=== PATIENT | male | born 1960 | race Caucasian/White ===

== ENCOUNTER 2022-02-25 01:38 | Observation (INO) | payer MEDICARE, OTHER, SELFPAY ==
[2022-02-25] VITALS (21 sets, daily range): BP systolic 96–124; BP diastolic 56–79; PULSE 72–101; RESP 16–24; TEMP 36.3–36.7; O2SAT 95–100; BMI 20.8
[2022-02-25 02:03] LABS: Basophils Absolute Auto 0.1 K/mm3 (0.0-0.1); Basophils Percent Auto 0.8 % (0.2-1.2); Eosinophils Absolute Auto 0.7 K/mm3 (0-0.3); Eosinophils Percent Auto 7.4 % (0-4.4); Hematocrit 35.4 % (42.0-52.0); Hemoglobin 11.4 g/dL (14.0-18.0); Immature Granulocyte Absolute 0.04 K/mm3 (0.00-0.031); Immature Granulocyte Percent A 0.4 % (0-0.5); Lymphocytes Absolute Auto 0.88 K/mm3 (0.9-3.2); Lymphocytes Percent Auto 9.5 % (18.3-44.2); Mean Corpuscular HGB Conc 32.2 g/dl (32-36); Mean Corpuscular Hemoglobin 30.2 pg (26-34); Mean Corpuscular Volume 93.7 fl (80-100); Mean Platelet Volume 9.6 fl (7.4-10.4); Monocytes Absolute Auto 0.9 K/mm3 (0.1-0.6); Monocytes Percent Auto 9.6 % (2.6-8.5); Neutrophils Absolute Auto 6.7 K/mm3 (1.3-6.7); Neutrophils Percent Auto 72.3 % (45.5-73.1); Platelet Count Result 180 k/mm3 (150-375); Red Blood Count 3.78 M/mm3 (4.6-6.20); Red Cell Distribution Width 13.4 % (11.5-14.5); White Blood Count 9.3 K/mm3 (4.5-10.0)
[2022-02-25 02:13] LABS: Alanine Aminotransferase 16 U/L (6-50); Albumin Level 3.1 g/dL (3.5-5.1); Alkaline Phosphatase 111 U/L (38-126); Anion Gap 7 mmol/L (8-16); Aspartate Amino Transferase 17 U/L (17-59); Bilirubin,Total 0.3 mg/dL (0.2-1.3); Blood Urea Nitrogen 49 mg/dL (9-20); Calcium 7.9 mg/dL (8.4-10.2); Carbon Dioxide 27 mmol/L (22-30); Chloride 104 mmol/L (98-107); Estimated CRCL calculation 7 ml/min; Estimated Glomerular Filt Rate 6; Glucose 123 mg/dL (65-110); Potassium 3.9 mmol/L (3.4-5.0); Sodium 138 mmol/L (137-145)
[2022-02-25] MEDS: SODIUM CHLORIDE 0.9% IV 1,000 ML 999 ML IV CONT (02:15)
[2022-02-25] MEDS: PANTOPRAZOLE SODIUM IV 40 MG VIAL 80 MG IV PUSH (02:16)
[2022-02-25 02:47] LABS: INR 1.1
[2022-02-25 02:48] LABS: Partial Thromboplastin Time 30.5 SECONDS (22.3-36.8)
--- NOTE | 2022-02-25 02:50 | ED.GIBLEED ---
HPI - GI Bleed General Chief complaint: GI Bleed Stated complaint: blood in stool History of Present Illness HPI Narrative: Patient is a 61-year-old male who presents ER with a GI bleed. She woke up at 1145 and was having abdominal cramping. He passed liquid stool that was burn and also bright red. This occurred 3 times and then he felt improved. No dizziness or lightheaded or syncope. Patient takes Plavix. He underwent coronary stenting 3 weeks ago at [facility]. Patient also has history of end-stage renal disease and is on peritoneal dialysis. He got his full dialysis then tonight. There is no pain at this time. No nausea or vomiting. Denies recent epigastric discomfort or reflux. Related Data Home Medications Medication Instructions Recorded Confirmed ondansetron HCl 4 mg tablet 4 mg PO PRN PRN Nausea 01/12/19 04/17/19 (Zofran) betamethasone dipropionate 0.05 % 1 applic topical PRN PRN Rash 01/17/19 04/17/19 topical cream bisacodyl 5 mg tablet,delayed 5 mg PO PRN PRN Constipation 01/17/19 04/17/19 release (Dulcolax (bisacodyl)) cholecalciferol (vitamin D3) 50 2,000 unit PO DAILY 01/25/19 04/17/19 mcg (2,000 unit) tablet (Vitamin D3) polyethylene glycol 3350 17 gram 17 g PO DAILY PRN Constipation 01/25/19 04/17/19 oral powder packet (Miralax) amlodipine 5 mg tablet 5 mg PO DAILY 04/17/19 04/17/19 Allergies Allergy/AdvReac Type Severity Reaction Status Date / Time erythromycin base Allergy Mild Rash Verified 04/17/19 13:04 Review of Systems Review of Systems: All systems reviewed & are unremarkable except as noted in HPI and below Constitutional: Constitutional: Denies chills, Denies fatigue and Denies fever(s) ENT: Denies nasal congestion and Denies sore throat Cardiovascular: Cardiovascular: Denies chest pain, Denies rapid heart rate and Denies radiating jaw, neck or arm pain Respiratory: Respiratory: Denies cough and Denies dyspnea Gastrointestinal: Gastrointestinal: Denies abdominal pain, Reports diarrhea, Denies nausea and Denies vomiting Comments: Rectal bleeding Neurologic: Denies syncope and Denies headache(s) COUNT INCLUDES THE [facility] Past Medical History Medical History (Updated 02/25/22 @ 04:53 by Lenin Kirby MD) Coronary artery disease ESRD on peritoneal dialysis Kidney disease Surgical History Surgical History (Updated 02/25/22 @ 02:52 by Lenin Kirby MD) History of bowel resection partial bowel resection. History of inguinal hernia repair History of percutaneous coronary intervention Status post creation of arteriovenous fistula Status post insertion of dialysis catheter Family History Family History Father Hypertension Mother Hypertension Family history of malignant neoplasm Social History Social History Smoking status: Light tobacco smoker Alcohol intake: current Exam Narrative: GENERAL: Chronically ill-appearing and frail, no acute distress. HEAD: Normocephalic, atraumatic. EYES: PERRL and EOMI. ENT: Dry mucous membranes. CHEST: Clear to auscultation. No respiratory distress. HEART: Regular rate and rhythm. Normal peripheral pulses. ABDOMEN: Soft, nontender, nondistended. Gross blood noted on rectal exam. No external hemorrhoid. Peritoneal dialysis catheter in place without tenderness at the insertion site. EXTREMITIES: Normal range of motion. No edema. SKIN: Warm, dry, no rash. NEURO: Alert and oriented x3. PSYCH: Normal mood and affect. Course Course Emergency Course: Patient resting comfortably in the room. He has had no additional bloody bowel movements during his time in the ER which is currently 3 hours. He has received a liter of IV fluid his blood pressure has significantly improved. He has been started on Protonix drip. Patient considered stable. Discussed with Dr. Madsen with the hospitalist service. Alexandra
--- NOTE | 2022-02-25 03:09 | PC.NURSE ---
Pt states he woke up around 2345 and had approx 6 tarry stools mixed with bright red blood. He recently had a cardiac stent placed and was started on plavix. He also takes a baby aspirin daily. He c/o chronic nausea r/t end stage kidney disease but thinks it's been slightly worse the past few days. He c/o decreased appetite. Denies abdominal pain, chest pain, SOB, vomiting, or diarrhea. He does peritoneal dialysis every day and has not missed any treatments.
[2022-02-25] MEDS: SODIUM CHLORIDE 0.9% IV 1,000 ML 125 ML IV CONT (05:03)
[2022-02-25 05:21] LABS: Hematocrit 28.6 % (42.0-52.0); Hemoglobin 9.2 g/dL (14.0-18.0)
[2022-02-25 05:45] LABS: Influenza A QL RT-PCR Negative (Negative); Influenza B QL RT-PCR Negative (Negative); SARS-CoV-2 RNA PCR Negative
--- NOTE | 2022-02-25 05:48 | ADMGEN ---
This patient, Maximo Doty, was admitted to 3 [facility] Surg Room 303-01. Patient/family oriented to hospital policies and general routines including ID bracelet, bed and alarms, visiting hours, pain management, procedures, bathroom and other care routines, personal items, smoking policy, room service/diet, and visiting hours. Information on how to activate the Rapid Response Team has been discussed. Patient/Family are encouraged to report perceived risks to care and to ask questions if they do not understand what they are told or what they should do.
--- NOTE | 2022-02-25 10:24 | PM.CNCAR ---
Assessment and Plan Assessment and plan (1) GI bleed: Code(s): K92.2 - Gastrointestinal hemorrhage, unspecified Status: Acute (2) Acute on chronic anemia: Code(s): D64.9 - Anemia, unspecified Status: Acute (3) Coronary artery disease: Code(s): I25.10 - Atherosclerotic heart disease of [place] coronary artery without angina pectoris Status: Acute (4) ESRD on peritoneal dialysis: Code(s): N18.6 - End stage renal disease; Z99.2 - Dependence on renal dialysis Status: Acute Plan Patient recently had one drug-eluting stent placed in his proximal-mid LCX less than 1 month ago (done on 01/27). Given this, would NOT stop his ASA and Plavix. Recommend to continue DAPT to avoid stent thrombosis. GI has been consulted for his GI bleed. Recommend to continue statin. Patient is scheduled to follow-up with his religious healer Dr. Cheng next week. History of Present Illness History of Present Illness Consult date/time: 02/25/22 10:24 Requesting physician: Lenin Kirby MD Consult reason: Other (Medication management in setting of GI bleed.) Reason For Visit: Rectal Bleeding Narrative: We are being consulted for antiplatelet management in setting of GI bleed and recent coronary stent. This is a 61-year-old male with a history of coronary artery disease. He recently underwent PCI by Dr. Garvey on 01/27 with a 4.0mm x 15mm Orsiro drug-eluting stent to his proximal-mid LCX. He also had moderate LAD disease that was negative for ischemia by IFR evaluation. Also had moderate RCA disease. Patient has been on ASA and Plavix since then. Last night, he woke up with abdominal cramping and had multiple stools with bright red blood along with maroon colored blood. Had multiple bowel movements. Warren lightheaded at that time. His Hgb on admission is 9.2 Patient also has a history of ESRD on peritoneal dialysis. He is currently hemodynamically stable. No cardiac complaints. Has followup with his religious healer Dr. Cheng next week. Review of Systems Review of Systems: 12-point ROS obtained. Negative, unless stated in HPI. [facility] Past Medical History Medical History Coronary artery disease ESRD on peritoneal dialysis Kidney disease Surgical History Surgical History History of bowel resection partial bowel resection. History of inguinal hernia repair History of percutaneous coronary intervention Status post creation of arteriovenous fistula Status post insertion of dialysis catheter Family History Family History Father Hypertension Mother Hypertension Family history of malignant neoplasm Social History Social History Smoking packs per day: 0.25 Smoking cigarettes per day: 5.0 Smoking status: Current every day smoker Tobacco type: cigarettes Alcohol intake: current Drinks per week: 1 Substance use: current Substance use type: marijuana Lack of Transportation: No Lack of Food: Never True Current Housing: I Have Housing Concerned About Future Housing: No Difficulty Paying Gas/Electric Bills: No Difficulty Paying for Meds: No Currently Unemployed: No Education: High School Diploma/GED Difficulty w/ Childcare or Family Care: No Spiritual care concerns: No Meds Home Medications and Allergies Home Medications Medication Instructions Recorded Confirmed Type ondansetron HCl 4 mg tablet 4 mg PO PRN PRN Nausea 01/12/19 02/25/22 History (Zofran) betamethasone dipropionate 0.05 % 1 applic topical PRN PRN Rash 01/17/19 02/25/22 History topical cream cholecalciferol (vitamin D3) 50 2,000 unit PO DAILY 01/25/19 02/25/22 History mcg (2,000 unit) tablet (Vitamin D3) polyethylene glycol 3350 17 gram 17 g PO DAILY PRN Constipation 12
[2022-02-25 11:08] LABS: Hematocrit 28.5 % (42.0-52.0); Hemoglobin 9.1 g/dL (14.0-18.0)
--- NOTE | 2022-02-25 12:31 | WPDGICN ---
Assessment and Plan Assessment and plan (1) GI bleed: Code(s): K92.2 - Gastrointestinal hemorrhage, unspecified Status: Acute Assessment and Plan: Patient with rather significant GI bleeding. Both fresh and old blood were passed starting 11:00 a.m. last evening lasted for several hours. No additional bleeding since that time. This is most consistent with diverticular bleeding. Probably aggravated by requirement of being on Plavix. Patient reports colonoscopy within the last several years that revealed no polyps. Only diverticular disease identified. Anticipate this would stop on its own. Plan to monitor patient until hemoglobin is stabilized. Advance to a high-fiber diet. Outpatient follow-up encouraged. (2) ESRD on peritoneal dialysis: Code(s): N18.6 - End stage renal disease; Z99.2 - Dependence on renal dialysis Status: Acute (3) Coronary artery disease: Code(s): I25.10 - Atherosclerotic heart disease of [place] coronary artery without angina pectoris Status: Acute Assessment and Plan: Patient with a recent coronary stent placement. Continuing Plavix will be required daily. This could place him at risk for additional bleeding. Continue monitor for signs of additional bleeding. (4) Diverticular disease of colon: Code(s): K57.30 - Diverticulosis of large intestine without perforation or abscess without bleeding Status: Acute Assessment and Plan: Patient known to have diverticular disease of the colon. He has previously had diverticulitis required resection of pericolonic abscess and partial colon resection at that time. I suspect bleeding at this time is related to diverticular disease of the colon. GI Consult Note Consult date/time: 02/25/22 12:31 Reason for consult: Lower GI bleeding HPI: Maximo Doty is a 61 year old male I am asked to see at the request of the hospitalist because of lower GI bleeding. Patient reports he was in his usual state of health till last evening when he began to pass a large amount of blood some clots some fresh admixed with dark blood. Patient noticed this that persisted with several bowel movements that lasted for several hours. He presented to the emergency room and was admitted. He states bleeding stopped after 1:00 a.m. in the morning. He has had no blood or bowel movements since that time. Patient denies abdominal pain. Patient's past medical history is significant for diverticulitis. Several years ago underwent sigmoid resection because of diverticulitis and pericolonic abscess. Earlier this year patient had repair of an incisional hernia. One month ago shortly before [place] he had a coronary artery stent placement at [facility]. It was a drug alluding stent, and since that time patient has been maintained on Plavix. He will be required to continue this medication for at least 6 months. Patient has end-stage renal disease. He is currently on peritoneal dialysis. Previously had an AV shunt in the left arm that is not being utilized. Review of Systems Review of Systems: Review of systems non contributory per [facility] Past Medical History Medical History Coronary artery disease ESRD on peritoneal dialysis Kidney disease Surgical History Surgical History History of bowel resection partial bowel resection. History of inguinal hernia repair History of percutaneous coronary intervention Status post creation of arteriovenous fistula Status post insertion of dialysis catheter Family History Family History Father Hypertension Mother Hypertension Family history of malignant neoplasm Social History Social History Smoking packs per day: 0.25 Smoking cigarettes per da
--- NOTE | 2022-02-25 13:17 | PM.IMHP ---
H&P: HPI History of Present Illness Date/Time: 02/25/22 13:17 Chief Complaint: rectal bleeding Narrative: ED-HPI Narrative: Patient is a 61-year-old male who presents ER with a GI bleed.? She woke up at 1145 and was having abdominal cramping.? He passed liquid stool that was burn and also bright red.? This occurred 3 times and then he felt improved.? No dizziness or lightheaded or syncope.? Patient takes Plavix.? He underwent coronary stenting 3 weeks ago at [facility].? Patient also has history of end-stage renal disease and is on peritoneal dialysis.? He got his full dialysis then tonight.? There is no pain at this time.? No nausea or vomiting.? Denies recent epigastric discomfort or reflux. currently patient any abdominal pain nausea or vomiting or rectal bleeding, upon arrival patient hemoglobin was 11.4 this morning is 9.2 will continue to monitor, 3 weeks ago patient had a cardiac stent placed and was started on Plavix and aspirin, since patient's stents so fresh, and high risk of clogged, will continue will continue aspirin and Plavix, will monitor patient hemoglobin q.6, will be seen by Cardiology and GI further recommendation to follow. patient with history of end-stage renal disease on peritoneal dialysis, patient is not requesting dietary aide. patient is admitted as observation status Review of Systems Review of Systems: Review of systems non contributory per [facility] Past Medical History Medical History Coronary artery disease ESRD on peritoneal dialysis Kidney disease Surgical History Surgical History History of bowel resection partial bowel resection. History of inguinal hernia repair History of percutaneous coronary intervention Status post creation of arteriovenous fistula Status post insertion of dialysis catheter Family History Family History Father Hypertension Mother Hypertension Family history of malignant neoplasm Social History Social History Smoking packs per day: 0.25 Smoking cigarettes per day: 5.0 Smoking status: Current every day smoker Tobacco type: cigarettes Alcohol intake: current Drinks per week: 1 Substance use: current Substance use type: marijuana Lack of Transportation: No Lack of Food: Never True Current Housing: I Have Housing Concerned About Future Housing: No Difficulty Paying Gas/Electric Bills: No Difficulty Paying for Meds: No Currently Unemployed: No Education: High School Diploma/GED Difficulty w/ Childcare or Family Care: No Spiritual care concerns: No Meds Home Medications and Allergies Home Medications Medication Instructions Recorded Confirmed Type ondansetron HCl 4 mg tablet 4 mg PO PRN PRN Nausea 01/12/19 02/25/22 History (Zofran) betamethasone dipropionate 0.05 % 1 applic topical PRN PRN Rash 01/17/19 02/25/22 History topical cream cholecalciferol (vitamin D3) 50 2,000 unit PO DAILY 01/25/19 02/25/22 History mcg (2,000 unit) tablet (Vitamin D3) polyethylene glycol 3350 17 gram 17 g PO DAILY PRN Constipation 01/25/19 02/25/22 History oral powder packet (Miralax) amlodipine 5 mg tablet 10 mg PO DAILY 04/17/19 02/25/22 History aspirin 81 mg tablet,delayed 81 mg PO DAILY 02/25/22 02/25/22 History release atorvastatin 20 mg tablet (Lipitor) 20 mg PO DAILY 02/25/22 02/25/22 History clopidogrel 75 mg tablet (Plavix) 75 mg PO DAILY 02/25/22 02/25/22 History vit A 7,160 unit-C 113 mg-E 100 1 tablet PO DAILY 02/25/22 02/25/22 History [id number] tablet,delayed rel. Allergies Allergy/AdvReac Type Severity Reaction Status Date / Time lorazepam [From Ativan] Allergy Severe Confusion Verified 02/25/22 05:57 erythromycin base Allergy Mild Rash Verified 04/17/19 13:04
[2022-02-25 18:04] LABS: Hematocrit 28.7 % (42.0-52.0); Hemoglobin 9.2 g/dL (14.0-18.0)
[2022-02-25] MEDS: ATORVASTATIN 20 MG TABLET PO (20:58)
[2022-02-25] MEDS: ASPIRIN 81 MG ENTERIC TABLET PO (20:58)
[2022-02-25] MEDS: CHOLECALCIFEROL 1,000 UNITS TABLET 2000 UNITS PO (20:58)
[2022-02-25] MEDS: OPTI-GEN TAB 1 TABLET PO (20:58)
[2022-02-25] MEDS: CLOPIDOGREL BISULFATE 75 MG TABLET PO (20:59)
[2022-02-25] MEDS: amLODIPine BESYLATE 5 MG TABLET 10 MG PO (20:59)
[2022-02-25 23:48] LABS: Hematocrit 30.1 % (42.0-52.0); Hemoglobin 9.8 g/dL (14.0-18.0)
--- NOTE | 2022-02-26 | PC.NURSE ---
Notified Dr. Madsen at this time r/t patient elevated HR and rhythm change on telemetry. New orders received for EKG. 00:13 EKG done showing A-Fib RVR. Notified Dr. Madsen of results. New orders received for Metoprolol 5mg IV push once.
--- NOTE | 2022-02-26 00:13 | ECG_ITS ---
Measurements Intervals [place] Rate: 132 P: [place]: 0 QRS: 44 QRSD: 90 T: 64 QT: 306 QTc: 454 Interpretive Statements ATRIAL FIBRILLATION WITH RAPID VENTRICULAR RESPONSE BORDERLINE ST ABNORMALITY- LATERAL LEADS ABNORMAL ECG COMPARED TO ECG 07/21/2018 12:41:38 ATRIAL FIBRILLATION NOW PRESENT ST (T WAVE) DEVIATION NOW PRESENT Electronically Signed On 02-26-2022 7:49:41 ACCOUNTS PAYABLE COORDINATOR by Edmond Patino D.O.
[2022-02-26] MEDS: METOPROLOL TARTRATE INJ 5 MG/5 ML VIAL IV PUSH (01:13)
[2022-02-26 04:00] VITALS: PULSE 122
[2022-02-26 06:00] VITALS: BP 122/72; PULSE 111; RESP 14; TEMP 36.4; O2SAT 99
[2022-02-26 06:10] LABS: Hematocrit 31.4 % (42.0-52.0); Hemoglobin 10.1 g/dL (14.0-18.0); Mean Corpuscular HGB Conc 32.2 g/dl (32-36); Mean Corpuscular Hemoglobin 30.5 pg (26-34); Mean Corpuscular Volume 94.9 fl (80-100); Mean Platelet Volume 9.5 fl (7.4-10.4); Platelet Count Result 162 k/mm3 (150-375); Red Blood Count 3.31 M/mm3 (4.6-6.20); Red Cell Distribution Width 13.2 % (11.5-14.5); White Blood Count 6.7 K/mm3 (4.5-10.0)
[2022-02-26 06:16] LABS: Albumin Level 2.9 g/dL (3.5-5.1); Anion Gap 7 mmol/L (8-16); Blood Urea Nitrogen 54 mg/dL (9-20); Carbon Dioxide 22 mmol/L (22-30); Chloride 109 mmol/L (98-107); Estimated CRCL calculation 6 ml/min; Estimated Glomerular Filt Rate 6; Glucose 85 mg/dL (65-110); Magnesium 2.1 mg/dL (1.6-2.3); Phosphorus 5.8 mg/dL (2.5-4.5); Potassium 4.2 mmol/L (3.4-5.0); Sodium 138 mmol/L (137-145)
[2022-02-26 08:00] VITALS: PULSE 123
[2022-02-26] MEDS: PANTOPRAZOLE 40 MG TABLET PO (08:13)
[2022-02-26] MEDS: ONDANSETRON HCL ODT 4 MG TABLET PO (08:14)
--- NOTE | 2022-02-26 08:26 | WPDGIPROGNO ---
Progress Note: A&P Assessment and Plan (1) GI bleed: Code(s): K92.2 - Gastrointestinal hemorrhage, unspecified Status: Acute Assessment and Plan: Patient admitted with apparent lower GI bleeding. History is very suspicious for diverticular disease. Patient recently started on Plavix because of heart stent. At present Plavix cannot be discontinue. Bleeding has abated. Would recommend a colonoscopy be performed to further be certain about the etiology of the bleeding. At this point however patient has stopped bleeding he refuses to remain in the hospital for colonoscopy. He does have an established sleeve bottom feller. Plan is for him to follow-up with Dr. Leighton Melton for colonoscopy and possible EGD, if necessary. patient will remain on Plavix. If additional bleeding noted he is instructed to return to the emergency room. (2) Diverticular disease of colon: Code(s): K57.30 - Diverticulosis of large intestine without perforation or abscess without bleeding Status: Acute Assessment and Plan: Patient has history of diverticulitis and partial colon resection on this basis. Apparently had pericolonic abscess at that time. Known diverticular disease is suspected be etiology of recent blood loss. (3) Acute on chronic anemia: Code(s): D64.9 - Anemia, unspecified Status: Acute Assessment and Plan: Patient with anemia. Hemoglobin currently stable since admission. Slight decline noted on presentation. Currently stable hemoglobin. Okay with me for discharge at this point. (4) Coronary artery disease: Code(s): I25.10 - Atherosclerotic heart disease of [place] coronary artery without angina pectoris Status: Acute Assessment and Plan: Patient had a heart stent placed currently on Plavix he should continue to follow-up with cardiology as scheduled. (5) ESRD on peritoneal dialysis: Code(s): N18.6 - End stage renal disease; Z99.2 - Dependence on renal dialysis Status: Acute Subjective Date/time seen: 02/26/22 08:26 Interval history: No additional bleeding noted. Patient reports bowel movement with no blood in it. He denies abdominal pain. Tolerating diet without difficulty. Anxious to go home. Refuses additional in patient testing. Desires to have outpatient testing. Review of Systems Review of Systems: review of systems noncontributory. Exam Narrative: Physical exam reveals patient to be alert. Vital signs stable. HEENT exam is unremarkable. Patient is anicteric. Lungs are clear to auscultation and percussion. Heart without murmur. Abdomen bowel sounds present soft nontender with no hepatosplenomegaly. Objective Data Vital Signs Vital Signs: Vital Signs - 24 hr 02/25/22 08:36 02/25/22 08:45 02/25/22 08:49 Temperature 98.0 F Pulse Rate 79 87 Respiratory Rate 16 Blood Pressure 112/71 115/68 Pulse Oximetry 95 97 Oxygen Delivery Room Air 02/25/22 08:53 02/25/22 08:30 02/25/22 14:30 Temperature 98.0 F Pulse Rate 90 76 Respiratory Rate 16 Blood Pressure 113/79 110/70 Pulse Oximetry 97 Oxygen Delivery Room Air 02/25/22 10:21 02/25/22 12:00 02/25/22 16:00 Temperature Pulse Rate 100 82 77 Respiratory Rate Blood Pressure Pulse Oximetry Oxygen Delivery 02/25/22 20:54 02/25/22 20:00 02/26/22 06:00 Temperature 97.4 F L 97.5 F L Pulse Rate 88 111 H Respiratory Rate 18 14 Blood Pressure 124/66 122/72 Pulse Oximetry 98 98 99 Oxygen Delivery Room Air 02/25/22 20:00 02/26/22 04:00 Temperature Pulse Rate 77 122 H Respiratory Rate Blood Pressure Pulse Oximetry Oxygen Delivery Intake/Output Intake/Output: Intake & Output 02/23/22 02/24/22 02/25/22 02/26/22 23:59 23:59 23:59 23:59 Intake Total 2580 330 Output Total 800 Balance 2580 -470 Meds/Results Medications: Active Medications Generic Name Dose Route Start Last Admin
--- NOTE | 2022-02-26 10:07 | PM.IMPN ---
Subjective Date/time seen: 02/26/22 10:07 Objective Data Vital Signs Vital Signs: Vital Signs - 24 hr 02/25/22 14:30 02/25/22 10:21 02/25/22 12:00 Temperature 98.0 F Pulse Rate 76 100 82 Respiratory Rate 16 Blood Pressure 110/70 Pulse Oximetry 97 Oxygen Delivery 02/25/22 16:00 02/25/22 20:54 02/25/22 20:00 Temperature 97.4 F L Pulse Rate 77 88 Respiratory Rate 18 Blood Pressure 124/66 Pulse Oximetry 98 98 Oxygen Delivery Room Air 02/26/22 06:00 02/25/22 20:00 02/26/22 04:00 Temperature 97.5 F L Pulse Rate 111 H 77 122 H Respiratory Rate 14 Blood Pressure 122/72 Pulse Oximetry 99 Oxygen Delivery Intake/Output Intake/Output: Intake & Output 02/23/22 02/24/22 02/25/22 02/26/22 23:59 23:59 23:59 23:59 Intake Total 2580 570 Output Total 800 Balance 2580 -230 Meds/Results Medications: Active Medications Generic Name Dose Route Start Last Admin Trade Name Freq PRN Reason Stop Dose Admin Amlodipine Besylate 10 mg 02/25/22 21:00 02/25/22 20:59 Amlodipine Besylate 5 Mg Tablet PO 10 mg HS ALEXANDRE Administration Aspirin 81 mg 02/25/22 21:00 02/25/22 20:58 Aspirin 81 Mg Enteric Tablet PO 81 mg HS ALEXANDRE Administration Atorvastatin Calcium 20 mg 02/25/22 21:00 02/25/22 20:58 Atorvastatin 20 Mg Tablet PO 20 mg HS ALEXANDRE Administration Clopidogrel Bisulfate 75 mg 02/25/22 21:00 02/25/22 20:59 Clopidogrel Bisulfate 75 Mg Tablet PO 75 mg HS ALEXANDRE Administration Fentanyl Citrate 50 mcg 02/25/22 04:49 Fentanyl Citrate Inj (*Crx) 100 Mcg/2 Ml Vial IV PUSH Q2H PRN Pain Rated 7-10 Multivitamins/Minerals 1 tablet 02/25/22 21:00 02/25/22 20:58 Opti-Gen Tab PO 03/27/22 08:59 1 tablet HS ALEXANDRE Administration Ondansetron HCl 4 mg 02/25/22 08:32 02/26/22 08:14 Ondansetron Hcl Odt 4 Mg Tablet PO 4 mg PRN PRN Administration Nausea Pantoprazole Sodium 40 mg 02/26/22 09:00 02/26/22 08:13 Pantoprazole 40 Mg Tablet PO 40 mg QAM ALEXANDRE Administration Polyethylene Glycol 17 gm 02/25/22 08:32 Polyethylene Glycol 3350 17 Gm Powd.Pack PO DAILY PRN Constipation Triamcinolone Acetonide 1 applic 02/25/22 08:32 Triamcinolone Acet 0.1% Cream 15 Gm Tube TOPICAL PRN PRN Rash Vitamin D 2,000 units 02/25/22 21:00 02/25/22 20:58 Cholecalciferol 1,000 Units Tablet PO 2,000 units HS ALEXANDRE Administration Labs Labs: Laboratory Results - last 24 hr 02/25/22 02/25/22 02/25/22 10:53 17:38 23:35 WBC RBC Hgb 9.1 L 9.2 L 9.8 L Hct 28.5 L 28.7 L 30.1 L MCV MCH MCHC RDW Plt Count MPV Sodium Potassium Chloride Carbon Dioxide Anion Gap BUN Creatinine Estim Creat Clear Calc Estimated GFR Glucose Calcium Phosphorus Magnesium Albumin 02/26/22 02/26/22 05:59 05:59 WBC 6.7 RBC 3.31 L Hgb 10.1 L Hct 31.4 L MCV 94.9 MCH 30.5 MCHC 32.2 RDW 13.2 Plt Count 162 MPV 9.5 Sodium 138 Potassium 4.2 Chloride 109 H Carbon Dioxide 22 Anion Gap 7 L BUN 54 H Creatinine 9.30 H Estim Creat Clear Calc 6 Estimated GFR 6 L Glucose 85 Calcium 8.0 L Phosphorus 5.8 H Magnesium 2.1 Albumin 2.9 L
--- NOTE | 2022-03-06 13:51 | PM.DS ---
DS: Admitting Diagnosis Discharge Date 02/26/22 Admitting Diagnosis rectal bleeding DS: Summary Hospital Course Reason for hospitalization: ED-HPI Narrative: Patient is a 61-year-old male who presents ER with a GI bleed.? She woke up at 1145 and was having abdominal cramping.? He passed liquid stool that was burn and also bright red.? This occurred 3 times and then he felt improved.? No dizziness or lightheaded or syncope.? Patient takes Plavix.? He underwent coronary stenting 3 weeks ago at [facility].? Patient also has history of end-stage renal disease and is on peritoneal dialysis.? He got his full dialysis then tonight.? There is no pain at this time.? No nausea or vomiting.? Denies recent epigastric discomfort or reflux. ?currently patient any abdominal pain nausea or vomiting or rectal bleeding, upon arrival patient hemoglobin was 11.4? this morning is 9.2? will continue to monitor, 3 weeks ago patient had a cardiac stent placed and was started on Plavix and aspirin, since patient's stents? so fresh, and high risk of clogged,? will continue will continue aspirin and Plavix, will monitor patient hemoglobin q.6, will be seen by Cardiology and GI further recommendation to follow.? patient with history of end-stage renal disease on peritoneal dialysis, patient is not requesting pulp grinder. Hospital Course: Patient is a 61 y/o s/p cardiac cath and had cardiac stents placed 3 weeks ago and has been taking plavix and aspirin for his CAD, patient present to the hospital with rectal blenteding, becuse recently had stents placed unable to discontinue because of clogging the recent stents place and risk of [place], patient is seen by GI, patient bleeding has stopped and patient is clinically stable, he does not wish to remain in the hospital, GI is agreeable to discharge patient to follow up with his GI and apple solutions consultant, with instruction if any symptoms redevelop to go to nearest ER Time Spent with Patient Time attestation: Total time spent providing and/or coordinating discharge services: Exam Narrative: Patient is comfortable, NAD HEENT: eyes are clear and none icteric LUNGS: normal respiratory effort ABD:? not distended Lower extremities: no edema SKIN: nonjaundiced Neuro: grossly intact. Discharge Plan Discharge Attending physician on discharge: Jonathan Aguilar Consulting providers: Yoel Ann ; Manda Hassan ; Edmond Patino Discharging Clinician: Jonathan Aguilar Patient Disposition: Home, Self-Care Activity: as tolerated Diet: heart healthy Discharge Instructions: Patient to follow-up with his bilingual inside sales representative, primary care provider and [employer] consultant as soon as possible, patient instructed if any symptoms redeveloped such as bleeding to go to nearest emergency department. Patient Instructions: Antibiotic Form, How to Stop Smoking (DC) Stand Alone Forms: General Discharge Information Follow-up/Referrals: Vargas,Traci Rai DO [Primary Care Provider] - Discharge Medications: New pantoprazole 40 mg Tablet,Delayed Release (Dr/Ec) 40 mg PO QAM Qty: 30 0RF Continued ondansetron HCl [Zofran] 4 mg tablet 4 mg PO PRN PRN (Reason: Nausea) amlodipine 5 mg tablet 10 mg PO DAILY polyethylene glycol 3350 [Miralax] 17 gram Powder In Packet 17 g PO DAILY PRN (Reason: Constipation) cholecalciferol (vitamin D3) [Vitamin D3] 2,000 unit Tablet 2,000 unit PO DAILY atorvastatin [Lipitor] 20 mg Tablet 20 mg PO DAILY clopidogrel [Plavix] 75 mg tablet 75 mg PO DAILY aspirin 81 mg tablet,delayed release (DR/EC) 81 mg PO DAILY vitamins A,C,U-ewap-dujtol [id number] Tablet,Delayed Release (Dr/Ec) 1 tablet PO DAILY betamethasone dipropionate 0.05 % Cream 1 applic TOPICAL PRN PRN (Reason: Rash) No Action isosorbide mononitrate 30 mg tablet extended release 24 hr 30 mg PO DAILY ferrous sulfate [Feosol] 325 mg (65 mg iron)
--- NOTE | 2022-03-15 14:34 | PM.DS ---
DS: Admitting Diagnosis Discharge Date 02/26/22 Admitting Diagnosis rectal bleeding DS: Summary Hospital Course Reason for hospitalization: ?rectal bleeding Narrative: ED-HPI Narrative: Patient is a 61-year-old male who presents ER with a GI bleed.? She woke up at 1145 and was having abdominal cramping.? He passed liquid stool that was burn and also bright red.? This occurred 3 times and then he felt improved.? No dizziness or lightheaded or syncope.? Patient takes Plavix.? He underwent coronary stenting [address] [facility].? Patient also has history of end-stage renal disease and is on peritoneal dialysis.? He got his full dialysis then tonight.? There is no pain at this time.? No nausea or vomiting.? Denies recent epigastric discomfort or reflux. ?currently patient denies any abdominal pain nausea or vomiting or rectal bleeding, upon arrival patient hemoglobin was 11.4? this morning is 9.2? will continue to monitor, 3 weeks ago patient had a cardiac stent placed and was started on Plavix and aspirin, since patient's stents? so fresh, and high risk of clogged,? will continue will continue aspirin and Plavix, will monitor patient hemoglobin q.6, will be seen by Cardiology and GI further recommendation to follow.? patient with history of end-stage renal disease on peritoneal dialysis, patient is not requesting financial foundations representative. Hospital Course: patient 61 years old recently had a cardiac stents being treated with dual anti-platelet therapy, and presented emergency depart to complain of rectal bleeding, patient was seen by GI recommended EGD and colonoscopy however patient is on dual anti-platelet therapy unable to hold the medication because of recent stent and risk for clogging, this morning patient denies any abdominal pain or rectal bleeding is clinically stable will discharge the patient today and will follow up with his GI as soon as possible. Time Spent with Patient Time attestation: Total time spent providing and/or coordinating discharge services: Exam Narrative: Patient is comfortable, NAD HEENT: eyes are clear and none icteric LUNGS:CTA HEART: RR S1S2 ABD: BS+, Soft and nontender Lower extremities: no edema SKIN: nonjaundiced Neuro: grossly intact. Discharge Plan Discharge Attending physician on discharge: Jonathan Aguilar Consulting providers: Yoel Ann ; Manda Hassan ; Edmond Patino Discharging Clinician: Jonathan Aguilar Patient Disposition: Home, Self-Care Activity: as tolerated Diet: heart healthy Discharge Instructions: Patient to follow-up with his employee service officer, primary care provider and medical concierge as soon as possible, patient instructed if any symptoms redeveloped such as bleeding to go to nearest emergency department. Patient Instructions: Antibiotic Form, How to Stop Smoking (DC) Stand Alone Forms: General Discharge Information Follow-up/Referrals: Vargas,Traci Rai DO [Primary Care Provider] - Discharge Medications: New pantoprazole 40 mg Tablet,Delayed Release (Dr/Ec) 40 mg PO QAM Qty: 30 0RF Continued ondansetron HCl [Zofran] 4 mg tablet 4 mg PO PRN PRN (Reason: Nausea) amlodipine 5 mg tablet 10 mg PO DAILY polyethylene glycol 3350 [Miralax] 17 gram Powder In Packet 17 g PO DAILY PRN (Reason: Constipation) cholecalciferol (vitamin D3) [Vitamin D3] 2,000 unit Tablet 2,000 unit PO DAILY atorvastatin [Lipitor] 20 mg Tablet 20 mg PO DAILY clopidogrel [Plavix] 75 mg tablet 75 mg PO DAILY aspirin 81 mg tablet,delayed release (DR/EC) 81 mg PO DAILY vitamins A,C,D-nhpo-pzdgmr [id number] Tablet,Delayed Release (Dr/Ec) 1 tablet PO DAILY betamethasone dipropionate 0.05 % Cream 1 applic TOPICAL PRN PRN (Reason: Rash) No Action isosorbide mononitrate 30 mg tablet extended release 24 hr 30 mg PO DAILY ferrous sulfate [Feosol] 325 mg (65 mg iron) tablet 325
== END 2022-02-26 10:45 | disposition home or self-care (01) ==
LOC: ANHED 04:53 → ANH3MEDSUR 05:36
PROVIDERS: Admitting Provider Family Medicine; Emergency Provider Emergency Medicine; PCP Internal Medicine; Visit Provider Family Medicine
DX: K92.2 Gastrointestinal hemorrhage, unspecified (principal); I48.91 Unspecified atrial fibrillation; D64.9 Anemia, unspecified; I25.10 Atherosclerotic heart disease of native coronary artery without angina pectoris; Z95.5 Presence of coronary angioplasty implant and graft; N18.6 End stage renal disease; Z99.2 Dependence on renal dialysis; R94.31 Abnormal electrocardiogram [ECG] [EKG]; Z90.49 Acquired absence of other specified parts of digestive tract; F17.210 Nicotine dependence, cigarettes, uncomplicated; F12.90 Cannabis use, unspecified, uncomplicated; F10.90 Alcohol use, unspecified, uncomplicated; Z20.822 Contact with and (suspected) exposure to COVID-19; Z79.02 Long term (current) use of antithrombotics/antiplatelets; Z79.82 Long term (current) use of aspirin; Z79.52 Long term (current) use of systemic steroids; Z79.899 Other long term (current) drug therapy
CPT/HCPCS: 36415; 80053; 80069; 83735; 85014; 85018; 85025; 85027; 85610; 85730; 86850; 86900; 86901; 87636; 93005; 96361; 96374; 96375; 99285; A9270; C9113; G0378; J7030; J7060

== ENCOUNTER 2022-03-02 22:42 | Observation (INO) | payer MEDICARE, OTHER, SELFPAY ==
--- NOTE | ~2022-03-02 | CT_ITS ---
CT Angiogram Abdomen and Pelvis with contrast. History: GI bleed. Spiral CT of the abdomen and pelvis was performed after the administration of intravenous contrast. 1 00 cc of Omnipaque 350 was administered intravenously without complication. Dose reduction technique was used on this scan by utilizing automated exposure control and iterative reconstruction technique. The dose-length product (DLP) was 376.67 mGy-cm. COMPARISON: 07/21/2018 Findings: Scans through the lung bases demonstrate mild atelectatic change. The liver, spleen, pancreas, gallbladder, adrenals and kidneys are within normal limits. There is inf rarenal abdominal aortic aneurysm measuring up to 3.4 cm in maximum diameter.. No lymphadenopathy is seen. There is no evidence of bowel obstruction. There is probable oral contrast within several loops of sm all bowel in the midabdomen. No other abnormal hyperdense intraluminal material identified.. Images through the pelvis were performed. Urinary bladder unremarkable. Prostate gland mildly enlarge d. Peritoneal dialysis catheter is present, with small amount of abdominopelvic ascites. Impression: Probable oral contrast within several loops of small bowel. No definite evidence for active GI bleedi ng. Peritoneal dialysis catheter with small amount of ascites. 3.4 cm infrarenal abdominal aortic aneurysm. Reviewed, dictated and finalized at location [facility] Impression: Probable oral contrast within several loops of small bowel. No definite evidenc e for active GI bleeding. Peritoneal dialysis catheter with small amount of ascites. 3.4 cm infrarenal abdominal aortic aneurysm.
[2022-03-02 22:46] VITALS: BP 99/48; PULSE 88; RESP 18; TEMP 36.6; O2SAT 94
--- NOTE | 2022-03-02 23:17 | ED.GENADULT ---
HPI - General Adult General Chief complaint: GI Bleed Stated complaint: Gi bleed Time Seen by Provider: 03/02/22 22:57 History of Present Illness HPI narrative: Patient 61-year-old gentleman who presents the emergency department with chief complaint of rectal bleeding. The patient reports that he recently had a GI bleed was admitted to the hospital here and reports that he is on Plavix and aspirin after recent cardiac stent. Patient also reports he has history of renal disease and is on peritoneal dialysis the patient reports that he was in the hospital recently bleeding it stopped did not require blood transfusion during the previous admission and has had 2 to 3 days of no bleeding. The patient states that today he started having bloody diarrhea reports no abdominal pain reports no cloudy peritoneal dialysis fluid Related Data Home Medications Medication Instructions Recorded Confirmed ondansetron HCl 4 mg tablet 4 mg PO PRN PRN Nausea 01/12/19 02/25/22 (Zofran) betamethasone dipropionate 0.05 % 1 applic topical PRN PRN Rash 01/17/19 02/25/22 topical cream cholecalciferol (vitamin D3) 50 2,000 unit PO DAILY 01/25/19 02/25/22 mcg (2,000 unit) tablet (Vitamin D3) polyethylene glycol 3350 17 gram 17 g PO DAILY PRN Constipation 01/25/19 02/25/22 oral powder packet (Miralax) amlodipine 5 mg tablet 10 mg PO DAILY 04/17/19 02/25/22 aspirin 81 mg tablet,delayed 81 mg PO DAILY 02/25/22 02/25/22 release atorvastatin 20 mg tablet (Lipitor) 20 mg PO DAILY 02/25/22 02/25/22 clopidogrel 75 mg tablet (Plavix) 75 mg PO DAILY 02/25/22 02/25/22 vit A 7,160 unit-C 113 mg-E 100 1 tablet PO DAILY 02/25/22 02/25/22 [id number] tablet,delayed rel. Allergies Allergy/AdvReac Type Severity Reaction Status Date / Time lorazepam [From Ativan] Allergy Severe Confusion Verified 03/02/22 22:43 erythromycin base Allergy Mild Rash Verified 03/02/22 22:43 Review of Systems Review of Systems: A 10 system review of systems was completed on the patient and is negative except for what is stated in the HPI. Nursing and ancillary documentation was reviewed. PMFSH Past Medical History Medical History Coronary artery disease ESRD on peritoneal dialysis Kidney disease Surgical History Surgical History History of bowel resection partial bowel resection. History of inguinal hernia repair History of percutaneous coronary intervention Status post creation of arteriovenous fistula Status post insertion of dialysis catheter Family History Family History Father Hypertension Mother Hypertension Family history of malignant neoplasm Social History Social History Smoking packs per day: 0.25 Smoking cigarettes per day: 5.0 Smoking status: Current every day smoker Tobacco type: cigarettes Alcohol intake: current Drinks per week: 1 Substance use: current Substance use type: marijuana Lack of Transportation: No Lack of Food: Never True Current Housing: I Have Housing Concerned About Future Housing: No Difficulty Paying Gas/Electric Bills: No Difficulty Paying for Meds: No Currently Unemployed: No Education: High School Diploma/GED Difficulty w/ Childcare or Family Care: No Living arrangements: with family Occupation/Education: unemployed Spiritual care concerns: No Exam Narrative: GENERAL: Well-appearing, well-nourished, and in no acute distress. HEAD: Normocephalic, atraumatic. EYES: PERRLA and EOMI. ENT: Nares clear, no rhinorrhea or epistaxis. Mucous membranes moist. NECK: Supple. CHEST: Clear to auscultation. No respiratory distress. HEART: Regular rate and rhythm. No murmur heard. Normal peripheral pulses. ABDOMEN: Soft, nonte
[2022-03-02 23:47] LABS: Basophils Percent Auto 0.3 % (0.2-1.2); Eosinophils Absolute Auto 0.7 K/mm3 (0-0.3); Eosinophils Percent Auto 5.9 % (0-4.4); Hematocrit 26.5 % (42.0-52.0); Hemoglobin 8.8 g/dL (14.0-18.0); Immature Granulocyte Absolute 0.06 K/mm3 (0.00-0.031); Immature Granulocyte Percent A 0.5 % (0-0.5); Lymphocytes Absolute Auto 0.46 K/mm3 (0.9-3.2); Lymphocytes Percent Auto 3.9 % (18.3-44.2); Mean Corpuscular HGB Conc 33.2 g/dl (32-36); Mean Corpuscular Hemoglobin 30.8 pg (26-34); Mean Corpuscular Volume 92.7 fl (80-100); Mean Platelet Volume 9.4 fl (7.4-10.4); Monocytes Absolute Auto 0.9 K/mm3 (0.1-0.6); Monocytes Percent Auto 7.7 % (2.6-8.5); Neutrophils Absolute Auto 9.7 K/mm3 (1.3-6.7); Neutrophils Percent Auto 81.7 % (45.5-73.1); Platelet Count Result 210 k/mm3 (150-375); Red Blood Count 2.86 M/mm3 (4.6-6.20); Red Cell Distribution Width 13.5 % (11.5-14.5); White Blood Count 11.9 K/mm3 (4.5-10.0)
[2022-03-03] VITALS (30 sets, daily range): BP systolic 94–119; BP diastolic 60–79; PULSE 76–92; RESP 15–23; TEMP 36.4–37.3; O2SAT 96–100; BMI 19.2
[2022-03-03 00:04] LABS: INR 1.1; Prothrombin Time 14.2 Seconds (11.1-14.7)
[2022-03-03 00:05] LABS: Partial Thromboplastin Time 31.5 SECONDS (22.3-36.8)
[2022-03-03 00:07] LABS: Alanine Aminotransferase 12 U/L (6-50); Alkaline Phosphatase 103 U/L (38-126); Anion Gap 5 mmol/L (8-16); Aspartate Amino Transferase 15 U/L (17-59); Bilirubin,Total 0.3 mg/dL (0.2-1.3); Blood Urea Nitrogen 58 mg/dL (9-20); Calcium 7.8 mg/dL (8.4-10.2); Carbon Dioxide 24 mmol/L (22-30); Chloride 103 mmol/L (98-107); Estimated CRCL calculation 6 ml/min; Estimated Glomerular Filt Rate 6; Glucose 102 mg/dL (65-110); Potassium 3.7 mmol/L (3.4-5.0); Sodium 132 mmol/L (137-145)
[2022-03-03 02:16] LABS: Influenza A QL RT-PCR Negative (Negative); Influenza B QL RT-PCR Negative (Negative); SARS-CoV-2 RNA PCR Negative
[2022-03-03] MEDS: SODIUM CHLORIDE 0.9% IV 1,000 ML 999 ML IV CONT (04:20)
--- NOTE | 2022-03-03 06:20 | ADMGEN ---
This patient, Maximo Doty, was admitted to Medical Room 243-. Patient/family oriented to hospital policies and general routines including ID bracelet, bed and alarms, visiting hours, pain management, procedures, bathroom and other care routines, personal items, smoking policy, room service/diet, and visiting hours. Information on how to activate the Rapid Response Team has been discussed. Patient/Family are encouraged to report perceived risks to care and to ask questions if they do not understand what they are told or what they should do.
[2022-03-03 08:27] LABS: Iron 20 ug/dL (49-181)
[2022-03-03 08:31] LABS: Alanine Aminotransferase 12 U/L (6-50); Albumin Level 2.4 g/dL (3.5-5.1); Alkaline Phosphatase 91 U/L (38-126); Anion Gap 6 mmol/L (8-16); Aspartate Amino Transferase 15 U/L (17-59); Bilirubin,Total 0.3 mg/dL (0.2-1.3); Blood Urea Nitrogen 57 mg/dL (9-20); Calcium 7.5 mg/dL (8.4-10.2); Carbon Dioxide 22 mmol/L (22-30); Chloride 109 mmol/L (98-107); Estimated CRCL calculation 6 ml/min; Estimated Glomerular Filt Rate 6; Glucose 84 mg/dL (65-110); Potassium 4.3 mmol/L (3.4-5.0); Sodium 137 mmol/L (137-145)
[2022-03-03 08:37] LABS: Transferrin 94 mg/dL (206-381)
[2022-03-03 08:38] LABS: Percent Iron Saturation 11 % (20-50)
[2022-03-03 08:58] LABS: Hematocrit 25.7 % (42.0-52.0); Hemoglobin 8.3 g/dL (14.0-18.0); Mean Corpuscular HGB Conc 32.3 g/dl (32-36); Mean Corpuscular Hemoglobin 30.3 pg (26-34); Mean Corpuscular Volume 93.8 fl (80-100); Mean Platelet Volume 9.1 fl (7.4-10.4); Platelet Count Result 209 k/mm3 (150-375); Red Blood Count 2.74 M/mm3 (4.6-6.20); Red Cell Distribution Width 13.7 % (11.5-14.5); White Blood Count 8.4 K/mm3 (4.5-10.0)
[2022-03-03] MEDS: PANTOPRAZOLE SODIUM IV 40 MG VIAL IV PUSH ×2 (09:15→20:54)
[2022-03-03] MEDS: ONDANSETRON INJ 4 MG/2 ML VIAL IV PUSH (09:20)
[2022-03-03 09:29] LABS: Folic Acid 5.8 ng/mL (2.76->20)
--- NOTE | 2022-03-03 11:19 | PM.CNNEP ---
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 Tim mancilla does CAPD plan transition to CCPD while hospitalized follow electroltyes, volume status, and clearance (2) GI bleed: Code(s): K92.2 - Gastrointestinal hemorrhage, unspecified Status: Acute Assessment and Plan: recurrent issue per history Gastroenterology consulted suspect EGD + colonoscopy needed follow H/H (3) Hypertension: Code(s): I10 - Essential (primary) hypertension Status: Chronic Assessment and Plan: reasonable control at this time follow trend of hemodynamics (4) Anemia: Code(s): D64.9 - Anemia, unspecified Status: Acute Assessment and Plan: likely some baseline anemia due to ESRD acutely worsened by suspected GI loss start Epogen while hospitalized follow H/H Will continue to follow. History of Present Illness Reason for Consult Consult date: 03/03/22 Reason for consult: end stage renal disease Chief Complaint Chief complaint: gi bleed, anemia, ESRD on PD History of Present Illness Narrative: The patient is a very pleasant 61-year-old male with a past medical history as outlined below who presented to [facility] Emergency room for further evaluation of GI bleeding. The patient was just recently hospitalized here about a week ago with the same issue/problem. He was noted to be anemic but did not require a packed red blood cell transfusion and he was seen in consultation by Gastroenterology and recommended further intervention in the form of a colonoscopy. However, the patient did not want to have this procedure done and he was subsequently discharged with presumably outpatient follow-up. Unfortunately, after his discharge, he he noted recurrence of the bleeding after about 3 or 4 days being home. Yesterday, he developed abdominal cramping in association with diarrhea and bright red blood per rectum and he noted the stool in the toilet was markedly maroon. He also had associated lightheadedness as well and he called EMS which subsequently transported him to the emergency room for further assessment. Workup and evaluation emergency room demonstrated the patient to be hemodynamically stable and routine blood test demonstrated labs consistent with his known history of end-stage renal disease as well as a hemoglobin of 8.8. Given the recurrence of the symptoms as noted on his previous hospitalization, gastroenterology has been consulted for further assessment of this issue. From my discussion with his outpatient peritoneal dialysis nurse, his hemoglobin usually runs somewhat on the higher side of normal even for patient on end-stage renal disease. he was subsequently admitted to the hospital for further evaluation and therapy. Renal consultation was requested due to his end-stage renal disease. The patient normally does peritoneal dialysis every day, specifically CAPD. He apparently has significant residual kidney function and only requires 2 exchanges during the day to maintain stability in his volume status and electrolytes. He normally follows with Dr. Kieran jovel for management of his end-stage renal disease. I did discussed the case with his outpatient peritoneal dialysis nurse, Tim Melendez related me his history with regard to his previous labs, previous hemoglobin, and his dialysis prescription. Currently, at the time my evaluation, he appears to be in no acute distress. Review of Systems Review of Systems: As per HPI. [facility] Past Medical History Medical History Coronary artery disease ESRD on peritoneal dialysis Kidney disease Surgical History Surgical History History of bowel
--- NOTE | 2022-03-03 11:32 | WPDGICN ---
Assessment and Plan Assessment and plan (1) GI bleed: Code(s): K92.2 - Gastrointestinal hemorrhage, unspecified Status: Acute Assessment and Plan: Patient with recurrent GI bleeding. Suspect this could be diverticular. Plan for colonoscopy an EGD to assess more thoroughly. We will monitor hemoglobin closely and transfuse if needed in the interim. (2) End-stage renal disease on peritoneal dialysis: Code(s): N18.6 - End stage renal disease; Z99.2 - Dependence on renal dialysis Status: Acute (3) Anemia: Code(s): D64.9 - Anemia, unspecified Status: Acute Assessment and Plan: Patient with anemia appears to be chronic probably secondary kidney disease now with acute decline likely secondary to GI bleeding. (4) Diverticular disease of colon: Code(s): K57.30 - Diverticulosis of large intestine without perforation or abscess without bleeding Status: Acute Assessment and Plan: Patient has known diverticular disease has a history of partial colon resection for diverticulitis in the past. Potentially this the cause of current GI blood loss. (5) Coronary artery disease: Code(s): I25.10 - Atherosclerotic heart disease of [place] coronary artery without angina pectoris Status: Acute Assessment and Plan: patient had recent heart stent for which she is on Plavix. This likely contributes to GI blood loss. He will need to stay on Plavix as stenting is rather recent. GI Consult Note Consult date/time: 03/03/22 11:32 Reason for consult: GI bleeding HPI: Maximo Doty is a 61 year old male a readmitted to the hospital with recurrent blood in his stools. Patient has a history of diverticulitis and underwent sigmoid colon resection several years ago. Patient also has additional medical problems that include end-stage renal disease for which she is on peritoneal dialysis. He has atherosclerotic heart disease and had heart stents placed recently. He is maintained on Plavix. Last week he experienced GI bleeding described bright red blood per rectum. Occurred rather significantly he was admitted the hospital for observation and bleeding promptly abated. Colonoscopy was anticipated but patient preferred to have this done elsewhere. It was presumed this was from diverticular bleeding and patient was allowed to be discharged. He did well for 2-3 days. Yesterday noticed a significant amount of additional bleeding and presented back to the hospital for evaluation further admission. Patient states since admission the hospital he has had no additional bleeding. Patient denies abdominal pain. He has had no weight loss. Family history is noncontributory. Review of Systems Review of Systems: Review of systems noncontributory. [facility] Past Medical History Medical History Coronary artery disease ESRD on peritoneal dialysis Kidney disease Surgical History Surgical History History of bowel resection partial bowel resection. History of inguinal hernia repair History of percutaneous coronary intervention Status post creation of arteriovenous fistula Status post insertion of dialysis catheter Family History Family History Father Hypertension Mother Hypertension Family history of malignant neoplasm Social History Social History Smoking packs per day: 0.25 Smoking cigarettes per day: 5.0 Smoking status: Current every day smoker Tobacco type: cigarettes Alcohol intake: never Drinks per week: 1 Substance use: current Substance use type: marijuana Other substance usage details: HAS MEDICAL MARIJUANA FOR SLEEP, APPETITE, MOOD Lack of Transportation: No Lack of Food: Never True Current Hous
--- NOTE | 2022-03-03 13:06 | PM.IMHP ---
H&P: HPI History of Present Illness Date/Time: 03/03/22 13:06 Chief Complaint: Bright red blood per rectum Narrative: This is a 61-year-old male with a history of CAD, end-stage renal disease getting peritoneal dialysis. Patient is postop coronary stenting approximately 4 weeks ago. PCI conducted on January 27, 2022. Patient is on Plavix and aspirin. Patient we recently admitted to the facility on 02/25/2022 due to the same complaint, GI bleeding. Patient was anemic during this time although not requiring infusion. Patient was seen by GI and they recommended colonoscopy. Patient refused procedure and requested to be discharged. Patient's GI bleeding did stop while he was in the hospital. Once patient was home the diarrhea and rectal bleeding had stopped for approximately 3 days. The evening of 03/02/2022, patient developed abdominal cramping accompanied by diarrhea and bright red blood per rectum. Patient had diarrhea and the blood covered the inside of the toilet and was not mixed in with the stool. At this time patient did feel lightheaded and called EMS to bring him to the hospital. Patient's hemoglobin at the time of admission was 8.8. Plan to trend H&H q.6 hours. Plan to transfuse patient if hemoglobin drops to 7 or below or if patient becomes symptomatic. GI consulted. GI conducting a colonoscopy and EGD on 03/04/2022. GI suspects possibly diverticular etiology. During the time of interview patient stated that his symptoms have resolved. He has not had any more diarrhea and has had very little blood that he has noticed on the toilet paper when he uses the bathroom. He denies chest pain, shortness a breath, dizziness, headache, nausea, vomiting and fever. Review of Systems Review of Systems: All systems reviewed & are unremarkable except as noted in HPI and below PMFSH Past Medical History Medical History Coronary artery disease ESRD on peritoneal dialysis Kidney disease Surgical History Surgical History History of bowel resection partial bowel resection. History of inguinal hernia repair History of percutaneous coronary intervention Status post creation of arteriovenous fistula Status post insertion of dialysis catheter Family History Family History Father Hypertension Mother Hypertension Family history of malignant neoplasm Social History Social History Smoking packs per day: 0.25 Smoking cigarettes per day: 5.0 Smoking status: Current every day smoker Tobacco type: cigarettes Alcohol intake: never Drinks per week: 1 Substance use: current Substance use type: marijuana Other substance usage details: HAS MEDICAL MARIJUANA FOR SLEEP, APPETITE, MOOD Lack of Transportation: No Lack of Food: Never True Current Housing: I Have Housing Concerned About Future Housing: No Difficulty Paying Gas/Electric Bills: No Difficulty Paying for Meds: No Currently Unemployed: No Education: Associate Degree Difficulty w/ Childcare or Family Care: No Living arrangements: with family Occupation/Education: unemployed Spiritual care concerns: No Meds Home Medications and Allergies Home Medications Medication Instructions Recorded Confirmed Type ondansetron HCl 4 mg tablet 4 mg PO PRN PRN Nausea 01/12/19 03/03/22 History (Zofran) betamethasone dipropionate 0.05 % 1 applic topical PRN PRN Rash 01/17/19 03/03/22 History topical cream cholecalciferol (vitamin D3) 50 2,000 unit PO DAILY 01/25/19 03/03/22 History mcg (2,000 unit) tablet (Vitamin D3) polyethylene glycol 3350 17 gram 17 g PO DAILY PRN Constipation 01/25/19 03/03/22 History oral powder packet (Miralax) amlodipine 5 mg tablet 10 mg PO DAILY 04/17/19 03/03/22
[2022-03-03] MEDS: PEG (High)/E-LYTE SOLN 4,000 ML BTL 3000 ML PO (13:08)
[2022-03-03 13:49] LABS: Hepatitis B Surface Antigen Negative (Negative)
[2022-03-03 15:02] LABS: Hematocrit 26.2 % (42.0-52.0); Hemoglobin 8.5 g/dL (14.0-18.0)
[2022-03-03 15:26] LABS: Hepatitis B Surface Anti Res Indeterminate
[2022-03-03] MEDS: ISOSORBIDE MONONITRATE 30 MG TAB.ER.24H PO (20:53)
[2022-03-03] MEDS: CHOLECALCIFEROL 1,000 UNITS TABLET 2000 UNITS PO (20:53)
[2022-03-03] MEDS: amLODIPine BESYLATE 5 MG TABLET 10 MG PO (20:53)
[2022-03-03 21:14] LABS: Hematocrit 24.2 % (42.0-52.0); Hemoglobin 7.8 g/dL (14.0-18.0)
--- NOTE | 2022-03-03 22:42 | PC.NURSE ---
Pt refusing to drink any more bowel prep at this time, pt states bowel movements are coming out almost clear and he cannot tolerate any additional prep.
[2022-03-04 03:59] VITALS: BP 109/62; PULSE 93; RESP 18; TEMP 36.7; O2SAT 98
[2022-03-04 05:40] LABS: Basophils Absolute Auto 0.1 K/mm3 (0.0-0.1); Basophils Percent Auto 0.7 % (0.2-1.2); Eosinophils Absolute Auto 0.6 K/mm3 (0-0.3); Eosinophils Percent Auto 8.5 % (0-4.4); Hematocrit 22.8 % (42.0-52.0); Hemoglobin 7.3 g/dL (14.0-18.0); Immature Granulocyte Absolute 0.03 K/mm3 (0.00-0.031); Immature Granulocyte Percent A 0.4 % (0-0.5); Lymphocytes Absolute Auto 0.53 K/mm3 (0.9-3.2); Lymphocytes Percent Auto 7.1 % (18.3-44.2); Mean Corpuscular Hemoglobin 29.7 pg (26-34); Mean Corpuscular Volume 92.7 fl (80-100); Mean Platelet Volume 9.2 fl (7.4-10.4); Monocytes Absolute Auto 0.8 K/mm3 (0.1-0.6); Monocytes Percent Auto 11.1 % (2.6-8.5); Neutrophils Absolute Auto 5.4 K/mm3 (1.3-6.7); Neutrophils Percent Auto 72.2 % (45.5-73.1); Platelet Count Result 198 k/mm3 (150-375); Red Blood Count 2.46 M/mm3 (4.6-6.20); Red Cell Distribution Width 13.4 % (11.5-14.5); White Blood Count 7.4 K/mm3 (4.5-10.0)
[2022-03-04 05:50] LABS: Alanine Aminotransferase 10 U/L (6-50); Albumin Level 2.5 g/dL (3.5-5.1); Alkaline Phosphatase 88 U/L (38-126); Anion Gap 6 mmol/L (8-16); Aspartate Amino Transferase 16 U/L (17-59); Bilirubin,Total 0.4 mg/dL (0.2-1.3); Blood Urea Nitrogen 48 mg/dL (9-20); Calcium 7.8 mg/dL (8.4-10.2); Carbon Dioxide 24 mmol/L (22-30); Chloride 108 mmol/L (98-107); Estimated CRCL calculation 6 ml/min; Estimated Glomerular Filt Rate 6; Glucose 82 mg/dL (65-110); Potassium 3.7 mmol/L (3.4-5.0); Sodium 138 mmol/L (137-145)
--- NOTE | 2022-03-04 06:42 | PC.NURSE ---
Peritoneal dialysis completed around midnight and patient disconnected himself with no difficulties per patient.
[2022-03-04] MEDS: ONDANSETRON INJ 4 MG/2 ML VIAL IV PUSH (07:32)
[2022-03-04] MEDS: PANTOPRAZOLE SODIUM IV 40 MG VIAL IV PUSH (07:33)
[2022-03-04] MEDS: SODIUM CHLORIDE 0.9% IV 500 ML 100 ML IV CONT (08:21)
[2022-03-04 10:22] VITALS: BP 117/67; PULSE 82; RESP 19; TEMP 36.9; O2SAT 97
[2022-03-04] MEDS: LACTATED RINGERS 1,000 ML 150 ML IV CONT (10:25)
[2022-03-04] MEDS: SODIUM CHLORIDE 0.9% IV 500 ML 10 ML IV CONT (10:33)
--- NOTE | 2022-03-04 10:34 | WPDANESEPPF ---
Anes - Initial Pre Proc Eval Procedure: Operation Date: 03/04/22 12:00 Proposed Procedures p Esophagogastroduodenoscopy & Colonoscopy - Yoel Ann MD Date/Time: 03/04/22 10:34 Surgeon: Georgia Madsen DO Pre Op Diagnosis: gi bleed, anemia, ESRD on PD Patient Data Age: 61 Gender: M Height: 1.7 m Weight: 54.1 kg Last Vital Signs Temp 98.5 F 03/04/22 10:22 Pulse 82 03/04/22 10:22 Resp 19 03/04/22 10:22 BP 117/67 03/04/22 10:22 Pulse Ox 97 03/04/22 10:22 O2 Del Method Room Air 03/04/22 10:22 Allergies Allergy/AdvReac Type Severity Reaction Status Date / Time lorazepam [From Ativan] Allergy Severe Confusion Verified 03/04/22 10:21 erythromycin base Allergy Mild Rash Verified 03/04/22 10:21 Home Medications Medication Instructions Recorded Confirmed Type ondansetron HCl 4 mg tablet 4 mg PO PRN PRN Nausea 01/12/19 03/03/22 History (Zofran) betamethasone dipropionate 0.05 % 1 applic topical PRN PRN Rash 01/17/19 03/03/22 History topical cream cholecalciferol (vitamin D3) 50 2,000 unit PO DAILY 01/25/19 03/03/22 History mcg (2,000 unit) tablet (Vitamin D3) polyethylene glycol 3350 17 gram 17 g PO DAILY PRN Constipation 01/25/19 03/03/22 History oral powder packet (Miralax) amlodipine 5 mg tablet 10 mg PO DAILY 04/17/19 03/03/22 History aspirin 81 mg tablet,delayed 81 mg PO DAILY 02/25/22 03/03/22 History release atorvastatin 20 mg tablet (Lipitor) 20 mg PO DAILY 02/25/22 03/03/22 History clopidogrel 75 mg tablet (Plavix) 75 mg PO DAILY 02/25/22 03/03/22 History vit A 7,160 unit-C 113 mg-E 100 1 tablet PO DAILY 02/25/22 03/03/22 History [id number]-oega-rxhyur tablet,delayed rel. pantoprazole 40 mg tablet,delayed 40 mg PO QAM #30 tabs 02/26/22 03/03/22 Rx release isosorbide mononitrate 30 mg 30 mg PO DAILY 03/03/22 03/03/22 History tablet,extended release 24 hr Laboratory Tests 03/03/22 03/03/22 03/03/22 08:42 08:42 14:54 WBC RBC Hgb 8.5 g/dL L g/dL (14.0-18.0) Hct 26.2 % L % (42.0-52.0) MCV MCH MCHC RDW Plt Count MPV Immature Gran % (Auto) Neut % (Auto) Lymph % (Auto) [place] % (Auto) Eos % (Auto) Baso % (Auto) Lymph # (Auto) [place] # (Auto) Eos # (Auto) Baso # (Auto) Abs Immat Gran (auto) Absolute Neuts (auto) Absolute Nucleated RBC Nucleated RBC % Sodium Potassium Chloride Carbon Dioxide Anion Gap BUN Creatinine Estim Creat Clear Calc Estimated GFR Glucose Calcium Total Bilirubin AST ALT Alkaline Phosphatase Total Protein Albumin Hep Bs Antigen Negative (Negative) Hep Bs Antibody Indeterminate HepB DNA PCR UltraQnt Units/mL Pending Hep B DNA Qnt log IU/mL Pending 03/03/22 03/04/22 03/04/22 20:44 05:11 05:11 WBC 7.4 K/mm3 K/mm3 (4.5-10.0) RBC 2.46 M/mm3 L M/mm3 (4.6-6.20) Hgb 7.8 g/dL L g/dL 7.3 g/dL L g/dL (14.0-18.0) (14.0-18.0) Hct 24.2 % L % 22.8 % L % (42.0-52.0) (42.0-52.0) MCV 92.7 fl fl (80-100) MCH 29.7 pg pg (26-34) MCHC 32.0 g/dl g/dl (32-36) RDW 13.4 % % (11.5-14.5) Plt Count 198 k/mm3 k/mm3 (150-375) MPV 9.2 fl fl (7.4-10.4) Immature Gran % (Auto) 0.4 % % (0-0.5) Neut % (Auto) 72.2 % % (45.5-73.1) Lymph % (Auto) 7.1 % L % (18.3-44.2) [place] % (Auto) 11.1 % H % (2.6-8.5) Eos % (Auto) 8.5 % H % (0-4.4)
--- NOTE | 2022-03-04 10:52 | WPDHPUPDATE1 ---
History and Physical Update Update Date/Time: 03/04/22 10:52 History and Physical has been reviewed, including an updated exam of the patient. There are NO changes in the patient's condition. Risks, benefits, and alternatives have been discussed and questions answered. Patient agrees to proceed with procedure.
--- NOTE | 2022-03-04 10:53 | SUR.OPER ---
EGD: start 10:49, end 10:51 Colon: start 10:56, end 11:06
--- NOTE | 2022-03-04 11:03 | PM.IMPN ---
Progress Note: A&P Assessment and Plan (1) GI bleed: Code(s): K92.2 - Gastrointestinal hemorrhage, unspecified Status: Acute Assessment and Plan: Admitted with repeat episode of GI bleeding. DAPT with recent coronary stent, . Hgb is decreased this am to 7.3 Prepped overnight for colonoscopy. EGD completed with no upper gi bleeding source noted. - Colonoscopy and EGD today. - Cont. IV protonix BID. - Cont. q6h h/h. - Await results to further assist planning. (2) Coronary artery disease: Code(s): I25.10 - Atherosclerotic heart disease of [place] coronary artery without angina pectoris Status: Acute Assessment and Plan: On DAPT d/t recent coronary stent. Imdur. - Cont. at this time. (3) Diverticular disease of colon: Code(s): K57.30 - Diverticulosis of large intestine without perforation or abscess without bleeding Status: Acute Assessment and Plan: History of such, known diverticular disease may be etiology of current GIB. (4) Acute on chronic anemia: Code(s): D64.9 - Anemia, unspecified Status: Acute Assessment and Plan: Mild drop hgb overnight w/ known GIB, ESRD. Currently on oral iron. Normocytic. - Transufse prbc for hgb<7. - Iron low - cont. oral iron - consider IV iron preparation if does not respond appropriately. (5) ESRD on peritoneal dialysis: Code(s): N18.6 - End stage renal disease; Z99.2 - Dependence on renal dialysis Status: Acute Assessment and Plan: States does not have volume issues - never has edema. Well controlled. Feels dry this am and requests a small amount of fluids which will be ordered. - Nephrology consulted. Plan Plan for scopes today, disposition planning to commence pending those results. Time Spent With Patient Time with patient: 15 - 25 minutes Subjective Date/time seen: 03/04/22 11:03 Interval history: Patient denies new complaints or concerns, no abdominal pain. Did note a little bleeding with stools overnight during prep. He does not feel short of breath. Review of Systems Review of Systems: All systems reviewed & are unremarkable except as noted in HPI and below Exam Narrative: GENERAL APPEARANCE: Appears to be in no acute distress. HEAD: normocephalic atraumatic NECK: Neck supple, trachea midline. CARDIAC: Normal S1/S2. Rhythm is regular. No murmurs, rubs, or gallops. No cyanosis or pallor. Extremities are warm and well perfused. LUNGS: Clear to auscultation without rales, rhonchi, wheezing or diminished breath sounds. Respirations even and unlabored. ABDOMEN: BS positive x 4 quadrants. Soft, nondistended, nontender. No guarding or rebound. MSK: No joint tenderness/swelling, fair strength in all extremities. PERIPHERAL VASCULAR: Peripheral pulses palpable. Normal perfusion, cap refill <2 seconds. No edema. NEURO: Follows commands. No focal deficits. SKIN: [place] without lesions or eruptions. PSYCH: Stable, no paranoia or delusional thinking. Objective Data Vital Signs Vital Signs: Vital Signs - 24 hr 03/03/22 14:05 03/03/22 17:10 03/03/22 20:30 Temperature 99.2 F 99.2 F 98.0 F Pulse Rate 89 89 92 Respiratory Rate 15 16 18 Blood Pressure 107/67 107/67 119/79 Pulse Oximetry 100 100 99 Oxygen Delivery Room Air 03/03/22 20:50 03/04/22 03:59 03/04/22 10:22 Temperature 98.1 F 98.5 F Pulse Rate 93 82 Respiratory Rate 18 19 Blood Pressure 109/62 117/67 Pulse Oximetry 98 97 Oxygen Delivery Room Air Room Air Intake/Output Intake/Output: Intake & Output 03/01/22 03/02/22 03/03/22 03/04/22 23:59 23:59 23:59 23:59 Intake Total 1598 0 Output Total 200 200 Balance 1398 -200 Meds/Results Medications: Active Medications Generic Name Dose Route Start Last Admin Trade Name Freq PRN Reason Stop Dose Admin Amlodipine Besylate 10 mg 03/03/22 20:00 03/03/22 20:53 Amlodipine Besylate 5 Mg Tablet PO 10 mg MICAH
[2022-03-04 11:12] VITALS: BP 83/47; PULSE 77; RESP 17; O2SAT 94
[2022-03-04 11:22] VITALS: BP 84/46; PULSE 77; RESP 17; O2SAT 93
[2022-03-04 11:32] VITALS: BP 94/52; PULSE 72; RESP 15; O2SAT 99
[2022-03-04 11:42] VITALS: BP 106/58; PULSE 72; RESP 15; O2SAT 95
--- NOTE | 2022-03-04 12:38 | P.PNNP_ITS ---
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 Dumont * normall does CAPD * CCPD while hospitalized * follow electroltyes, volume status, and clearance (2) GI bleed: Code(s): K92.2 - Gastrointestinal hemorrhage, unspecified Status: Acute Assessment and Plan: * recurrent issue per history * Gastroenterology cfolowing * EGD + colonoscopy results noted - no active bleeding but evidence of diverticulosis and internal hemorrhoids which may have been cause of GI blood loss. * follow H/H (3) Hypertension: Code(s): I10 - Essential (primary) hypertension Status: Chronic Assessment and Plan: * reasonable control at this time * follow trend of hemodynamics (4) Anemia: Code(s): D64.9 - Anemia, unspecified Status: Acute Assessment and Plan: * likely some baseline anemia due to ESRD * acutely worsened by suspected GI loss * Epogen while hospitalized * follow H/H Will continue to follow. Subjective Date/time seen: 03/04/22 12:38 S/P EGD and colonoscopy with no active bleeding found; tolerated peritoneal dialysis treatment overnight without any issue or problems; no apparent distress noted. Exam Narrative: General: WD/WN male in NAD Heart: normal S1 and S2; no rub Lungs: clear to auscultation Abdomen: soft, nontender, nondistended, positive bowel sounds Extremities: no cyanosis or clubbing; no edema Skin: warm and dry Objective Data Vital Signs Vital Signs: Vital Signs Temp Pulse Resp BP Pulse Ox O2 Del Method 03/04/22 11:42 72 15 106/58 L 95 Room Air 03/04/22 11:32 72 15 94/52 L 99 Room Air 03/04/22 11:22 77 17 84/46 L 93 Room Air 03/04/22 11:12 77 17 83/47 L 94 Room Air 03/04/22 10:22 98.5 F 82 19 117/67 97 Room Air 03/04/22 03:59 98.1 F 93 18 109/62 98 03/03/22 20:50 Room Air 03/03/22 20:30 98.0 F 92 18 119/79 99 03/03/22 17:10 99.2 F 89 16 107/67 100 Room Air 03/03/22 14:05 99.2 F 89 15 107/67 100 Intake/Output Intake/Output: Intake & Output 03/01/22 03/02/22 03/03/22 03/04/22 23:59 23:59 23:59 23:59 Intake Total 1598 240 Output Total 200 200 Balance 1398 40 Meds/Results Medications: Active Medications Generic Name Dose Route Start Last Admin Trade Name Delores PRN Reason Stop Dose Admin Amlodipine Besylate 10 mg 03/03/22 20:00 03/03/22 20:53 Amlodipine Besylate 5 Mg Tablet PO 10 mg DAILY@1999 [facility] Administration Aspirin 81 mg 03/04/22 09:00 Aspirin 81 Mg Enteric Tablet PO DAILY [facility] Atorvastatin Calcium 20 mg 03/04/22 09:00 Atorvastatin 20 Mg Tablet PO DAILY [facility] Clopidogrel Bisulfate 75 mg 03/04/22 09:00 Clopidogrel Bisulfate 75 Mg Tablet PO DAILY [facility] Ferrous Sulfate 324 mg 03/04/22 08:00 Ferrous Sulfate 324 Mg Tablet PO DAILY@0800 [facility] Sodium Chloride 500 mls @ 100 mls/hr 03/04/22 07:57
--- NOTE | 2022-03-04 12:38 | PM.PNNEP ---
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 follow H/H (3) Hypertension: Code(s): I10 - Essential (primary) hypertension Status: Chronic Assessment and Plan: reasonable control at this time follow trend of hemodynamics (4) Anemia: Code(s): D64.9 - Anemia, unspecified Status: Acute Assessment and Plan: likely some baseline anemia due to ESRD acutely worsened by suspected GI loss Epogen while hospitalized follow H/H Will continue to follow. Subjective Date/time seen: 03/04/22 12:38 S/P EGD and colonoscopy with no active bleeding found; tolerated peritoneal dialysis treatment overnight without any issue or problems; no apparent distress noted. Exam Narrative: General: WD/WN male in NAD Heart: normal S1 and S2; no rub Lungs: clear to auscultation Abdomen: soft, nontender, nondistended, positive bowel sounds Extremities: no cyanosis or clubbing; no edema Skin: warm and dry Objective Data Vital Signs Vital Signs: Vital Signs Temp Pulse Resp BP Pulse Ox O2 Del Method 03/04/22 11:42 72 15 106/58 L 95 Room Air 03/04/22 11:32 72 15 94/52 L 99 Room Air 03/04/22 11:22 77 17 84/46 L 93 Room Air 03/04/22 11:12 77 17 83/47 L 94 Room Air 03/04/22 10:22 98.5 F 82 19 117/67 97 Room Air 03/04/22 03:59 98.1 F 93 18 109/62 98 03/03/22 20:50 Room Air 03/03/22 20:30 98.0 F 92 18 119/79 99 03/03/22 17:10 99.2 F 89 16 107/67 100 Room Air 03/03/22 14:05 99.2 F 89 15 107/67 100 Intake/Output Intake/Output: Intake & Output 03/01/22 03/02/22 03/03/22 03/04/22 23:59 23:59 23:59 23:59 Intake Total 1598 240 Output Total 200 200 Balance 1398 40 Meds/Results Medications: Active Medications Generic Name Dose Route Start Last Admin Trade Name Freq PRN Reason Stop Dose Admin Amlodipine Besylate 10 mg 03/03/22 20:00 03/03/22 20:53 Amlodipine Besylate 5 Mg Tablet PO 10 mg DAILY@1999 [facility] Administration Aspirin 81 mg 03/04/22 09:00 Aspirin 81 Mg Enteric Tablet PO DAILY [facility] Atorvastatin Calcium 20 mg 03/04/22 09:00 Atorvastatin 20 Mg Tablet PO DAILY [facility] Clopidogrel Bisulfate 75 mg 03/04/22 09:00 Clopidogrel Bisulfate 75 Mg Tablet PO DAILY [facility] Ferrous Sulfate 324 mg 03/04/22 08:00 Ferrous Sulfate 324 Mg Tablet PO DAILY@0800 [facility] Sodium Chloride 500 mls @ 100 mls/hr 03/04/22 07:57 03/04/22 08:21 Normal Saline Iv IV CONT 03/04/22 12:56 100 mls/hr .Q5H ONE Administration Isosorbide Mononitrate 30 mg 03/03/22 20:00 03/03/22 20:53 Isosorbide Mononitrate 30 Mg Tab.Er.24h PO 30 mg DAILY@1999 [facility] Administration Ondansetron HCl 4 mg 03/03/22 07:11 03/04/22 07:32 Ondansetron Inj 4 Mg/2 Ml Vial IV PUSH 4 mg Q4H PRN Administration Nausea And Vomiting Pantoprazole Sodium 40 mg 03/03/22 09:00 03/04/22 07:33 Pantoprazole Sodium Iv 40 Mg Vial IV PUSH 40 mg Q12HR [facility] Administration Polyethylene Glycol 17 gm 03/03/22 07:09 Polyethylene Glycol 3350 17 Gm Powd.Pack PO DAILY PRN Constipation Triamcinolone Acetonide 1 applic 03/03/22 07:25 Triamcinolone Acet 0.1% Cream 15 Gm Tube TOPICAL PRN PRN Rash Vitamin D 2,000 units 03/03/22 20:00 03/03/22 20:53 Cholecalciferol 1,000
[2022-03-04 13:10] LABS: Hematocrit 24.8 % (42.0-52.0); Mean Corpuscular HGB Conc 32.3 g/dl (32-36); Mean Corpuscular Hemoglobin 30.5 pg (26-34); Mean Corpuscular Volume 94.7 fl (80-100); Mean Platelet Volume 9.2 fl (7.4-10.4); Platelet Count Result 205 k/mm3 (150-375); Red Blood Count 2.62 M/mm3 (4.6-6.20); Red Cell Distribution Width 13.6 % (11.5-14.5); White Blood Count 6.4 K/mm3 (4.5-10.0)
--- NOTE | 2022-03-04 14:00 | PM.DS ---
DS: Admitting Diagnosis Discharge Date 03/04/22. Admitting Diagnosis GI bleeding, anemia, ESRD, CAD s/p coronary stent on DAPT DS: Discharge Diagnosis Discharge Diagnosis Plan GI bleeding, iron def. anemia, ESRD, CAD s/p coronary stent on DAPT, internal hemmorhoids, diverticulosis DS: Summary Hospital Course Reason for hospitalization: Anemia, GI bleeding Hospital Course: Maximo Doty is a 61 year old male presenting to the hospital for a recurrence of bright red bleeding per rectum with findings of anemia on labs. He fortunately did not require transfusion, his current hgb is 8, his lowest hgb was 7.3. Maximo is on DAPT 2/2 a recent coronary stent placement one month prior. This has been continued. GI has consulted on this patient and EGD/colonoscopy was performed. EGD was without acute findings. Colonoscopy identified internal hemmorrhoids and diverticulosis. There was no active bleeding at the time of colonoscopy. Maximo is being recommended to maintain close f/u with his PCP - he states this is scheduled in 2 days. I have advised and ordered repeat labs on that date. He has been instructed to follow a high fiber diet and to contact general surgeon/colorectal if symptoms return - for consideration of hemmorrhoidectomy. Maximo expresses understanding of these instructions. On day of discharge he is tolerating diet and hgb is uptrending. He states he will attend f/u. He states he would prefer to discharge to home and will have family available, his , to assist if he is having difficulties. Status at Discharge Cognitive/behavioral status at discharge: Normal cognition, normal function. Time Spent with Patient Time attestation: Total time spent providing and/or coordinating discharge services: Greater than or equal to 35 minutes spent in discharge planning and educating the patient. Exam Narrative: GENERAL APPEARANCE: Appears to be in no acute distress. HEAD: normocephalic atraumatic NECK: Neck supple, trachea midline. CARDIAC: Normal S1/S2. Rhythm is regular. No murmurs, rubs, or gallops. No cyanosis or pallor. Extremities are warm and well perfused. LUNGS: Clear to auscultation without rales, rhonchi, wheezing or diminished breath sounds. Respirations even and unlabored. ABDOMEN: BS positive x 4 quadrants. Soft, nondistended, nontender. No guarding or rebound. MSK: No joint tenderness/swelling, fair strength in all extremities. PERIPHERAL VASCULAR: Peripheral pulses palpable. Normal perfusion, cap refill <2 seconds. No edema. NEURO: Follows commands. No focal deficits. SKIN: [place] without lesions or eruptions. PSYCH: Stable, no paranoia or delusional thinking. DS: Data Data Completed and Pending Labs on day of discharge: Labs from last 24 hours 03/04/22 03/04/22 03/04/22 13:04 05:11 05:11 WBC 6.4 7.4 RBC 2.62 L 2.46 L Hgb 8.0 L 7.3 L Hct 24.8 L 22.8 L MCV 94.7 92.7 MCH 30.5 29.7 MCHC 32.3 32.0 RDW 13.6 13.4 Plt Count 205 198 MPV 9.2 9.2 Immature Gran % (Auto) 0.4 Neut % (Auto) 72.2 Lymph % (Auto) 7.1 L Garza % (Auto) 11.1 H Eos % (Auto) 8.5 H Baso % (Auto) 0.7 Lymph # (Auto) 0.53 L Garza # (Auto) 0.8 H Eos # (Auto) 0.6 H Baso # (Auto) 0.1 Abs Immat Gran (auto) 0.03 Absolute Neuts (auto) 5.4 Absolute Nucleated RBC 0.0 Nucleated RBC % 0.0 Sodium 138 Potassium 3.7 Chloride 108 H Carbon Dioxide 24 Anion Gap 6 L BUN 48 H Creatinine 8.70 H Estim Creat Clear Calc 6 Estimated GFR 6 L Glucose 82 Calcium 7.8 L Total Bilirubin 0.4 AST 16 L ALT 10 Alkaline Phosphatase 88 Total Protein 5.0 L Albumin 2.5 L Hep Bs Antibody 03/03/22 03/03/22 03/03/22 20:44 14:54 08:42 WBC RBC Hgb 7.8 L 8.5 L Hct 24.2 L 26.2 L MCV MCH MCHC RDW Plt Count MPV Immature Gran % (Auto) Neut % (Auto) Lymph % (Auto) Garza % (Auto) Eos % (Auto)
[2022-03-05 20:40] LABS: Hepatitis B DNA PCR <1.00 Log IU/mL; Hepatitis B DNA PCR <10 IU/mL
== END 2022-03-04 14:32 | disposition home or self-care (01) ==
LOC: ANHED 03-03 04:58 → ANH2MED 03-03 06:03
PROVIDERS: Internal Medicine Critical Care Medicine; Internal Medicine Gastroenterology; Internal Medicine Nephrology; Nurse Practitioner Family; Admitting Provider Internal Medicine; Emergency Provider Emergency Medicine; PCP Internal Medicine; Visit Provider Family Medicine
PROC: 0DJ08ZZ Inspection of Upper Intestinal Tract, Via Natural or Artificial Opening Endoscopic (ICD-10-PCS; CPT 43235; principal; 2022-03-04 12:00)
DX: K92.2 Gastrointestinal hemorrhage, unspecified (principal); D64.9 Anemia, unspecified; I71.43 Infrarenal abdominal aortic aneurysm, without rupture; N18.6 End stage renal disease; Z99.2 Dependence on renal dialysis; Z90.49 Acquired absence of other specified parts of digestive tract; I25.10 Atherosclerotic heart disease of native coronary artery without angina pectoris; Z95.5 Presence of coronary angioplasty implant and graft; K64.8 Other hemorrhoids; D50.0 Iron deficiency anemia secondary to blood loss (chronic); Z20.822 Contact with and (suspected) exposure to COVID-19; F17.210 Nicotine dependence, cigarettes, uncomplicated; F10.90 Alcohol use, unspecified, uncomplicated; F12.90 Cannabis use, unspecified, uncomplicated; Z79.02 Long term (current) use of antithrombotics/antiplatelets; Z79.82 Long term (current) use of aspirin; Z79.52 Long term (current) use of systemic steroids; Z79.899 Other long term (current) drug therapy
CPT/HCPCS: 45378; 43235; 36415; 74174; 80053; 82607; 82728; 82746; 83540; 83550; 84466; 85014; 85018; 85025; 85027; 85610; 85730; 86706; 86850; 86900; 86901; 87040; 87340; 87517; 87636; 90945; 96361; 96374; 96375; 96376; 99285; A9270; C9113; G0378; J2405; J2704; J7030; J7040; J7120; Q9967

== ENCOUNTER 2022-03-31 07:58 | Outpatient (RCR) | payer MEDICARE, OTHER, SELFPAY | END 2022-04-01 10:13 | disposition home or self-care (01) | LOC: ANHCPREHAB 07:58 | PROVIDERS: PCP Internal Medicine | DX: Z95.5 Presence of coronary angioplasty implant and graft (principal) | CPT/HCPCS: 93798 ==

== ENCOUNTER → 2022-12-28 12:55 | Outpatient (CLI) | payer MEDICARE, OTHER, SELFPAY ==
--- NOTE | ~2022-12-28 | CT_ITS ---
EXAMINATION: CT diagnostic chest wo con DATE: 12/28/2022 13:09 INDICATION: Lung nodule TECHNIQUE: Computed tomography (CT) of the chest was performed without intravenous contrast. The dose -length product (DLP) was 44.46 mGy-cm. Automated exposure control and iterative reconstruction techn ique were employed. COMPARISON: None FINDINGS: There is moderate emphysema. The lungs are free of acute opacities. No pleural effusion or pneumothorax. No pathologically enlarged thoracic lymph nodes are identified. The heart size is angelia l. Calcified coronary artery atherosclerosis is noted. There is mild bilateral gynecomastia. There is moderate atrophy of the partially visualized kidneys. There is mild thoracic spondylosis. There is m ild superior endplate compression deformity at T4 with a chronic appearance. IMPRESSION: 1. Mild emphysema without acute cardiopulmonary abnormality or suspicious pulmonary nodule identified . Reviewed, dictated and finalized at location F. ENT CARE SECRETARY IMPRESSION: 1. Mild emphysema without acute cardiopulmonary abnormality or suspicious pulmo nary nodule identified.
== END ==
PROVIDERS: PCP Internal Medicine; Visit Provider Internal Medicine
DX: R91.8 Other nonspecific abnormal finding of lung field (principal); J43.9 Emphysema, unspecified
CPT/HCPCS: 71250

== ENCOUNTER 2023-03-09 11:52 | Inpatient (IN) | payer MEDICARE, OTHER, SELFPAY ==
[2023-03-09] VITALS (35 sets, daily range): BP systolic 129–151; BP diastolic 69–90; PULSE 77–91; RESP 16–35; TEMP 36.8–36.9; O2SAT 95–99; BMI 18.9
--- NOTE | ~2023-03-09 | MR_ITS ---
EXAMINATION: MR MRCP wo/w con/w 3D wo ind DATE: 03/10/2023 18:10 INDICATION: Pancreatitis TECHNIQUE: Magnetic resonance imaging (MRI) of the abdomen was performed without and with 12 mL Multi horacio intravenous contrast. Sequences included coronal T2-weighted SS-FSE, coronal T2-weighted FS SS- FSE, coronal T2-weighted FS FIESTA, axial T2-weighted FS FIESTA, axial T2-weighted FIESTA, sagittal T 2-weighted SS-FSE, axial T1-weighted dual-echo FSPGR, axial T2-weighted SS-FSE, axial T1-weighted LAV A, axial T2-weighted STIR FSE. Thick-slab T2-weighted FRFSE-XL images were obtained for magnetic reso nance cholangiopancreatography (MRCP). Rotating maximum intensity projection 3-D reconstructions of t he volumetric data were created by the technologist. Postcontrast sequences included a time course of axial T1-weighted LAVA. COMPARISON: CT dated 03/09/2023 and ultrasound dated 03/10/2023 FINDINGS: ABDOMEN MRI: Heart size is normal. There is no pericardial or pleural effusion. There are several small T2 hyperin tense cystic lesions with subtle peripheral rim enhancement scattered throughout the liver, the large st measuring 11 mm. There is periportal edema along with small amount of ascites scattered throughout the abdomen and pelvis. There is some sludge layering dependently in the gallbladder which is dilate d to 4.4 cm but without evident cholelithiasis or wall thickening to suggest acute cholecystitis. The re is interstitial pancreatic edema at the body and tail of the pancreas consistent with provided his tory of acute interstitial pancreatitis. There is prominent nonloculated peripancreatic/retroperitone al fluid in the upper abdomen which extends into the root of the mesentery. This appears to have incr eased in severity since the prior CT. No loculated fluid collections to suggest abscess. Spleen and b ilateral adrenal glands are normal. Moderate bilateral renal atrophy with bilateral subcentimeter T2 hyperintense nonenhancing renal cysts. Fusiform infrarenal abdominal aortic aneurysm measuring up to 3.6 similar in maximal diameter. There is a peritoneal dialysis catheter coiled in the right lower qu adrant. ABDOMEN MRCP: There is some sludge within the distal aspect of the common bile duct which is dilated to 12 mm. No a bsent signal choledocholithiasis. There is minimal central intrahepatic biliary ductal dilation. IMPRESSION: 1. No cholelithiasis/choledocholithiasis but with prominent sludge in the distal aspect of the common bile duct which is dilated to 12 mm. 2. Acute interstitial pancreatitis with significant progression of prominent nonloculated peripancrea tic/retroperitoneal fluid but no discrete abscess or loculated peripancreatic fluid collections. 3. Small amount of ascites in the abdomen and pelvis and mild periportal edema, both findings likely related to the acute pancreatitis. 4. 3.6 cm fusiform infrarenal abdominal aortic aneurysm. Reviewed, dictated and finalized at location A. NING TECHNICIAN IMPRESSION: 1. No cholelithiasis/choledocholithiasis but with prominent sludge in the dista l aspect of the common bile duct which is dilated to 12 mm. 2. Acute interstitial pancreatitis with significant progression of prominent no nloculated peripancreatic/retroperitoneal fluid but no discrete abscess or locu lated peripancreatic fluid collections. 3. Small amount of ascites in the abdomen and pelvis and mild periportal edema, both findings likely related to the acute pancreatitis. 4. 3.6 cm fusiform infrarenal abdominal aortic aneurysm.
--- NOTE | ~2023-03-09 | CT_ITS ---
EXAMINATION: CT abdomen pelvis w con DATE: 03/09/2023 13:52 INDICATION: Abdominal pain. Vomiting. TECHNIQUE: Computed tomography (CT) of the abdomen and pelvis was performed with 100 mL Omnipaque 350 intravenous contrast. Automated exposure control and iterative reconstruction technique were employe d. The dose-length product was 200.32 mGy-cm. COMPARISON: CT abdomen and pelvis 03/03/2022 FINDINGS: The visualized portions of the lung bases demonstrate mild atelectasis. Emphysema is noted. No pleural effusion. The heart size is normal. No pericardial effusion. There are cysts in the liver measuring up to 10 mm. The spleen is normal. The gallbladder is distended. Gallbladder wall thickeni ng is noted. The common duct is dilated to 10 mm. There is fat stranding around the pancreas. The adr enal glands are normal. There is moderate atrophy of the kidneys. There are cysts in the kidneys nicko uring up to 8 mm on the left. There is calcified atherosclerosis of the aorta and many of the other a rteries. There is a 3.7 cm fusiform aneurysm of infrarenal aorta. There is diverticulosis of the colo n without evidence of diverticulitis. The appendix is normal. There are no dilated loops of bowel. Th ere is a small volume of ascites. A peritoneal dialysis catheter is noted. There are no pathologicall y enlarged lymph nodes. There are changes of ventral hernia repair. There is severe lumbar spondylosi s. IMPRESSION: 1. Acute interstitial pancreatitis. 2. New common duct dilatation and gallbladder distention. No obstructing mass or stone identified. 3. 3.7 cm fusiform aneurysm of infrarenal aorta. Reviewed, dictated and finalized at location A. EF MAN IMPRESSION: 1. Acute interstitial pancreatitis. 2. New common duct dilatation and gallbladder distention. No obstructing mass o r stone identified. 3. 3.7 cm fusiform aneurysm of infrarenal aorta.
--- NOTE | ~2023-03-09 | US_ITS ---
EXAMINATION: US abdomen limited DATE: 03/10/2023 09:23 INDICATION: Abnormal liver function tests. Acute pancreatitis. TECHNIQUE: Multiple grayscale and Doppler ultrasound images of the abdomen were obtained. COMPARISON: CT abdomen and pelvis 03/09/23 FINDINGS: The pancreas is obscured by bowel gas. There is a 5 mm cyst in the liver. The gallbladder i s distended and contains sludge. No visible gallstones. The gallbladder wall thickening is noted. The re is a positive sonographic Katz sign. There is trace pericholecystic fluid. The common duct is mi ldly dilated to 8 mm. IMPRESSION: 1. Pancreas obscured by bowel gas. 2. Acute cholecystitis. 3. Mildly dilated common duct. Reviewed, dictated and finalized at location A. RVISOR VARNISH
--- NOTE | 2023-03-09 12:13 | ED.ABDPAIN ---
HPI - Abdominal Pain General Chief Complaint: Abdominal Pain Stated Complaint: Abdominal pain Time Seen by Provider: 03/09/23 12:10 Source: patient and family Mode of arrival: ambulatory Limitations: no limitations History of Present Illness HPI narrative: 62 years old white male came to the emergency room by private car because of abdominal pain. Patient had endoscopy at [facility] yesterday and was told everything looks okay. Patient been having abdominal pain for weeks, patient on peritoneal dialysis, his doctor is Kieran Gaffney works at [facility]. The dialysis nurse recently told him that the Livier L fluid is cloudy and high likely he have peritonitis and was receive some antibiotic. . Related Data Home Medications Medication Instructions Recorded Confirmed ondansetron HCl 4 mg tablet 4 mg PO PRN PRN Nausea 01/12/19 03/09/23 (Zofran) cholecalciferol (vitamin D3) 50 2,000 unit PO DAILY 01/25/19 03/09/23 mcg (2,000 unit) tablet (Vitamin D3) polyethylene glycol 3350 17 gram 17 g PO DAILY PRN Constipation 01/25/19 03/09/23 oral powder packet (Miralax) amlodipine 5 mg tablet 10 mg PO DAILY 04/17/19 03/09/23 aspirin 81 mg tablet,delayed 81 mg PO DAILY 02/25/22 03/09/23 release atorvastatin 20 mg tablet (Lipitor) 20 mg PO DAILY 02/25/22 03/09/23 clopidogrel 75 mg tablet (Plavix) 75 mg PO DAILY 02/25/22 03/09/23 isosorbide mononitrate 30 mg 30 mg PO DAILY 03/03/22 03/09/23 tablet,extended release 24 hr Allergies Allergy/AdvReac Type Severity Reaction Status Date / Time lorazepam [From Ativan] Allergy Severe Confusion Verified 03/09/23 12:41 erythromycin base Allergy Mild Rash Verified 03/09/23 12:41 Review of Systems Review of Systems: All systems reviewed & are unremarkable except as noted in HPI and below PMFSH Past Medical History Medical History (Updated 03/09/23 @ 22:59 by Tamir Teixeira MD) Anemia in chronic kidney disease Aneurysm of infrarenal abdominal aorta 3.7 cm fusiform aneurysm on CT in 02/2023. COPD with emphysema Coronary artery disease Diverticulitis End-stage renal disease on peritoneal dialysis Surgical History Surgical History (Updated 03/09/23 @ 17:31 by Jodee Cuello PA-C) History of bowel resection partial bowel resection. History of inguinal hernia repair History of percutaneous coronary intervention (01/2022) Status post creation of arteriovenous fistula Status post insertion of dialysis catheter Family History Family History Father Hypertension Congestive cardiac failure Chronic obstructive pulmonary disease HLD (hyperlipidemia) Mother Family history of malignant neoplasm Hypertension Cerebrovascular accident HLD (hyperlipidemia) Social History Social History (Updated 03/09/23 @ 17:32 by Jodee Cuello PA-C) Social History: Surrogate medical decision maker: Abbie Doty, spouse. Code status: Full code. Smoking packs per day: 0.25 Smoking cigarettes per day: 5.0 Smoking status: Current every day smoker Tobacco type: cigarettes Alcohol intake: current Drinks per week: 1 Substance use: current Substance use type: marijuana Other substance usage details: Medical marijuana Do You Feel Safe in your Home?: Yes Lack of Transportation: No Lack of Food: Never True Current Housing: I Have Housing Concerned About Future Housing: No Difficulty Paying Gas/Electric Bills: No Difficulty Paying for Meds: No Currently Unemployed: No Education: High School Diploma/GED Difficulty w/ Childcare or Family Care: No Living arrangements: with family Occupation/Education: unemployed Spiritual care concerns: No Exam Narrative: General appearance: Well-developed, well-nourished Skin: Normal color Head: Normocephalic, nontraumatic Eyes: Clear conjunctiva ENT: Oropharynx normal, ears normal, nose normal Neck:
[2023-03-09] MEDS: ONDANSETRON INJ 4 MG/2 ML VIAL IV PUSH ×4 (12:47→22:01)
[2023-03-09] MEDS: HYDROmorphone HCL INJ (*CRX) 1 MG/ML SYR 0.5 MG IV PUSH ×5 (12:47→22:55)
[2023-03-09] MEDS: SODIUM CHLORIDE 0.9% IV 1,000 ML 999 ML IV CONT (12:48)
[2023-03-09 12:56] LABS: Basophils Percent Auto 0.2 % (0.2-1.2); Hematocrit 40.9 % (42.0-52.0); Immature Granulocyte Absolute 0.08 K/mm3 (0.00-0.031); Immature Granulocyte Percent A 0.6 % (0-0.5); Lymphocytes Percent Auto 2.3 % (18.3-44.2); Mean Corpuscular HGB Conc 34.2 g/dl (32-36); Mean Corpuscular Volume 90.5 fl (80-100); Monocytes Absolute Auto 0.8 K/mm3 (0.1-0.6); Monocytes Percent Auto 6.3 % (2.6-8.5); Neutrophils Absolute Auto 11.7 K/mm3 (1.3-6.7); Neutrophils Percent Auto 90.6 % (45.5-73.1); Platelet Count Result 224 k/mm3 (150-375); Red Blood Count 4.52 M/mm3 (4.6-6.20); Red Cell Distribution Width 13.9 % (11.5-14.5); White Blood Count 12.9 K/mm3 (4.5-10.0)
[2023-03-09 13:06] LABS: Alanine Aminotransferase 439 U/L (6-50); Albumin Level 3.5 g/dL (3.5-5.1); Alkaline Phosphatase 346 U/L (38-126); Anion Gap 13 mmol/L (8-16); Aspartate Amino Transferase 393 U/L (17-59); Bilirubin,Total 2.1 mg/dL (0.2-1.3); Blood Urea Nitrogen 72 mg/dL (9-20); Calcium 9.7 mg/dL (8.4-10.2); Carbon Dioxide 28 mmol/L (22-30); Chloride 88 mmol/L (98-107); Estimated CRCL calculation 4 ml/min; Estimated Glomerular Filt Rate 4; Glucose 136 mg/dL (65-110); Potassium 3.5 mmol/L (3.4-5.0); Sodium 129 mmol/L (137-145)
[2023-03-09 13:08] LABS: Prothrombin Time 13.5 Seconds (11.1-14.7)
[2023-03-09 13:09] LABS: Partial Thromboplastin Time 32.3 SECONDS (22.3-36.8)
--- NOTE | 2023-03-09 14:05 | PC.NURSE ---
This RN educated pt on importance and need of urine sample and explained to patient the straight catheter process. Pt denied wanting a catheter and asked if he could have a little while longer.
[2023-03-09 14:30] LABS: Appearance Urine Clear (Clear); Bacteria Urine None Seen /hpf; Bilirubin Urine Negative (Negative); Blood Urine 1+ (Negative); Color Urine Yellow (Yellow); Glucose Urine UA Trace mg/dL (Negative); Ketones Urine Negative (Negative); Leukocyte Esterase Ur Negative LEU/UL (Negative); Nitrate Urine Negative (Negative); Non Pathogenic Casts 0-2; Protein Urine 2+ mg/dL (Negative); Specific Grav Ur 1.028 (1.001-1.035); Squamous Epithelial Cell Urine None seen /hpf (Few); WBC Urine 0-5 /hpf
[2023-03-09 14:34] LABS: Add Urine Microscopic? YES
[2023-03-09 15:37] LABS: Lipase 2963 U/L (23-300)
--- NOTE | 2023-03-09 17:10 | PM.CNGS ---
Assessment and Plan Assessment and plan (1) Acute pancreatitis: Qualifiers: Pancreatitis type: unspecified pancreatitis type Acute pancreatitis complication: no infection or necrosis Qualified Code(s): K85.90 - Acute pancreatitis without necrosis or infection, unspecified Code(s): K85.90 - Acute pancreatitis without necrosis or infection, unspecified Status: Acute Assessment and Plan: I have reviewed the CT and discussed the findings with the patient. He does have evidence of acute pancreatitis and there is some suggestion that this could be biliary in origin. Other potential causes are postprocedural after EGD yesterday, peritonitis related secondary to the indwelling peritoneal dialysis catheter, or other idiopathic causes. Will plan to get a gallbladder ultrasound tomorrow to further assess for cholelithiasis. Will await further evaluation by Gastroenterology. Patient might benefit from a ventral cholecystectomy if this is thought to be biliary in origin. Will have further discussions with patient about medical optimization for surgery after further testing. (2) Hypertension: Qualifiers: Hypertension type: primary hypertension Qualified Code(s): I10 - Essential (primary) hypertension Code(s): I10 - Essential (primary) hypertension Status: Chronic (3) Coronary artery disease: Qualifiers: Coronary Disease-Associated Artery/Lesion type: [place] artery [place] vs. transplanted heart: [place] heart Associated angina: without angina Qualified Code(s): I25.10 - Atherosclerotic heart disease of [place] coronary artery without angina pectoris Code(s): I25.10 - Atherosclerotic heart disease of [place] coronary artery without angina pectoris Status: Acute (4) ESRD on peritoneal dialysis: Code(s): N18.6 - End stage renal disease; Z99.2 - Dependence on renal dialysis Status: Acute History of Present Illness Consult details Consult date: 03/09/23 Reason for consult: other (Pancreatitis) Requesting physician: Tamir Teixeira MD Narrative: This is a 62-year-old man who I am asked to see for acute pancreatitis. He has been experiencing symptoms for about a week. He saw his primary care physician, but does not recall any particular workup that was done initially. His PCP is not affiliated with this hospital. He was referred to Dr. Miller for EGD which was done yesterday. This was performed at an outside facility and records are not available. Patient states that he does have epigastric pain and at times it is radiating through to his back. He does recall eating some chocolate ice cream before the pain started. He has never had any symptoms like this in the past. He was noted to have an elevated white blood count, elevated liver enzymes, and elevated lipase on his workup in the emergency department. CT showed evidence of acute pancreatitis and dilated common bile duct and gallbladder. The patient has history of end-stage renal disease and is on peritoneal dialysis. He denies any current fevers. He also has a history of coronary artery disease and underwent stent placement a little over a year ago. He was on aspirin and Plavix, but these have been held for 5 days so that he could undergo EGD yesterday. Review of Systems Review of Systems: All systems reviewed & are unremarkable except as noted in HPI and below Constitutional: Constitutional: Denies chills and Denies fever(s) Eyes: Eyes: Denies change in vision ENT: Denies hearing loss, Denies neck pain and Denies sore throat Cardiovascular: Cardiovascular: Denies chest pain and Denies dyspnea Respiratory: Respiratory: Denies cough, Denies dyspnea and Denies wheezing Gastrointestinal: Gastrointestinal: Reports as per HPI Genitourinary: Genitourinary: Denies hematuria and Denies dysuria Musculoskeletal: Musculoskeletal: Denies arthralgias, Denies joint swelling and Denies neck pain Allergic/Im
--- NOTE | 2023-03-09 17:22 | PM.IMHP ---
H&P: HPI History of Present Illness Date/Time: 03/09/23 18:00 Chief Complaint: Abdominal pain. Narrative: This is a very pleasant 62-year-old male with end-stage renal disease on peritoneal dialysis, coronary artery disease, hypertension, hyperlipidemia, chronic anemia, and gastroesophageal reflux disease who presented to the emergency department via private vehicle from home for evaluation of abdominal pain. The patient provides the following history. He reports ongoing abdominal pain for weeks and he was recently started on antibiotics for possible peritonitis by his drum stenciler, Dr. Kieran Dumont in [place]. His appetite and oral intake have been poor. He had an upper endoscopy done as an outpatient yesterday at [facility] per Dr. Jerson Miller for evaluation of the same. He was told that there were not any significant findings on the endoscopy. He felt okay when he got home but sometime after having chocolate ice cream last evening he developed worsening pain throughout the upper abdomen, occasionally radiating through to the back. He has nausea and vomiting as well due to the pain. He reports a temperature up to 100.9? F. He denies cold and flu symptoms. No chest pain or shortness of breath. He denies hematemesis, melena, and hematochezia. He has never had similar symptoms before. He was afebrile on arrival to the ED with stable vitals. Labs were significant for a WBC count of 12.9, hemoglobin 14.0, lipase 2963, and elevated LFTs. Abdomen and pelvis CT showed acute interstitial pancreatitis and new common bile duct dilatation and gallbladder distension. He is being admitted in this setting for further treatment, workup, and GI and surgery consultations. Review of Systems Review of Systems: Twelve systems were reviewed and are negative except for as per HPI. [facility] Past Medical History Medical History Anemia in chronic kidney disease Aneurysm of infrarenal abdominal aorta 3.7 cm fusiform aneurysm on CT in 02/2023. COPD with emphysema Coronary artery disease Diverticulitis End-stage renal disease on peritoneal dialysis Surgical History Surgical History History of bowel resection partial bowel resection. History of inguinal hernia repair History of percutaneous coronary intervention (01/2022) Status post creation of arteriovenous fistula Status post insertion of dialysis catheter Family History Family History Father Hypertension Congestive cardiac failure Chronic obstructive pulmonary disease HLD (hyperlipidemia) Mother Family history of malignant neoplasm Hypertension Cerebrovascular accident HLD (hyperlipidemia) Social History Social History (Updated 03/10/23 @ 00:23 by Jodee Cuello PA-C) Social History: Surrogate medical decision maker: Abbie Soren, spouse. Code status: Full code. Smoking packs per day: 0.25 Smoking cigarettes per day: 5.0 Smoking status: Current every day smoker Tobacco type: cigarettes Alcohol intake: current Drinks per week: 1 Substance use: current Substance use type: marijuana Other substance usage details: Medical marijuana Do You Feel Safe in your Home?: Yes Lack of Transportation: No Lack of Food: Never True Current Housing: I Have Housing Concerned About Future Housing: No Difficulty Paying Gas/Electric Bills: No Difficulty Paying for Meds: No Currently Unemployed: No Education: High School Diploma/GED Difficulty w/ Childcare or Family Care: No Living arrangements: with family Occupation/Education: retired 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 Spiritual care concerns: No Meds Home Medications and Allergies Home Medications Medication Instructions Recorded Confirmed Type ondansetron HCl 4 m
--- NOTE | 2023-03-09 17:49 | ADMGEN ---
This patient, Maximo Doty, was admitted to Medical Room 247-. Patient/family oriented to hospital policies and general routines including ID bracelet, bed and alarms, visiting hours, pain management, procedures, bathroom and other care routines, personal items, smoking policy, room service/diet, and visiting hours. Information on how to activate the Rapid Response Team has been discussed. Patient/Family are encouraged to report perceived risks to care and to ask questions if they do not understand what they are told or what they should do.
[2023-03-09] MEDS: SODIUM CHLORIDE 0.9% IV 1,000 ML 150 ML IV CONT (17:57)
[2023-03-09] MEDS: PIPERACILLIN/TAZ 2.25G/NS 50ML 2.25 GM/50 ML BAG IVPB (17:58)
--- NOTE | 2023-03-09 18:02 | P.CONNP_ITS ---
Assessment and Plan Assessment and plan (1) End stage renal disease: Code(s): N18.6 - End stage renal disease Status: Chronic Assessment and Plan: * primary contract programmer = Dr. Dumont * normall does CAPD * plan transition to CCPD while hospitalized * follow electroltyes, volume status, and clearance (2) Abdominal pain: Code(s): R10.9 - Unspecified abdominal pain Status: Acute Assessment and Plan: * present for the last several weeks * s/p EGD yesterday with new/acute findings (records requested) * CT imaging here with evidence of pancreatitis and new common bile duct dilatation with gallbladder distention * Surgery recommendations noted * possible peritonitis reported and dosed with antibiotics * check PD fluid (although results may be skewed since antibiotics already given) * will attempt to contact outpatient PD nurse regarding previous PD fluid culture results * GI consulted (3) Acute pancreatitis: Qualifiers: Acute pancreatitis complication: no infection or necrosis Pancreatitis type: unspecified pancreatitis type Qualified Code(s): K85.90 - Acute pancreatitis without necrosis or infection, unspecified Code(s): K85.90 - Acute pancreatitis without necrosis or infection, unspecified Status: Acute Assessment and Plan: * etiology? * did he have EGD versus ERCP yesterday? * bowel rest * gentle IVF hydration * analgesics and antiemetics PRN * Surgery recommendations noted * GI consulted * supportive therapy (4) Anemia: Code(s): D64.9 - Anemia, unspecified Status: Acute Assessment and Plan: * not an issue at this time * H/H supratherapeutic for ESRD * suspect component of hemoconcentration * follow trend of H/H with IVFs (5) Hypertension: Qualifiers: Hypertension type: primary hypertension Qualified Code(s): I10 - Essential (primary) hypertension Code(s): I10 - Essential (primary) hypertension Status: Chronic Assessment and Plan: * reasonable control at this time * follow trend of hemodynamics I will continue follow the patient with you while remains hospitalized and make further recommendations as needed. Thank you for allowing me to participate in the care of this patient. History of Present Illness Reason for Consult Consult date: 03/09/23 Reason for consult: end stage renal disease Chief Complaint Chief complaint: acute pancreatitis,cholecystitis,peritoneal dialys History of Present Illness Narrative: The patient is a 62-year-old male with a past medical history as outlined below who presented to [facility] Emergency Room for further evaluation of abdominal pain. The patient reports that he has been having issues and problems with abdominal pain for last week if not longer. There was a concern for possible peritonitis based on his symptoms so a PD fluid sample was collected and he was empirically dosed with intraperitoneal vancomycin. He also reports poor oral intake and associated appetite. He apparently had an outpatient EGD yesterday at [facility] for further evaluation of the symptoms. He was informed that there were no significant findings/abnormalities on this EGD. He felt okay until he got home and started to eat something, had worsening abdominal pain with radiation to his back. Other associated symptoms included nausea and vomiting secondary to the pain. He also reports a low-grade fever but no symptoms of chest pain, shortness of breath, hematemesis, melena, or hemat
--- NOTE | 2023-03-09 18:02 | PM.CNNEP ---
Assessment and Plan Assessment and plan (1) End stage renal disease: Code(s): N18.6 - End stage renal disease Status: Chronic Assessment and Plan: primary ammunition and explosives handler = Dr. Tim mancilla does CAPD plan transition to CCPD while hospitalized follow electroltyes, volume status, and clearance (2) Abdominal pain: Code(s): R10.9 - Unspecified abdominal pain Status: Acute Assessment and Plan: present for the last several weeks s/p EGD yesterday with new/acute findings (records requested) CT imaging here with evidence of pancreatitis and new common bile duct dilatation with gallbladder distention Surgery recommendations noted possible peritonitis reported and dosed with antibiotics check PD fluid (although results may be skewed since antibiotics already given) will attempt to contact outpatient PD nurse regarding previous PD fluid culture results GI consulted (3) Acute pancreatitis: Qualifiers: Acute pancreatitis complication: no infection or necrosis Pancreatitis type: unspecified pancreatitis type Qualified Code(s): K85.90 - Acute pancreatitis without necrosis or infection, unspecified Code(s): K85.90 - Acute pancreatitis without necrosis or infection, unspecified Status: Acute Assessment and Plan: etiology? did he have EGD versus ERCP yesterday? bowel rest gentle IVF hydration analgesics and antiemetics PRN Surgery recommendations noted GI consulted supportive therapy (4) Anemia: Code(s): D64.9 - Anemia, unspecified Status: Acute Assessment and Plan: not an issue at this time H/H supratherapeutic for ESRD suspect component of hemoconcentration follow trend of H/H with IVFs (5) Hypertension: Qualifiers: Hypertension type: primary hypertension Qualified Code(s): I10 - Essential (primary) hypertension Code(s): I10 - Essential (primary) hypertension Status: Chronic Assessment and Plan: reasonable control at this time follow trend of hemodynamics I will continue follow the patient with you while remains hospitalized and make further recommendations as needed. Thank you for allowing me to participate in the care of this patient. History of Present Illness Reason for Consult Consult date: 03/09/23 Reason for consult: end stage renal disease Chief Complaint Chief complaint: acute pancreatitis,cholecystitis,peritoneal dialys History of Present Illness Narrative: The patient is a 62-year-old male with a past medical history as outlined below who presented to [facility] Emergency Room for further evaluation of abdominal pain. The patient reports that he has been having issues and problems with abdominal pain for last week if not longer. There was a concern for possible peritonitis based on his symptoms so a PD fluid sample was collected and he was empirically dosed with intraperitoneal vancomycin. He also reports poor oral intake and associated appetite. He apparently had an outpatient EGD yesterday at [facility] for further evaluation of the symptoms. He was informed that there were no significant findings/abnormalities on this EGD. He felt okay until he got home and started to eat something, had worsening abdominal pain with radiation to his back. Other associated symptoms included nausea and vomiting secondary to the pain. He also reports a low-grade fever but no symptoms of chest pain, shortness of breath, hematemesis, melena, or hematochezia. He subsequently came to the emergency room for further assessment. Workup and evaluation emergency room demonstrated the patient to be hemodynamically stable but in mild distress secondary to abdominal pain. Routine blood work demonstrated mildly elevated white blood cell count of 12.9, elevated LFTs, and elevated lipase of almost 3000. CT scan of the abdomen pelvis demonstrated acute interstitial pa
[2023-03-09 20:32] LABS: Triglycerides 203 mg/dL (<150)
[2023-03-09 23:11] LABS: MRSA (PCR) NOT DETECTED (NOT DETECTE)
[2023-03-10] VITALS (7 sets, daily range): BP systolic 139–150; BP diastolic 60–74; PULSE 85–91; RESP 18; TEMP 36.4–37; O2SAT 91–98; BMI 21.5
[2023-03-10] MEDS: SODIUM CHLORIDE 0.9% IV 1,000 ML 150 ML IV CONT (01:01)
[2023-03-10] MEDS: HYDROmorphone HCL INJ (*CRX) 1 MG/ML SYR IV PUSH ×5 (04:00→19:57)
[2023-03-10] MEDS: ONDANSETRON INJ 4 MG/2 ML VIAL IV PUSH ×5 (04:00→19:58)
[2023-03-10] MEDS: PIPERACILLIN/TAZ 2.25G/NS 50ML 2.25 GM/50 ML BAG IVPB ×3 (05:09→21:33)
[2023-03-10 06:11] LABS: Basophils Percent Auto 0.2 % (0.2-1.2); Eosinophils Absolute Auto 0.1 K/mm3 (0-0.3); Eosinophils Percent Auto 0.8 % (0-4.4); Hematocrit 35.7 % (42.0-52.0); Hemoglobin 11.9 g/dL (14.0-18.0); Immature Granulocyte Absolute 0.17 K/mm3 (0.00-0.031); Immature Granulocyte Percent A 1.3 % (0-0.5); Lymphocytes Absolute Auto 0.35 K/mm3 (0.9-3.2); Lymphocytes Percent Auto 2.6 % (18.3-44.2); Mean Corpuscular HGB Conc 33.3 g/dl (32-36); Mean Corpuscular Hemoglobin 30.7 pg (26-34); Mean Corpuscular Volume 92.2 fl (80-100); Mean Platelet Volume 9.7 fl (7.4-10.4); Monocytes Absolute Auto 1.1 K/mm3 (0.1-0.6); Neutrophils Absolute Auto 11.6 K/mm3 (1.3-6.7); Neutrophils Percent Auto 87.1 % (45.5-73.1); Platelet Count Result 215 k/mm3 (150-375); Red Blood Count 3.87 M/mm3 (4.6-6.20); Red Cell Distribution Width 14.1 % (11.5-14.5); White Blood Count 13.3 K/mm3 (4.5-10.0)
[2023-03-10 06:45] LABS: Alanine Aminotransferase 247 U/L (6-50); Alkaline Phosphatase 300 U/L (38-126); Anion Gap 13 mmol/L (8-16); Aspartate Amino Transferase 150 U/L (17-59); Bilirubin,Total 1.4 mg/dL (0.2-1.3); Blood Urea Nitrogen 63 mg/dL (9-20); Calcium 9.4 mg/dL (8.4-10.2); Carbon Dioxide 22 mmol/L (22-30); Chloride 96 mmol/L (98-107); Estimated CRCL calculation 6 ml/min; Estimated Glomerular Filt Rate 5; Glucose 114 mg/dL (65-110); Magnesium 2.3 mg/dL (1.6-2.3); Sodium 131 mmol/L (137-145)
[2023-03-10 07:49] LABS: Hepatitis B Surface Antigen Negative (Negative)
[2023-03-10 08:07] LABS: Hepatitis B Surface Anti Res Negative
[2023-03-10] MEDS: ATORVASTATIN 20 MG TABLET PO (08:29)
[2023-03-10] MEDS: CHOLECALCIFEROL 1,000 UNITS TABLET 2000 UNITS PO (08:29)
[2023-03-10] MEDS: POTASSIUM CHLORIDE 20 MEQ ER TABLET 40 MEQ PO (08:30)
[2023-03-10] MEDS: amLODIPine BESYLATE 5 MG TABLET 10 MG PO (08:30)
[2023-03-10] MEDS: ISOSORBIDE MONONITRATE 30 MG TAB.ER.24H PO (08:30)
[2023-03-10] MEDS: PANTOPRAZOLE 40 MG TABLET PO (08:30)
[2023-03-10] MEDS: FERROUS SULFATE 325 MG TABLET DR PO (08:30)
[2023-03-10] MEDS: ASPIRIN 81 MG ENTERIC TABLET PO (08:30)
[2023-03-10 08:40] LABS: Lipase 12786 U/L (23-300)
--- NOTE | 2023-03-10 10:05 | PM.IMPN ---
Progress Note: A&P Assessment and Plan (1) Abdominal pain: Code(s): R10.9 - Unspecified abdominal pain Status: Acute Assessment and Plan: Patient reports ongoing abdominal pain for several weeks. Upper endoscopy per Dr. Miller was reportedly unremarkable. Evidence of pancreatitis and new common bile duct dilatation with gallbladder distention on CT Also was reportedly started on antibiotics recently for possible peritonitis. Continue empiric antibiotic and analgesics as needed. GI and surgery consulted appreciate recommendation and plan (2) Acute pancreatitis: Qualifiers: Pancreatitis type: unspecified pancreatitis type Acute pancreatitis complication: no infection or necrosis Qualified Code(s): K85.90 - Acute pancreatitis without necrosis or infection, unspecified Code(s): K85.90 - Acute pancreatitis without necrosis or infection, unspecified Status: Acute Assessment and Plan: -continue NPO -MRCP pending Etiology is not entirely clear but patient reports having endoscopy yesterday, possible ERCP? Records requested. Supportive care including bowel rest, cautious IV fluid rehydration, and analgesics and antiemetics as needed. May take medications with sips of water. Dr. Morrow (GI) Dr. Giron (surgery) have been consulted and input is appreciated. (3) End-stage renal disease on peritoneal dialysis: Code(s): N18.6 - End stage renal disease; Z99.2 - Dependence on renal dialysis Status: Acute Assessment and Plan: Patient of Dr. Kieran Dumont in [place]. Recently started on antibiotics for possible peritonitis. Dr. Chavarria consulted for dialysis and recommendations. (4) Dehydration: Code(s): E86.0 - Dehydration Status: Acute Assessment and Plan: He looks very dry on exam which fits with poor oral intake the last 1.5 weeks. Continue cautious IV fluid rehydration with close monitoring of volume status. (5) Anemia in chronic kidney disease: Code(s): N18.9 - Chronic kidney disease, unspecified; D63.1 - Anemia in chronic kidney disease Status: Acute Assessment and Plan: He is hemoconcentrated with a hemoglobin of 14. Expect this to decrease with IV fluid rehydration. Continue to monitor hemoglobin and hematocrit closely. (6) Hypertension: Qualifiers: Hypertension type: primary hypertension Qualified Code(s): I10 - Essential (primary) hypertension Code(s): I10 - Essential (primary) hypertension Status: Chronic Assessment and Plan: -blood pressures were reviewed mildly elevated -continue home medication amlodipine and isosorbide mononitrate. (7) Coronary artery disease: Qualifiers: Coronary Disease-Associated Artery/Lesion type: [place] artery [place] vs. transplanted heart: [place] heart Associated angina: without angina Qualified Code(s): I25.10 - Atherosclerotic heart disease of [place] coronary artery without angina pectoris Code(s): I25.10 - Atherosclerotic heart disease of [place] coronary artery without angina pectoris Status: Acute Assessment and Plan: No acute issues; patient denies chest pain. Subjective Date/time seen: 03/10/23 10:05 Interval history: H&P: HPI History of Present Illness Date/Time: 03/09/23? 18:00 Chief Complaint: Abdominal pain. Narrative: This is a very pleasant 62-year-old male with end-stage renal disease on peritoneal dialysis, coronary artery disease, hypertension, hyperlipidemia, chronic anemia, and gastroesophageal reflux disease who presented to the emergency department via private vehicle from home for evaluation of abdominal pain. The patient provides the following history. 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 Kieran Dumont in [place]. His appetite and oral intake have been poor.
[2023-03-10 10:18] LABS: Appearance Peritoneal Fluid Hazy (Clear); Color Peritoneal Fluid Yellow (Colorless); Source Peritoneal Fluid Peritoneal Fluid
[2023-03-10 10:21] LABS: Lymphocytes Peritoneal Fluid 5 %; Macrophages Peritoneal Fluid 2 %; Mesothelial Cells Peritoneal Fluid 9 %; Monocytes Peritoneal Fluid 35 %; Neutrophils Peritoneal Fluid 49 % (0-25)
--- NOTE | 2023-03-10 13:32 | PM.PNNEP ---
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 does CAPD transitioned to CCPD while hospitalized follow electrolytes, volume status, and clearance (2) Abdominal pain: Code(s): R10.9 - Unspecified abdominal pain Status: Acute Assessment and Plan: present for the last several weeks s/p EGD on 03/08/23 with new/acute findings (records requested) CT imaging here with evidence of pancreatitis and new common bile duct dilatation with gallbladder distention Surgery recommendations noted peritonitis noted as well (see #3) GI consulted (3) Peritonitis: Code(s): K65.9 - Peritonitis, unspecified Status: Acute Assessment and Plan: documented peritonitis noted (discussed case with patient's outpatient PD nurse) PD fluid cell count with 600 wbcs preliminary PD fluid cultures with gram negative bacilli should be covered by IV Zosyn repeat PD fluid cell count noted here continue current therapy (4) Acute pancreatitis: Qualifiers: Acute pancreatitis complication: no infection or necrosis Pancreatitis type: unspecified pancreatitis type Qualified Code(s): K85.90 - Acute pancreatitis without necrosis or infection, unspecified Code(s): K85.90 - Acute pancreatitis without necrosis or infection, unspecified Status: Acute Assessment and Plan: etiology? bowel rest s/p gentle IVF hydration analgesics and antiemetics PRN Surgery recommendations noted GI consulted supportive therapy (5) Anemia: Code(s): D64.9 - Anemia, unspecified Status: Acute Assessment and Plan: not an issue at this time H/H supratherapeutic for ESRD suspect component of hemoconcentration on admission follow trend of H/H (6) Hypertension: Qualifiers: Hypertension type: primary hypertension Qualified Code(s): I10 - Essential (primary) hypertension Code(s): I10 - Essential (primary) hypertension Status: Chronic Assessment and Plan: reasonable control at this time follow trend of hemodynamics Will continue to follow. Subjective Date/time seen: 03/10/23 13:32 Interval history: Follow-up for end stage renal disease on peritoneal dialysis. CCPD treatment overnight was uneventful; abdominal pain still present per patient; tolerated IVFs overnight as well; no apparent distress noted at the the time of my visit. Exam Narrative: General: WD/WN male in NAD Heart: normal S1 and S2; no rub Lungs: clear to auscultation Abdomen: soft, nontender, nondistended, positive bowel sounds Extremities: no cyanosis or clubbing; no edema Skin: warm and dry Objective Data Vital Signs Vital Signs: Vital Signs Temp Pulse Resp BP Pulse Ox O2 Del Method 03/10/23 08:00 Room Air 03/10/23 07:46 98.0 F 87 18 139/60 03/10/23 08:31 85 150/67 H 94 03/10/23 08:26 86 91 Room Air 03/10/23 04:02 98.0 F 87 18 139/60 95 03/09/23 22:45 Room Air 03/09/23 21:30 96 Room Air 03/09/23 19:40 98.3 F 82 18 139/74 96 03/09/23 18:29 Room Air 03/09/23 17:29 98.4 F 84 16 131/69 99 03/09/23 17:01 84 18 151/79 H 96 03/09/23 17:00 79 20 97 03/09/23 16:46 78 20 142/78 H 96 03/09/23 16:45 81 19 95 03/09/23 16:31 77 16 139/81 97 03/09/23 16:30 80 20 98 03/09/23 16:16 82 20 140/81 99 03/09/23 16:15 85 26 H 96 03/09/23 16:01 84 26 H 139/83 97 03/09/23 16:00 86 22 H 96 03/09/23 15:46 84 19 142/85 H 95 03/09/23 15:45 86 19 95 03/09/23 15:31 80 20 141/81 H 96 03/09/23 15:30 82 23 H 97 03/09/23 15:16 89 35 H 146/83 H 96 03/09/23 15:15 83 25 H 96 03/09/23 15:01 83 19 140/76 96
--- NOTE | 2023-03-10 13:32 | P.PNNP_ITS ---
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 * [place] does CAPD * transitioned to CCPD while hospitalized * follow electrolytes, volume status, and clearance (2) Abdominal pain: Code(s): R10.9 - Unspecified abdominal pain Status: Acute Assessment and Plan: * present for the last several weeks * s/p EGD on 03/08/23 with new/acute findings (records requested) * CT imaging here with evidence of pancreatitis and new common bile duct dilatation with gallbladder distention * Surgery recommendations noted * peritonitis noted as well (see #3) * GI consulted (3) Peritonitis: Code(s): K65.9 - Peritonitis, unspecified Status: Acute Assessment and Plan: * documented peritonitis noted (discussed case with patient's outpatient PD nurse) * PD fluid cell count with 600 wbcs * preliminary PD fluid cultures with gram negative bacilli * should be covered by IV Zosyn * repeat PD fluid cell count noted here * continue current therapy (4) Acute pancreatitis: Qualifiers: Acute pancreatitis complication: no infection or necrosis Pancreatitis type: unspecified pancreatitis type Qualified Code(s): K85.90 - Acute pancreatitis without necrosis or infection, unspecified Code(s): K85.90 - Acute pancreatitis without necrosis or infection, unspecified Status: Acute Assessment and Plan: * etiology? * bowel rest * s/p gentle IVF hydration * analgesics and antiemetics PRN * Surgery recommendations noted * GI consulted * supportive therapy (5) Anemia: Code(s): D64.9 - Anemia, unspecified Status: Acute Assessment and Plan: * not an issue at this time * H/H supratherapeutic for ESRD * suspect component of hemoconcentration on admission * follow trend of H/H (6) Hypertension: Qualifiers: Hypertension type: primary hypertension Qualified Code(s): I10 - Essential (primary) hypertension Code(s): I10 - Essential (primary) hypertension Status: Chronic Assessment and Plan: * reasonable control at this time * follow trend of hemodynamics Will continue to follow. Subjective Date/time seen: 03/10/23 13:32 Interval history: Follow-up for end stage renal disease on peritoneal dialysis. CCPD treatment overnight was uneventful; abdominal pain still present per patie nt; tolerated IVFs overnight as well; no apparent distress noted at the the time of my visit. Exam Narrative: General: WD/WN male in NAD Heart: normal S1 and S2; no rub Lungs: clear to auscultation Abdomen: soft, nontender, nondistended, positive bowel sounds Extremities: no cyanosis or clubbing; no edema Skin: warm and dry Objective Data Vital Signs Vital Signs: Vital Signs Temp Pulse Resp BP Pulse Ox O2 Del Method 03/10/23 08:00 Room Air 03/10/23 07:46 98.0 F 87 18 139/60 03/10/23 08:31 85 150/67 H 94 03/10/23 08:26 86 91 Room Air 03/10/23 04:02 98.0 F 87 18 139/60 95 03/09/23 22:45 Room Air 03/09/23 21:30 96 Room Air 03/09/23 19:40 98.3 F 82 18 139/74 96 03/09/23 18:29 Room Air
--- NOTE | 2023-03-10 14:19 | WPDGICN ---
Assessment and Plan Assessment and plan (1) Acute pancreatitis: Code(s): K85.90 - Acute pancreatitis without necrosis or infection, unspecified Status: Acute Assessment and Plan: ? biliary related surgery on board, no stones in bile duct fluids and pain control, also abx npo for now ultrasound showed possible cholecystitis (2) End-stage renal disease on peritoneal dialysis: Code(s): N18.6 - End stage renal disease; Z99.2 - Dependence on renal dialysis Status: Acute Assessment and Plan: by help desk intern (3) Anemia in chronic kidney disease: Code(s): N18.9 - Chronic kidney disease, unspecified; D63.1 - Anemia in chronic kidney disease Status: Acute (4) Hypertension: Qualifiers: Hypertension type: primary hypertension Qualified Code(s): I10 - Essential (primary) hypertension Code(s): I10 - Essential (primary) hypertension Status: Chronic (5) Nausea and vomiting in adult: Code(s): R11.2 - Nausea with vomiting, unspecified Status: Acute Assessment and Plan: from pancreatitis GI Consult Note Consult date/time: 03/10/23 14:19 Reason for consult: pancreatitis HPI: Maximo Doty is a 62 year old male with h/o ESRD on PD, diverticulosis with previous bleeding in the past who has been feeling sick for 1 week with upper abdominal discomfort and nausea, some chills. Finally he had EGD at [facility] by Dr Miller day before admission, apparently no major findings. He came here with nausea and vomiting, blood work demonstrated mildly elevated white blood cell count of 12.9, elevated LFTs, and elevated lipase of almost 3000.? CT scan of the abdomen pelvis demonstrated acute interstitial pancreatitis with new common bile duct dilation and gallbladder distension. He is npo now, no previous pancreatitis, alcohol only social. Review of Systems Review of Systems: All systems reviewed & are unremarkable except as noted in HPI and below Constitutional: Constitutional: Denies chills and Denies fever(s) Eyes: Eyes: Denies change in vision ENT: Denies hearing loss, Denies neck pain and Denies sore throat Cardiovascular: Cardiovascular: Denies chest pain and Denies dyspnea Respiratory: Respiratory: Denies cough, Denies dyspnea and Denies wheezing Gastrointestinal: Gastrointestinal: Reports as per HPI Genitourinary: Comments: on dialysis Musculoskeletal: Musculoskeletal: Denies arthralgias, Denies joint swelling and Denies neck pain Allergic/Immunologic: Allergic/Immunologic: Denies wheezing [facility] Past Medical History Medical History (Updated 03/10/23 @ 14:22 by Sam Morrow MD) Anemia in chronic kidney disease Aneurysm of infrarenal abdominal aorta 3.7 cm fusiform aneurysm on CT in 02/2023. COPD with emphysema Coronary artery disease Diverticulitis End-stage renal disease on peritoneal dialysis Nausea and vomiting in adult Surgical History Surgical History History of bowel resection partial bowel resection. History of inguinal hernia repair History of percutaneous coronary intervention (01/2022) Status post creation of arteriovenous fistula Status post insertion of dialysis catheter Family History Family History Father Hypertension Congestive cardiac failure Chronic obstructive pulmonary disease HLD (hyperlipidemia) Mother Family history of malignant neoplasm Hypertension Cerebrovascular accident HLD (hyperlipidemia) Social History Social History (Updated 03/10/23 @ 00:23 by Jodee Cuello PA-C) Social History: Surrogate medical decision maker: Abbiemina Doty, spouse. Code status: Full code. Smoking packs per day: 0.25 Smoking cigarettes per day: 5.0 Smoking status: Current every day smoker Tobacco type: cigarettes Alcohol intake: current Drin
--- NOTE | 2023-03-10 14:50 | PM.PNGS ---
Progress Note: A&P Assessment and Plan (1) Acute pancreatitis: Code(s): K85.90 - Acute pancreatitis without necrosis or infection, unspecified Status: Acute Assessment and Plan: unsure origin. U/s shows signs of cholecystitis but no cause for obstruction seen yet. Will get MRCP. Continue bowel rest and pain control. (2) End-stage renal disease on peritoneal dialysis: Code(s): N18.6 - End stage renal disease; Z99.2 - Dependence on renal dialysis Status: Acute (3) Hypertension: Qualifiers: Hypertension type: primary hypertension Qualified Code(s): I10 - Essential (primary) hypertension Code(s): I10 - Essential (primary) hypertension Status: Chronic (4) Coronary artery disease: Qualifiers: Coronary Disease-Associated Artery/Lesion type: [place] artery [place] vs. transplanted heart: [place] heart Associated angina: without angina Qualified Code(s): I25.10 - Atherosclerotic heart disease of [place] coronary artery without angina pectoris Code(s): I25.10 - Atherosclerotic heart disease of [place] coronary artery without angina pectoris Status: Acute Subjective Subjective Date/Time Seen: 03/10/23 14:50 Interval history: Still getting epigastric pain. Exam GI: GI Palp: Yes Tenderness to palpation present (GI) (epigastric) Objective Data Vital Signs Vital Signs: Vital Signs - 24 hr 03/09/23 15:00 03/09/23 15:01 03/09/23 15:15 Temperature Pulse Rate 84 83 83 Respiratory Rate 23 H 19 25 H Blood Pressure 140/76 Pulse Oximetry 97 96 96 Oxygen Delivery 03/09/23 15:16 03/09/23 15:30 03/09/23 15:31 Temperature Pulse Rate 89 82 80 Respiratory Rate 35 H 23 H 20 Blood Pressure 146/83 H 141/81 H Pulse Oximetry 96 97 96 Oxygen Delivery 03/09/23 15:45 03/09/23 15:46 03/09/23 16:00 Temperature Pulse Rate 86 84 86 Respiratory Rate 19 19 22 H Blood Pressure 142/85 H Pulse Oximetry 95 95 96 Oxygen Delivery 03/09/23 16:01 03/09/23 16:15 03/09/23 16:16 Temperature Pulse Rate 84 85 82 Respiratory Rate 26 H 26 H 20 Blood Pressure 139/83 140/81 Pulse Oximetry 97 96 99 Oxygen Delivery 03/09/23 16:30 03/09/23 16:31 03/09/23 16:45 Temperature Pulse Rate 80 77 81 Respiratory Rate 20 16 19 Blood Pressure 139/81 Pulse Oximetry 98 97 95 Oxygen Delivery 03/09/23 16:46 03/09/23 17:00 03/09/23 17:01 Temperature Pulse Rate 78 79 84 Respiratory Rate 20 20 18 Blood Pressure 142/78 H 151/79 H Pulse Oximetry 96 97 96 Oxygen Delivery 03/09/23 17:29 03/09/23 18:29 03/09/23 19:40 Temperature 36.9 C 36.8 C Pulse Rate 84 82 Respiratory Rate 16 18 Blood Pressure 131/69 139/74 Pulse Oximetry 99 96 Oxygen Delivery Room Air 03/09/23 21:30 03/09/23 22:45 03/10/23 04:02 Temperature 36.7 C Pulse Rate 87 Respiratory Rate 18 Blood Pressure 139/60 Pulse Oximetry 96 95 Oxygen Delivery Room Air Room Air 03/10/23 08:26 03/10/23 08:31 03/10/23 07:46 Temperature 36.7 C Pulse Rate 86 85 87 Respiratory Rate 18 Blood Pressure 150/67 H 139/60 Pulse Oximetry 91 94 Oxygen Delivery Room Air 03/10/23 08:00 03/10/23 14:26 Temperature 36.4 C Pulse Rate 87 Respiratory Rate 18 Blood Pressure 141/72 H Pulse Oximetry 98 Oxygen Delivery Room Air Intake/Output Intake/Output: Intake & Output 03/07/23 03/08/23 03/09/23 03/10/23 23:59 23:59 23:59 23:59 Intake Total 1050 1050 Output Total 125 437 Balance 925 613 Meds/Results Medications: Active Medications Generic Name Dose Route Start Last Admin Trade Name Freq PRN Reason Stop Dose Admin Amlodipine Besylate 10 mg 03/10/23 09:00 03/10/23 08:30 Amlodipine Besylate 5 Mg Tablet PO 10 mg DAILY ALEXANDRE Administration Aspirin 81 mg 03/10/23 09:00 03/10/23 08:30 Aspirin 81 Mg Enteric Tablet PO 81 mg DAILY ALEXANDRE Administration Atorvastatin Calcium 20 mg 03/10/23 0
[2023-03-10] MEDS: LACTATED RINGERS 1,000 ML 75 ML IV CONT (20:06)
[2023-03-11] VITALS (9 sets, daily range): BP systolic 136–152; BP diastolic 68–89; PULSE 87–95; RESP 18; TEMP 36.6–37; O2SAT 97–100
[2023-03-11] MEDS: HYDROmorphone HCL INJ (*CRX) 1 MG/ML SYR IV PUSH ×5 (01:40→14:18)
[2023-03-11] MEDS: PIPERACILLIN/TAZ 2.25G/NS 50ML 2.25 GM/50 ML BAG IVPB ×3 (05:19→21:09)
[2023-03-11] MEDS: ONDANSETRON INJ 4 MG/2 ML VIAL IV PUSH ×3 (05:20→14:18)
[2023-03-11 06:23] LABS: Basophils Percent Auto 0.3 % (0.2-1.2); Eosinophils Absolute Auto 0.2 K/mm3 (0-0.3); Eosinophils Percent Auto 1.6 % (0-4.4); Hemoglobin 11.6 g/dL (14.0-18.0); Immature Granulocyte Absolute 0.17 K/mm3 (0.00-0.031); Immature Granulocyte Percent A 1.5 % (0-0.5); Lymphocytes Absolute Auto 0.42 K/mm3 (0.9-3.2); Lymphocytes Percent Auto 3.8 % (18.3-44.2); Mean Corpuscular HGB Conc 32.2 g/dl (32-36); Mean Corpuscular Hemoglobin 30.4 pg (26-34); Mean Corpuscular Volume 94.5 fl (80-100); Mean Platelet Volume 9.8 fl (7.4-10.4); Monocytes Absolute Auto 0.9 K/mm3 (0.1-0.6); Monocytes Percent Auto 7.7 % (2.6-8.5); Neutrophils Absolute Auto 9.4 K/mm3 (1.3-6.7); Neutrophils Percent Auto 85.1 % (45.5-73.1); Platelet Count Result 225 k/mm3 (150-375); Red Blood Count 3.81 M/mm3 (4.6-6.20); Red Cell Distribution Width 14.2 % (11.5-14.5); White Blood Count 11.1 K/mm3 (4.5-10.0)
[2023-03-11 06:31] LABS: Phosphorus 4.9 mg/dL (2.5-4.5)
[2023-03-11 07:10] LABS: Alanine Aminotransferase 295 U/L (6-50); Albumin Level 2.9 g/dL (3.5-5.1); Alkaline Phosphatase 475 U/L (38-126); Anion Gap 11 mmol/L (8-16); Aspartate Amino Transferase 297 U/L (17-59); Bilirubin,Total 3.3 mg/dL (0.2-1.3); Blood Urea Nitrogen 62 mg/dL (9-20); Calcium 9.9 mg/dL (8.4-10.2); Carbon Dioxide 22 mmol/L (22-30); Chloride 100 mmol/L (98-107); Estimated CRCL calculation 6 ml/min; Estimated Glomerular Filt Rate 5; Glucose 90 mg/dL (65-110); Potassium 3.5 mmol/L (3.4-5.0); Sodium 133 mmol/L (137-145)
[2023-03-11 08:17] LABS: Lipase 5631 U/L (23-300)
[2023-03-11] MEDS: PANTOPRAZOLE 40 MG TABLET PO (09:18)
[2023-03-11] MEDS: amLODIPine BESYLATE 5 MG TABLET 10 MG PO (09:18)
[2023-03-11] MEDS: ASPIRIN 81 MG ENTERIC TABLET PO (09:18)
[2023-03-11] MEDS: ursodioL 300 MG CAPSULE PO ×2 (09:35→20:13)
--- NOTE | 2023-03-11 10:42 | PM.IMPN ---
Progress Note: A&P Assessment and Plan (1) Abdominal pain: Code(s): R10.9 - Unspecified abdominal pain Status: Acute Assessment and Plan: Patient reports ongoing abdominal pain for several weeks. (2) Acute pancreatitis: Qualifiers: Pancreatitis type: unspecified pancreatitis type Acute pancreatitis complication: no infection or necrosis Qualified Code(s): K85.90 - Acute pancreatitis without necrosis or infection, unspecified Code(s): K85.90 - Acute pancreatitis without necrosis or infection, unspecified Status: Acute Assessment and Plan: -pt has requested clear liquid -MRCP reveals: Impression should include- 5. Multiple small cystic-appearing lesions scattered throughout the liver measuring up to 11 mm. Somewhat atypically views demonstrate subtle thin peripheral rim of enhancement which suggests possibility of either metastatic disease or multiple tiny septic hepatic abscesses. 1. No cholelithiasis/choledocholithiasis but with prominent sludge in the distal aspect of the common bile duct which is dilated to 12 mm. 2. Acute interstitial pancreatitis with significant progression of prominent nonloculated peripancreatic/retroperitoneal fluid but no discrete abscess or loculated peripancreatic fluid collections. 3. Small amount of ascites in the abdomen and pelvis and mild periportal edema, both findings likely related to the acute pancreatitis. 4. 3.6 cm fusiform infrarenal abdominal aortic aneurysm. -long discussion with Dr. Giron, plan is to have pt transferred to [facility], pt is aware of plan and has agreed. etiology unknown continue bowel rest s/p gentle IVF hydration as tolerated by pt analgesics and antiemetics PRN Surgery and GI following supportive therapy (3) End-stage renal disease on peritoneal dialysis: Code(s): N18.6 - End stage renal disease; Z99.2 - Dependence on renal dialysis Status: Acute Assessment and Plan: Patient of Dr. Kieran Dumont in [place]. Recently started on antibiotics for possible peritonitis. Dr. Chavarria consulted for dialysis and recommendations. -initial pd fluid, reveal cell count with 600wbs, gram neg bacilli (4) Dehydration: Code(s): E86.0 - Dehydration Status: Acute Assessment and Plan: He looks very dry on exam which fits with poor oral intake the last 1.5 weeks. Continue cautious IV fluid rehydration with close monitoring of volume status. (5) Anemia in chronic kidney disease: Code(s): N18.9 - Chronic kidney disease, unspecified; D63.1 - Anemia in chronic kidney disease Status: Acute Assessment and Plan: Continue to monitor hemoglobin and hematocrit closely. (6) Hypertension: Qualifiers: Hypertension type: primary hypertension Qualified Code(s): I10 - Essential (primary) hypertension Code(s): I10 - Essential (primary) hypertension Status: Chronic Assessment and Plan: -blood pressures were reviewed mildly elevated -continue home medication amlodipine and isosorbide mononitrate. (7) Coronary artery disease: Qualifiers: Coronary Disease-Associated Artery/Lesion type: [place] artery [place] vs. transplanted heart: [place] heart Associated angina: without angina Qualified Code(s): I25.10 - Atherosclerotic heart disease of [place] coronary artery without angina pectoris Code(s): I25.10 - Atherosclerotic heart disease of [place] coronary artery without angina pectoris Status: Acute Assessment and Plan: No acute issues; patient denies chest pain. Subjective Date/time seen: 03/11/23 10:42 Interval history: H&P: HPI History of Present Illness Date/Time: 03/09/23? 18:00 Chief Complaint: Abdominal pain. Narrative: This is a very pleasant 62-year-old male with end-stage renal disease on peritoneal dialysis, coronary artery disease, hypertension, hyperlipidemia, chronic anemia,
--- NOTE | 2023-03-11 12:46 | PM.PNNEP ---
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 CAPD transitioned to CCPD while hospitalized follow electrolytes, volume status, and clearance (2) Abdominal pain: Code(s): R10.9 - Unspecified abdominal pain Status: Acute Assessment and Plan: present for the last several weeks s/p EGD on 03/08/23 with new/acute findings CT imaging here with evidence of pancreatitis and new common bile duct dilatation with gallbladder distention abdominal U/S suggests acute cholecystitis Surgery recommendations noted peritonitis noted as well (see #3) GI recommendations noted (3) Peritonitis: Code(s): K65.9 - Peritonitis, unspecified Status: Acute Assessment and Plan: documented peritonitis noted (discussed case with patient's outpatient PD nurse) PD fluid cell count with 600 wbcs preliminary PD fluid cultures with E.coli repeat PD fluid cell count and cultures results noted here continue current therapy (4) Acute pancreatitis: Qualifiers: Pancreatitis type: unspecified pancreatitis type Acute pancreatitis complication: no infection or necrosis Qualified Code(s): K85.90 - Acute pancreatitis without necrosis or infection, unspecified Code(s): K85.90 - Acute pancreatitis without necrosis or infection, unspecified Status: Acute Assessment and Plan: etiology? bowel rest s/p gentle IVF hydration analgesics and antiemetics PRN Surgery and GI following supportive therapy (5) Anemia: Code(s): D64.9 - Anemia, unspecified Status: Acute Assessment and Plan: not an issue at this time H/H supratherapeutic for ESRD suspect component of hemoconcentration on admission follow trend of H/H (6) Hypertension: Qualifiers: Hypertension type: primary hypertension Qualified Code(s): I10 - Essential (primary) hypertension Code(s): I10 - Essential (primary) hypertension Status: Chronic Assessment and Plan: reasonable control at this time follow trend of hemodynamics Will continue to follow. Subjective Date/time seen: 03/11/23 12:46 Interval history: Follow-up for end stage renal disease on peritoneal dialysis. Still with intermittent abdominal pain at this time -- not really any significantly worse but not really any better either; peritoneal dialysis treatments appear to be going okay; no other acute issues/events overnight or earlier this morning; MCRP results noted. Exam Narrative: General: WD/WN male in NAD Heart: normal S1 and S2; no rub Lungs: clear to auscultation Abdomen: soft, nontender, nondistended, positive bowel sounds Extremities: no cyanosis or clubbing; no edema Skin: warm and intact Objective Data Vital Signs Vital Signs: Vital Signs Temp Pulse Resp BP Pulse Ox O2 Del Method 03/11/23 12:36 98.5 F 95 18 148/78 H 98 03/11/23 09:30 87 152/85 H 03/11/23 08:55 18 100 Room Air 03/11/23 06:32 98.6 F 91 18 140/74 03/11/23 06:00 97.8 F 88 18 136/68 100 03/10/23 20:30 Room Air 03/10/23 19:30 98.6 F 91 18 140/74 94 03/10/23 18:34 97.6 F 87 18 141/72 H Room Air Intake/Output Intake/Output: Intake & Output 03/08/23 03/09/23 03/10/23 03/11/23 23:59 23:59 23:59 23:59 Intake Total 1050 1150 460 Output Total 861 092 4839 Balance 929 577 -5931 Meds/Results Medications: Active Medications Generic Name Dose Route Start Last Admin Trade Name Freq PRN Reason Stop Dose Admin Amlodipine Besylate 10 mg 03/10/23 09:00 03/11/23 09:18 Amlodipine Besylate 5 Mg Tablet PO [address] [facility] Administration Aspirin 81 mg 03/10/23 09:00 03/11/23 09:18 Aspirin 81 Mg Enteric Tablet PO 81 mg DAILY ALEX[facility]RE Admin
--- NOTE | 2023-03-11 12:46 | P.PNNP_ITS ---
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 * normall does CAPD * transitioned to CCPD while hospitalized * follow electrolytes, volume status, and clearance (2) Abdominal pain: Code(s): R10.9 - Unspecified abdominal pain Status: Acute Assessment and Plan: * present for the last several weeks * s/p EGD on 03/08/23 with new/acute findings * CT imaging here with evidence of pancreatitis and new common bile duct dilatation with gallbladder distention * abdominal U/S suggests acute cholecystitis * Surgery recommendations noted * peritonitis noted as well (see #3) * GI recommendations noted (3) Peritonitis: Code(s): K65.9 - Peritonitis, unspecified Status: Acute Assessment and Plan: * documented peritonitis noted (discussed case with patient's outpatient PD nurse) * PD fluid cell count with 600 wbcs * preliminary PD fluid cultures with E.coli * repeat PD fluid cell count and cultures results noted here * continue current therapy (4) Acute pancreatitis: Qualifiers: Pancreatitis type: unspecified pancreatitis type Acute pancreatitis complication: no infection or necrosis Qualified Code(s): K85.90 - Acute pancreatitis without necrosis or infection, unspecified Code(s): K85.90 - Acute pancreatitis without necrosis or infection, unspecified Status: Acute Assessment and Plan: * etiology? * bowel rest * s/p gentle IVF hydration * analgesics and antiemetics PRN * Surgery and GI following * supportive therapy (5) Anemia: Code(s): D64.9 - Anemia, unspecified Status: Acute Assessment and Plan: * not an issue at this time * H/H supratherapeutic for ESRD * suspect component of hemoconcentration on admission * follow trend of H/H (6) Hypertension: Qualifiers: Hypertension type: primary hypertension Qualified Code(s): I10 - Essential (primary) hypertension Code(s): I10 - Essential (primary) hypertension Status: Chronic Assessment and Plan: * reasonable control at this time * follow trend of hemodynamics Will continue to follow. Subjective Date/time seen: 03/11/23 12:46 Interval history: Follow-up for end stage renal disease on peritoneal dialysis. Still with intermittent abdominal pain at this time -- not really any significantly worse but not really any better either; peritoneal dialysis treatments appear to be going okay; no other acute issues/events overnight or earlier this morning; MCRP results noted. Exam Narrative: General: WD/WN male in NAD Heart: normal S1 and S2; no rub Lungs: clear to auscultation Abdomen: soft, nontender, nondistended, positive bowel sounds Extremities: no cyanosis or clubbing; no edema Skin: warm and intact Objective Data Vital Signs Vital Signs: Vital Signs Temp Pulse Resp BP Pulse Ox O2 Del Method 03/11/23 12:36 98.5 F 95 18 148/78 H 98 03/11/23 09:30 87 152/85 H 03/11/23 08:55 18 100 Room Air 03/11/23 06:32 98.6 F 91 18 140/74 03/11/23 06:00 97.8 F 88 18 136/68 100 03/10/23 20:30 Room Air 03/10/23 19:30 98.6 F 91 18 140/74
--- NOTE | 2023-03-11 13:00 | PM.PNGS ---
Progress Note: A&P Assessment and Plan (1) Acute pancreatitis: Code(s): K85.90 - Acute pancreatitis without necrosis or infection, unspecified Status: Acute Assessment and Plan: MRCP shows sludge in distal CBD. Might be cause of pancreatitis and persistent symptoms. Would likely benefit from ERCP but this could also worsen pancreatitis as a result. Patient has seen GI at [facility] in past and would prefer to be transferred to see a specialist in ERCP's. I discussed with Hospitalist who will be reaching out for possible transfer. I don't see any need to proceed with cholecystectomy as there are no stones and could try to treat medically initially. If he keeps having recurrent episodes of pain or pancreatitis, then will have to consider surgery. He is higher risk for complications or prolonged recovery given his comorbities and prior surgical history. (2) End-stage renal disease on peritoneal dialysis: Code(s): N18.6 - End stage renal disease; Z99.2 - Dependence on renal dialysis Status: Acute (3) Hypertension: Qualifiers: Hypertension type: primary hypertension Qualified Code(s): I10 - Essential (primary) hypertension Code(s): I10 - Essential (primary) hypertension Status: Chronic (4) Coronary artery disease: Qualifiers: Coronary Disease-Associated Artery/Lesion type: [place] artery [place] vs. transplanted heart: [place] heart Associated angina: without angina Qualified Code(s): I25.10 - Atherosclerotic heart disease of [place] coronary artery without angina pectoris Code(s): I25.10 - Atherosclerotic heart disease of [place] coronary artery without angina pectoris Status: Acute Subjective Subjective Date/Time Seen: 03/11/23 13:00 Interval history: Patient still having epigastric pain. Not feeling a whole lot better. Exam GI: GI Palp: Yes Tenderness to palpation present (GI) (epigastric) Objective Data Vital Signs Vital Signs: Vital Signs - 24 hr 03/10/23 14:26 03/10/23 18:34 03/10/23 19:30 Temperature 36.4 C 36.4 C 37.0 C Pulse Rate 87 87 91 Respiratory Rate 18 18 18 Blood Pressure 141/72 H 141/72 H 140/74 Pulse Oximetry 98 94 Oxygen Delivery Room Air 03/10/23 20:30 03/11/23 06:00 03/11/23 06:32 Temperature 36.6 C 37.0 C Pulse Rate 88 91 Respiratory Rate 18 18 Blood Pressure 136/68 140/74 Pulse Oximetry 100 Oxygen Delivery Room Air 03/11/23 08:55 03/11/23 09:30 Temperature Pulse Rate 87 Respiratory Rate 18 Blood Pressure 152/85 H Pulse Oximetry 100 Oxygen Delivery Room Air Intake/Output Intake/Output: Intake & Output 03/08/23 03/09/23 03/10/23 03/11/23 23:59 23:59 23:59 23:59 Intake Total 1050 1150 120 Output Total 815 683 2886 Balance 927 701 -1002 Meds/Results Medications: Active Medications Generic Name Dose Route Start Last Admin Trade Name Freq PRN Reason Stop Dose Admin Amlodipine Besylate 10 mg 03/10/23 09:00 03/11/23 09:18 Amlodipine Besylate 5 Mg Tablet PO 10 mg DAILY [facility] Administration Aspirin 81 mg 03/10/23 09:00 03/11/23 09:18 Aspirin 81 Mg Enteric Tablet PO 81 mg DAILY [facility] Administration Atorvastatin Calcium 20 mg 03/10/23 09:00 03/11/23 09:26 Atorvastatin 20 Mg Tablet PO Not Given DAILY A[facility] Ferrous Sulfate 325 mg 03/10/23 09:00 03/11/23 09:26 Ferrous Sulfate [address] PO 04/09/23 08:59 Not Given DAILY [facility] Hydromorphone HCl 1 mg 03/10/23 14:54 03/11/23 11:21 Hydromorphone Hcl Inj (*Crx) 1 Mg/Ml Syr IV PUSH 1 mg Q2H PRN Administration Pain Rated 7-10 Hydromorphone HCl 0.5 mg 03/10/23 14:53 Hydromorphone Hcl Inj (*Crx) 1 Mg/Ml Syr IV PUSH Q2H PRN Pain Rated 4-6 Piperacillin Sod/Tazobactam Sod 2.25 gm in 50 mls @ 100 mls/hr 03/09/23 19:00 03/11/23 05:19 Zosyn 2.25 Gm/Ns 50 Ml IVPB 100 mls/hr Q8HR ALEX[facility]RE Administration Isosorbide Mononitrate 30 mg 03/10/23 09:00 0
--- NOTE | 2023-03-11 13:29 | WPDGIPROGNO ---
Progress Note: A&P Assessment and Plan (1) Biliary sludge: Code(s): K83.8 - Other specified diseases of biliary tract Status: Acute Assessment and Plan: MRCP reviewed and showed significant sludge in distal bile duct without stones but also dilated BD 12 mm also today increasing bilirubin probably cause of pancreatitis patient is established with GI for many years at [facility] and requested transfer, I think that will need ERCP then cholecystectomy. He prefers to have procedure done at [facility] (2) Acute pancreatitis: Code(s): K85.90 - Acute pancreatitis without necrosis or infection, unspecified Status: Acute Assessment and Plan: biliary source ercp +/- meri (3) Elevated liver enzymes: Code(s): R74.8 - Abnormal levels of other serum enzymes Status: Acute Assessment and Plan: probably biliary related and from pancreatitis (4) Nausea and vomiting in adult: Code(s): R11.2 - Nausea with vomiting, unspecified Status: Acute (5) End-stage renal disease on peritoneal dialysis: Code(s): N18.6 - End stage renal disease; Z99.2 - Dependence on renal dialysis Status: Acute Assessment and Plan: by nephrology Subjective Date/time seen: 03/11/23 13:29 Interval history: no major changes, still abdominal discomfort Review of Systems Review of Systems: All systems reviewed & are unremarkable except as noted in HPI and below Exam Const: General: no acute distress HENMT: Face/Nose/Sinus: Normal nares present Eyes: General: appearance normal, both eyes and all related structures Neck: Neck: supple Resp: Auscultation: clear to auscultation bilaterally Cardio: Rate: regular rate Rhythm: regular rhythm GI: Inspection: non-distended GI Palp: Yes Soft to palpation and Yes Tenderness to palpation present (GI) (epigastric, no rebound) Other: PD catheter in place Skin: General skin exam: normal color Neuro: Speech: normal speech Motor exam (neuro): 5/5 motor strength present throughout Extrem: General: normal to inspection Psych: Mental Status: mental status grossly normal Objective Data Vital Signs Vital Signs: Vital Signs - 24 hr 03/10/23 14:26 03/10/23 18:34 03/10/23 19:30 Temperature 97.6 F 97.6 F 98.6 F Pulse Rate 87 87 91 Respiratory Rate 18 18 18 Blood Pressure 141/72 H 141/72 H 140/74 Pulse Oximetry 98 94 Oxygen Delivery Room Air 03/10/23 20:30 03/11/23 06:00 03/11/23 06:32 Temperature 97.8 F 98.6 F Pulse Rate 88 91 Respiratory Rate 18 18 Blood Pressure 136/68 140/74 Pulse Oximetry 100 Oxygen Delivery Room Air 03/11/23 08:55 03/11/23 09:30 Temperature Pulse Rate 87 Respiratory Rate 18 Blood Pressure 152/85 H Pulse Oximetry 100 Oxygen Delivery Room Air Intake/Output Intake/Output: Intake & Output 03/08/23 03/09/23 03/10/23 03/11/23 23:59 23:59 23:59 23:59 Intake Total 1050 1150 120 Output Total 452 589 1703 Balance 850 596 -7303 Meds/Results Medications: Active Medications Generic Name Dose Route Start Last Admin Trade Name Freq PRN Reason Stop Dose Admin Amlodipine Besylate 10 mg 03/10/23 09:00 03/11/23 09:18 Amlodipine Besylate 5 Mg Tablet PO 10 mg DAILY [facility] Administration Aspirin 81 mg 03/10/23 09:00 03/11/23 09:18 Aspirin 81 Mg Enteric Tablet PO 81 mg DAILY [facility] Administration Atorvastatin Calcium 20 mg 03/10/23 09:00 03/11/23 09:26 Atorvastatin 20 Mg Tablet PO Not Given DAILY A[facility] Ferrous Sulfate 325 mg 03/10/23 09:00 03/11/23 09:26 Ferrous Sulfate [address] PO 04/09/23 08:59 Not Given DAILY [facility] Hydromorphone HCl 1 mg 03/10/23 14:54 03/11/23 11:21 Hydromorphone Hcl Inj (*Crx) 1 Mg/Ml Syr IV PUSH 1 mg Q2H PRN Administration Pain Rated 7-10 Hydromorphone HCl 0.5 mg 03/10/23 14:53 Hydromorphone Hcl Inj (*Crx) 1 Mg/Ml Syr IV PUSH Q2H PRN Pain Rated 4-6 Piperacill
--- NOTE | 2023-03-11 14:42 | PC.NURSE ---
On 03/11/23, the student, [Yonny Steve], provided care and completed [facility] documentation on this patient. I have reviewed the student's documentation and agree with the findings.
[2023-03-11] MEDS: ACETAMINOPHEN 325 MG TABLET 650 MG PO (21:09)
--- NOTE | 2023-03-11 21:40 | PM.TDS ---
Transfer Discharge Sum: Prov Provider Date of admission: 03/09/23 15:29 Primary care physician: Traci Kaye, DO Admitting clinician: Stan Sage MD Consults: 03/09/23 15:32 Consult to Physician Routine Comment: Consulting Provider: Sam Morrow Reason for consultation: pancreatitis, cholecystitis Has provider been notified: Yes Consult to Physician Routine Comment: Consulting Provider: Rj Giron Reason for consultation: cholecystitis Has provider been notified: Yes 03/09/23 15:33 Consult to Physician Routine Comment: Consulting Provider: Alvin Chavarria Reason for consultation: peritoneal dialysis Has provider been notified: Yes Transfer Discharge Sum: Med Medications Active and Home Medications: Home Medications ondansetron HCl 4 mg tablet (Zofran) 4 mg PO PRN PRN Nausea 01/12/19 [History Confirmed 03/09/23] cholecalciferol (vitamin D3) 50 mcg (2,000 unit) tablet (Vitamin D3) 2,000 unit PO DAILY 01/25/19 [History Confirmed 03/09/23] polyethylene glycol 3350 17 gram oral powder packet (Miralax) 17 g PO DAILY PRN Constipation 01/25/19 [History Confirmed 03/09/23] amlodipine 5 mg tablet 10 mg PO DAILY 04/17/19 [History Confirmed 03/09/23] aspirin 81 mg tablet,delayed release 81 mg PO DAILY 02/25/22 [History Confirmed 03/09/23] atorvastatin 20 mg tablet (Lipitor) 20 mg PO DAILY 02/25/22 [History Confirmed 03/09/23] clopidogrel 75 mg tablet (Plavix) 75 mg PO DAILY 02/25/22 [History Confirmed 03/09/23] pantoprazole 40 mg tablet,delayed release 40 mg PO QAM #30 tabs 02/26/22 [Rx Confirmed 03/09/23] isosorbide mononitrate 30 mg tablet,extended release 24 hr 30 mg PO DAILY 03/03/22 [History Confirmed 03/09/23] Feosol 325 mg (65 mg iron) tablet (ferrous sulfate) 325 mg PO DAILY Anemia #30 tabs 03/04/22 [Rx Confirmed 03/09/23] Active Medications Acetaminophen (Acetaminophen 325 Mg Tablet) 650 mg PO Q6H PRN PRN Reason: Mild Pain (1-3) or Fever Last Admin: 03/11/23 21:09 Dose: 650 mg Amlodipine Besylate (Amlodipine Besylate 5 Mg Tablet) 10 mg PO DAILY [facility] Last Admin: 03/11/23 09:18 Dose: 10 mg Aspirin (Aspirin 81 Mg Enteric Tablet) 81 mg PO DAILY [facility] Last Admin: 03/11/23 09:18 Dose: 81 mg Atorvastatin Calcium (Atorvastatin 20 Mg Tablet) 20 mg PO DAILY [facility] Last Admin: 03/11/23 09:26 Dose: Not Given Ferrous Sulfate (Ferrous Sulfate [address]) 325 mg PO DAILY [facility] Stop: 04/09/23 08:59 Last Admin: 03/11/23 09:26 Dose: Not Given Hydromorphone HCl (Hydromorphone Hcl Inj (*Crx) 1 Mg/Ml Syr) 1 mg IV PUSH Q2H PRN PRN Reason: Pain Rated 7-10 Last Admin: 03/11/23 14:18 Dose: 1 mg Hydromorphone HCl (Hydromorphone Hcl Inj (*Crx) 1 Mg/Ml Syr) 0.5 mg IV PUSH Q2H PRN PRN Reason: Pain Rated 4-6 Piperacillin Sod/Tazobactam Sod (Zosyn 2.25 Gm/Ns 50 Ml) 2.25 gm in 50 mls @ 100 mls/hr IVPB Q8HR [facility] Last Admin: 03/11/23 21:09 Dose: 100 mls/hr Isosorbide Mononitrate (Isosorbide Mononitrate 30 Mg Tab.Er.24h) 30 mg PO DAILY [facility] Last Admin: 03/11/23 09:26 Dose: Not Given Ondansetron HCl (Ondansetron Inj 4 Mg/2 Ml Vial) 4 mg IV PUSH Q4H PRN PRN Reason: Nausea Last Admin: 03/11/23 14:18 Dose: 4 mg Pantoprazole Sodium (Pantoprazole 40 Mg Tablet) 40 mg PO QAM [facility] Last Admin: 03/11/23 09:18 Dose: 40 mg Polyethylene Glycol (Polyethylene Glycol 3350 17 Gm Powd.Pack) 17 gm PO DAILY PRN PRN Reason: Constipation Ursodiol (Ursodiol 300 Mg Capsule) 300 mg PO Q12HR [facility] Last Admin: 03/11/23 20:13 Dose: 300 mg Vitamin D (Cholecalciferol 1,000 Units Tablet) 2,000 units PO DAILY [facility] Last Admin: 03/11/23 09:26 Dose: Not Given Transfer Discharge Sum: Hosp Hospital Course Hospital course: Maximo Doty is a 62 year old male Time Spent with Patient Time attestation: Total time spent providing and/or coordinating transfer services: DS: Data Data Completed and Pending Labs on day of discharge: Labs from last 24 hours
[2023-03-12] MEDS: PIPERACILLIN/TAZ 2.25G/NS 50ML 2.25 GM/50 ML BAG IVPB (05:07)
[2023-03-12 05:14] VITALS: BP 136/76; PULSE 81; RESP 17; TEMP 36.9; O2SAT 99
[2023-03-12 05:26] LABS: Basophils Percent Auto 0.2 % (0.2-1.2); Eosinophils Absolute Auto 0.2 K/mm3 (0-0.3); Eosinophils Percent Auto 2.6 % (0-4.4); Hematocrit 34.1 % (42.0-52.0); Hemoglobin 11.2 g/dL (14.0-18.0); Immature Granulocyte Absolute 0.16 K/mm3 (0.00-0.031); Immature Granulocyte Percent A 1.7 % (0-0.5); Lymphocytes Absolute Auto 0.39 K/mm3 (0.9-3.2); Lymphocytes Percent Auto 4.2 % (18.3-44.2); Mean Corpuscular HGB Conc 32.8 g/dl (32-36); Mean Corpuscular Hemoglobin 30.2 pg (26-34); Mean Corpuscular Volume 91.9 fl (80-100); Mean Platelet Volume 9.6 fl (7.4-10.4); Monocytes Absolute Auto 0.8 K/mm3 (0.1-0.6); Monocytes Percent Auto 9.1 % (2.6-8.5); Neutrophils Absolute Auto 7.6 K/mm3 (1.3-6.7); Neutrophils Percent Auto 82.2 % (45.5-73.1); Platelet Count Result 240 k/mm3 (150-375); Red Blood Count 3.71 M/mm3 (4.6-6.20); Red Cell Distribution Width 13.9 % (11.5-14.5); White Blood Count 9.2 K/mm3 (4.5-10.0)
[2023-03-12 05:40] LABS: Alanine Aminotransferase 311 U/L (6-50); Albumin Level 2.8 g/dL (3.5-5.1); Alkaline Phosphatase 482 U/L (38-126); Anion Gap 10 mmol/L (8-16); Aspartate Amino Transferase 243 U/L (17-59); Bilirubin,Total 2.1 mg/dL (0.2-1.3); Blood Urea Nitrogen 60 mg/dL (9-20); Calcium 9.6 mg/dL (8.4-10.2); Carbon Dioxide 26 mmol/L (22-30); Chloride 96 mmol/L (98-107); Estimated CRCL calculation 6 ml/min; Estimated Glomerular Filt Rate 5; Glucose 91 mg/dL (65-110); Potassium 3.2 mmol/L (3.4-5.0); Sodium 132 mmol/L (137-145)
[2023-03-12 08:00] VITALS: PULSE 81; RESP 17; O2SAT 99
--- NOTE | 2023-03-12 09:31 | PM.PNNEP ---
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9 - Peritonitis, unspecified Status: Acute Assessment and Plan: documented peritonitis noted (discussed case with patient's outpatient PD nurse) PD fluid cell count with 600 wbcs preliminary PD fluid cultures with E.coli repeat PD fluid cell count and cultures results noted here continue current therapy (4) Acute pancreatitis: Qualifiers: Acute pancreatitis complication: no infection or necrosis Pancreatitis type: unspecified pancreatitis type Qualified Code(s): K85.90 - Acute pancreatitis without necrosis or infection, unspecified Code(s): K85.90 - Acute pancreatitis without necrosis or infection, unspecified Status: Acute Assessment and Plan: etiology? bowel rest s/p gentle IVF hydration analgesics and antiemetics PRN Surgery and GI following supportive therapy (5) Anemia: Code(s): D64.9 - Anemia, unspecified Status: Acute Assessment and Plan: not an issue at this time H/H supratherapeutic for ESRD suspect component of hemoconcentration on admission follow trend of H/H (6) Hypertension: Qualifiers: Hypertension type: primary hypertension Qualified Code(s): I10 - Essential (primary) hypertension Code(s): I10 - Essential (primary) hypertension Status: Chronic Assessment and Plan: reasonable control at this time follow trend of hemodynamics Will continue to follow. Subjective Date/time seen: 03/12/23 09:31 Interval history: Follow-up for end stage renal disease on peritoneal dialysis. CCPD treatment overnight was uneventful and tolerated reasonably well (UF was 554); abdominal pain seems to be doing better; informs me that he does not think transfer to [facility] is needed at this time since he feels better. Exam Narrative: General: WD/WN male in NAD Heart: normal S1 and S2; no rub Lungs: clear to auscultation Abdomen: soft, nontender, nondistended, positive bowel sounds Extremities: no cyanosis or clubbing; no edema Skin: no rash or nodules Objective Data Vital Signs Vital Signs: Vital Signs Temp Pulse Resp BP Pulse Ox O2 Del Method 03/12/23 08:00 81 17 99 Room Air 03/12/23 05:14 98.4 F 81 17 136/76 99 03/11/23 21:30 98.1 F 88 18 141/89 H Room Air 03/11/23 20:10 88 18 97 Room Air 03/11/23 20:26 98.1 F 88 18 141/89 H 97 03/11/23 16:12 98.5 F 89 18 148/70 H 97 03/11/23 14:36 98.5 F 95 18 148/78 H 98 Intake/Output Intake/Output: Intake & Output 03/09/23 03/10/23 03/11/23 03/12/23 23:59 23:59 23:59 23:59 Intake Total 1050 1150 750 170 Output Total 950 514 6694 854 Balance [phone] -614 Meds/Results Medications: Active Medications Generic Name Dose Route Start Last Admin ? Trade Name Freq? PRN Reason Stop Dose Admin Acetaminophen ?650 mg ?03/11/23 20:38 ?03/11/23 21:09 ? Acetaminophen 325 Mg Tablet ?PO
--- NOTE | 2023-03-12 09:31 | P.PNNP_ITS ---
Progress Note: A&P Assessment and Plan (1) End stage renal disease: Code(s): N18.6 - End stage renal disease Status: Chronic Assessment and Plan: * primary digital music instructor = Dr. Dumont * normall does CAPD * transitioned to CCPD while hospitalized * follow electrolytes, volume status, and clearance (2) Abdominal pain: Code(s): R10.9 - Unspecified abdominal pain Status: Acute Assessment and Plan: * present for the last several weeks * s/p EGD on 03/08/23 with new/acute findings * CT imaging here with evidence of pancreatitis and new common bile duct dilatation with gallbladder distention * abdominal U/S suggests acute cholecystitis * Surgery recommendations noted * peritonitis noted as well (see #3) * GI recommendations noted * possible transfer to [facility] in the works (3) Peritonitis: Code(s): K65.9 - Peritonitis, unspecified Status: Acute Assessment and Plan: * documented peritonitis noted (discussed case with patient's outpatient PD nurse) * PD fluid cell count with 600 wbcs * preliminary PD fluid cultures with E.coli * repeat PD fluid cell count and cultures results noted here * continue current therapy (4) Acute pancreatitis: Qualifiers: Acute pancreatitis complication: no infection or necrosis Pancreatitis type: unspecified pancreatitis type Qualified Code(s): K85.90 - Acute pancreatitis without necrosis or infection, unspecified Code(s): K85.90 - Acute pancreatitis without necrosis or infection, unspecified Status: Acute Assessment and Plan: * etiology? * bowel rest * s/p gentle IVF hydration * analgesics and antiemetics PRN * Surgery and GI following * supportive therapy (5) Anemia: Code(s): D64.9 - Anemia, unspecified Status: Acute Assessment and Plan: * not an issue at this time * H/H supratherapeutic for ESRD * suspect component of hemoconcentration on admission * follow trend of H/H (6) Hypertension: Qualifiers: Hypertension type: primary hypertension Qualified Code(s): I10 - Essential (primary) hypertension Code(s): I10 - Essential (primary) hypertension Status: Chronic Assessment and Plan: * reasonable control at this time * follow trend of hemodynamics Will continue to follow. Subjective Date/time seen: 03/12/23 09:31 Interval history: Follow-up for end stage renal disease on peritoneal dialysis. CCPD treatment overnight was uneventful and tolerated reasonably well (UF was 554); abdominal pain seems to be doing better; informs me that he does not think transfer to [facility] is needed at this time since he feels better. Exam Narrative: General: WD/WN male in NAD Heart: normal S1 and S2; no rub Lungs: clear to auscultation Abdomen: soft, nontender, nondistended, positive bowel sounds Extremities: no cyanosis or clubbing; no edema Skin: no rash or nodules Objective Data Vital Signs Vital Signs: Vital Signs Temp Pulse Resp BP Pulse Ox O2 Del Method 03/12/23 08:00 81 17 99 Room Air 03/12/23 05:14 98.4 F 81 17 136/76 99 03/11/23 21:30 98.1 F 88 18 141/89 H Room Air 03/11/23 20:10 88 18 97 Room Air 03/11/23 20:26 98.1 F 88 18 141/89 H 97 03/11/23 16:12 98.5 F 89 18 148/70 H
[2023-03-12] MEDS: ISOSORBIDE MONONITRATE 30 MG TAB.ER.24H PO (09:33)
[2023-03-12] MEDS: PANTOPRAZOLE 40 MG TABLET PO (09:33)
[2023-03-12] MEDS: CHOLECALCIFEROL 1,000 UNITS TABLET 2000 UNITS PO (09:33)
[2023-03-12] MEDS: ursodioL 300 MG CAPSULE PO (09:33)
[2023-03-12] MEDS: ASPIRIN 81 MG ENTERIC TABLET PO (09:33)
[2023-03-12] MEDS: amLODIPine BESYLATE 5 MG TABLET 10 MG PO (09:33)
[2023-03-12] MEDS: ATORVASTATIN 20 MG TABLET PO (09:33)
[2023-03-12] MEDS: FERROUS SULFATE 325 MG TABLET DR PO (09:33)
--- NOTE | 2023-03-12 10:48 | PM.IMPN ---
Subjective Date/time seen: 03/12/23 10:48 Interval history: Pt is refusing transfer to [facility] at this time. -long discussion with pt and by the bedside. Pt reports feeling better this am, he as admitted to having anxiety and feeling like he is locked up. Discussed the fact with the pt, that he was accepted to [facility] and that we were waiting for a bed assignment. He understands and has made the decision to forego being transferred at this time. We discuss risk/and or associated with not being transferred for further management of acute cholecystitis, acute pancreatitis, as well scattered liver lesions that were seen during his exam. Patient states he is aware and still would like to continue his plans to leave against medical advice. Objective Data Vital Signs Vital Signs: Vital Signs - 24 hr 03/11/23 14:36 03/11/23 16:12 03/11/23 20:26 Temperature 98.5 F 98.5 F 98.1 F Pulse Rate 95 89 88 Respiratory Rate 18 18 18 Blood Pressure 148/78 H 148/70 H 141/89 H Pulse Oximetry 98 97 97 Oxygen Delivery 03/11/23 20:10 03/11/23 21:30 03/12/23 05:14 Temperature 98.1 F 98.4 F Pulse Rate 88 88 81 Respiratory Rate 18 18 17 Blood Pressure 141/89 H 136/76 Pulse Oximetry 97 99 Oxygen Delivery Room Air Room Air Intake/Output Intake/Output: Intake & Output 03/09/23 03/10/23 03/11/23 03/12/23 23:59 23:59 23:59 23:59 Intake Total 1050 1150 750 170 Output Total 464 291 7614 854 Balance [phone] -684 Meds/Results Medications: Active Medications Generic Name Dose Route Start Last Admin Trade Name Freq PRN Reason Stop Dose Admin Acetaminophen 650 mg 03/11/23 20:38 03/11/23 21:09 Acetaminophen 325 Mg Tablet PO 650 mg Q6H PRN Administration Mild Pain (1-3) or Fever Amlodipine Besylate 10 mg 03/10/23 09:00 03/12/23 09:33 Amlodipine Besylate 5 Mg Tablet PO 10 mg DAILY ALEXANDRE Administration Aspirin 81 mg 03/10/23 09:00 03/12/23 09:33 Aspirin 81 Mg Enteric Tablet PO 81 mg DAILY ALEXANDRE Administration Atorvastatin Calcium 20 mg 03/10/23 09:00 03/12/23 09:33 Atorvastatin 20 Mg Tablet PO 20 mg DAILY ALEXANDRE Administration Ferrous Sulfate 325 mg 03/10/23 09:00 03/12/23 09:33 Ferrous Sulfate [address] PO 04/09/23 08:59 325 mg DAILY ALEXANDRE Administration Hydromorphone HCl 1 mg 03/10/23 14:54 03/11/23 14:18 Hydromorphone Hcl Inj (*Crx) 1 Mg/Ml Syr IV PUSH 1 mg Q2H PRN Administration Pain Rated 7-10 Hydromorphone HCl 0.5 mg 03/10/23 14:53 Hydromorphone Hcl Inj (*Crx) 1 Mg/Ml Syr IV PUSH Q2H PRN Pain Rated 4-6 Piperacillin Sod/Tazobactam Sod 2.25 gm in 50 mls @ 100 mls/hr 03/09/23 19:00 03/12/23 05:57 Zosyn 2.25 Gm/Ns 50 Ml IVPB Infused Q8HR [facility] Infusion Isosorbide Mononitrate 30 mg 03/10/23 09:00 03/12/23 09:33 Isosorbide Mononitrate 30 Mg Tab.Er.24h PO 30 mg DAILY ALEXANDRE Administration Ondansetron HCl 4 mg 03/09/23 15:29 03/11/23 14:18 Ondansetron Inj 4 Mg/2 Ml Vial IV PUSH 4 mg Q4H PRN Administration Nausea Pantoprazole Sodium 40 mg 03/10/23 09:00 03/12/23 09:33 Pantoprazole 40 Mg Tablet PO 40 mg QAM ALEXANDRE Administration Polyethylene Glycol 17 gm 03/10/23 00:26 Polyethylene Glycol 3350 17 Gm Powd.Pack PO DAILY PRN Constipation Ursodiol 300 mg 03/11/23 09:00 03/12/23 09:33 Ursodiol 300 Mg Capsule PO 300 mg Q12HR [facility] Administration Vitamin D 2,000 units 03/10/23 09:00 03/12/23 09:33 Cholecalciferol 1,000 Units Tablet PO 2,000 units DAILY ALEXANDRE Administration Radiology Results: ITS Impressions Abdomen/Pelvis CT 03/09/23 14:02 IMPRESSION: 1. Acute interstitial pancreatitis. 2. New common duct dilatation and gallbladder distention. No obstructing mass or stone identified. 3. 3.7 cm fusiform aneurysm of infrarenal aorta. Abdomen Ultrasound 03/10/23 09:43 IMPRESSION: 1. Pancreas obscured by bowel gas. 2. Ac
--- NOTE | 2023-03-12 11:03 | PCNFU ---
Nutrition Follow-Up Complete: Inadequate Energy Intake as related to Pancreatitis as evidenced by NPO. Goal:Meet estimated nutritional needs. Pt current nutrition is Low fat diet to start today. Nutrition recommendation: Add Ensure compact BID Last recorded weight is 57 kg. Bowel Motility: +BM 2 Labs Reviewed: Hgb:11.2, HCT:34.1, Alb:2.8, NA:132, K:3.2, GFR:5, BUN:60, Cr:9.9 Meds Noted:zofran, protonix Skin: wnl Additional Notes: Pt was on clear liquids, diet to advance to low fiber today. Will order Ensure compact BID, chocolate. Will monitor weight, labs, skin, meds, diet orders every 3 days.
== END 2023-03-12 10:35 | disposition left against medical advice (07) | DRG 438 ==
LOC: ANHED 12:45 → ANH2MED 16:45
PROVIDERS: Internal Medicine Nephrology; Physician Assistant; Admitting Provider Family Medicine; Emergency Provider Emergency Medicine; PCP Internal Medicine; Visit Provider Nurse Practitioner
DX: K85.90 Acute pancreatitis without necrosis or infection, unspecified (principal); K65.9 Peritonitis, unspecified; N18.6 End stage renal disease; N18.9 Chronic kidney disease, unspecified; D63.1 Anemia in chronic kidney disease; K81.9 Cholecystitis, unspecified; E86.0 Dehydration; I71.43 Infrarenal abdominal aortic aneurysm, without rupture; I25.10 Atherosclerotic heart disease of native coronary artery without angina pectoris; K76.9 Liver disease, unspecified; K83.8 Other specified diseases of biliary tract; J44.9 Chronic obstructive pulmonary disease, unspecified; K57.30 Diverticulosis of large intestine without perforation or abscess without bleeding; F17.210 Nicotine dependence, cigarettes, uncomplicated; Z99.2 Dependence on renal dialysis; Z79.82 Long term (current) use of aspirin; Z79.02 Long term (current) use of antithrombotics/antiplatelets
CPT/HCPCS: 36415; 74177; 74183; 76376; 76705; 80053; 81001; 83690; 83735; 84100; 84478; 85025; 85610; 85730; 86706; 87040; 87070; 87075; 87205; 87340; 87641; 89051; 90945; 96361; 96374; 96375; 99285; A9270; A9577; J1170; J2405; J2543; J7030; J7120; Q9967

== ENCOUNTER 2023-08-05 10:18 | Outpatient (NON) | payer MEDICARE, OTHER, SELFPAY ==
[2023-08-05 11:11] LABS: Hematocrit 28.2 % (42.0-52.0); Mean Corpuscular HGB Conc 31.9 g/dl (32-36); Mean Corpuscular Hemoglobin 30.5 pg (26-34); Mean Corpuscular Volume 95.6 fl (80-100); Mean Platelet Volume 10.7 fl (7.4-10.4); Platelet Count Result 184 k/mm3 (150-375); Red Blood Count 2.95 M/mm3 (4.6-6.20); Red Cell Distribution Width 13.4 % (11.5-14.5); White Blood Count 6.5 K/mm3 (4.5-10.0)
[2023-08-05 11:49] LABS: Albumin Level 2.9 g/dL (3.5-5.1); Anion Gap 8 mmol/L (4-12); Blood Urea Nitrogen 73 mg/dL (9-20); Calcium 9.2 mg/dL (8.4-10.2); Carbon Dioxide 19 mmol/L (22-30); Chloride 113 mmol/L (98-107); Estimated Glomerular Filt Rate 13; Glucose 78 mg/dL (65-110); Phosphorus 3.9 mg/dL (2.5-4.5); Potassium 4.2 mmol/L (3.4-5.0); Sodium 140 mmol/L (137-145)
[2023-08-06 16:09] LABS: Tacrolimus Prograf 8.2 mcg/L
== END 2023-08-05 10:19 | disposition home or self-care (01) ==
PROVIDERS: PCP Internal Medicine; Visit Provider Surgery
DX: Z48.22 Encounter for aftercare following kidney transplant (principal); N18.6 End stage renal disease
CPT/HCPCS: 36415; 80069; 80197; 85027

== ENCOUNTER 2023-08-16 09:01 | Outpatient (NON) | payer MEDICARE, OTHER, SELFPAY ==
[2023-08-16 09:21] LABS: Hematocrit 29.4 % (42.0-52.0); Hemoglobin 9.2 g/dL (14.0-18.0); Mean Corpuscular HGB Conc 31.3 g/dl (32-36); Mean Corpuscular Hemoglobin 31.6 pg (26-34); Mean Platelet Volume 11.1 fl (7.4-10.4); Platelet Count Result 139 k/mm3 (150-375); Red Blood Count 2.91 M/mm3 (4.6-6.20); Red Cell Distribution Width 15.2 % (11.5-14.5); White Blood Count 6.6 K/mm3 (4.5-10.0)
[2023-08-16 09:49] LABS: Albumin Level 3.3 g/dL (3.5-5.1); Anion Gap 6 mmol/L (4-12); Blood Urea Nitrogen 36 mg/dL (9-20); Calcium 9.4 mg/dL (8.4-10.2); Carbon Dioxide 23 mmol/L (22-30); Chloride 112 mmol/L (98-107); Estimated Glomerular Filt Rate 21; Glucose 81 mg/dL (65-110); Phosphorus 3.5 mg/dL (2.5-4.5); Potassium 5.3 mmol/L (3.4-5.0); Sodium 141 mmol/L (137-145)
[2023-08-18 08:17] LABS: Tacrolimus Prograf 19.8 mcg/L
== END 2023-08-16 09:02 | disposition home or self-care (01) ==
PROVIDERS: PCP Internal Medicine; Visit Provider Surgery
DX: Z48.22 Encounter for aftercare following kidney transplant (principal); N18.6 End stage renal disease
CPT/HCPCS: 36415; 80069; 80197; 85027

== ENCOUNTER 2023-08-19 08:51 | Outpatient (NON) | payer MEDICARE, OTHER, SELFPAY ==
[2023-08-19 09:53] LABS: Eosinophils Percent Auto 0.3 % (0-4.4); Hematocrit 30.1 % (42.0-52.0); Hemoglobin 9.3 g/dL (14.0-18.0); Immature Granulocyte Absolute 0.03 K/mm3 (0.00-0.031); Immature Granulocyte Percent A 0.5 % (0-0.5); Lymphocytes Absolute Auto 0.14 K/mm3 (0.9-3.2); Lymphocytes Percent Auto 2.4 % (18.3-44.2); Mean Corpuscular HGB Conc 30.9 g/dl (32-36); Mean Corpuscular Hemoglobin 31.8 pg (26-34); Mean Corpuscular Volume 103.1 fl (80-100); Mean Platelet Volume 11.5 fl (7.4-10.4); Monocytes Absolute Auto 0.4 K/mm3 (0.1-0.6); Monocytes Percent Auto 6.5 % (2.6-8.5); Neutrophils Absolute Auto 5.3 K/mm3 (1.3-6.7); Neutrophils Percent Auto 90.3 % (45.5-73.1); Platelet Count Result 135 k/mm3 (150-375); Red Blood Count 2.92 M/mm3 (4.6-6.20); Red Cell Distribution Width 15.6 % (11.5-14.5); White Blood Count 5.8 K/mm3 (4.5-10.0)
[2023-08-19 10:14] LABS: Alanine Aminotransferase 20 U/L (6-50); Albumin Level 3.4 g/dL (3.5-5.1); Alkaline Phosphatase 121 U/L (38-126); Anion Gap 8 mmol/L (4-12); Anisocytosis 1+; Aspartate Amino Transferase 14 U/L (17-59); Bilirubin,Total 0.5 mg/dL (0.2-1.3); Blood Urea Nitrogen 34 mg/dL (9-20); Calcium 9.3 mg/dL (8.4-10.2); Carbon Dioxide 20 mmol/L (22-30); Chloride 112 mmol/L (98-107); Estimated Glomerular Filt Rate 20; Glucose 83 mg/dL (65-110); Magnesium 1.8 mg/dL (1.6-2.3); Ovalocytes 1+; Phosphorus 3.5 mg/dL (2.5-4.5); Platelet Estimate Adequate (Adequate); Potassium 5.6 mmol/L (3.4-5.0); Sodium 140 mmol/L (137-145)
[2023-08-19 10:15] LABS: Acanthocytes 1+; Schistocytes None Seen
[2023-08-20 16:09] LABS: Tacrolimus Prograf 8.4 mcg/L
== END 2023-08-19 08:52 | disposition home or self-care (01) ==
LOC: HOME HLTH 08:55
PROVIDERS: PCP Internal Medicine; Visit Provider Surgery
DX: N18.6 End stage renal disease (principal); Z48.22 Encounter for aftercare following kidney transplant
CPT/HCPCS: 80053; 80197; 83735; 84100; 85025

== ENCOUNTER 2023-08-23 09:38 | Outpatient (NON) | payer MEDICARE, OTHER, SELFPAY ==
[2023-08-23 10:11] LABS: Hematocrit 29.4 % (42.0-52.0); Mean Corpuscular HGB Conc 30.6 g/dl (32-36); Mean Corpuscular Hemoglobin 31.4 pg (26-34); Mean Corpuscular Volume 102.4 fl (80-100); Mean Platelet Volume 11.4 fl (7.4-10.4); Platelet Count Result 124 k/mm3 (150-375); Red Blood Count 2.87 M/mm3 (4.6-6.20); Red Cell Distribution Width 15.9 % (11.5-14.5); White Blood Count 4.6 K/mm3 (4.5-10.0)
[2023-08-23 10:14] LABS: Alanine Aminotransferase 16 U/L (6-50); Albumin Level 3.3 g/dL (3.5-5.1); Alkaline Phosphatase 119 U/L (38-126); Anion Gap 7 mmol/L (4-12); Aspartate Amino Transferase 13 U/L (17-59); Bilirubin,Total 0.6 mg/dL (0.2-1.3); Blood Urea Nitrogen 28 mg/dL (9-20); Calcium 9.6 mg/dL (8.4-10.2); Carbon Dioxide 20 mmol/L (22-30); Chloride 114 mmol/L (98-107); Estimated Glomerular Filt Rate 23; Glucose 117 mg/dL (65-110); Magnesium 1.7 mg/dL (1.6-2.3); Phosphorus 2.9 mg/dL (2.5-4.5); Potassium 5.2 mmol/L (3.4-5.0); Sodium 141 mmol/L (137-145)
[2023-08-25 10:09] LABS: Tacrolimus Prograf 7.5 mcg/L
== END 2023-08-23 09:39 | disposition home or self-care (01) ==
PROVIDERS: PCP Internal Medicine; Visit Provider Surgery
DX: Z48.22 Encounter for aftercare following kidney transplant (principal); N18.6 End stage renal disease
CPT/HCPCS: 36415; 80053; 80197; 83735; 84100; 85027

== ENCOUNTER 2023-08-26 10:02 | Outpatient (NON) | payer MEDICARE, OTHER, SELFPAY ==
[2023-08-26 10:47] LABS: Hematocrit 29.2 % (42.0-52.0); Mean Corpuscular HGB Conc 30.8 g/dl (32-36); Mean Corpuscular Hemoglobin 31.6 pg (26-34); Mean Corpuscular Volume 102.5 fl (80-100); Mean Platelet Volume 11.3 fl (7.4-10.4); Platelet Count Result 129 k/mm3 (150-375); Red Blood Count 2.85 M/mm3 (4.6-6.20); White Blood Count 3.9 K/mm3 (4.5-10.0)
[2023-08-26 11:16] LABS: Alanine Aminotransferase 15 U/L (6-50); Albumin Level 3.3 g/dL (3.5-5.1); Alkaline Phosphatase 133 U/L (38-126); Anion Gap 5 mmol/L (4-12); Aspartate Amino Transferase 13 U/L (17-59); Bilirubin,Total 0.3 mg/dL (0.2-1.3); Blood Urea Nitrogen 25 mg/dL (9-20); Calcium 9.2 mg/dL (8.4-10.2); Carbon Dioxide 20 mmol/L (22-30); Chloride 114 mmol/L (98-107); Estimated Glomerular Filt Rate 27; Glucose 74 mg/dL (65-110); Magnesium 1.7 mg/dL (1.6-2.3); Phosphorus 2.8 mg/dL (2.5-4.5); Potassium 5.2 mmol/L (3.4-5.0); Sodium 139 mmol/L (137-145)
[2023-08-26 12:11] LABS: Hepatitis C Virus Antibody Reactive (Negative)
[2023-08-31 14:08] LABS: Hepatitis C RNA, Quant PCR <15 NOT DETECTED IU/mL (NOT DETECTED)
== END 2023-08-26 10:03 | disposition home or self-care (01) ==
PROVIDERS: PCP Internal Medicine; Visit Provider Surgery
DX: Z48.22 Encounter for aftercare following kidney transplant (principal); N18.6 End stage renal disease
CPT/HCPCS: 36415; 80053; 80197; 83735; 84100; 85027; 86803; 87522

== ENCOUNTER 2023-09-02 11:01 | Outpatient (NON) | payer MEDICARE, OTHER, SELFPAY ==
[2023-09-02 12:07] LABS: Basophils Percent Auto 0.3 % (0.2-1.2); Eosinophils Absolute Auto 0.1 K/mm3 (0-0.3); Eosinophils Percent Auto 1.4 % (0-4.4); Hematocrit 31.1 % (42.0-52.0); Hemoglobin 9.6 g/dL (14.0-18.0); Immature Granulocyte Absolute 0.01 K/mm3 (0.00-0.031); Immature Granulocyte Percent A 0.3 % (0-0.5); Lymphocytes Absolute Auto 0.14 K/mm3 (0.9-3.2); Lymphocytes Percent Auto 3.9 % (18.3-44.2); Mean Corpuscular HGB Conc 30.9 g/dl (32-36); Mean Corpuscular Hemoglobin 31.8 pg (26-34); Mean Platelet Volume 11.5 fl (7.4-10.4); Monocytes Absolute Auto 0.3 K/mm3 (0.1-0.6); Monocytes Percent Auto 7.2 % (2.6-8.5); Neutrophils Absolute Auto 3.1 K/mm3 (1.3-6.7); Neutrophils Percent Auto 86.9 % (45.5-73.1); Platelet Count Result 109 k/mm3 (150-375); Red Blood Count 3.02 M/mm3 (4.6-6.20); Red Cell Distribution Width 15.6 % (11.5-14.5); White Blood Count 3.6 K/mm3 (4.5-10.0)
[2023-09-02 12:24] LABS: Anisocytosis 1+; Ovalocytes 1+; Platelet Estimate Adequate (Adequate); Poikilocytosis 1+; Schistocytes None Seen
[2023-09-02 12:53] LABS: Alanine Aminotransferase 12 U/L (6-50); Albumin Level 3.4 g/dL (3.5-5.1); Alkaline Phosphatase 120 U/L (38-126); Anion Gap 8 mmol/L (4-12); Aspartate Amino Transferase 13 U/L (17-59); Bilirubin,Total 0.4 mg/dL (0.2-1.3); Blood Urea Nitrogen 28 mg/dL (9-20); Calcium 9.4 mg/dL (8.4-10.2); Carbon Dioxide 20 mmol/L (22-30); Chloride 112 mmol/L (98-107); Estimated Glomerular Filt Rate 32; Glucose 75 mg/dL (65-110); Phosphorus 2.7 mg/dL (2.5-4.5); Potassium 4.9 mmol/L (3.4-5.0); Sodium 140 mmol/L (137-145)
[2023-09-02 13:26] LABS: Hepatitis C Virus Antibody Reactive (Negative)
[2023-09-03 16:04] LABS: Tacrolimus Prograf 6.6 mcg/L
[2023-09-03 16:53] LABS: Hepatitis C RNA, Quant PCR <15 NOT DETECTED IU/mL (NOT DETECTED)
== END 2023-09-02 11:02 | disposition home or self-care (01) ==
LOC: ANHLAB 11:07
PROVIDERS: PCP Internal Medicine; Visit Provider Surgery
DX: Z48.22 Encounter for aftercare following kidney transplant (principal)
CPT/HCPCS: 36415; 80053; 80197; 84100; 85025; 86803; 87522

== ENCOUNTER 2023-09-06 10:07 | Outpatient (NON) | payer MEDICARE, OTHER, SELFPAY ==
[2023-09-06 11:28] LABS: Hematocrit 31.3 % (42.0-52.0); Hemoglobin 9.9 g/dL (14.0-18.0); Mean Corpuscular HGB Conc 31.6 g/dl (32-36); Mean Corpuscular Hemoglobin 32.1 pg (26-34); Mean Corpuscular Volume 101.6 fl (80-100); Mean Platelet Volume 11.4 fl (7.4-10.4); Platelet Count Result 125 k/mm3 (150-375); Red Blood Count 3.08 M/mm3 (4.6-6.20); Red Cell Distribution Width 15.4 % (11.5-14.5); White Blood Count 3.7 K/mm3 (4.5-10.0)
[2023-09-06 11:39] LABS: Alanine Aminotransferase 12 U/L (6-50); Albumin Level 3.7 g/dL (3.5-5.1); Alkaline Phosphatase 141 U/L (38-126); Anion Gap 8 mmol/L (4-12); Aspartate Amino Transferase 15 U/L (17-59); Bilirubin,Total 0.4 mg/dL (0.2-1.3); Blood Urea Nitrogen 25 mg/dL (9-20); Calcium 9.7 mg/dL (8.4-10.2); Carbon Dioxide 24 mmol/L (22-30); Chloride 110 mmol/L (98-107); Estimated Glomerular Filt Rate 34; Glucose 101 mg/dL (65-110); Magnesium 1.5 mg/dL (1.6-2.3); Phosphorus 2.4 mg/dL (2.5-4.5); Sodium 142 mmol/L (137-145)
[2023-09-07 14:19] LABS: Hepatitis C RNA, Quant PCR <15 NOT DETECTED IU/mL (NOT DETECTED)
== END 2023-09-06 10:08 | disposition home or self-care (01) ==
LOC: HOME HLTH 10:15
PROVIDERS: PCP Internal Medicine; Visit Provider Surgery
DX: Z48.22 Encounter for aftercare following kidney transplant (principal)
CPT/HCPCS: 80053; 83735; 84100; 85027; 87522

== ENCOUNTER 2023-09-13 09:01 | Outpatient (NON) | payer MEDICARE, OTHER, SELFPAY ==
[2023-09-13 09:26] LABS: Hematocrit 31.8 % (42.0-52.0); Hemoglobin 9.9 g/dL (14.0-18.0); Mean Corpuscular HGB Conc 31.1 g/dl (32-36); Mean Corpuscular Hemoglobin 31.8 pg (26-34); Mean Corpuscular Volume 102.3 fl (80-100); Mean Platelet Volume 11.3 fl (7.4-10.4); Platelet Count Result 145 k/mm3 (150-375); Red Blood Count 3.11 M/mm3 (4.6-6.20); Red Cell Distribution Width 15.1 % (11.5-14.5)
[2023-09-13 09:46] LABS: Alanine Aminotransferase 11 U/L (6-50); Albumin Level 3.8 g/dL (3.5-5.1); Alkaline Phosphatase 125 U/L (38-126); Anion Gap 8 mmol/L (4-12); Aspartate Amino Transferase 12 U/L (17-59); Bilirubin,Total 0.4 mg/dL (0.2-1.3); Blood Urea Nitrogen 25 mg/dL (9-20); Calcium 10.1 mg/dL (8.4-10.2); Carbon Dioxide 22 mmol/L (22-30); Chloride 112 mmol/L (98-107); Estimated Glomerular Filt Rate 36; Glucose 84 mg/dL (65-110); Magnesium 1.3 mg/dL (1.6-2.3); Phosphorus 2.8 mg/dL (2.5-4.5); Potassium 4.4 mmol/L (3.4-5.0); Sodium 142 mmol/L (137-145)
[2023-09-20 09:40] LABS: Tacrolimus Prograf 7.3 mcg/L
== END 2023-09-13 09:02 | disposition home or self-care (01) ==
LOC: HOME HLTH 09:04
PROVIDERS: PCP Internal Medicine; Visit Provider Surgery
DX: Z48.22 Encounter for aftercare following kidney transplant (principal)
CPT/HCPCS: 80053; 80197; 83735; 84100; 85027

== ENCOUNTER 2023-09-20 09:48 | Outpatient (NON) | payer MEDICARE, OTHER, SELFPAY ==
[2023-09-20 11:18] LABS: Hematocrit 34.6 % (42.0-52.0); Hemoglobin 10.6 g/dL (14.0-18.0); Mean Corpuscular HGB Conc 30.6 g/dl (32-36); Mean Corpuscular Hemoglobin 30.8 pg (26-34); Mean Corpuscular Volume 100.6 fl (80-100); Mean Platelet Volume 11.4 fl (7.4-10.4); Platelet Count Result 142 k/mm3 (150-375); Red Blood Count 3.44 M/mm3 (4.6-6.20); Red Cell Distribution Width 14.4 % (11.5-14.5); White Blood Count 4.4 K/mm3 (4.5-10.0)
[2023-09-20 12:02] LABS: Magnesium 1.3 mg/dL (1.6-2.3); Phosphorus 2.7 mg/dL (2.5-4.5)
[2023-09-21 14:48] LABS: Tacrolimus Prograf 8.1 mcg/L
[2023-09-22 14:48] LABS: Hepatitis C RNA, Quant PCR <15 NOT DETECTED IU/mL (NOT DETECTED)
== END 2023-09-20 09:49 | disposition home or self-care (01) ==
LOC: HOME HLTH 09:50
PROVIDERS: PCP Internal Medicine; Visit Provider Surgery
DX: Z94.0 Kidney transplant status (principal)
CPT/HCPCS: 80197; 83735; 84100; 85027; 87522

== ENCOUNTER 2023-10-04 09:57 | Outpatient (NON) | payer MEDICARE, OTHER, SELFPAY ==
[2023-10-04 11:06] LABS: Hematocrit 37.2 % (42.0-52.0); Hemoglobin 11.7 g/dL (14.0-18.0); Mean Corpuscular HGB Conc 31.5 g/dl (32-36); Mean Corpuscular Hemoglobin 31.3 pg (26-34); Mean Corpuscular Volume 99.5 fl (80-100); Mean Platelet Volume 11.1 fl (7.4-10.4); Platelet Count Result 139 k/mm3 (150-375); Red Blood Count 3.74 M/mm3 (4.6-6.20); Red Cell Distribution Width 14.2 % (11.5-14.5); White Blood Count 5.3 K/mm3 (4.5-10.0)
[2023-10-04 11:07] LABS: Alanine Aminotransferase 14 U/L (6-50); Albumin Level 4.4 g/dL (3.5-5.1); Alkaline Phosphatase 124 U/L (38-126); Anion Gap 10 mmol/L (4-12); Aspartate Amino Transferase 21 U/L (17-59); Bilirubin,Total 0.5 mg/dL (0.2-1.3); Blood Urea Nitrogen 26 mg/dL (9-20); Calcium 10.6 mg/dL (8.4-10.2); Carbon Dioxide 23 mmol/L (22-30); Chloride 108 mmol/L (98-107); Estimated Glomerular Filt Rate 56; Glucose 109 mg/dL (65-110); Magnesium 1.5 mg/dL (1.6-2.3); Phosphorus 2.5 mg/dL (2.5-4.5); Potassium 4.1 mmol/L (3.4-5.0); Sodium 141 mmol/L (137-145)
[2023-10-05 16:29] LABS: Tacrolimus Prograf 5.9 mcg/L
[2023-10-07 15:14] LABS: Hepatitis C RNA, Quant PCR <15 NOT DETECTED IU/mL (NOT DETECTED)
== END 2023-10-04 09:58 | disposition home or self-care (01) ==
PROVIDERS: PCP Internal Medicine; Visit Provider Surgery
DX: Z48.22 Encounter for aftercare following kidney transplant (principal); Z94.0 Kidney transplant status
CPT/HCPCS: 80053; 80197; 83735; 84100; 85027; 87522

== ENCOUNTER 2023-10-12 10:39 | Outpatient (NON) | payer MEDICARE, OTHER, SELFPAY ==
[2023-10-12 11:17] LABS: Basophils Percent Auto 0.8 % (0.2-1.2); Eosinophils Absolute Auto 0.2 K/mm3 (0-0.3); Eosinophils Percent Auto 4.4 % (0-4.4); Hematocrit 38.8 % (42.0-52.0); Hemoglobin 12.5 g/dL (14.0-18.0); Immature Granulocyte Absolute 0.05 K/mm3 (0.00-0.031); Immature Granulocyte Percent A 1.4 % (0-0.5); Lymphocytes Absolute Auto 0.27 K/mm3 (0.9-3.2); Lymphocytes Percent Auto 7.4 % (18.3-44.2); Mean Corpuscular HGB Conc 32.2 g/dl (32-36); Mean Corpuscular Hemoglobin 31.8 pg (26-34); Mean Corpuscular Volume 98.7 fl (80-100); Mean Platelet Volume 10.9 fl (7.4-10.4); Monocytes Absolute Auto 0.4 K/mm3 (0.1-0.6); Monocytes Percent Auto 10.2 % (2.6-8.5); Neutrophils Absolute Auto 2.8 K/mm3 (1.3-6.7); Neutrophils Percent Auto 75.8 % (45.5-73.1); Platelet Count Result 149 k/mm3 (150-375); Red Blood Count 3.93 M/mm3 (4.6-6.20); Red Cell Distribution Width 13.9 % (11.5-14.5); White Blood Count 3.6 K/mm3 (4.5-10.0)
[2023-10-12 12:03] LABS: Alanine Aminotransferase 14 U/L (6-50); Albumin Level 4.5 g/dL (3.5-5.1); Alkaline Phosphatase 133 U/L (38-126); Anion Gap 9 mmol/L (4-12); Aspartate Amino Transferase 18 U/L (17-59); Bilirubin,Total 0.4 mg/dL (0.2-1.3); Blood Urea Nitrogen 34 mg/dL (9-20); Calcium 10.2 mg/dL (8.4-10.2); Carbon Dioxide 23 mmol/L (22-30); Chloride 110 mmol/L (98-107); Estimated Glomerular Filt Rate 44; Glucose 92 mg/dL (65-110); Magnesium 1.6 mg/dL (1.6-2.3); Phosphorus 2.7 mg/dL (2.5-4.5); Potassium 4.4 mmol/L (3.4-5.0); Sodium 142 mmol/L (137-145)
[2023-10-14 09:23] LABS: Tacrolimus Prograf 6.8 mcg/L
[2023-10-15 16:23] LABS: Hepatitis C RNA, Quant PCR <15 NOT DETECTED IU/mL (NOT DETECTED)
== END 2023-10-12 10:40 | disposition home or self-care (01) ==
PROVIDERS: PCP Internal Medicine; Visit Provider Surgery
DX: Z48.22 Encounter for aftercare following kidney transplant (principal)
CPT/HCPCS: 80053; 80197; 83735; 84100; 85025; 87522

== ENCOUNTER 2023-10-18 09:11 | Outpatient (NON) | payer MEDICARE, OTHER, SELFPAY ==
[2023-10-18 10:16] LABS: Basophils Percent Auto 0.6 % (0.2-1.2); Eosinophils Absolute Auto 0.2 K/mm3 (0-0.3); Eosinophils Percent Auto 3.4 % (0-4.4); Hematocrit 38.4 % (42.0-52.0); Immature Granulocyte Absolute 0.02 K/mm3 (0.00-0.031); Immature Granulocyte Percent A 0.4 % (0-0.5); Lymphocytes Absolute Auto 0.28 K/mm3 (0.9-3.2); Lymphocytes Percent Auto 5.9 % (18.3-44.2); Mean Corpuscular HGB Conc 31.3 g/dl (32-36); Mean Corpuscular Hemoglobin 31.6 pg (26-34); Mean Corpuscular Volume 101.1 fl (80-100); Mean Platelet Volume 10.9 fl (7.4-10.4); Monocytes Absolute Auto 0.3 K/mm3 (0.1-0.6); Monocytes Percent Auto 6.5 % (2.6-8.5); Neutrophils Percent Auto 83.2 % (45.5-73.1); Platelet Count Result 154 k/mm3 (150-375); Red Cell Distribution Width 13.9 % (11.5-14.5); White Blood Count 4.8 K/mm3 (4.5-10.0)
[2023-10-18 10:47] LABS: Alanine Aminotransferase 13 U/L (6-50); Albumin Level 4.1 g/dL (3.5-5.1); Alkaline Phosphatase 146 U/L (38-126); Anion Gap 9 mmol/L (4-12); Aspartate Amino Transferase 19 U/L (17-59); Bilirubin,Total 0.4 mg/dL (0.2-1.3); Blood Urea Nitrogen 31 mg/dL (9-20); Calcium 10.4 mg/dL (8.4-10.2); Carbon Dioxide 23 mmol/L (22-30); Chloride 109 mmol/L (98-107); Estimated Glomerular Filt Rate > 60; Glucose 113 mg/dL (65-110); Magnesium 1.6 mg/dL (1.6-2.3); Phosphorus 2.8 mg/dL (2.5-4.5); Potassium 4.1 mmol/L (3.4-5.0); Sodium 141 mmol/L (137-145)
[2023-10-19 15:33] LABS: Tacrolimus Prograf 5.5 mcg/L
[2023-10-21 15:39] LABS: Hepatitis C RNA, Quant PCR <15 NOT DETECTED IU/mL (NOT DETECTED)
== END 2023-10-18 09:12 | disposition home or self-care (01) ==
PROVIDERS: PCP Internal Medicine; Visit Provider Surgery
DX: Z48.22 Encounter for aftercare following kidney transplant (principal)
CPT/HCPCS: 80053; 80197; 83735; 84100; 85025; 87522

== ENCOUNTER 2024-01-10 09:04 | Outpatient (CLI) | payer MEDICARE, OTHER, SELFPAY ==
--- NOTE | ~2024-01-10 | CT_ITS ---
CT Scan of the Chest without Contrast: Clinical Indication: Lung nodules Technique: Contiguous sections were acquired throughout the chest without intravenous contrast. Dose reduction technique was used on this scan by utilizing automated exposure control and iterative recon struction technique. The dose-length product (DLP) was 54.46 mGy-cm. COMPARISON: 12/28/2022 Findings: There is no evidence of any significant mediastinal, hilar or axillary lymphadenopathy. Coronary kim ry calcifications are present. There is atherosclerotic calcification of the aorta. Probable minimal pericardial fluid. No pleural effusions. The lungs are clear. No pulmonary nodules or infiltrates are noted. There is mild emphysematous steele e. Images through the upper abdomen reveal atrophic kidneys. Impression: Mild emphysematous change. No pulmonary nodule evident. Reviewed, dictated and finalized at [facility]. REL MANUFACTURE INSTRUCTOR Impression: Mild emphysematous change. No pulmonary nodule evident.
== END 2024-01-10 09:05 | disposition home or self-care (01) ==
PROVIDERS: PCP Internal Medicine; Visit Provider Internal Medicine
DX: R91.8 Other nonspecific abnormal finding of lung field (principal)
CPT/HCPCS: 71250

== ENCOUNTER 2024-01-25 08:05 | Outpatient (RCR) | payer MEDICARE, OTHER, SELFPAY ==
[2023-11-02 08:22] LABS: Basophils Percent Auto 1.3 % (0.2-1.2); Eosinophils Absolute Auto 0.1 K/mm3 (0-0.3); Eosinophils Percent Auto 3.8 % (0-4.4); Hematocrit 36.4 % (42.0-52.0); Hemoglobin 11.8 g/dL (14.0-18.0); Immature Granulocyte Absolute 0.08 K/mm3 (0.00-0.031); Immature Granulocyte Percent A 3.3 % (0-0.5); Lymphocytes Absolute Auto 0.28 K/mm3 (0.9-3.2); Lymphocytes Percent Auto 11.7 % (18.3-44.2); Mean Corpuscular HGB Conc 32.4 g/dl (32-36); Mean Corpuscular Hemoglobin 32.2 pg (26-34); Mean Corpuscular Volume 99.5 fl (80-100); Mean Platelet Volume 10.1 fl (7.4-10.4); Monocytes Absolute Auto 0.3 K/mm3 (0.1-0.6); Monocytes Percent Auto 13.3 % (2.6-8.5); Neutrophils Absolute Auto 1.6 K/mm3 (1.3-6.7); Neutrophils Percent Auto 66.6 % (45.5-73.1); Platelet Count Result 144 k/mm3 (150-375); Red Blood Count 3.66 M/mm3 (4.6-6.20); Red Cell Distribution Width 13.3 % (11.5-14.5); White Blood Count 2.4 K/mm3 (4.5-10.0)
[2023-11-02 08:37] LABS: Albumin Level 4.4 g/dL (3.5-5.1); Anion Gap 7 mmol/L (4-12); Blood Urea Nitrogen 35 mg/dL (9-20); Calcium 10.2 mg/dL (8.4-10.2); Carbon Dioxide 24 mmol/L (22-30); Chloride 108 mmol/L (98-107); Estimated Glomerular Filt Rate 44; Glucose 112 mg/dL (65-110); Potassium 4.4 mmol/L (3.4-5.0); Sodium 139 mmol/L (137-145)
[2023-11-02 11:50] LABS: Hepatitis C Virus Antibody Reactive (Negative)
[2023-11-04 10:08] LABS: Tacrolimus Prograf 6.3 mcg/L
[2023-11-04 14:28] LABS: Hepatitis C RNA, Quant PCR <15 NOT DETECTED IU/mL (NOT DETECTED)
[2023-11-09 08:32] LABS: Basophils Percent Auto 1.1 % (0.2-1.2); Eosinophils Absolute Auto 0.1 K/mm3 (0-0.3); Eosinophils Percent Auto 3.9 % (0-4.4); Hematocrit 37.2 % (42.0-52.0); Hemoglobin 11.8 g/dL (14.0-18.0); Immature Granulocyte Absolute 0.07 K/mm3 (0.00-0.031); Immature Granulocyte Percent A 2.5 % (0-0.5); Lymphocytes Absolute Auto 0.27 K/mm3 (0.9-3.2); Lymphocytes Percent Auto 9.5 % (18.3-44.2); Mean Corpuscular HGB Conc 31.7 g/dl (32-36); Mean Corpuscular Hemoglobin 31.2 pg (26-34); Mean Corpuscular Volume 98.4 fl (80-100); Mean Platelet Volume 10.8 fl (7.4-10.4); Monocytes Absolute Auto 0.6 K/mm3 (0.1-0.6); Monocytes Percent Auto 20.1 % (2.6-8.5); Neutrophils Absolute Auto 1.8 K/mm3 (1.3-6.7); Neutrophils Percent Auto 62.9 % (45.5-73.1); Platelet Count Result 142 k/mm3 (150-375); Red Blood Count 3.78 M/mm3 (4.6-6.20); Red Cell Distribution Width 13.1 % (11.5-14.5); White Blood Count 2.8 K/mm3 (4.5-10.0)
[2023-11-09 08:42] LABS: Albumin Level 4.3 g/dL (3.5-5.1); Anion Gap 8 mmol/L (4-12); Blood Urea Nitrogen 32 mg/dL (9-20); Carbon Dioxide 21 mmol/L (22-30); Chloride 111 mmol/L (98-107); Estimated Glomerular Filt Rate 55; Glucose 126 mg/dL (65-110); Phosphorus 2.7 mg/dL (2.5-4.5); Potassium 4.2 mmol/L (3.4-5.0); Sodium 140 mmol/L (137-145)
[2023-11-09 09:52] LABS: Hepatitis C Virus Antibody Reactive (Negative)
[2023-11-09 09:54] LABS: Hepatitis C Virus Antibody 4.58 S/C
[2023-11-11 15:32] LABS: Tacrolimus Prograf 8.2 mcg/L
[2023-11-12 15:04] LABS: Hepatitis C RNA, Quant PCR <15 NOT DETECTED IU/mL (NOT DETECTED)
[2023-11-16 08:10] LABS: Albumin Level 4.3 g/dL (3.5-5.1); Anion Gap 6 mmol/L (4-12); Blood Urea Nitrogen 32 mg/dL (9-20); Calcium 10.4 mg/dL (8.4-10.2); Carbon Dioxide 26 mmol/L (22-30); Chloride 109 mmol/L (98-107); Estimated Glomerular Filt Rate 47; Glucose 120 mg/dL (65-110); Phosphorus 3.2 mg/dL (2.5-4.5); Sodium 141 mmol/L (137-145)
[2023-11-16 08:32] LABS: Basophils Percent Auto 1.1 % (0.2-1.2); Eosinophils Absolute Auto 0.2 K/mm3 (0-0.3); Eosinophils Percent Auto 4.6 % (0-4.4); Hematocrit 37.4 % (42.0-52.0); Immature Granulocyte Absolute 0.05 K/mm3 (0.00-0.031); Immature Granulocyte Percent A 1.4 % (0-0.5); Lymphocytes Absolute Auto 0.36 K/mm3 (0.9-3.2); Lymphocytes Percent Auto 10.3 % (18.3-44.2); Mean Corpuscular HGB Conc 32.1 g/dl (32-36); Mean Corpuscular Hemoglobin 31.5 pg (26-34); Mean Corpuscular Volume 98.2 fl (80-100); Mean Platelet Volume 10.8 fl (7.4-10.4); Monocytes Absolute Auto 0.8 K/mm3 (0.1-0.6); Monocytes Percent Auto 22.8 % (2.6-8.5); Neutrophils Absolute Auto 2.1 K/mm3 (1.3-6.7); Neutrophils Percent Auto 59.8 % (45.5-73.1); Platelet Count Result 135 k/mm3 (150-375); Red Blood Count 3.81 M/mm3 (4.6-6.20); Red Cell Distribution Width 12.7 % (11.5-14.5); White Blood Count 3.5 K/mm3 (4.5-10.0)
[2023-11-17 16:27] LABS: Tacrolimus Prograf 9.5 mcg/L
[2023-11-18 14:53] LABS: Hepatitis C RNA, Quant PCR <15 NOT DETECTED IU/mL (NOT DETECTED)
[2023-11-23 10:32] LABS: Basophils Absolute Auto 0.1 K/mm3 (0.0-0.1); Eosinophils Absolute Auto 0.2 K/mm3 (0-0.3); Eosinophils Percent Auto 4.6 % (0-4.4); Hematocrit 39.9 % (42.0-52.0); Hemoglobin 12.8 g/dL (14.0-18.0); Immature Granulocyte Absolute 0.05 K/mm3 (0.00-0.031); Lymphocytes Absolute Auto 0.37 K/mm3 (0.9-3.2); Lymphocytes Percent Auto 7.4 % (18.3-44.2); Mean Corpuscular HGB Conc 32.1 g/dl (32-36); Mean Corpuscular Volume 96.6 fl (80-100); Mean Platelet Volume 10.4 fl (7.4-10.4); Monocytes Absolute Auto 0.9 K/mm3 (0.1-0.6); Monocytes Percent Auto 18.1 % (2.6-8.5); Neutrophils Absolute Auto 3.4 K/mm3 (1.3-6.7); Neutrophils Percent Auto 67.9 % (45.5-73.1); Platelet Count Result 147 k/mm3 (150-375); Red Blood Count 4.13 M/mm3 (4.6-6.20); Red Cell Distribution Width 12.8 % (11.5-14.5)
[2023-11-23 10:43] LABS: Albumin Level 4.5 g/dL (3.5-5.1); Anion Gap 8 mmol/L (4-12); Blood Urea Nitrogen 30 mg/dL (9-20); Calcium 10.6 mg/dL (8.4-10.2); Carbon Dioxide 23 mmol/L (22-30); Chloride 111 mmol/L (98-107); Estimated Glomerular Filt Rate 47; Glucose 97 mg/dL (65-110); Phosphorus 3.1 mg/dL (2.5-4.5); Potassium 4.2 mmol/L (3.4-5.0); Sodium 142 mmol/L (137-145)
[2023-11-24 15:49] LABS: Hepatitis C RNA, Quant PCR <15 NOT DETECTED IU/mL (NOT DETECTED)
[2023-11-24 16:23] LABS: Tacrolimus Prograf 8.7 mcg/L
[2023-11-30 09:06] LABS: Basophils Percent Auto 0.6 % (0.2-1.2); Eosinophils Absolute Auto 0.2 K/mm3 (0-0.3); Eosinophils Percent Auto 4.4 % (0-4.4); Hematocrit 38.4 % (42.0-52.0); Hemoglobin 12.4 g/dL (14.0-18.0); Immature Granulocyte Absolute 0.03 K/mm3 (0.00-0.031); Immature Granulocyte Percent A 0.6 % (0-0.5); Lymphocytes Absolute Auto 0.39 K/mm3 (0.9-3.2); Lymphocytes Percent Auto 7.2 % (18.3-44.2); Mean Corpuscular HGB Conc 32.3 g/dl (32-36); Mean Corpuscular Hemoglobin 30.8 pg (26-34); Mean Corpuscular Volume 95.5 fl (80-100); Mean Platelet Volume 10.3 fl (7.4-10.4); Monocytes Absolute Auto 0.7 K/mm3 (0.1-0.6); Monocytes Percent Auto 12.5 % (2.6-8.5); Neutrophils Absolute Auto 4.1 K/mm3 (1.3-6.7); Neutrophils Percent Auto 74.7 % (45.5-73.1); Platelet Count Result 141 k/mm3 (150-375); Red Blood Count 4.02 M/mm3 (4.6-6.20); Red Cell Distribution Width 12.7 % (11.5-14.5); White Blood Count 5.4 K/mm3 (4.5-10.0)
[2023-11-30 09:37] LABS: Albumin Level 4.2 g/dL (3.5-5.1); Anion Gap 8 mmol/L (4-12); Blood Urea Nitrogen 32 mg/dL (9-20); Calcium 10.3 mg/dL (8.4-10.2); Carbon Dioxide 24 mmol/L (22-30); Chloride 110 mmol/L (98-107); Estimated Glomerular Filt Rate 44; Glucose 124 mg/dL (65-110); Phosphorus 2.9 mg/dL (2.5-4.5); Potassium 4.1 mmol/L (3.4-5.0); Sodium 142 mmol/L (137-145)
[2023-12-01 15:33] LABS: Hepatitis C RNA, Quant PCR <15 NOT DETECTED IU/mL (NOT DETECTED)
[2023-12-03 16:19] LABS: Tacrolimus Prograf 9.6 mcg/L
[2023-12-14 09:02] LABS: Basophils Absolute Auto 0.1 K/mm3 (0.0-0.1); Basophils Percent Auto 0.8 % (0.2-1.2); Eosinophils Absolute Auto 0.3 K/mm3 (0-0.3); Eosinophils Percent Auto 4.7 % (0-4.4); Hematocrit 36.9 % (42.0-52.0); Immature Granulocyte Absolute 0.02 K/mm3 (0.00-0.031); Immature Granulocyte Percent A 0.3 % (0-0.5); Lymphocytes Absolute Auto 0.42 K/mm3 (0.9-3.2); Lymphocytes Percent Auto 6.9 % (18.3-44.2); Mean Corpuscular HGB Conc 32.5 g/dl (32-36); Mean Corpuscular Hemoglobin 31.2 pg (26-34); Mean Corpuscular Volume 95.8 fl (80-100); Mean Platelet Volume 10.2 fl (7.4-10.4); Monocytes Absolute Auto 0.7 K/mm3 (0.1-0.6); Monocytes Percent Auto 10.6 % (2.6-8.5); Neutrophils Absolute Auto 4.7 K/mm3 (1.3-6.7); Neutrophils Percent Auto 76.7 % (45.5-73.1); Platelet Count Result 143 k/mm3 (150-375); Red Blood Count 3.85 M/mm3 (4.6-6.20); White Blood Count 6.1 K/mm3 (4.5-10.0)
[2023-12-14 09:15] LABS: Albumin Level 4.3 g/dL (3.5-5.1); Anion Gap 9 mmol/L (4-12); Blood Urea Nitrogen 31 mg/dL (9-20); Calcium 10.2 mg/dL (8.4-10.2); Carbon Dioxide 24 mmol/L (22-30); Chloride 110 mmol/L (98-107); Estimated Glomerular Filt Rate 47; Glucose 116 mg/dL (65-110); Phosphorus 2.8 mg/dL (2.5-4.5); Potassium 3.7 mmol/L (3.4-5.0); Sodium 143 mmol/L (137-145)
[2023-12-16 15:33] LABS: Hepatitis C RNA, Quant PCR <15 NOT DETECTED IU/mL (NOT DETECTED)
[2023-12-20 08:09] LABS: Tacrolimus Prograf 8.8 mcg/L
[2023-12-28 07:59] LABS: Basophils Percent Auto 0.6 % (0.2-1.2); Eosinophils Absolute Auto 0.2 K/mm3 (0-0.3); Eosinophils Percent Auto 4.4 % (0-4.4); Hematocrit 36.9 % (42.0-52.0); Hemoglobin 12.1 g/dL (14.0-18.0); Immature Granulocyte Absolute 0.02 K/mm3 (0.00-0.031); Immature Granulocyte Percent A 0.4 % (0-0.5); Immature Platelet Fraction Pct 2.7 % (0.9-11.2); Lymphocytes Absolute Auto 0.44 K/mm3 (0.9-3.2); Lymphocytes Percent Auto 8.7 % (18.3-44.2); Mean Corpuscular HGB Conc 32.8 g/dl (32-36); Mean Corpuscular Hemoglobin 31.4 pg (26-34); Mean Corpuscular Volume 95.8 fl (80-100); Mean Platelet Volume 10.3 fl (7.4-10.4); Monocytes Absolute Auto 0.7 K/mm3 (0.1-0.6); Monocytes Percent Auto 13.3 % (2.6-8.5); Neutrophils Absolute Auto 3.7 K/mm3 (1.3-6.7); Neutrophils Percent Auto 72.6 % (45.5-73.1); Platelet Count Result 145 k/mm3 (150-375); Red Blood Count 3.85 M/mm3 (4.6-6.20); Red Cell Distribution Width 13.1 % (11.5-14.5)
[2023-12-28 08:10] LABS: Albumin Level 4.3 g/dL (3.5-5.1); Anion Gap 4 mmol/L (4-12); Blood Urea Nitrogen 30 mg/dL (9-20); Calcium 10.2 mg/dL (8.4-10.2); Carbon Dioxide 26 mmol/L (22-30); Chloride 111 mmol/L (98-107); Estimated Glomerular Filt Rate 47; Glucose 109 mg/dL (65-110); Phosphorus 2.7 mg/dL (2.5-4.5); Sodium 141 mmol/L (137-145)
[2023-12-29 15:33] LABS: Tacrolimus Prograf 5.7 mcg/L
[2023-12-29 15:44] LABS: Hepatitis C RNA, Quant PCR <15 NOT DETECTED IU/mL (NOT DETECTED)
[2024-01-11 08:29] LABS: Basophils Percent Auto 0.4 % (0.2-1.2); Eosinophils Absolute Auto 0.2 K/mm3 (0-0.3); Eosinophils Percent Auto 4.2 % (0-4.4); Hemoglobin 12.3 g/dL (14.0-18.0); Immature Granulocyte Absolute 0.02 K/mm3 (0.00-0.031); Immature Granulocyte Percent A 0.4 % (0-0.5); Lymphocytes Absolute Auto 0.36 K/mm3 (0.9-3.2); Mean Corpuscular HGB Conc 33.2 g/dl (32-36); Mean Corpuscular Hemoglobin 31.1 pg (26-34); Mean Corpuscular Volume 93.7 fl (80-100); Mean Platelet Volume 9.8 fl (7.4-10.4); Monocytes Absolute Auto 0.7 K/mm3 (0.1-0.6); Monocytes Percent Auto 16.3 % (2.6-8.5); Neutrophils Absolute Auto 3.2 K/mm3 (1.3-6.7); Neutrophils Percent Auto 70.7 % (45.5-73.1); Platelet Count Result 162 k/mm3 (150-375); Red Blood Count 3.95 M/mm3 (4.6-6.20); Red Cell Distribution Width 13.1 % (11.5-14.5); White Blood Count 4.5 K/mm3 (4.5-10.0)
[2024-01-11 08:42] LABS: Albumin Level 4.5 g/dL (3.5-5.1); Anion Gap 5 mmol/L (4-12); Blood Urea Nitrogen 30 mg/dL (9-20); Calcium 10.2 mg/dL (8.4-10.2); Carbon Dioxide 25 mmol/L (22-30); Chloride 112 mmol/L (98-107); Estimated Glomerular Filt Rate 51; Glucose 107 mg/dL (65-110); Phosphorus 2.8 mg/dL (2.5-4.5); Potassium 4.2 mmol/L (3.4-5.0); Sodium 142 mmol/L (137-145)
[2024-01-11 10:48] LABS: Hepatitis C Virus Antibody Reactive (Negative)
[2024-01-13 17:28] LABS: Hepatitis C RNA, Quant PCR <15 NOT DETECTED IU/mL (NOT DETECTED)
[2024-01-25 08:30] LABS: Basophils Percent Auto 0.5 % (0.2-1.2); Eosinophils Absolute Auto 0.2 K/mm3 (0-0.3); Eosinophils Percent Auto 5.2 % (0-4.4); Hematocrit 36.5 % (42.0-52.0); Hemoglobin 11.9 g/dL (14.0-18.0); Immature Granulocyte Absolute 0.02 K/mm3 (0.00-0.031); Immature Granulocyte Percent A 0.5 % (0-0.5); Lymphocytes Absolute Auto 0.34 K/mm3 (0.9-3.2); Mean Corpuscular HGB Conc 32.6 g/dl (32-36); Mean Corpuscular Hemoglobin 31.2 pg (26-34); Mean Corpuscular Volume 95.8 fl (80-100); Mean Platelet Volume 9.9 fl (7.4-10.4); Monocytes Absolute Auto 0.7 K/mm3 (0.1-0.6); Monocytes Percent Auto 15.4 % (2.6-8.5); Neutrophils Percent Auto 70.4 % (45.5-73.1); Platelet Count Result 133 k/mm3 (150-375); Red Blood Count 3.81 M/mm3 (4.6-6.20); Red Cell Distribution Width 13.2 % (11.5-14.5); White Blood Count 4.2 K/mm3 (4.5-10.0)
[2024-01-25 08:51] LABS: Albumin Level 4.2 g/dL (3.5-5.1); Anion Gap 5 mmol/L (4-12); Blood Urea Nitrogen 31 mg/dL (9-20); Calcium 10.2 mg/dL (8.4-10.2); Carbon Dioxide 26 mmol/L (22-30); Chloride 111 mmol/L (98-107); Estimated Glomerular Filt Rate 47; Glucose 115 mg/dL (65-110); Phosphorus 3.2 mg/dL (2.5-4.5); Potassium 3.9 mmol/L (3.4-5.0); Sodium 142 mmol/L (137-145)
[2024-01-26 16:17] LABS: Tacrolimus Prograf 5.9 mcg/L
[2024-01-26 17:14] LABS: Hepatitis C RNA, Quant PCR <15 NOT DETECTED IU/mL (NOT DETECTED)
== END 2024-01-31 23:59 | disposition home or self-care (01) ==
LOC: ANHLAB 08:05
PROVIDERS: PCP Internal Medicine
DX: Z94.0 Kidney transplant status (principal); Z20.5 Contact with and (suspected) exposure to viral hepatitis; Z79.899 Other long term (current) drug therapy
CPT/HCPCS: 36415; 80069; 80197; 85025; 85055; 86803; 87522

== ENCOUNTER 2024-02-22 08:21 | Outpatient (CLI) | payer MEDICARE, OTHER, SELFPAY ==
[2024-02-22 11:33] LABS: Cholesterol 138 mg/dL (0-200); HDL Direct 34 mg/dL; Triglycerides 215 mg/dL (<150)
[2024-02-22 11:56] LABS: LDL Cholesterol Direct 62 mg/dL
== END 2024-02-22 08:22 | disposition home or self-care (01) ==
PROVIDERS: PCP Internal Medicine
DX: E78.2 Mixed hyperlipidemia (principal)
CPT/HCPCS: 36415; 80061

== ENCOUNTER 2024-05-02 08:09 | Outpatient (RCR) | payer MEDICARE, OTHER, SELFPAY ==
[2024-02-08 08:40] LABS: Basophils Percent Auto 0.4 % (0.2-1.2); Eosinophils Absolute Auto 0.2 K/mm3 (0-0.3); Eosinophils Percent Auto 4.4 % (0-4.4); Hematocrit 38.9 % (42.0-52.0); Hemoglobin 12.6 g/dL (14.0-18.0); Immature Granulocyte Absolute 0.02 K/mm3 (0.00-0.031); Immature Granulocyte Percent A 0.4 % (0-0.5); Lymphocytes Absolute Auto 0.48 K/mm3 (0.9-3.2); Lymphocytes Percent Auto 9.6 % (18.3-44.2); Mean Corpuscular HGB Conc 32.4 g/dl (32-36); Mean Corpuscular Hemoglobin 30.7 pg (26-34); Mean Corpuscular Volume 94.9 fl (80-100); Monocytes Absolute Auto 0.7 K/mm3 (0.1-0.6); Monocytes Percent Auto 13.5 % (2.6-8.5); Neutrophils Absolute Auto 3.6 K/mm3 (1.3-6.7); Neutrophils Percent Auto 71.7 % (45.5-73.1); Platelet Count Result 153 k/mm3 (150-375); Red Cell Distribution Width 13.2 % (11.5-14.5)
[2024-02-08 09:04] LABS: Albumin Level 4.3 g/dL (3.5-5.1); Anion Gap 3 mmol/L (4-12); Blood Urea Nitrogen 28 mg/dL (9-20); Calcium 10.4 mg/dL (8.4-10.2); Carbon Dioxide 25 mmol/L (22-30); Chloride 113 mmol/L (98-107); Estimated Glomerular Filt Rate 47; Glucose 112 mg/dL (65-110); Sodium 141 mmol/L (137-145)
[2024-02-08 10:06] LABS: Hepatitis C Virus Antibody Reactive (Negative)
[2024-02-10 16:08] LABS: Tacrolimus Prograf 5.7 mcg/L
[2024-02-10 17:07] LABS: Hepatitis C RNA, Quant PCR <15 NOT DETECTED IU/mL (NOT DETECTED)
[2024-02-22 09:03] LABS: Basophils Percent Auto 0.6 % (0.2-1.2); Eosinophils Absolute Auto 0.2 K/mm3 (0-0.3); Eosinophils Percent Auto 4.3 % (0-4.4); Hematocrit 38.3 % (42.0-52.0); Hemoglobin 12.5 g/dL (14.0-18.0); Immature Granulocyte Absolute 0.03 K/mm3 (0.00-0.031); Immature Granulocyte Percent A 0.6 % (0-0.5); Lymphocytes Absolute Auto 0.43 K/mm3 (0.9-3.2); Lymphocytes Percent Auto 8.7 % (18.3-44.2); Mean Corpuscular HGB Conc 32.6 g/dl (32-36); Mean Corpuscular Hemoglobin 30.7 pg (26-34); Mean Corpuscular Volume 94.1 fl (80-100); Mean Platelet Volume 9.8 fl (7.4-10.4); Monocytes Absolute Auto 0.6 K/mm3 (0.1-0.6); Neutrophils Absolute Auto 3.6 K/mm3 (1.3-6.7); Neutrophils Percent Auto 72.8 % (45.5-73.1); Platelet Count Result 146 k/mm3 (150-375); Red Blood Count 4.07 M/mm3 (4.6-6.20); Red Cell Distribution Width 13.1 % (11.5-14.5); White Blood Count 4.9 K/mm3 (4.5-10.0)
[2024-02-22 09:12] LABS: Albumin Level 4.4 g/dL (3.5-5.1); Anion Gap 7 mmol/L (4-12); Blood Urea Nitrogen 27 mg/dL (9-20); Calcium 10.2 mg/dL (8.4-10.2); Carbon Dioxide 25 mmol/L (22-30); Chloride 110 mmol/L (98-107); Estimated Glomerular Filt Rate 55; Glucose 95 mg/dL (65-110); Phosphorus 3.4 mg/dL (2.5-4.5); Sodium 142 mmol/L (137-145)
[2024-02-23 15:27] LABS: Hepatitis C RNA, Quant PCR <15 NOT DETECTED IU/mL (NOT DETECTED); Tacrolimus Prograf 9.1 mcg/L
[2024-03-07 08:25] LABS: Basophils Percent Auto 0.4 % (0.2-1.2); Eosinophils Absolute Auto 0.2 K/mm3 (0-0.3); Eosinophils Percent Auto 3.8 % (0-4.4); Hematocrit 40.2 % (42.0-52.0); Immature Granulocyte Absolute 0.04 K/mm3 (0.00-0.031); Immature Granulocyte Percent A 0.8 % (0-0.5); Lymphocytes Absolute Auto 0.52 K/mm3 (0.9-3.2); Lymphocytes Percent Auto 10.3 % (18.3-44.2); Mean Corpuscular HGB Conc 32.3 g/dl (32-36); Mean Corpuscular Hemoglobin 30.4 pg (26-34); Mean Corpuscular Volume 94.1 fl (80-100); Mean Platelet Volume 9.9 fl (7.4-10.4); Monocytes Absolute Auto 0.6 K/mm3 (0.1-0.6); Monocytes Percent Auto 12.7 % (2.6-8.5); Neutrophils Absolute Auto 3.6 K/mm3 (1.3-6.7); Platelet Count Result 160 k/mm3 (150-375); Red Blood Count 4.27 M/mm3 (4.6-6.20); Red Cell Distribution Width 12.9 % (11.5-14.5)
[2024-03-07 08:48] LABS: Albumin Level 4.5 g/dL (3.5-5.1); Anion Gap 9 mmol/L (4-12); Blood Urea Nitrogen 29 mg/dL (9-20); Calcium 10.3 mg/dL (8.4-10.2); Carbon Dioxide 25 mmol/L (22-30); Chloride 109 mmol/L (98-107); Estimated Glomerular Filt Rate 48; Glucose 92 mg/dL (65-110); Phosphorus 3.3 mg/dL (2.5-4.5); Potassium 4.3 mmol/L (3.4-5.0); Sodium 143 mmol/L (137-145)
[2024-03-07 12:56] LABS: Hepatitis C Virus Antibody Reactive (Negative)
[2024-03-08 15:19] LABS: Tacrolimus Prograf 6.3 mcg/L
[2024-03-09 17:14] LABS: Hepatitis C RNA, Quant PCR <15 NOT DETECTED IU/mL (NOT DETECTED)
[2024-03-21 08:51] LABS: Basophils Percent Auto 0.4 % (0.2-1.2); Eosinophils Absolute Auto 0.3 K/mm3 (0-0.3); Eosinophils Percent Auto 4.7 % (0-4.4); Hematocrit 40.6 % (42.0-52.0); Hemoglobin 13.3 g/dL (14.0-18.0); Immature Granulocyte Absolute 0.05 K/mm3 (0.00-0.031); Immature Granulocyte Percent A 0.9 % (0-0.5); Lymphocytes Percent Auto 10.9 % (18.3-44.2); Mean Corpuscular HGB Conc 32.8 g/dl (32-36); Mean Corpuscular Hemoglobin 30.6 pg (26-34); Mean Corpuscular Volume 93.3 fl (80-100); Mean Platelet Volume 9.6 fl (7.4-10.4); Monocytes Absolute Auto 0.8 K/mm3 (0.1-0.6); Monocytes Percent Auto 13.8 % (2.6-8.5); Neutrophils Absolute Auto 3.8 K/mm3 (1.3-6.7); Neutrophils Percent Auto 69.3 % (45.5-73.1); Platelet Count Result 152 k/mm3 (150-375); Red Blood Count 4.35 M/mm3 (4.6-6.20); Red Cell Distribution Width 13.1 % (11.5-14.5); White Blood Count 5.5 K/mm3 (4.5-10.0)
[2024-03-21 09:15] LABS: Albumin Level 4.3 g/dL (3.5-5.1); Anion Gap 8 mmol/L (4-12); Blood Urea Nitrogen 24 mg/dL (9-20); Calcium 10.3 mg/dL (8.4-10.2); Carbon Dioxide 24 mmol/L (22-30); Chloride 110 mmol/L (98-107); Estimated Glomerular Filt Rate 55; Glucose 105 mg/dL (65-110); Phosphorus 3.2 mg/dL (2.5-4.5); Potassium 3.9 mmol/L (3.4-5.0); Sodium 142 mmol/L (137-145)
[2024-03-22 13:34] LABS: Hepatitis C RNA, Quant PCR <15 NOT DETECTED IU/mL (NOT DETECTED)
[2024-03-22 15:23] LABS: Tacrolimus Prograf 6.8 mcg/L
[2024-04-04 09:31] LABS: Basophils Percent Auto 0.6 % (0.2-1.2); Eosinophils Absolute Auto 0.2 K/mm3 (0-0.3); Eosinophils Percent Auto 4.7 % (0-4.4); Hematocrit 39.8 % (42.0-52.0); Hemoglobin 12.8 g/dL (14.0-18.0); Immature Granulocyte Absolute 0.04 K/mm3 (0.00-0.031); Immature Granulocyte Percent A 0.8 % (0-0.5); Lymphocytes Absolute Auto 0.48 K/mm3 (0.9-3.2); Lymphocytes Percent Auto 9.5 % (18.3-44.2); Mean Corpuscular HGB Conc 32.2 g/dl (32-36); Mean Corpuscular Volume 93.4 fl (80-100); Monocytes Absolute Auto 0.7 K/mm3 (0.1-0.6); Monocytes Percent Auto 13.6 % (2.6-8.5); Neutrophils Absolute Auto 3.6 K/mm3 (1.3-6.7); Neutrophils Percent Auto 70.8 % (45.5-73.1); Platelet Count Result 160 k/mm3 (150-375); Red Blood Count 4.26 M/mm3 (4.6-6.20); White Blood Count 5.1 K/mm3 (4.5-10.0)
[2024-04-04 09:50] LABS: Albumin Level 4.2 g/dL (3.5-5.1); Anion Gap 8 mmol/L (4-12); Blood Urea Nitrogen 24 mg/dL (9-20); Calcium 10.2 mg/dL (8.4-10.2); Carbon Dioxide 24 mmol/L (22-30); Chloride 109 mmol/L (98-107); Estimated Glomerular Filt Rate 53; Glucose 100 mg/dL (65-110); Phosphorus 3.1 mg/dL (2.5-4.5); Potassium 3.8 mmol/L (3.4-5.0); Sodium 141 mmol/L (137-145)
[2024-04-06 13:38] LABS: Hepatitis C RNA, Quant PCR <15 NOT DETECTED IU/mL (NOT DETECTED)
[2024-04-06 14:33] LABS: Tacrolimus Prograf 6.4 mcg/L
[2024-04-18 08:39] LABS: Basophils Percent Auto 0.4 % (0.2-1.2); Eosinophils Absolute Auto 0.2 K/mm3 (0-0.3); Eosinophils Percent Auto 4.3 % (0-4.4); Hematocrit 39.4 % (42.0-52.0); Immature Granulocyte Absolute 0.02 K/mm3 (0.00-0.031); Immature Granulocyte Percent A 0.4 % (0-0.5); Lymphocytes Absolute Auto 0.42 K/mm3 (0.9-3.2); Lymphocytes Percent Auto 8.6 % (18.3-44.2); Mean Corpuscular Hemoglobin 30.7 pg (26-34); Mean Corpuscular Volume 93.1 fl (80-100); Mean Platelet Volume 9.8 fl (7.4-10.4); Monocytes Absolute Auto 0.6 K/mm3 (0.1-0.6); Monocytes Percent Auto 12.7 % (2.6-8.5); Neutrophils Absolute Auto 3.6 K/mm3 (1.3-6.7); Neutrophils Percent Auto 73.6 % (45.5-73.1); Platelet Count Result 152 k/mm3 (150-375); Red Blood Count 4.23 M/mm3 (4.6-6.20); White Blood Count 4.9 K/mm3 (4.5-10.0)
[2024-04-18 08:56] LABS: Albumin Level 4.3 g/dL (3.5-5.1); Anion Gap 8 mmol/L (4-12); Blood Urea Nitrogen 33 mg/dL (9-20); Calcium 10.3 mg/dL (8.4-10.2); Carbon Dioxide 23 mmol/L (22-30); Chloride 110 mmol/L (98-107); Estimated Glomerular Filt Rate 45; Glucose 127 mg/dL (65-110); Phosphorus 3.6 mg/dL (2.5-4.5); Sodium 141 mmol/L (137-145)
[2024-04-19 14:09] LABS: Hepatitis C RNA, Quant PCR <15 NOT DETECTED IU/mL (NOT DETECTED)
[2024-04-19 15:47] LABS: Tacrolimus Prograf 8.6 mcg/L
[2024-05-02 08:57] LABS: Albumin Level 4.4 g/dL (3.5-5.1); Anion Gap 7 mmol/L (4-12); Blood Urea Nitrogen 20 mg/dL (9-20); Calcium 10.5 mg/dL (8.4-10.2); Carbon Dioxide 24 mmol/L (22-30); Chloride 110 mmol/L (98-107); Estimated Glomerular Filt Rate 49; Glucose 103 mg/dL (65-110); Phosphorus 3.4 mg/dL (2.5-4.5); Potassium 4.1 mmol/L (3.4-5.0); Sodium 141 mmol/L (137-145)
[2024-05-02 09:00] LABS: Basophils Percent Auto 0.4 % (0.2-1.2); Eosinophils Absolute Auto 0.3 K/mm3 (0-0.3); Eosinophils Percent Auto 5.1 % (0-4.4); Hematocrit 40.2 % (42.0-52.0); Hemoglobin 13.4 g/dL (14.0-18.0); Immature Granulocyte Absolute 0.02 K/mm3 (0.00-0.031); Immature Granulocyte Percent A 0.4 % (0-0.5); Lymphocytes Absolute Auto 0.47 K/mm3 (0.9-3.2); Lymphocytes Percent Auto 9.7 % (18.3-44.2); Mean Corpuscular HGB Conc 33.3 g/dl (32-36); Mean Corpuscular Volume 93.1 fl (80-100); Mean Platelet Volume 10.5 fl (7.4-10.4); Monocytes Absolute Auto 0.7 K/mm3 (0.1-0.6); Monocytes Percent Auto 13.3 % (2.6-8.5); Neutrophils Absolute Auto 3.5 K/mm3 (1.3-6.7); Neutrophils Percent Auto 71.1 % (45.5-73.1); Platelet Count Result 150 k/mm3 (150-375); Red Blood Count 4.32 M/mm3 (4.6-6.20); White Blood Count 4.9 K/mm3 (4.5-10.0)
[2024-05-02 10:24] LABS: Hepatitis C Virus Antibody Reactive (Negative)
[2024-05-03 16:08] LABS: Tacrolimus Prograf 6.7 mcg/L
[2024-05-04 13:03] LABS: Hepatitis C RNA, Quant PCR <15 NOT DETECTED IU/mL (NOT DETECTED)
== END 2024-05-08 23:59 | disposition home or self-care (01) ==
LOC: ANHLAB 08:09
PROVIDERS: PCP Internal Medicine
DX: Z94.0 Kidney transplant status (principal); Z20.5 Contact with and (suspected) exposure to viral hepatitis
CPT/HCPCS: 36415; 80061; 80069; 80197; 85025; 86803; 87522

== ENCOUNTER 2024-07-25 09:12 | Outpatient (RCR) | payer MEDICARE, OTHER, SELFPAY ==
[2024-05-16 09:06] LABS: Hematocrit 40.7 % (42.0-52.0); Hemoglobin 13.1 g/dL (14.0-18.0); Immature Granulocyte Percent A 0.4 % (0-0.5); Lymphocytes Absolute Auto 0.52 K/mm3 (0.9-3.2); Mean Corpuscular HGB Conc 32.2 g/dl (32-36); Mean Corpuscular Hemoglobin 30.0 pg (26-34); Mean Corpuscular Volume 93.1 fl (80-100); Nucleated Red Blood Cells Absolute Auto 0.000 K/mm3 (0.0-0.012); Nucleated Red Blood Cells Perc 0.0 % (0.0-0.2); Platelet Count Result 151 k/mm3 (150-375); Red Blood Count 4.37 M/mm3 (4.6-6.20); White Blood Count 5.3 K/mm3 (4.5-10.0)
[2024-05-16 09:43] LABS: Albumin Level 4.4 g/dL (3.5-5.1); Anion Gap 9 mmol/L (4-12); Blood Urea Nitrogen 28 mg/dL (9-20); Calcium 10.0 mg/dL (8.4-10.2); Carbon Dioxide 24 mmol/L (22-30); Chloride 109 mmol/L (98-107); Estimated Glomerular Filt Rate 44; Glucose 97 mg/dL (65-110); Potassium 4.1 mmol/L (3.4-5.0); Sodium 142 mmol/L (137-145)
[2024-05-17 12:04] LABS: Hepatitis C RNA, Quant PCR <15 NOT DETECTED IU/mL (NOT DETECTED)
[2024-05-17 15:58] LABS: Tacrolimus Prograf. 5.6 mcg/L
[2024-05-30 09:44] LABS: Hematocrit 39.1 % (42.0-52.0); Hemoglobin 13.0 g/dL (14.0-18.0); Immature Granulocyte Percent A 0.3 % (0-0.5); Lymphocytes Absolute Auto 0.54 K/mm3 (0.9-3.2); Mean Corpuscular HGB Conc 33.2 g/dl (32-36); Mean Corpuscular Hemoglobin 30.7 pg (26-34); Mean Corpuscular Volume 92.4 fl (80-100); Nucleated Red Blood Cells Absolute Auto 0.000 K/mm3 (0.0-0.012); Nucleated Red Blood Cells Perc 0.0 % (0.0-0.2); Platelet Count Result 158 k/mm3 (150-375); Red Blood Count 4.23 M/mm3 (4.6-6.20); White Blood Count 5.9 K/mm3 (4.5-10.0)
[2024-05-30 10:02] LABS: Albumin Level 4.2 g/dL (3.5-5.1); Anion Gap 7 mmol/L (4-12); Blood Urea Nitrogen 25 mg/dL (9-20); Calcium 10.3 mg/dL (8.4-10.2); Carbon Dioxide 24 mmol/L (22-30); Chloride 110 mmol/L (98-107); Estimated Glomerular Filt Rate 46; Glucose 112 mg/dL (65-110); Potassium 4.4 mmol/L (3.4-5.0); Sodium 141 mmol/L (137-145)
[2024-05-31 14:44] LABS: Tacrolimus Prograf. 6.2 mcg/L
[2024-06-01 14:33] LABS: Hepatitis C RNA, Quant PCR <15 NOT DETECTED IU/mL (NOT DETECTED)
[2024-06-13 08:51] LABS: Hematocrit 40.6 % (42.0-52.0); Hemoglobin 12.8 g/dL (14.0-18.0); Immature Granulocyte Percent A 0.4 % (0-0.5); Lymphocytes Absolute Auto 0.52 K/mm3 (0.9-3.2); Mean Corpuscular HGB Conc 31.5 g/dl (32-36); Mean Corpuscular Hemoglobin 29.6 pg (26-34); Mean Corpuscular Volume 94.0 fl (80-100); Nucleated Red Blood Cells Absolute Auto 0.000 K/mm3 (0.0-0.012); Nucleated Red Blood Cells Perc 0.0 % (0.0-0.2); Platelet Count Result 144 k/mm3 (150-375); Red Blood Count 4.32 M/mm3 (4.6-6.20); White Blood Count 5.2 K/mm3 (4.5-10.0)
[2024-06-13 09:01] LABS: Albumin Level 4.3 g/dL (3.5-5.1); Anion Gap 7 mmol/L (4-12); Blood Urea Nitrogen 23 mg/dL (9-20); Calcium 9.9 mg/dL (8.4-10.2); Carbon Dioxide 26 mmol/L (22-30); Chloride 109 mmol/L (98-107); Estimated Glomerular Filt Rate 47; Glucose 108 mg/dL (65-110); Potassium 4.0 mmol/L (3.4-5.0); Sodium 142 mmol/L (137-145)
[2024-06-14 14:55] LABS: Hepatitis C RNA, Quant PCR <15 NOT DETECTED IU/mL (NOT DETECTED)
[2024-06-15 09:23] LABS: Tacrolimus Prograf. 5.3 mcg/L
[2024-06-27 08:44] LABS: Hematocrit 39.6 % (42.0-52.0); Hemoglobin 12.9 g/dL (14.0-18.0); Immature Granulocyte Percent A 0.6 % (0-0.5); Lymphocytes Absolute Auto 0.51 K/mm3 (0.9-3.2); Mean Corpuscular HGB Conc 32.6 g/dl (32-36); Mean Corpuscular Hemoglobin 30.1 pg (26-34); Mean Corpuscular Volume 92.3 fl (80-100); Nucleated Red Blood Cells Absolute Auto 0.000 K/mm3 (0.0-0.012); Nucleated Red Blood Cells Perc 0.0 % (0.0-0.2); Platelet Count Result 156 k/mm3 (150-375); Red Blood Count 4.29 M/mm3 (4.6-6.20); White Blood Count 5.4 K/mm3 (4.5-10.0)
[2024-06-27 08:53] LABS: Albumin Level 4.4 g/dL (3.5-5.1); Anion Gap 11 mmol/L (4-12); Blood Urea Nitrogen 25 mg/dL (9-20); Calcium 9.9 mg/dL (8.4-10.2); Carbon Dioxide 21 mmol/L (22-30); Chloride 111 mmol/L (98-107); Estimated Glomerular Filt Rate 40; Glucose 97 mg/dL (65-110); Potassium 4.0 mmol/L (3.4-5.0); Sodium 143 mmol/L (137-145)
[2024-06-28 16:04] LABS: Tacrolimus Prograf. 8.0 mcg/L
[2024-06-28 16:13] LABS: Hepatitis C RNA, Quant PCR <15 NOT DETECTED IU/mL (NOT DETECTED)
[2024-07-11 09:10] LABS: Hematocrit 39.5 % (42.0-52.0); Hemoglobin 13.0 g/dL (14.0-18.0); Immature Granulocyte Percent A 0.4 % (0-0.5); Lymphocytes Absolute Auto 0.55 K/mm3 (0.9-3.2); Mean Corpuscular HGB Conc 32.9 g/dl (32-36); Mean Corpuscular Hemoglobin 30.4 pg (26-34); Mean Corpuscular Volume 92.5 fl (80-100); Nucleated Red Blood Cells Absolute Auto 0.000 K/mm3 (0.0-0.012); Nucleated Red Blood Cells Perc 0.0 % (0.0-0.2); Platelet Count Result 148 k/mm3 (150-375); Red Blood Count 4.27 M/mm3 (4.6-6.20); White Blood Count 5.6 K/mm3 (4.5-10.0)
[2024-07-11 11:13] LABS: Albumin Level 4.5 g/dL (3.5-5.1); Anion Gap 9 mmol/L (4-12); Blood Urea Nitrogen 26 mg/dL (9-20); Calcium 10.4 mg/dL (8.4-10.2); Carbon Dioxide 22 mmol/L (22-30); Chloride 111 mmol/L (98-107); Estimated Glomerular Filt Rate 45; Glucose 115 mg/dL (65-110); Potassium 4.0 mmol/L (3.4-5.0); Sodium 142 mmol/L (137-145)
[2024-07-12 14:28] LABS: Tacrolimus Prograf. 10.0 mcg/L
[2024-07-12 16:47] LABS: Hepatitis C RNA, Quant PCR <15 NOT DETECTED IU/mL (NOT DETECTED)
[2024-07-25 10:14] LABS: Hematocrit 39.2 % (42.0-52.0); Hemoglobin 13.0 g/dL (14.0-18.0); Immature Granulocyte Percent A 0.4 % (0-0.5); Immature Platelet Fraction Pct 3.7 % (0.9-11.2); Lymphocytes Absolute Auto 0.50 K/mm3 (0.9-3.2); Mean Corpuscular HGB Conc 33.2 g/dl (32-36); Mean Corpuscular Hemoglobin 30.7 pg (26-34); Mean Corpuscular Volume 92.5 fl (80-100); Nucleated Red Blood Cells Absolute Auto 0.000 K/mm3 (0.0-0.012); Nucleated Red Blood Cells Perc 0.0 % (0.0-0.2); Platelet Count Result 143 k/mm3 (150-375); Red Blood Count 4.24 M/mm3 (4.6-6.20); White Blood Count 5.0 K/mm3 (4.5-10.0)
[2024-07-25 10:28] LABS: Albumin Level 4.3 g/dL (3.5-5.1); Anion Gap 8 mmol/L (4-12); Blood Urea Nitrogen 27 mg/dL (9-20); Calcium 10.2 mg/dL (8.4-10.2); Carbon Dioxide 23 mmol/L (22-30); Chloride 110 mmol/L (98-107); Estimated Glomerular Filt Rate 39; Glucose 103 mg/dL (65-110); Potassium 4.1 mmol/L (3.4-5.0); Sodium 141 mmol/L (137-145)
[2024-07-26 11:48] LABS: Hepatitis C RNA, Quant PCR <15 NOT DETECTED IU/mL (NOT DETECTED)
[2024-07-26 14:58] LABS: Tacrolimus Prograf. 8.3 mcg/L
== END 2024-08-14 23:59 | disposition home or self-care (01) ==
LOC: ANHLAB 09:12
PROVIDERS: PCP Internal Medicine; Visit Provider Internal Medicine
DX: Z94.0 Kidney transplant status (principal); Z20.5 Contact with and (suspected) exposure to viral hepatitis
CPT/HCPCS: 36415; 80069; 80197; 85025; 85055; 86803; 87522

== ENCOUNTER 2024-08-14 10:23 | Outpatient (CLI) | payer MEDICARE, OTHER, SELFPAY ==
--- OUTSIDE RECORDS SUMMARY | 2024-08-14 10:40 | XMS_ITS | Encounter Summary ---
Author Organization [facility] Healthcare Address [address] [place] [address] Care Team Providers Care Tool Engine Lathe Set Up Operator Name Role Phone Traci Kaye Primary Care Provider [phone]- [phone] Zak Osborne MD Unavailable [phone] Kieran Dumont MD Unavailable [phone] Bethel Aguayo MD Unavailable [phone] Jose Layton MD Unavailable [phone] Lisbet Wilcox RN Unavailable [phone] Encounter Details Date Type Department Care Team (Latest Contact Info) Description 07/05/2024 Results Follow-Up [facility] and [facility] Transplant Kidney [address] [facility] [phone] [place] [address] Lianet Taylor RN Hepatitis C (HCV) RNA PCR, quantitative Blood, Tacrolimus level trough, Renal function panel, CBC with auto differential Social History Tobacco Use Types Packs/Day Years Used Date Smoking Tobacco: Every Day Cigarettes 0.3 54.5 Started: 1972 Smokeless Tobacco: Never Alcohol Use Standard Drinks/Week Comments Not Currently 0 (1 standard drink = 0.6 oz pur e alcohol) [facility] Utilities Answer Date Recorded In the past 12 months has [employer], gas, oil, or water company threatened to shut off services in your home? No 07/29/2023 AUDIT-C Answer Date Recorded Q1: How often do you have a drink containing alcohol? Never 09/27/2023 Q2: How many drinks containi ng alcohol do you have on a typical day when you are drinking? Patient does not drink 4 Q3: How often do you have si x or more drinks on one occasion? Never 09/27/2023 Overall Financial Resource Strain (CARDIA) Answe r Date Recorded How hard is it for you to pa y for the very basics like food, housing, medical care, and heating? Not hard at all 07/29/2023 PHQ-2 Answer Date Recorded PHQ-2 Total Score (If total score is 3 or more points, staff should administer the PHQ-9) 2 10/07/2022 Hunger Vital Sign Answer Date Recorded Within the past 12 months, y ou worried that your food would run out before you got the money to buy more. Never true 07/29/19 24 Within the past 12 months, t he food you bought just didn't last and you didn't have money to get more. Never true 07/29/2023 PRAPARE - Transportation Answer Date Re corded In the past 12 months, has l ack of transportation kept you from medical appointments or from getting medications? No 07/10 In the past 12 months, has l ack of transportation kept you from meetings, work, or from getting things needed for daily living? No 07/29/2023 Housing Stability Vital Sign Answer Ronny e Recorded In the last 12 months, was t here a time when you were not able to pay the mortgage or rent on time? No 10/07/2022 In the last 12 months, how many places have you lived? 1 10/07/2022 In the last 12 months, was t here a time when you did not have a steady place to sleep or slept in a residential (including now)? No 10/07/2022 Housing Stability Vital Sign Answer Ronny e Recorded In the last 12 months, was t here a time when you were not able to pay the mortgage or rent on time? No 07/29/2023 In the past 12 months, how m any times have you moved where you were living? 0 07/29/2023 At any time in the past 12 m [facility], were you homeless or living in a residential (including now)? No 07/29/2023 Personal Safety Answer Date Recorded Have you ever been in or are you currently in a harmful physical or emotional relationship or is someone making you feel afraid or unsafe? 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 Will await the next FKL. documented in this encounter Plan of Treatment Not on file documented as of this encounter Visit Diagnoses Not on filedocumented in this encounter Care Teams Tool Engine Lathe Set Up Operator Relationship Specialty Start Date End Date Traci Kaye DO PCP - General 03/09/17 Zak Osborne MD Referring Physician Nephrology 03/04/18 Kieran Dumont MD Consulting Physician Nephrology 08/24/22 Bethel Aguayo MD [address] [facility] [address] [place] [address] Surgeon Surgery 08/28/22 Jose Layton MD [address] [place] [address] Referring Physician Gastroenterology 05/11/23 Lisbet Wilcox RN [address] [facility] [address] [place] [address] Logistics System Engineer 07/29/23 documented as of this encounter
--- OUTSIDE RECORDS SUMMARY | 2024-08-14 10:40 | XMS_ITS | Encounter Summary ---
Author Organization [facility] Healthcare Address [address] [place] [address] Care Team Providers Care Respiratory Care Technician Name Role Phone Traci Kaye Primary Care Provider +- [phone] Zak Osborne MD Unavailable [phone] Kieran Dumont MD Unavailable [phone] Bethel Aguayo MD Unavailable [phone] Jose Layton MD Unavailable [phone] Lisbet Wilcox RN Unavailable [phone] Encounter Details Date Type Department Care Team (Late st Contact Info) Description 07/26/2024 Results Follow-Up [facility] Transplant Kidney [address] [facility] [phone] [place] [address] Lisbet Wilcox, RN [address] [facility] [address] [place] [address] CBC with auto differential, Renal function panel, Hepatitis C antibody Blood Social History Tobacco Use Types Packs/Day Years Used Date Smoking Tobacco: Every Day Cigarettes 0.3 54.5 Started: 1972 Smokeless Tobacco: Never Alcohol Use Standard Drinks/Week Comments Not Currently 0 (1 standard drink = 0.6 oz pur e alcohol) [facility] Utilities Answer Date Recorded In the past 12 months has [employer], gas, oil, or water [employer] threatened to shut off services in your home? No 07/29/2023 AUDIT-C Answer Date Recorded Q1: How often do you have a drink containing alcohol? Never 09/27/2023 Q2: How many drinks containi ng alcohol do you have on a typical day when you are drinking? Patient does not drink Q3: How often do you have si [...] place to sleep or slept in a chcf (including now)? No 10/07/2022 Housing Stability Vital Sign Answer Ronny e Recorded In the last 12 months, was t here a time when you were not able to pay the mortgage or rent on time? No 07/29/2023 In the past 12 months, how m any times have you moved where you were living? 0 07/29/2023 At any time in the past 12 m [facility], were you homeless or living in a chcf (including now)? No 07/29/2023 Personal Safety Answer Date Recorded Have you ever been in or are you currently in a harmful physical or emotional relationship or is someone making you feel afraid or unsafe? 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 Gender Identity Not on file Sexual Orientation Not on file Occupation Industry Job Start Date Job End Date RETIRED Not on file Not on file Not on file documented as of this encounter Plan of Treatment Not on file documented as of this encounter Visit Diagnoses Not on filedocumented in this encounter Care Teams Respiratory Care Technician Relationship Specialty Start Date End Date Traci Kaye DO PCP - General 03/09/17 Zak Osborne MD Referring Physician Nephrology 03/04/18 Kieran Dumont MD Consulting Physician Nephrology 08/24/22 Bethel Aguayo MD [address] [facility] [address] [facility] [address] [place] [address] Surgeon Surgery 08/28/22 Jose Layton MD [address] [place] [address] Referring Physician Gastroenterology 05/11/23 Lisbet Wilcox, KEYSHA [address] [facility] [address] [place] [address] Cartography Supervisor 07/29/23 documented as of this encounter
--- OUTSIDE RECORDS SUMMARY | 2024-08-14 10:40 | XMS_ITS | Encounter Summary ---
Author Organization [facility] Healthcare Address [address] [place] [address] Care Team Providers Care Ledger Poster Name Role Phone Traci Kaye DO Primary Care Provider +- [phone] Zak Osborne MD Unavailable [phone] Julieta Barnes RN Unavailable [phone] Kieran Dumont MD Unavailable [phone] Bethel Aguayo MD Unavailable [phone] Jose Layton MD Unavailable [phone] Lisbet Wilcox RN Unavailable [phone] Encounter Details Date Type Department Care Team (Late st Contact Info) Description 08/12/2022 Telephone [facility] D[facility] Access Center at [facility] [address] [facility] [address] [place] [address] Alexis Aguayo MD [address] [facility] [address] [place] [address] Social History Tobacco Use Types Packs/Day Years Used Date Smoking Tobacco: Every Day Cigarettes 0.3 54.5 Started: 1972 Smokeless Tobacco: Never Alcohol Use Standard Drinks/Week Comments Not Currently 0 (1 standard drink = 0.6 oz pur e alcohol) AUDIT-C Answer Date Recorded Q1: How often do you have a drink containing alc ohol? Monthly or less 01/27/2022 Q2: How many drinks containi ng alcohol do you have on a typical day when you are drinking? 1 or 2 01/27/2022 Q3: How often do you have si x or more drinks on one occasion? 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 Gender Identity Not on file Sexual Orientation Not on file Occupation Industry Job Start Date Job End Date RETIRED Not on file Not on file Not on file documented as of this encounter Plan of Treatment Not on file documented as of this encounter Visit Diagnoses Not on filedocumented in this encounter Care Teams Ledger Poster Relationship Specialty Start Date End Date Traci Kaye DO PCP - General 03/09/17 Zak Osborne MD Referring Physician Nephrology 03/04/18 Julieta Barnes, RN [address] [place] [address] [employer] 08/31/18 Kieran Lemus MD [address] [place] [address] Consulting Physician Nephrology 08/24/22 Bethel Aguayo MD [address] [facility] [address] [facility] [address] [place] [address] Surgeon Surgery 08/28/22 Jose Layton MD [address] [place] [address] Referring Physician Gastroenterology 05/11/23 Lisbet Wilcox, KEYSHA [address] [facility] [address] [place] [address] [employer] 07/29/23 documented as of this encounter
--- OUTSIDE RECORDS SUMMARY | 2024-08-14 10:41 | XMS_ITS ---
Author Organization [facility] Address [address] [place] [id number] Care Team Providers Care Torch Burner Name Role Phone Traci Kaye DO Primary Care Provider + [phone] Zak Osborne MD Unavailable [phone] Kieran Dumont MD Unavailable [phone] Bethel Aguayo MD Unavailable [phone] Jose Layton MD Unavailable [phone] Lisbet Wilcox RN Unavailable [phone] Transplant Episode Kidney Candidate [facility] ([place], [place]) - [facility] Referred on 01/11/2017 Marked as Ineligible on 12/09/2017 Kidney CoordinatorHistorical ProviderMD Fax: N/A Email: N/A Scores Score Value Updated Exceptions/Reas ons CPRA Not available EPTS (Calc) 66 08/14/2024 Care Team Name Role Phone Fax Email Historical ProviderMD Kidney Coordinator [phone] N/ A N/A Events Pre-Transplant Referred: 01/11/2017 Dialysis History Dialysis History Start End Type Comments Center 11/16/2018 07/29/2023 Peritoneal [facility] Dialysis Center Information Center Phone Fax Address [facility] [phone] [place] [phone]
--- OUTSIDE RECORDS SUMMARY | 2024-08-14 10:41 | XMS_ITS ---
Author Organization [facility] Address [address] [place] [phone] Care Team Providers Care Creel Clerk Name Role Phone ErwinTraci logan Primary Care Provider +- [phone] Zak Osborne MD Unavailable [phone] Kieran Dumont MD Unavailable [phone] Bethel Aguayo MD Unavailable [phone] Jose Layton MD Unavailable [phone] Lisbet Wilcox RN Unavailable [phone] Transplant Episode Kidney Recipient [facility] ([place], [place]) [facility] Organ Received: Right Kidney Transplanted on 07/29/2023 Marked as Active Follow-up on 07/29/2023 Reason: Transplanted at [facility] Kidney CoordinatorLisbet Wilcox RN Fax: N/A Email: N/A Donor Information Organ ABO Source Meets Risk Criteria HLA Match Mismatches Cross Match Right Kidney Transplanted O DCD Yes A: B: DR: Right Kidney Donor Serology Results Anti-CMV CMV IgG: Positive EBV IgG EBV VCA IgG: Positive Anti-HBcAb HBC Total: Negative HBsAg HBsAg: Negative HBV DNA No results on file Anti-HCV HCV: Positive Anti-HIV I/II No results on file Anti-HTLV I/II HTLV: Not Done RPR/VDRL RPR: Negative EBV IgM EBV VCA IgM: Negative HBsAb HBsAb: Not Done EBNA No results on file SARS CoV-2 No results on file Care Team Name Role Phone Fax Email Lisbet Wilcox, KEYSHA Kidney Coordinator [phone] N/A N/A Bren Del Valle Secondary Veneer Redrier N/A N/A N/A Heather Bey RN Secondary Coordinator N/A N/A N/A Zak Osborne MD Referring Physician [phone] N/A Lisbet Wilcox RN Resident Care Coordinator [phone] N/A N/A Sarah Davis Primary Veneer Redrier N/A N/A N/A Nguyễn Marsh MD Transplant Hardwood Floor Installer [phone] N/A Anne-Marie Newell Bowl Sander [phone] N/A N/A Events Post-Transplant Pre-Transplant Admitted: 07/29/2023 Referred: 03/04/2018 Transplanted: 07/29/2023 Evaluation began: 9 Discharged: 08/01/2023 Committee: 11/14/2018 Center waitlisted: 9 Dialysis History Dialysis History Start End Type Comments Center 11/16/2018 07/29/2023 Peritoneal [facility] Dialysis Center Information Center Phone Fax Address [facility] [phone] [place] [phone]
--- OUTSIDE RECORDS SUMMARY | 2024-08-14 10:41 | XMS_ITS | Clinical Summary ---
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 Name Role Phone VargasTraci ramos DO Primary Care Provider Allergies Active Allergy Reactions Criticality Noted Date Comments Amoxicillin Erythromycin Medications losartan (COZAAR) 50 MG tablet TAKE ONE TABLET BY MOUTH TWICE A DAY 4 6 Active Additional Information Patient not taking.Reported on 05/24/2018 tadalafil (CIALIS) 10 MG tablet one po prn 0 6 Active amLODIPine (NORVASC) 5 MG tablet TAKE ONE TABLET BY MOUTH ONCE DAILY 4 8 Active acetaminophen (TYLENOL) 325 MG tablet 2-3 x a month prn 0 6 Active Active Problems Problem Noted Date Diagnosed Date Hypertensive chronic kidney disease with stage 1 through stage 4 chronic kidney disease, or unspecified chronic kidney disease 06/10/2015 Chronic kidney disease 06/10/2015 Chronic kidney disease, stage 3 (moderate) 05/05 Male erectile dysfunction 05/06/2015 Essential (primary) hypertension 05/06/2015 Family History Medical History Relation Comments Anemia Father Dyslipidemia Father Heart disease Father Hypertensive disorder Father Kidney disease Father Anemia Mother Cerebrovascular accident Mother Dyslipidemia Mother Hypertensive disorder Mother Kidney stone Mother Malignant neoplastic disease Mother Coronary arteriosclerosis Neg Hx Diabetes mellitus Neg Hx Relation Status Comments Father Mother Social History Tobacco Use Types Packs/Day Years Used Date Smoking Tobacco: Every Day Sex and Gender Information Value Date Recorded Sex Assigned at Not on file Legal Sex Male 7:25 AM MST Gender Identity Not on file Sexual Orientation Not on file Last Filed Vital Signs Vital Sign Reading Time Taken Comments Blood Pressure 128/89 05/24/2018 1:03 PM CDT Pulse 93 05/24/2018 1:03 PM CDT Temperature - - Respiratory Rate - - Oxygen Saturation - - Inhaled Oxygen Concentration - - Weight 68.9 kg (152 lb) 05/24/2018 1:03 PM CDT Height 167.6 cm (5' 6) 05/24/2018 1:03 PM CDT Body Mass Index 24.53 05/24/2018 1:03 PM CDT Plan of Treatment Health Maintenance Due Date Last Done Comments Pneumococcal PPSV23/PCV13 65 + Years / Low and Medium Risk (2 of 3 - PCV20 or PCV21) 07/07/2019 07/06/2018 COVID-19 Vaccine (3 - 2023- season) 2023, 04/04/2020 Influenza Vaccine (#1) 2024 , 11/03/2019, 10/10/2019 Insurance [employer] [facility] Teams Cane Stripper Relationship Specialty Start Date End Date Traci Kaye DO [address] [place] [address] PCP - General 04/13/18
--- OUTSIDE RECORDS SUMMARY | 2024-08-14 10:41 | XMS_ITS | Referral Summary ---
Author Organization [facility] Address [address] [place] [address] Care Team Providers Care Account Information Clerk Name Role Phone Traci Kaye Primary Care Provider [phone] Zak Osborne MD Unavailable [phone] Kieran Dumont MD Unavailable [phone] Bethel Aguayo MD Unavailable [phone] Jose Layton MD Unavailable Lisbet Wilcox RN Unavailable [phone] Encounters Date Type Department Care Team Description 08/09/2024 Telephone [facility] Transplant Kidney [address] [facility] [address] Mail[address] [id number] [place] [address] Lisbet Razo RN 08/09/2024 Orders Only [facility] Transplant Kidney [address] [facility] [address] Mailstop [id number] [place] [address] Lisbet Razo RN Kidney replaced by transplant (Primary Dx) 08/03/[address] [facility] Gastroenterology at [address] [place] [address] Kieran Dumont MD 07/27/2024 Telephone [facility] Transplant Kidney [address] [facility] [address] Mailstop [id number] [place] [address] Lisbet Razo RN 07/26/2024 Results Follow-Up [facility] Transplant Kidney [address] [facility] [address] Mailstop -90-290 [place] [address] Lisbet Razo RN CBC with auto differential, Renal function panel, Hepatitis C antibody Blood 07/20/[address] [facility] Gastroenterology at [address] [place] [phone] Kieran Dumont MD 07/19/2024 Telephone [facility] Transplant Kidney [address] [address] Mailstop -[address] [place] [address] Lisbet Razo RN 07/19/2024 Telephone [facility] Transplant Kidney [address] [address] Mailop -[address] [place] [address] Sarah Davis 07/06/2024 Telephone [facility] Gastroenterology at [address] [place] [phone] Kieran Dumont MD 07/05/2024 Results Follow-Up [facility] Transplant Kidney [address] [place] [address] Mailop -[address] [place] [address] Lianet Taylor RN Hepatitis C (HCV) RNA PCR, quantitative Blood, Tacrolimus level trough, Renal function panel, CBC with auto differential 07/05/2024 Lab [facility] Transplant Kidney [address] [address] Mailstop -[address] [place] [address] Johny Sparks MD 06/30/2024 Telephone [facility] Gastroenterology at [address] [place] [phone] Kieran Dumont MD 06/27/2024 Telephone [facility] Transplant Kidney [address] [facility] [address] Mailstop -[address] [place] [address] Lisbet Razo RN 06/26/[address] [facility] Gastroenterology at [address] [place] [address] Kieran Dumont MD 06/15/2024 Lab [facility] Transplant Kidney [address] [facility] [address] [place] [address] Johny Sparks MD 06/14/2024 Lab [facility] Transplant Kidney [address] [facility] [address] Mailstop -[address] [place] [address] Johny Sparks MD 06/13/2024 Lab [facility] Transplant Kidney [address] [facility] [address] [place] [address] Johny Sparks MD 06/05/2024 10:00 AM CDT Office Visit [facility] Nephrology [address] [facility] 5th [place] [address] [place] [id number] She Hoang NP equipment [employer] current use of immunosuppressive drug (Primary Dx); Encounter for aftercare following kidney transplant; Encounter for long-term (current) use of high-risk medication; Kidney replaced by transplant 05/18/2024 Results Follow-Up [facility] Transplant Kidney [address] [facility] [address] Mailstop -[address] [place] [address] Lianet Taylor, KEYSHA Hepatitis C (HCV) RNA PCR, quantitative Blood 05/15/2024 Telephone [facility] Transplant Kidney [address] [facility] [address] Mailstop 45-08-630 [place] [address] Eleni Caraballo from Last 3 Months Allergies Active Allergy Reactions Criticality Noted Date Comments Lorazepam Delusions Medium 10/04/2019 Erythromycin Rash Medium 04/01/2015 Medications cholecalciferol (VITAMIN D-3) 2000 unit tablet TAKE ONE TABLET BY MOUTH EVERY DAY 30 tablet 11 Active nitroglycerin (NITROSTAT) 0.[address] 1 tablet (0.4 mg total) under the tongue every 5 (five) minutes as needed for chest pain Active amLODIPine (NORVASC) 10 mg tablet Take 1 tablet (10 mg total) by mouth daily 30 tablet 2025 Active predniSONE (DELTASONE) 5 mg tablet TAKE ONE TABLET BY MOUTH EVERY DAY 30 tablet Active sulfamethoxazole- trimethoprim (BACTRIM DS) 800-160 mg per tablet Take 1 tablet (160 mg of trimethoprim total) by mouth 3 (three) times a week LAST DOSE 07/28/24 12 tablet 1 Active ondansetron ODT (ZOFRAN-ODT) 4 mg disintegrating tablet Take 1 tablet (4 mg total) by mouth every 8 (eight) hours as needed for nausea or vomiting 30 tablet [address] (PROTONIX) 40 mg EC tablet TAKE ONE TABLET BY MOUTH EVERY DAY 30 tablet Active aspirin 81 mg enteric coated tablet TAKE ONE TABLET BY MOUTH EVERY DAY 30 tablet Active atorvastatin (LIPITOR) 80 mg tablet TAKE ONE TABLET BY MOUTH EVERY DAY 90 tablet Active carvediloL (COREG) 25 mg tablet TAKE ONE TABLET BY MOUTH TWICE A DAY 60 tablet Active isosorbide mononitrate ER (IMDUR) 30 mg 24 hr tablet Take 2 tablets (60 mg total) by mouth nightly 60 tablet Active tacrolimus XR (ENVARSUS XR) 1 mg tablet extended release 24 hrIndications:Pre vention of Kidney Transplant Rejection Take 1 tablet (1 mg total) by mouth daily 30 tablet 025 [address] (MYFORTIC) 360 mg EC tablet Take 1 tablet (360 mg total) by mouth 2 (two) times a day 60 tablet [address] (PROTONIX) 40 mg EC tabletIndications :Treatment of Non-Bleeding Gastric Disorder Take 1 tablet (40 mg total) by mouth every morning 023 2024 Discontinued aspirin 81 mg enteric coated tablet Take 1 tablet (81 mg total) by mouth daily 30 tablet 11 024 2024 Discontinued isosorbide mononitrate ER (IMDUR) 30 mg 24 hr tablet Take 2 tablets (60 mg total) by mouth nightly 60 tablet 11 024 2024 Discontinued(R eorder) atorvastatin (LIPITOR) 80 mg tablet Take 1 tablet (80 mg total) by mouth daily 90 tablet 3 024 2024 Discontinued carvediloL (Coreg) 25 mg tablet Take 1 tablet (25 mg total) by mouth 2 (two) times a day 60 tablet 11 024 [address] (MYFORTIC) 360 mg EC tablet Take 1 tablet (360 mg total) by mouth daily 30 tablet 11 024 2024 Discontinued tacrolimus XR (ENVARSUS XR) 1 mg tablet extended release 24 hrIndications:Pre vention of Kidney Transplant Rejection Take 2 tablets (2 mg total) by mouth daily 60 tablet 024 [address] (MYFORTIC) 360 mg EC tablet Take 1 tablet (360 mg total) by mouth 2 (two) times a day 025 2024 Discontinued(R eorder) tacrolimus XR (ENVARSUS XR) 1 mg tablet extended release 24 hrIndications:Pre vention of Kidney Transplant Rejection Take 1 tablet (1 mg total) by mouth daily 025 2024 Discontinued(R eorder) Active Problems Patient Care Coordination No te Formatting of this note migh t be different from the original. Discharge Planning Pharmacy: [facility] in [place] Specialty: [facility] Specialty HH: [facility] Fax: Verbal consent - Mukseh Leiva [facility]: P: [phone] F: [phone] Q-MONTHLY, FK, HCV RNA; Q-3 ROUTINE (Exp 07/26/25) Problem Noted Date Diagnosed Date ESRD on dialysis 09/01/2023 ESRD (end stage renal disease) on dialysis 07/14 Kidney transplant candidate 07/14/2023 Right carotid bruit 07/09/2023 Biliary colic 05/13/2023 Gallstone pancreatitis 05/07/2023 Common bile duct stone 04/08/2023 Hypotension 03/19/2023 Diverticular disease 06/16/2022 06/16/2022 Iron deficiency anemia 06/16/2022 Preop cardiovascular exam 06/16/2022 Infrarenal abdominal aortic aneurysm (AAA) witho ut rupture 06/16/2022 Mixed hyperlipidemia 05/07/2022 Assessment & Plan (09/16/2022 11:22 AM CDT): Continue Lipitor Assessment & Plan (05/07/2022 1:07 PM CDT): Impression: Chronic stable hyperlipidemia. Plan: Continue Lipitor 40 mg. Gastrointestinal hemorrhage 02/24/2022 05/0 10/2022 Coronary artery disease of n ative artery of [place] heart with stable angina pectoris 01/27/2022 Primary hypertension 01/27/2022 Assessment & Plan (09/16/2022 11:22 AM CDT): Continue amlodipine, isosorbide Abdominal aortic aneurysm without rupture 2021 Atherosclerosis of aorta 01/21/2022 Pulmonary emphysema 01/21/2022 Arteriovenous fistula of left upper extremity Chronic post-traumatic stress disorder Chest pain 01/21/2022 NIETO (dyspnea on exertion) 01/21/2022 Abnormal weight loss 08/19/2020 History of inguinal hernia repair, bilateral 01/2021 Malnutrition, calorie 08/19/2020 Nicotine dependence, cigarettes, uncomplicated 0 08/19/2020 ESRD (end stage renal disease) 08/19/2020 Assessment & Plan (09/16/2022 11:23 AM CDT): Patient is following up 2 weeks status post fistulogram of his left upper extremity brachiocephalic fistula. Good bruit and thrill on exam. States he is dialyzing without any issues at this time. Postoperative duplex shows a patent fistula with no outflow stenosis. Plan: Follow-up in 3 months for routine surveillance with a left upper extremity AV duplex. Assessment & Plan (08/06/2022 2:42 PM CDT): Patient with a asymptomatic AV fistula stenosis on most recent imaging. Patient currently utilizing peritoneal dialysis treatment without any issues. Given worsening fistula stenosis, will proceed with left arm AV fistulogram with possible intervention. Risks of the procedure communicated patient with full understanding. Wished to proceed. Assessment & Plan (05/07/2022 1:05 PM CDT): Impression: Patient is currently undergoing peritoneal dialysis and doing well. He has a left brachiocephalic AV fistula with audible bruit and palpable thrill. AV scan reveals a patent AV fistula. Plan: We will continue to monitor. Continue peritoneal dialysis as per Nephrology. Patient to follow-up in 3 months for re-evaluation with repeat AV scan. Assessment & Plan (01/10/2021 10:34 AM WEIGH BOSS): Impression: Patient is status post left brachiocephalic AV fistula was created on 08/08/2018 and recently underwent a balloon angioplasty to the left AV fistula on 09/16/2020. He is currently on peritoneal dialysis and is doing well. Audible bruit and palpable thrill noted throughout AV fistula. Av scan noted high velocity of 555/347 to the mid segment of the fistula. Plan: Will continue to monitor. Continue peritoneal dialysis as per Nephrology. Patient to follow-up in 3 months for re-evaluation with AV scan. Personal history of other diseases of the digest scott system 08/19/2020 PTSD (post-traumatic stress disorder) 08/19/2020 Trigger middle finger of right hand 05/21/2020 Overview (05/21/2020): Added automatically from request for surgery [id number] Pulmonary nodule 08/14/2019 Dialysis patient 12/09/2018 A-V fistula 11/06/2018 Assessment & Plan (11/06/2018 12:17 PM CDT): Left arm AV fistula has matured and would be available for access if needed. Patient plans peritoneal dialysis at this point. No new recommendations and follow up with me on a p.r.n. Basis. Nausea 07/28/2018 Benign hypertension with CKD (chronic kidney disease) stage V 07/28/2018 Assessment & Plan (05/07/2022 1:06 PM CDT): Impression: Chronic stable hypertension. Plan: Continue amlodipine 10 mg and Imdur 30 mg. Assessment & Plan (01/10/2021 10:35 AM WEIGH BOSS): Impression: Chronic stable hypertension, controlled medications. Blood pressure stable this office visit. Plan: Medications reviewed, no changes made. Continue blood pressure management as per primary care provider. Secondary hyperparathyroidism 07/28/2018 Anemia in stage 5 chronic ki dney disease, not on chronic dialysis 07/28/2018 CKD stage 5 secondary to hypertension 05/26/2018 Assessment & Plan (08/01/2018 10:33 AM CDT): Impression: Worsening chronic kidney disease with anticipated need for short turned hemodialysis. Patient currently undergoing workup for donor kidney transplant. Plan: Patient will require hemodialysis access for anticipated short term healing hemodialysis for worsening chronic kidney disease. Will plan for non dominant left arm AV graft creation. The procedure and associated risks were discussed with the patient in detail in which he acknowledged and agreed to proceed. Stage 4 chronic kidney disease 05/26/2018 Overview (05/26/2018): Added automatically from request for surgery [id number] Trigger thumb of left hand 11/25/2017 Overview (11/25/2017): Added automatically from request for surgery [id number] Disorder of tendon of shoulder region 03/02/2017 Knee pain 03/02/2017 Subacromial bursitis 03/02/2017 Weakness of shoulder 02/16/2017 Melanocytic nevus of trunk 11/23/2016 Senile angioma 11/23/2016 Skin tag 11/23/2016 Proteinuria 11/18/2015 Benign neoplasm of soft tissues 11/11/2015 Nummular eczema 11/11/2015 Hypertensive chronic kidney disease with stage 1 through stage 4 chronic kidney disease, or unspecified chronic kidney disease 06/10/2015 Male erectile dysfunction 05/06/2015 Elevated blood pressure read ing without diagnosis of hypertension 04/01/2015 Fatigue 04/01/2015 Acquired trigger finger 07/02/2011 Stage 5 chronic kidney disease on chronic dialys is Assessment & Plan (10/04/2020 11:01 AM CDT): Impression: Patient is status post left fistulogram and venous percutaneous angioplasty. He is currently on peritoneal dialysis and reports it is going well. Good bruit and thrill noted through out left upper extremity AV fistula. Plan: Continue peritoneal dialysis as per Nephrology. Patient to follow-up in 3 months for re-evaluation and AV fistula scan. Assessment & Plan (11/06/2018 12:17 PM CDT): Patient has of mature left arm AV fistula. He has chosen to move toward peritoneal dialysis therefore no further recommendations from my standpoint follow-up p.r.n. Assessment & Plan (09/01/2018 9:50 AM CDT): Incisions well healed hilda out today. AV fistula maturing follow-up 8 weeks Resolved Problems Problem Noted Date Diagnosed Date Resolved Date Angina pectoris, unstable 01/21/2022 Recurrent right inguinal hernia 11/03/2021 01/05/2022 Overview (11/03/2021): Added automatically from request for surgery [id number] Ventral hernia 08/28/2019 11/04/2019 Overview (08/28/2019): Added automatically from request for surgery [id number] Ventral incisional hernia 08/14/2019 Immunizations Immunization Administration Dates Next Due Hep B Vaccine 03/14/2019 Hep B, Dialysis 08/18/2018,07/07/2018 Heplisav-b (Hepatitis B) 04/08/2021 Influenza, Quadrivalent, Spl it, Intramuscular 11/23/2018 Influenza, Quadrivalent, Spl it, Preservative Free, Intramuscular 10/25/2020,11/03/2019,10/10/2019 Pfizer SARS-CoV-2 Monovalent Vaccination (12+ Yrs) PURPLE 04/25/2020,04/04/2020 Pfizer Sars-Cov-2 Bivalent V accination (12+ YRS) 10/18/2021 Pneumococcal Conjugate PCV 13 07/06/2018 Pneumococcal Polysaccharide PPV23 07/10/2019 Social History Tobacco Use Types Packs/Day Years Used Date Smoking Tobacco: Every Day Cigarettes 0.3 54.5 Started: 1970 Smokeless Tobacco: Never Tobacco Cessation:Ready to Q uit: No; Counseling Given: Yes Alcohol Use Standard Drinks/Week Comments Not Currently 0 (1 standard drink = 0.6 oz pur e alcohol) [facility] [employer] Answer Date Recorded In the past 12 months has th e [employer], gas, oil, or water [employer] threatened to shut off services in your [...] any time in the past 12 m [facility], were you homeless or living in a chcf (including now)? No 07/29/2023 Personal Safety Answer Date Recorded Have you ever been in or are you currently in a harmful physical or emotional relationship or is someone making you feel afraid or unsafe? Denies 09/27/2023 Sex and Gender Information Value Date Recorded Sex Assigned at Not on file Legal Sex Male 8:01 PM WEIGH BOSS Gender Identity Not on file Sexual Orientation Not on file Occupation Industry Job Start Date Job End Date RETIRED Not on file Not on file Not on file Last Filed Vital Signs Vital Sign Reading Time Taken Comments Blood Pressure 147/79 06/05/2024 9:43 AM CDT Pulse 71 06/05/2024 9:43 AM CDT Temperature 36.6 C (97.8 F) 06/05/2024 9:43 AM CDT Respiratory Rate 18 09/27/2023 11:50 AM CDT Oxygen Saturation 98% 09/27/2023 11:50 AM CDT Inhaled Oxygen Concentration - - Weight 75.3 kg (166 lb) 06/05/2024 9:43 AM CDT Height 167.6 cm (5' 6) 06/05/2024 9:43 AM CDT Body Mass Index 26.79 06/05/2024 9:43 AM CDT Plan of Treatment Not on file Medical Devices Implanted Type Area Associate Of Science In Nursing Device Identifier Shelf Expiration Date Model / Serial / Lot Dental Right: Mouth Pd Catheter Abdomen Stent Heart [employer]/C R Bard [id number] Ventralight St Sepra Echo Ps 6in Monofilament Lightweight Latex Free - [id number] Implanted:Qty: 1 on 10/04/2019 by Eun Abernathy MD at [facility] N/A: Abdomen [employer]/C R Bard [id number] 12/05/2020 [id number] / / [id number] [employer]/C R Bard Mesh Surg 3dmax Right Mid Large Inguinal Hernia [id number] - [id number] Implanted:Qty: 1 on 12/25/2021 by Eun Abernathy MD at [facility] Right: Inguinal [employer]/C R Bard [id number] 10/05/2026 [id number] / / [id number] [employer] Stent Coronary De Rx Cocr Ors Msn 4.0x15mm [id number] - [id number] Implanted:Qty: 1 on 01/27/2022 by Sd Garvey MD at [facility] [employer] 05/29/2023 [id number] / / [id number] Explanted Type Area Associate Of Science In Nursing Device Identifier Shelf Expiration Date Model / Serial / Lot Convrrt Medical Inc Stent Ureteral Set Double Pigtail Radiopaque Tip Universa [id number] Polyurethane Hydrophilic Coated [id number] - [id number] Implanted:Qty: 1 on 07/29/2023 by Turner Black MD at [facility] Explanted:Qty: 1 on 08/30/2023 by Tata Yan NP Stent Right: Transplanted Ureter [employer] [id number] 05/11/2026 [id number] / / [id number] Procedures Procedure Name Priority Date/Time Associated Diagnosis Comments RENAL FUNCTION PANEL Routine 07/25/2024 9:49 AM CDT CBC WITH AUTO DIFFERENTIAL Routine 07/25/2024 9:49 AM CDT HEPATITIS C RNA, QUANTITATIVE, PCR Routine 07/25/2024 9:49 AM CDT HEPATITIS C ANTIBODY Routine 07/25/2024 9:49 AM CDT TACROLIMUS LEVEL, TROUGH Routine 07/25/2024 CBC WITH AUTO DIFFERENTIAL Routine 07/11/2024 8:30 AM CDT TACROLIMUS LEVEL, TROUGH Routine 07/11/2024 8:30 AM CDT RENAL FUNCTION PANEL Routine 07/11/2024 8:30 AM CDT HEPATITIS C RNA, QUANTITATIVE, PCR Routine 07/11/2024 8:30 AM CDT CBC WITH AUTO DIFFERENTIAL Routine 06/27/2024 RENAL FUNCTION PANEL Routine 06/27/2024 TACROLIMUS LEVEL, TROUGH Routine 06/27/2024 HEPATITIS C RNA, QUANTITATIVE, PCR Routine 06/27/2024 TACROLIMUS LEVEL, TROUGH Routine 06/13/2024 RENAL FUNCTION PANEL Routine 06/13/2024 CBC WITH AUTO DIFFERENTIAL Routine 06/13/2024 HEPATITIS C RNA, QUANTITATIVE, PCR Routine 06/13/2024 POCT URINALYSIS DIPSTICK Routine 06/05/2024 10:11 AM CDT Encounter for aftercare following kidney transplant CBC WITH AUTO DIFFERENTIAL Routine 05/30/2024 9:23 AM CDT TACROLIMUS LEVEL, TROUGH Routine 05/30/2024 9:23 AM CDT RENAL FUNCTION PANEL Routine 05/30/2024 9:23 AM CDT HEPATITIS C RNA, QUANTITATIVE, PCR Routine 05/30/2024 9:23 AM CDT RENAL FUNCTION PANEL Routine 05/16/2024 8:24 AM CDT CBC WITH AUTO DIFFERENTIAL Routine 05/16/2024 8:24 AM CDT TACROLIMUS LEVEL, TROUGH Routine 05/16/2024 8:24 AM CDT HEPATITIS C RNA, QUANTITATIVE, PCR Routine 05/16/2024 8:[address] CHEST ABDOMEN PELVIS WO CONTRAST ED Urgent/IP Urgent 07/14/2023 9:45 PM CDT PSA SCREEN Routine 09/28/2022 10:05 AM CDT Stage 5 chronic kidney disease on chronic dialysis (HCC) COLONOSCOPY 10/21/2018 10:12 AM CDT from Last 3 Months or Most Recently Relevant to Health Maintenance Results * (ABNORMAL) CBC with auto differential (07/25/2024 9:49 AM CDT) SCRIBED WBC 5 4.5 - 10 k/cumm SCRIBED Hemoglobin 13(A) 14 - 18 g/dL SCRIBED Hematocrit 39.2(A) 42 - 52 % SCRIBED Platelets 143(A) 150 - 375 k/cumm SCRIBED Lymphocytes Abs 0.50(A) 0.9 - 3.2 k/cumm Blood 07/25/2024 9:49 AM CDT us Historical Provider LAB BLOOD ORDERABLES Edit ed Result - Final * Hepatitis C antibody Blood (07/25/2024 9:49 AM CDT) SCRIBED HCV ab REACTIVE NEGATIVE Blood 07/25/2024 9:49 AM CDT us Historical Provider LAB MICROBIOLOGY - GENERA L ORDERABLES Edited Result - Final * Hepatitis C (HCV) RNA PCR, quantitative Blood (07/25/2024 9:49 AM CDT) SCRIBED HCV RNA NT DET NT DET IUnit/mL TXP NO LAB FOUND Blood 07/25/2024 9:49 AM CDT Result [facility] Provider LAB MICROBIOLOGY - GENERA L ORDERABLES Edited Result - Final Performing Organization Address City/[facility] Co de Phone Number TXP NO LAB FOUND * (ABNORMAL) Renal function panel (07/25/2024 9:49 AM CDT) SCRIBED Calcium 10.2 8.4 - 10.2 mg/dl SCRIBED Phosphorus 3.5 2.5 - 4.5 mg/dl SCRIBED Albumin 4.3 3.5 - 5.1 g/dl SCRIBED Glucose 103 65 - 110 mg/dl SCRIBED Creatinine 1.78(A) 0.7 - 1.3 mg/dl SCRIBED Sodium 141 137 - 145 mmol/L SCRIBED Potassium 4.1 3.4 - 5 mmol/L SCRIBED Chloride 110(A) 98 - 107 mmol/L SCRIBED Carbon Dioxide 23 22 - 30 mmol/L SCRIBED eGFR in NonAfrican [place] 39 >=60 mL/min SCRIBED Urea Nitrogen (BUN) 27(A) 9 - 20 mg/dl Blood 07/25/2024 9:49 AM CDT Result [facility] Provider LAB BLOOD ORDERABLES Jeannette l Result * Tacrolimus level trough (07/25/2024) SCRIBED Tacrolimus, trough 8.3 5 - 20 TXP NO LAB FOUND Blood 07/25/2024 Result [facility] Provider LAB BLOOD ORDERABLES Edit ed Result - Final TXP NO LAB FOUND * Tacrolimus level trough (07/11/2024 8:30 AM CDT) SCRIBED Tacrolimus, trough 10 5 - 20 MCG/L Blood 07/11/2024 8:30 AM CDT Historical Provider LAB BLOOD ORDERABLES Jeannette l Result * (ABNORMAL) CBC with auto differential (07/11/2024 8:30 AM CDT) SCRIBED WBC 5.6 4.5 - 10 k/cumm SCRIBED Hemoglobin 13(A) 14 - 18 g/dL SCRIBED Hematocrit 39.5(A) 42 - 52 % SCRIBED Platelets 148(A) 150 - 375 k/cumm SCRIBED Lymphocytes Abs 0.55(A) 0.9 - 3.2 k/cumm Blood 07/11/2024 8:30 AM CDT Result [facility] Provider LAB BLOOD ORDERABLES Edit ed Result - Final * Hepatitis C (HCV) RNA PCR, quantitative Blood (07/11/2024 8:30 AM CDT) SCRIBED HCV RNA NT DET NT DET IUnit/mL Blood 07/11/2024 8:30 AM CDT [facility] Provider LAB MICROBIOLOGY - GENERA L ORDERABLES Final Result * (ABNORMAL) Renal function panel (07/11/2024 8:30 AM CDT) SCRIBED Calcium 10.4(A) 8.4 - 10.2 mg/dl SCRIBED Phosphorus 3.1 2.5 - 4.5 mg/dl SCRIBED Albumin 4.5 3.5 - 5.1 g/dl SCRIBED Glucose 115(A) 65 - 110 mg/dl SCRIBED Creatinine 1.57(A) 0.7 - 1.3 mg/dl SCRIBED Sodium 142 137 - 145 mmol/L SCRIBED Potassium 4 3.4 - 5 mmol/L SCRIBED Chloride 111(A) 98 - 107 mmol/L SCRIBED Carbon Dioxide 22 22 - 30 mmol/L SCRIBED eGFR in NonAfrican [place] 45 >=60 mL/min SCRIBED Urea Nitrogen (BUN) 26(A) 9 - 20 mg/dl Blood 07/11/2024 8:30 AM CDT Result [facility] Provider MD LAB BLOOD ORDERABLES Jeannette l Result * Tacrolimus level trough (06/27/2024) [facility] SCRIBED Tacrolimus, trough 8.0 5 - 20 Blood 06/27/2024 Result [facility] MD LAB BLOOD ORDERABLES Jeannette l Result * (ABNORMAL) CBC with auto differential (06/27/2024) [facility] SCRIBED WBC 5.4 4.5 - 10 k/cumm SCRIBED Hemoglobin 12.9(A) 14 - 18 g/dL SCRIBED Hematocrit 39.6(A) 42 - 52 % SCRIBED Platelets 156 150 - 375 k/cumm SCRIBED Lymphocytes Abs 0.51(A) 0.9 - 3.2 k/cumm Blood 06/27/2024 Result [facility] MD LAB BLOOD ORDERABLES Edit ed Result - Final * Hepatitis C (HCV) RNA PCR, quantitative Blood (06/27/2024) [facility] SCRIBED HCV RNA <15 Nt. Det. IUnit/mL Comment:Nt. Det. Blood 06/27/2024 Result [facility] LAB MICROBIOLOGY - GENERA L ORDERABLES Final Result * (ABNORMAL) Renal function panel (06/27/2024) [facility] SCRIBED Calcium 9.9 8.4 - 10.2 mg/dl SCRIBED Phosphorus 3.4 2.5 - 4.5 mg/dl SCRIBED Albumin 4.4 3.5 - 5.1 g/dl SCRIBED Glucose 97 65 - 110 mg/dl SCRIBED Creatinine 1.71(A) 0.7 - 1.3 mg/dl SCRIBED Sodium 143 137 - 145 mmol/L SCRIBED Potassium 4.0 3.4 - 5.0 mmol/L SCRIBED Chloride 111(A) 98 - 107 mmol/L SCRIBED Carbon Dioxide 21(A) 22 - 30 mmol/L SCRIBED eGFR in NonAfrican [place]an 40 >=60 SCRIBED Urea Nitrogen (BUN) 25(A) 9 - 20 mg/dl Blood 06/27/2024 Result [facility] Provider DC LAB BLOOD ORDERABLES Jeannette l Result * Tacrolimus level trough (06/13/2024) [facility] SCRIBED Tacrolimus, trough 5.3 5 - 20 Blood 06/13/2024 Result [facility] LAB BLOOD ORDERABLES Edit ed Result - Final * (ABNORMAL) CBC with auto differential (06/13/2024) [facility] SCRIBED WBC 5.2 4.5 - 10 k/cumm SCRIBED Hemoglobin 12.8(A) 14 - 18 g/dL SCRIBED Hematocrit 40.6(A) 42 - 52 % SCRIBED Platelets 144(A) 150 - 375 k/cumm SCRIBED Lymphocytes Abs 0.52(A) 0.9 - 3.2 k/cumm Blood 06/13/2024 Result [facility] Provider LAB BLOOD ORDERABLES Edit ed Result - Final * Hepatitis C (HCV) RNA PCR, quantitative Blood (06/13/2024) Pathologist [facility] SCRIBED HCV RNA <1.18 <15 IUnit/mL Comment:Not detected Blood 06/13/2024 Historical Provider LAB MICROBIOLOGY - GENERA L ORDERABLES Edited Result - Final * (ABNORMAL) Renal function panel (06/13/2024) Pathologist [facility] SCRIBED Calcium 9.9 8.4 - 10.2 mg/dl SCRIBED Phosphorus 3.2 2.5 - 4.5 mg/dl SCRIBED Albumin 4.3 3.5 - 5.1 g/dl SCRIBED Glucose 108 65 - 110 mg/dl SCRIBED Creatinine 1.51(A) 0.7 - 1.3 mg/dl SCRIBED Sodium 142 137 - 145 mmol/L SCRIBED Potassium 4 3.4 - 5 mmol/L SCRIBED Chloride 109(A) 98 - 107 mmol/L SCRIBED Carbon Dioxide 26 22 - 30 mmol/L SCRIBED eGFR in NonAfrican [place]an 47 >=60 SCRIBED Urea Nitrogen (BUN) 23(A) 9 - 20 mg/dl Blood 06/13/2024 [facility] Provider LAB BLOOD ORDERABLES Edit ed Result - Final * (ABNORMAL) POCT urinalysis dipstick (06/05/2024 10:11 AM CDT) Pathologist [facility] Glucose, ur, POC Negative Negative MG/DL Bilirubin, ur, POC 1+(A) Negative, Small, Moderate, Large Ketones, ur, POC Negative Negative Specific [place], POC Comment:>=1.030 Blood, ur, POC Negative Negative pH, ur, POC 5.5 5.0 - 8.0 Protein, ur, POC 1+(A) Negative Urobilinogen, urine, POC 0.2 0.2 - 1.0 mg/dL Nitrite, ur, POC Negative Negative Leukocytes, ur, POC Negative Negative Lot Number [id number] Urine 06/05/2024 10:1 1 AM CDT Result [facility] She Hoang CUT OFF TENDER GLASS POINT OF CARE TEST ORDERAB LES Final Result * Tacrolimus level trough (05/30/2024 9:23 AM CDT) SCRIBED Tacrolimus, trough 6.2 5 - 20 mcg/L Blood 05/30/2024 9:23 AM CDT Result [facility] Historical Provider LAB BLOOD ORDERABLES Jeannette l Result * (ABNORMAL) CBC with auto differential (05/30/2024 9:23 AM CDT) Pathologist [facility] SCRIBED WBC 5.9 4.5 - 10 k/cumm SCRIBED Hemoglobin 13(A) 14 - 18 g/dL SCRIBED Hematocrit 39.1(A) 42 - 52 % SCRIBED Platelets 158 150 - 375 k/cumm SCRIBED Lymphocytes Abs 0.54(A) 0.9 - 3.2 k/cumm Blood 05/30/2024 9:23 AM CDT Result [facility] Provider LAB BLOOD ORDERABLES Edit ed Result - Final * Hepatitis C (HCV) RNA PCR, quantitative Blood (05/30/2024 9:23 AM CDT) Pathologist [facility] SCRIBED HCV RNA NT DET NT DET IUnit/mL Blood 05/30/2024 9:23 AM CDT Result [facility] Provider LAB MICROBIOLOGY - GENERA L ORDERABLES Final Result * (ABNORMAL) Renal function panel (05/30/2024 9:23 AM CDT) Pathologist [facility] SCRIBED Calcium 10.3(A) 8.4 - 10.2 mg/dl SCRIBED Phosphorus 3.5 2.5 - 4.5 mg/dl SCRIBED Albumin 4.2 3.5 - 5.1 g/dl SCRIBED Glucose 112(A) 65 - 110 mg/dl SCRIBED Creatinine 1.53(A) 0.7 - 1.3 mg/dl SCRIBED Sodium 141 137 - 145 mmol/L SCRIBED Potassium 4.4 3.4 - 5 mmol/L SCRIBED Chloride 110(A) 98 - 107 mmol/L SCRIBED Carbon Dioxide 24 22 - 30 mmol/L SCRIBED eGFR in NonAfrican [place]an 46 >=60 mL/min SCRIBED Urea Nitrogen (BUN) 25(A) 9 - 20 mg/dl Blood 05/30/2024 9:23 AM CDT [facility] Provider LAB BLOOD ORDERABLES Jeannette l Result * Tacrolimus level trough (05/16/2024 8:24 AM CDT) Pathologist [facility] SCRIBED Tacrolimus, trough 5.6 5 - 20 MCG/L Blood 05/16/2024 8:24 AM CDT [facility] Provider LAB BLOOD ORDERABLES Edit ed Result - Final * (ABNORMAL) CBC with auto differential (05/16/2024 8:24 AM CDT) Pathologist [facility] SCRIBED WBC 5.3 4.5 - 10 k/cumm SCRIBED Hemoglobin 13.1(A) 14 - 18 g/dL SCRIBED Hematocrit 40.7(A) 42 - 52 % SCRIBED Platelets 151 150 - 375 k/cumm SCRIBED Lymphocytes Abs 0.52(A) 0.9 - 3.2 k/cumm Blood 05/16/2024 8:24 AM CDT [facility] Provider LAB BLOOD ORDERABLES Jeannette l Result * Hepatitis C (HCV) RNA PCR, quantitative Blood (05/16/2024 8:24 AM CDT) Pathologist [facility] SCRIBED HCV RNA NT DET NT DET IUnit/mL Blood 05/16/2024 8:24 AM CDT us Historical Provider LAB MICROBIOLOGY - GENERA L ORDERABLES Edited Result - Final * (ABNORMAL) Renal function panel (05/16/2024 8:24 AM CDT) SCRIBED Calcium 10 8.4 - 10.2 mg/dl SCRIBED Phosphorus 3.5 2.5 - 4.5 mg/dl SCRIBED Albumin 4.4 3.5 - 5.1 g/dl SCRIBED Glucose 97 65 - 110 mg/dl SCRIBED Creatinine 1.59(A) 0.7 - 1.3 mg/dl SCRIBED Sodium 142 137 - 145 mmol/L SCRIBED Potassium 4.1 3.4 - 5 mmol/L SCRIBED Chloride 109(A) 98 - 107 mmol/L SCRIBED Carbon Dioxide 24 22 - 30 mmol/L SCRIBED eGFR in NonAfrican [place]an 44 >=60 mL/min SCRIBED Urea Nitrogen (BUN) 28(A) 9 - 20 mg/dl Blood 05/16/2024 8:24 AM CDT Historical Provider LAB BLOOD ORDERABLES Edit ed Result - Final * CT Chest Abdomen Pelvis WO Contrast (07/14/2023 9:45 PM CDT) Anatomical Region Laterality Modality Body N/A Computed Tomogra phy 07/14/2023 10:1 4 PM CDT Impressions 07/15/2023 7:13 AM CDT 1. Severe atherosclerosis of the infrarenal abdominal aorta, bilateral common and external iliac and common femoral arteries. 2. Infrarenal abdominal aortic aneurysm measuring up to 3.5 cm, unchanged in size compared to 03/09/2023, but slightly increased in size compared to 11/01/2021. Dictated by: Marivel Mcdowell M.D. ADDENDUM - This addendum is being placed on the report for a time dependent finding on a patient who is admitted to the hospital (2B). Upon further review with the attending radiologist, there are a few locules of pneumoperitoneum along the hepatic dome inferior to the right hemidiaphragm which may be related to the patient's peritoneal dialysis catheter. These findings were communicated to Hanh PAGE by Dr. Mcdowell at 7:07 AM on 07/15/2023. The radiology attending physician has personally reviewed this study, and had reviewed and/or edited this written report and agrees with it. Electronically signed by: Uriah Monaco M.D. Narrative 07/15/2023 7:13 AM CDT EXAMINATION: Computed tomography of the chest, abdomen and pelvis without intravenous contrast HISTORY: Renal transplant evaluation, known abdominal aortic aneurysm TECHNIQUE: Transaxial computed tomographic images of the chest, abdomen and pelvis were obtained without intravenous contrast according to the standard protocol. COMPARISON: 05/01/2023 MRI abdomen. 03/09/2023 CT abdomen and pelvis FINDINGS: Chest: Apical predominant paraseptal emphysema. No pneumonic consolidation. No pleural effusion or pneumothorax. Minimal subsegmental atelectasis. No suspicious pulmonary nodule. The heart size is normal without pericardial effusion. Coronary artery calcifications. Thoracic aorta is atherosclerotic and normal in caliber. The imaged thyroid gland is unremarkable. Mildly prominent left axillary lymph nodes are likely reactive. No suspicious thoracic lymphadenopathy. Bilateral gynecomastia. Abdomen/Pelvis: Normal noncontrast appearance of the liver. The gallbladder is surgically absent. No biliary ductal dilatation. The pancreas, spleen and adrenal glands are unremarkable. Atrophic washoe kidneys. Urinary bladder is minimally distended. Peritoneal dialysis catheter terminates in the pelvis. No bowel obstruction. Colonic diverticulosis without evidence of diverticulitis. No ascites or pneumoperitoneum. Ventral abdominal hernia mesh repair. Atherosclerotic and aneurysmal abdominal aorta measuring up to 3.5 cm, unchanged in size compared to 03/09/2023 with areas of increased calcification. The aneurysm is slightly increased compared to 11/01/2021 when it measured up to 3.2 cm, when remeasured in a similar fashion. Severe atherosclerosis of the bilateral common iliac arteries. Unchanged ectasia of the left common iliac artery measuring up to 1.6 cm with peripherally calcified plaque at the origin. Severe atherosclerosis of the bilateral external iliac and common femoral arteries. Moderate atherosclerosis of the imaged superficial femoral and profunda femoris arteries. No suspicious osseous lesions. Multilevel degenerative change of the spine with severe degenerative disc disease at L2-L3, unchanged. Procedure Note Uriah Monaco MD - 07/15/2023 EXAMINATION: Computed tomography of the chest, abdomen and pelvis without intravenous contrast HISTORY: Renal transplant evaluation, known abdominal aortic aneurysm TECHNIQUE: Transaxial computed tomographic images of the chest, abdomen and pelvis were obtained without intravenous contrast according to the standard protocol. COMPARISON: 05/01/2023 MRI abdomen. 03/09/2023 CT abdomen and pelvis FINDINGS: Chest: Apical predominant paraseptal emphysema. No pneumonic consolidation. No pleural effusion or pneumothorax. Minimal subsegmental atelectasis. No suspicious pulmonary nodule. The heart size is normal without pericardial effusion. Coronary artery calcifications. Thoracic aorta is atherosclerotic and normal in caliber. The imaged thyroid gland is unremarkable. Mildly prominent left axillary lymph nodes are likely reactive. No suspicious thoracic lymphadenopathy. Bilateral gynecomastia. Abdomen/Pelvis: Normal noncontrast appearance of the liver. The gallbladder is surgically absent. No biliary ductal dilatation. The pancreas, spleen and adrenal glands are unremarkable. Atrophic washoe kidneys. Urinary bladder is minimally distended. Peritoneal dialysis catheter terminates in the pelvis. No bowel obstruction. Colonic diverticulosis without evidence of diverticulitis. No ascites or pneumoperitoneum. Ventral abdominal hernia mesh repair. Atherosclerotic and aneurysmal abdominal aorta measuring up to 3.5 cm, unchanged in size compared to 03/09/2023 with areas of increased calcification. The aneurysm is slightly increased compared to 11/01/2021 when it measured up to 3.2 cm, when remeasured in a similar fashion. Severe atherosclerosis of the bilateral common iliac arteries. Unchanged ectasia of the left common iliac artery measuring up to 1.6 cm with peripherally calcified plaque at the origin. Severe atherosclerosis of the bilateral external iliac and common femoral arteries. Moderate atherosclerosis of the imaged superficial femoral and profunda femoris arteries. No suspicious osseous lesions. Multilevel degenerative change of the spine with severe degenerative disc disease at L2-L3, unchanged. IMPRESSION: 1. Severe atherosclerosis of the infrarenal abdominal aorta, bilateral common and external iliac and common femoral arteries. 2. Infrarenal abdominal aortic aneurysm measuring up to 3.5 cm, unchanged in size compared to 03/09/2023, but slightly increased in size compared to 11/01/2021. Dictated by: Marivel Mcdowell M.D. ADDENDUM - This addendum is being placed on the report for a time dependent finding on a patient who is admitted to the hospital (2B). Upon further review with the attending radiologist, there are a few locules of pneumoperitoneum along the hepatic dome inferior to the right hemidiaphragm which may be related to the patient's peritoneal dialysis catheter. These findings were communicated to Hanh PAGE by Dr. Mcdowell at 7:07 AM on 07/15/2023. The radiology attending physician has personally reviewed this study, and had reviewed and/or edited this written report and agrees with it. Electronically signed by: Uriah Monaco M.D. us Fidel Dunaway MD PhD IMG CT PROCEDURES Final Result * PSA screen (09/28/2022 10:05 AM CDT) PSA-Total 0.69 <=5.40 ng/mL [facility] Comment: Interpretive Data AGE SEX REFERENCE INTERVAL 0 minutes-150 years Female None 0 minutes-49 years Male None 50-59 years Male 0-3.90 60-69 years Male 0-5.40 70-79 years Male 0-6.20 80-150 years Male 0-6.20 The Luis [employer] PSA Total assay procedure was used. Results from different manufacturers or methods may not be comparable. Serial testing should be performed using the same method. Current interpretive data last revised 21. Blood 09/28/2022 10:0 5 AM CDT 09/28/2022 10:38 AM CDT us Johny Sparks MD LAB BLOOD ORDERABLES Final Resu lt [facility] Department [place] [address] * COLONOSCOPY (10/21/2018 10:12 AM CDT) Anatomical Region Laterality Modality Other Narrative Procedure Note Cash Melton MD - 10/21/2018 10:12 AM CDT ENDOSCOPY LAB Patient Name: Maximo Hayes Procedure Date: 10/21/2018 10:12 AM Admit Type: Outpatient Room: [facility] 3 Date of : 1960 Instrument Name: [id number] Gender: Male Note Status: Finalized Procedure: Colonoscopy Indications: Screening for colorectal malignant neoplasm, This isthe patient's first colonoscopy Comorbidities End stage renal disease Providers: Cash Melton MD Referring MD: Traci Kaye D.O., Kieran Dumont M.D. Medicines: Propofol per Anesthesia Complications: No immediate complications. Estimated blood loss:None. Estimated Blood Loss: Estimated blood loss: none. Procedure: Pre-Anesthesia Assessment: - The risks and benefits of the procedure and thesedation options and risks were discussed with the patient. All questions were answered and informed consent wasobtained. The benefits, risks and alternatives of the procedureand sedation were discussed and informed consent wasobtained. All questions were answered. Please refer to the signed informed consent document in the medical record. Thescope was passed under direct vision. The Colonoscope was introduced through the anus and advanced to the the terminal ileum, with identification of the appendiceal orifice and IC valve. The colonoscopy was performed without difficulty. The patient tolerated the procedure well. The quality of the bowel preparation wasevaluated using the BBPS (Pyrites Bowel Preparation Scale) with scores of: Right Colon = 3 (entire mucosa seen wellwith no residual staining, small fragments of stool oropaque liquid), Transverse Colon = 3 (entire mucosa seen well with no residual staining, small fragments of stool or opaque liquid) and Left Colon = 3 (entire mucosa seenwell with no residual staining, small fragments of stool or opaque liquid). The total BBPS score equals 9. Thequality of the bowel preparation was excellent. The bowel preparation used was GoLYTELY. Bowel prep wasadministered using a split dose. Findings: There was evidence of a prior end-to-end colo-colonic anastomosis inthe sigmoid colon. This was patent and was characterized by healthy appearing mucosa. The anastomosis was traversed. Multiple diverticula were found in the entire colon. The retroflexed view of the distal rectum and anal verge was normaland showed no anal or rectal abnormalities. The terminal ileum appeared normal. Impression: - Normal surgical changes - Patent tab-kv-yvkmewz-colonic anastomosis, characterized by healthy appearingmucosa. - Diverticulosis in the entire examined colon. Recommendation: - High fiber diet. - Repeat colonoscopy in 10 years for screeningpurposes. Attending Participation: I personally performed the entire procedure. Electronically Signed by Cash Melton M.D. Cash Melton MD 10/21/2018 10:32:20 AM Number of Addenda: 0 Note Initiated On: 10/21/2018 10:12 AM us Cash Melton MD ENDOSCOPY PROCEDURES Final Re sult from Last 3 Months or Most Recently Relevant to Health Maintenance Insurance MEDICARE [facility] [id number] [facility] [id number] MEDICARE [facility] [id number] MEDICARE [facility] [id number] Advance Directives For more information, please contact: [phone] * Full Code (Latest Code Status on File) Date Activated Date Inactivated Comments 07/29/2023 9:02 PM 08/01/2023 4:32 PM * Full Code Date Activated Date Inactivated Comments 07/29/2023 9:01 AM 07/29/2023 9:02 PM * Full Code Date Activated Date Inactivated Comments 07/14/2023 7:36 PM 07/15/2023 1:24 PM * Full Code Date Activated Date Inactivated Comments 01/27/2022 6:03 PM 01/28/2022 3:07 PM * Full Code Date Activated Date Inactivated Comments 01/27/2022 5:34 PM 01/27/2022 6:03 PM Care Teams Account Information Clerk Relationship Specialty Start Date End Date Traci Kaye DO PCP - General 03/09/17 Zak Osborne MD Referring Physician Nephrology 03/04/18 Kieran Dumont MD Consulting Physician Nephrology 08/24/22 Bethel Aguayo MD [address] [place] [address] Surgeon Surgery 08/28/22 Jose Layton MD [address] [place] [address] Referring Physician Gastroenterology 05/11/23 Lisbet Wilcox, RN [address] [facility] [address] [place] [address] Analyst Sales 07/29/23
--- OUTSIDE RECORDS SUMMARY | 2024-08-14 10:41 | XMS_ITS | Data Portability ---
Author Organization [facility] MARTINSudha Lorenzo Address [address] [place] [address] Care Team Providers Care Sales Agent Protective Service Name Role Phone RYNE CÁRDENAS Primary Care Provider [phone] Assessment No assessment recorded. Plan of Treatment Reminders Order Date Submit Date Provider Last Modified By Organization Details Last Modified Time Details Appointments ANY 15 2024 10:15A M Aung Cheng MD Not available Not available Not available Lab lipid panel, serum [address] (Lab), [address] [place] [address], [id number], 05/18/2024 11:20:26 HbA1c (hemoglob in A1c), blood [address] (Lab), [address] [place] [address], [id number], 05/18/2024 11:20:26 lipid panel, serum 2024 025 [facility] (Lab), [address] [place] [address], [id number], 02/22/2024 17:00:37 Referral None recorded. Procedures None recorded. Surgeries None recorded. Imaging electroca rdiogram 2024 025 [place] [id number] In-Office Order, Internal Use Only DO Not Attach Compendium DO Not Attach Compendium, Do Not Delete/merge, [id number] 02/16/2024 12:57:47 Medication Orders None recorded. Patient TargetsNo targets recorded. Patient Instructions Encounter Date Encounter Id Patient Instructions Last Modified By Organization Details Last Modified Time 02/16/2024 [id number] Quitting Tobacco : Care Instructions [email or web address] Not available 02/16/2024 12:57:47 05/18/2024 [id number] A healthy lifestyle: care instructions [email or web address] Not available 05/18/2024 11:20:26 Quitting Tobacco : Care Instructions [email or web address] Not available 05/18/2024 14:56:30 Reason for Referral None Reported. Results Created Date Observation Date Name Description Value Unit Range Abnormal Flag Note LastModifiedBy Organization Detail LastModifiedTime 02/15/1902/16/2024 jeanette lizarragagr am No observ ation record ed. CRISTHIAN In-Office Order Internal Use Only DO Not Attach Compendium DO Not Attach Compendium, Do Not Delete/merge, [id number] 02/16/2024 12:16:20 02/15/19 elect maria t diogr am No observ ation record ed. [email or web address] Not Available 2024 13:45:50 Result Notes None recorded. Problems Name Problem SNOMED Code Status Onset Date Resolution Date Notes Provider Name and Address Organization Details Recorded Time History of renal transplant 574299138 Active 2024 Aung Cheng MD Attn: Sacha collazo,[address] [place], [address], [facility] 5 11:53:02 Coronary arterioscleros is 65442938 Active 2024 Aung Cheng MD Attn: Sacha collazo,[address] [place], [address], [facility] 5 11:53:03 Mixed hyperlipidemia 087138239 Active 2024 Aung Cheng MD Attn: Sacha collazo,[address] [facility], [place], [address], [facility] 5 11:53:04 Nicotine dependence 65280188 Active 2024 Aung Cheng MD Attn: Sacha collazo,[address] [facility], [place], [address], [facility] 5 11:53:05 Essential hypertension 06742063 Active 2024 Aung Cheng MD Attn: Sacha collazo,[address] [facility], [place], [address], [facility] 11:53:07 Problem Notes None recorded. Procedures Surgical History Date Name Laterality Status Provider Name and Address Organization Details Recorded Time 3 Coronary Artery Stent completed Janeth Lamar LPN [place] [facility] 02/16/2024 11:49:33 Imaging Results None recorded. Procedure Notes None recorded. Medical Equipment None Reported. Allergies Allergen ID Allergen Name Allergen Category Reaction Reaction Severity Criticality Documentation Date Start Date Code Code System Note Provider Name and Address Organization Details Recorded Time 18090319 erythromy tony medicatio n rash Not available low 02/16/2024 4053 RxNorm Janeth Lamar LPN null, [place] - [facility] 11:41:48 Medications Name Sig Start Date Stop Date Status Note LastModified by Organization Details LastModified Time amoxicillin 500 mg capsule TAKE 4 CAPSULES BY MOUTH 1 HOUR PRIOR TO DENTAL APPOINTME NT. active Not Available Not Available No t Available atorvastati n 80 mg tablet 1 tablet daily active Not Available Not Available No t Available carvedilol 25 mg tablet 1 tab by mouth twice daily active Not Available Not Available No t Available nystatin 100,000 unit/mL oral suspension TAKE 5 ML BY MOUTH 4 TIMES EVERY DAY SWISH AND SPIT active Not Available Not Available No t Available carvedilol 6.25 mg tablet 02/15 completed Not Available Not Available Not Available fluconazole 200 mg tablet 02/15 completed Not Available Not Available Not Available ondansetron HCl 4 mg tablet TAKE 1 TABLET BY MOUTH EVERY 8 HOURS NEEDED FOR NAUSEA AND VOMITING active Not Available Not Available No t Available isosorbide mononitrate ER 30 mg tablet,exte nded release 24 hr take 2 tabs by mouth nightly active Not Available Not Available No t Available prednisone 5 mg tablet 1 tablet by mouth daily rx taper active Not Available Not Available No t Available amlodipine 5 mg tablet 02/15 completed Not Available Not Available Not Available sulfamethox azole 800 mg-trimetho prim 160 mg tablet 1 tab 3 times weekly active Not Available Not Available No t Available aspirin 81 mg tablet,carlos yed release Take 1 tablet every day by oral route. active Not Available Not Available No t Available acetaminoph en 500 mg tablet Take 2 tablets every 6 hours by oral route as needed. active Not Available Not Available No t Available metoclopram victor m 5 mg tablet 02/15 completed Not Available Not Available Not Available amlodipine 10 mg tablet 1 tablet daily active Not Available Not Available No t Available pantoprazol e 40 mg tablet,carlos yed release 1 tablet daily active Not Available Not Available No t Available nitroglycer in 0.[address] 1 tablet(s) as needed by sublingua l route. 2024 active Not Available Not Available Not Avai lable ondansetron 4 mg disintegrat ing tablet Place 2 tablets twice a day by transling ual route as needed. active Not Available Not Available No t Available betamethaso ne dipropionat e 0.05 % lotion APPLY A FEW DROPS TO THE AFFECTED AREA(S) BY TOPICAL ROUTE 2 TIMES PER DAY IN THE MORNING AND AT BEDTIME ; RUB IN GENTLY AND COMPLETEL Y active Not Available Not Available No t Available oxycodone 5 mg tablet 02/15 completed Not Available Not Available Not Available mycophenola te sodium 360 mg tablet,carlos yed release 1 tab daily active Not Available Not Available No t Available sodium bicarbonate 650mg twice daily 05/18 completed Not Available Not Available Not Available cholecalcif bryson (vitamin D3) 2000 iu daily active Not Available Not Available No t Available sevelamer carbonate 800 mg tablet 02/15 completed Not Available Not Available Not Available Envarsus XR 0.75 mg tablet,exte nded release 02/15 completed Not Available Not Available Not Available tacrolimus XR 1 mg tablet,exte nded release 24 hr Take 2 tablets every day by oral route. active Not Available Not Available No t Available Vitals Date Recorded Body weight Body mass index (BMI) Body height Respiratory rate Heart rate Oxygen saturation Oxygen saturation in Arterial blood by Pulse oximetry Systolic And Diastolic Provider Name and Address Organization Details Last Updated DateTime 5 92090.8 2 g 25 kg/m2 167.64 cm 18 /min 70 /min 96 % 96 % 128/68 mm[Hg] Janeth Lamar LPN [place] - [facility] 11:51:12 Date Recorded Body height Body mass index (BMI) Body weight Respiratory rate Heart rate Oxygen saturation Oxygen saturation in Arterial blood by Pulse oximetry Systolic And Diastolic Provider Name and Address Organization Details Last Updated DateTime 167.64 cm 26.6 kg/m2 73025.7 4 g 18 /min 76 /min 97 % 97 % 138/80 mm[Hg] Janeth Lamar LPN [place] [facility] 10:53:03 Social History Question Answer Notes LastModified by Ibercheck Details LastModified Time Tobacco Smoking Status Current Every Day Smoker Janeth Lamar LPN [facility], [place] - [facility] 02/16/2024 11:48:51 What Is Your Level Of Caffeine Consumption? Occasional Information not available 02/16/2024 What Was The Date Of Your Most Recent Tobacco Screening? 05/18/2024 Information not available 05/18/2024 At What Age Did You Start Smoking Tobacco? 10 Information not available 02/16/2024 How Much Tobacco Do You Smoke? 0.25 PPD Information not available 02/16/2024 Has Tobacco Cessation Counseling Been Provided? Yes Information not available 02/16/2024 On What Date Was Tobacco Cessation Counseling Provided? 05/18/2024 Information not available 05/18/2024 How Many Years Have You Smoked Tobacco? 53 Information not available 02/16/2024 Sex: Male Functional Status Question Answer Note LastModified by Iber[employer] Details LastModified Time Do you use any illicit or recreational drugs? No Information not available 02/16/2024 Do you or have you ever used any other forms of tobacco or nicotine? No Information not available 02/16/2024 What is your level of alcohol consumption? Occasional Information not available 02/16/2024 Mental Status None recorded. Family History Nothing Reported. Medical History No medical history recorded. Past Encounters Encounter ID Performer Location Encounter Start Date Encounter Closed Date Diagnosis/Indication Diagnosis SNOMED-CT Code Diagnosis ICD10 Code Diagnosis Note [id number] Aung Cheng MD [facility] [place] [address] [place] [address] 02/16/2024 11:23:10 02/17/2024 10:00:36 Essential hypertension 51090828 I10 Low-sodium diet, ambulatory blood pressure monitoring reinforced . Continue amlodipine 10 mg daily and carvedilol 25 mg b.i.d.. Nicotine dependence 5629 4008 F17.200 Lengthy discussion regarding importance of complete nicotine cessation. Currently contemplat scott and declines pharmaceut ical interventi on. Reviewed increased cardiovasc ular and cerebrovas cular risk amongst other health hazards. Coronary arteriosclerosis 86726684 I25.10 Status post PCI to left circumflex 2021. Moderate disease in the LAD and RCA which is managed medically. Nuclear stress test April 2023 with no reversible perfusion defects. Maintained on single antiplatel et therapy with aspirin 81 mg daily. Previously on clopidogre l which was discontinu ed after a GI bleed. Mixed hyperlipidemia 267 634770 E78.2 Continue atorvastat in 80 mg daily. Check follow-up lipid panel. Encouraged low-choles terol diet with regular aerobic exercise History of renal transplant 096762272 Z94.0 Followed by transplant team at [facility]. Reviewed atherogeni c potential of immunosupp ressants including tacrolimus . Will need aggressive lipid management and discussed how important nicotine cessation would be in his particular case. [id number] Aung Cheng MD [facility] [address] [place] [address] 05/18/2024 10:45:42 05/19/2024 14:22:02 Atherosclerosis of coronary artery without angina pectoris 4934914191 24692 I25.10 History of PCI to left circumflex with moderate disease in the LAD, IFR 0.94 in 2021. No angina. Continue single antiplatel et therapy with aspirin 81 mg daily. Regular aerobic exercise encouraged . Prn nitroglyce rin usage reviewed. Essential hypertension 22002455 I10 Low-sodium diet, ambulatory blood pressure monitoring . Continue amlodipine 10 mg daily and isosorbide mononitrat e 60 mg daily. Overweight 518037987 E66 .3 Mixed hyperlipidemia 267 548869 E78.2 LDL 62, HDL 34 in February 2024. A1c 5.4 in July 2023. Continue current dose of atorvastat in. Ongoing nicotine cessation and diet/exerc ise encouraged to achieve LDL less than 55 and improve HDL. We will consider addition of ezetimibe in case lipid panel not at goal at next visit. Smoker 76421256 F17.200 Cessation for cardiovasc ular risk reduction reinforced . Declines need for pharmacoth erapy. Health Concerns Section Related Observation LastModified by Organization Detai ls LastModified Time None Recorded Concern Status LastModified by Organization Details LastModified Time None Recorded Advance Directives Directive None Recorded Payers Insurance Date Sequence Insurance Name Policy Number Policy Almeida Covered Member ID Almeida Member ID Guarantor Name 05/19/2024 2 [employer] - OPEN ACCESS [id number] Ted Galovicky [id number] SOI Maximo Doty 05/15/2024 MEDICARE [facility] Maximo Doty [id number] Maximo Doty 05/15/2024 [place] Maximo Doty [id number] Maximo Doty 05/15/2024 1 MEDICARE [place]: [facility] Maximo Mansi Soren [id number] Maximo Soren Notes Date Note Type Note Provider Name and Address Organization Details Recorded Time 02/16/2024 text/html Maximo Doty is a 63 y.o. male who presents for ongoing evaluation and management of Coronary Artery Disease. Coronary Artery Disease with PCI to circumflex in January 2022, ESRD previously on peritoneal dialysis and s/p renal transplant, hypertension, mixed hyperlipidemia, nicotine dependence Hospitalized in February 2022 at [facility] with GI bleed. Underwent kidney transplantation 07/29/2023.Interval history:patient denies any chest pain or pressure. He has gained some weight after his kidney transplant by drinking protein shakes and being on immunosuppressants. He denies any bleeding diathesis. He continues to smoke and declines pharmaceutical intervention. He denies any subjective dyspnea. He remains active. He denies any palpitations, presyncope or syncope.CARDIAC DIAGNOSTICS:Stress echocardiogram, August 2021, [facility]: LVEF 65%, grade 1 diastolic dysfunction, mild mitral regurgitation, mild tricuspid regurgitation, no mitral stenosis, no aortic stenosis or aortic insufficiencyDue to symptoms concerning for unstable angina, underwent cardiac catheterization 01/27/2022 which showed occlusive disease involving the proximal-mid circumflex, moderate 50-60% disease involving the mid LAD and proximal RCA. LAD IFR 0.94. Subsequently underwent PCI to proximal-mid circumflex using 4.0 x 15 mm Orsiro drug-eluting stent placement.Transthoraci c echocardiogram 04/16/2023: LVEF 55-60%, normal RV function, mild mitral regurgitation, grade 1 diastolic dysfunction, no pulmonary hypertension.Lexiscan nuclear stress test 04/19/2023: LVEF 67%, no fixed or reversible perfusion defects, no TIDCarotid duplex 08/19/2023 with no significant carotid stenosis Twelve lead EKG 02/16/2024: Sinus rhythm, left atrial enlargement, left ventricular hypertrophy with repolarization Aung Cheng MD Attn: Accounting,[address] [place], [address], [facility] 02/16/2024 12:57:50 05/18/2024 text/html Maximo Doty is a 63 y.o. male who presents for ongoing evaluation and management of Coronary Artery Disease. Coronary Artery Disease with PCI to circumflex in January 2022, ESRD previously on peritoneal dialysis and s/p renal transplant, hypertension, mixed hyperlipidemia, nicotine dependence Hospitalized in February 2022 at [facility] with GI bleed. Underwent kidney transplantation 07/29/2023.Interval history:Denies any chest pain or pressure. Reports improvement in energy and activity levels and appetite with the appropriate weight gain. Denies palpitations, presyncope or syncope. No bleeding diathesis. Reports optimal blood pressure. No myalgias or other side effects on current dose of statin.CARDIAC DIAGNOSTICS:Stress echocardiogram, August 2021, [facility]: LVEF 65%, grade 1 diastolic dysfunction, mild mitral regurgitation, mild tricuspid regurgitation, no mitral stenosis, no aortic stenosis or aortic insufficiencyDue to symptoms concerning for unstable angina, underwent cardiac catheterization 01/27/2022 which showed occlusive disease involving the proximal-mid circumflex, moderate 50-60% disease involving the mid LAD and proximal RCA. LAD IFR 0.94. Subsequently underwent PCI to proximal-mid circumflex using 4.0 x 15 mm Orsiro drug-eluting stent placement.Transthoraci c echocardiogram 04/16/2023: LVEF 55-60%, normal RV function, mild mitral regurgitation, grade 1 diastolic dysfunction, no pulmonary hypertension.Lexiscan nuclear stress test 04/19/2023: LVEF 67%, no fixed or reversible perfusion defects, no TIDCarotid duplex 08/19/2023 with no significant carotid stenosis Twelve lead EKG 02/16/2024: Sinus rhythm, left atrial enlargement, left ventricular hypertrophy with repolarization Aung Cheng MD Attn: Accounting,[address] [place], [address], [facility] 05/18/2024 14:57:04
--- OUTSIDE RECORDS SUMMARY | 2024-08-14 10:41 | XMS_ITS | Clinical Summary ---
Author Organization [facility] Address [address] [place] [address] Care Team Providers Care Director Electronics Name Role Phone Traci Kaye Primary Care Provider [phone] Zak Osborne MD Unavailable [phone] Kieran Dumont MD Unavailable [phone] Bethel Aguayo MD Unavailable [phone] Jose Layton MD Unavailable Lisbet Wilcox RN Unavailable Allergies Active Allergy Reactions Criticality Noted Date Comments Lorazepam Delusions Medium 10/04/2019 Erythromycin Rash Medium 04/01/2015 Medications cholecalciferol (VITAMIN D-3) 2000 unit tablet TAKE ONE TABLET BY MOUTH EVERY DAY 30 tablet 025 Active nitroglycerin (NITROSTAT) 0.[address] 1 tablet (0.4 mg total) under the tongue every 5 (five) minutes as needed for chest pain 025 Active amLODIPine (NORVASC) 10 mg tablet Take 1 tablet (10 mg total) by mouth daily 30 tablet 025 2025 Active predniSONE (DELTASONE) 5 mg tablet TAKE ONE TABLET BY MOUTH EVERY DAY 30 tablet 11 025 Active sulfamethoxazole- trimethoprim (BACTRIM DS) 800-160 mg per tablet Take 1 tablet (160 mg of trimethoprim total) by mouth 3 (three) times a week LAST DOSE 07/28/24 12 tablet 1 Active ondansetron ODT (ZOFRAN-ODT) 4 mg disintegrating tablet Take 1 tablet (4 mg total) by mouth every 8 (eight) hours as needed for nausea or vomiting 30 tablet 3 [address] (PROTONIX) 40 mg EC tablet TAKE ONE TABLET BY MOUTH EVERY DAY 30 tablet Active aspirin 81 mg enteric coated tablet TAKE ONE TABLET BY MOUTH EVERY DAY 30 tablet Active atorvastatin (LIPITOR) 80 mg tablet TAKE ONE TABLET BY MOUTH EVERY DAY 90 tablet 3 Active carvediloL (COREG) 25 mg tablet TAKE [...] by mouth daily 30 tablet [address] (MYFORTIC) 360 mg EC tablet Take 1 tablet (360 mg total) by mouth 2 (two) times a day [address] (PROTONIX) 40 mg EC tabletIndications :Treatment of Non-Bleeding Gastric Disorder Take 1 tablet (40 mg total) by mouth every morning 023 2024 Discontinued aspirin 81 mg enteric coated tablet Take 1 tablet (81 mg total) by mouth daily 30 tablet 024 2024 Discontinued isosorbide mononitrate ER (IMDUR) 30 mg 24 hr tablet Take 2 tablets (60 mg total) by mouth nightly 60 tablet 024 2024 Discontinued(R eorder) atorvastatin (LIPITOR) 80 mg tablet Take 1 tablet (80 mg total) by mouth daily 90 tablet 3 024 06/09/ 2025 Discontinued carvediloL (Coreg) 25 mg tablet Take [...] mg total) by mouth daily 60 tablet 11 024 2024 Discontinued mycophenolate [...] original. 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 Assessment & Plan (01/10/2021 10:34 AM DOG SHOW JUDGE): Impression: Patient is status post left brachiocephalic [...] (05/21/2020): Added automatically from request for surgery [id number] Pulmonary nodule 08/14/2019 Dialysis patient 12/09/2018 A-V [...] mg. Assessment & Plan (01/10/2021 10:35 AM DOG SHOW JUDGE): Impression: Chronic stable hypertension, controlled medications. Blood [...] (05/26/2018): Added automatically from request for surgery [id number] Trigger thumb of left hand 11/25/2017 Overview (11/25/2017): Added automatically from request for surgery [id number] Disorder of tendon of shoulder region 03/02/2017 [...] (11/03/2021): Added automatically from request for surgery [id number] Ventral hernia 08/28/2019 11/04/2019 Overview (08/28/2019): Added automatically from request for surgery [id number] Ventral incisional hernia 08/14/2019 Encounters Date Type Department Care Team Description 08/09/2024 Telephone [facility] Transplant Kidney [address] [facility] [address] [place] [id number] [place] [address] Lisbet Razo RN 08/09/2024 Orders Only [facility] Transplant Kidney [address] [facility] [address] [phone] [place] [address] Lisbet Razo RN Kidney replaced by transplant (Primary Dx) 08/03/2024 Telephone [facility] Gastroenterology at [address] [place] [address] Kieran Dumont MD 07/27/2024 Telephone [facility] Transplant Kidney [address] [facility] [address] [id number] [place] [address] Lisbet Razo RN 07/26/2024 Results Follow-Up [facility] Transplant Kidney [address] [facility] [address] [place] [address] Lisbet Razo RN CBC with auto differential, Renal function panel, Hepatitis C antibody Blood 07/20/2024 Telephone [facility] Gastroenterology at [address] [address] Kieran Dumont MD 07/19/2024 Telephone [facility] Transplant Kidney [address] [address] [address] -[address] [place] [address] Lisbet Razo RN 07/19/2024 Telephone [facility] Transplant Kidney [address] [place] [address] Sarah Davis 07/06/2024 Telephone [facility] Gastroenterology at [address] [address] Kieran Dumont MD 07/05/2024 Results Follow-Up [facility] Transplant Kidney [address] [place] [address] Lianet Taylor RN Hepatitis C (HCV) RNA PCR, quantitative Blood, Tacrolimus level trough, Renal function panel, CBC with auto differential 07/05/2024 Lab [facility] Transplant Kidney [address] [address] Mail[address] [facility] [place] [address] Johny Sparks MD 06/30/2024 Telephone [facility] Gastroenterology at [address] [address] Kieran Dumont MD 06/27/2024 Telephone [facility] Transplant Kidney [address] [address] [address] -[address] [place] [address] Lisbet Razo RN 06/26/2024 Telephone [facility] G[facility] at [address] [place] [address] Kieran Dumont MD 06/15/2024 Lab [facility] Transplant Kidney [address] [facility] [address] Mailstop -45-747 [place] [address] Johny Sparks MD 06/14/2024 Lab [facility] Transplant Kidney [address] [facility] [address] Mailstop -82-633 [place] [address] Johny Sparks MD 06/13/2024 Lab [facility] Transplant Kidney [address] [facility] [address] Mailstop -06-255 [place] [address] Johny Sparks MD 06/05/2024 10:00 AM CDT Office Visit [facility] Nephrology [facility] 5th [place] [address] [place] [address] hSe Hoang NP care home current use of immunosuppressive drug (Primary Dx); Encounter for aftercare following kidney transplant; Encounter for long-term (current) use of high-risk medication; Kidney replaced by transplant 05/18/2024 Results Follow-Up [facility] Transplant Kidney [address] [facility] [address] Mailstop -[phone] [place] [address] Lianet Taylor RN Hepatitis C (HCV) RNA PCR, quantitative Blood 05/15/2024 Telephone [facility] Transplant Kidney [address] [facility] [address] [phone] [place] [address] Eleni Caraballo from Last 3 Months Immunizations Immunization Administration Dates Next Due Hep B Vaccine 03/14/2019 Hep B, Dialysis 08/18/2018,07/07/2018 Heplisav-b (Hepatitis B) 04/08/2021 Influenza, Quadrivalent, Spl it, Intramuscular 11/23/2018 Influenza, Quadrivalent, Spl it, Preservative Free, Intramuscular 10/25/2020,11/03/2019,10/10/2019 Pfizer SARS-CoV-2 Monovalent Vaccination (12+ Yrs) PURPLE 04/25/2020,04/04/2020 Pfizer Sars-Cov-2 Bivalent V accination (12+ YRS) 10/18/2021 Pneumococcal Conjugate PCV 13 07/06/2018 Pneumococcal Polysaccharide PPV23 07/10/2019 Surgical History Surgery Date Site/Laterality Comments CYST REMOVAL 1996;1998 x2--back REDUCTION FOREHEAD 02/08/1963 - 02/08/1964 shaved bone TRIGGER FINGER RELEASE 02/08/2017 - 02/07/2018 Left LEFT RELEASE TRIGGER FINGER-THUMB, LEFT INDEX AND LONG FINGERS DIALYSIS FISTULA CREATION 08/08/2018 Left LUE brachiocephalic AVf creation - Dr. Bethel Aguayo LAPAROSCOPIC COLON RESECTION 07/09/2018 - 08/07/2018 for diverticulitis PERITONEAL CATHETER INSERTION 11/04/2018 insert - clean out 02/23/19 - Loethen (exchange 10/04/19) - Abernathy INGUINAL HERNIA REPAIR 01/31/2019 Bilateral VENTRAL HERNIA REPAIR 10/04/2019 Laparoscopic ventral incisional hernia repair with mesh HERNIA REPAIR 12/25/2021 Right Robotic recurrent right inguinal hernia repair with mesh CORONARY ANGIOPLASTY WITH STENT PLACEMENT 01/27/2022 AV FISTULA REPAIR 09/16/2020 LUE AVF - angioplasty - Dr. Schuster COLONOSCOPY 02/08/2018 - 02/07/2019 OTHER SURGICAL HISTORY Left bone shaved above left eye 1964 AV FISTULA REPAIR 08/28/2022 Left LUE AVF - DCB cephalic vein - Dr. Bethel Aguayo OTHER SURGICAL HISTORY 02/08/2019 - 02/08/2020 procedure for PD cath KIDNEY TRANSPLANT 08/06/2023 Right Medical History Medical History Date Comments Hypertension well controlled with meds Depression PTSD, treated wi th cannabis Arthritis fingers Cataract early stages, bi lat. Diverticulosis COPD (chronic obstructive pu lmonary disease) ([facility]) early stages, found on recen t scan per patient Chronic kidney disease stage 4 c hronic kidney disease, severe. home peritoneal dialysis - 4 transfers per day Chronic kidney disease, stag e IV (severe) (HCC) Delayed emergence from general anesthesia wakes up combative after surgery in past Hyperlipidemia Diverticulitis Eczema arms and legs Wears glasses GERD (gastroesophageal reflux disease) Family History Medical History Relation Name Comments Heart disease Father PCI Hypertension Father Family history of hypertension - (Added by TW Conv) Uterine cancer Mother Family histor y of malignant neoplasm of uterus - (Added by TW Conv) Diabetes Other Anesthesia problems Neg Hx Malig Hyperthermia Neg Hx Pseudochol deficiency Neg Hx Relation Name Status Comments Father Mother Other Social History Tobacco Use Types Packs/Day Years Used Date Smoking Tobacco: Every Day Cigarettes 0.3 54.5 Started: 1970 Smokeless Tobacco: Never Tobacco Cessation:Ready to Q uit: No; Counseling Given: Yes Alcohol Use Standard Drinks/Week Comments Not Currently 0 (1 standard drink = 0.6 oz pur e alcohol) [facility] Utilities Answer Date Recorded In the past 12 months has th e Triage, gas, oil, or water [employer] threatened to shut off services in your [...] place to sleep or slept in a mcc (including now)? No 10/07/2022 Housing Stability Vital Sign Answer Ronny e Recorded In the last 12 months, was t here a time when you were not able to pay the mortgage or rent on time? No 07/29/2023 In the past 12 months, how m any times have you moved where you were living? 0 07/29/2023 At any time in the past 12 m [facility], were you homeless or living in a mcc (including now)? No 07/29/2023 Personal Safety Answer Date Recorded Have you ever been in or are you currently in a harmful physical or emotional relationship or is someone making you feel afraid or unsafe? Denies 09/27/2023 Sex and Gender Information Value Date Recorded Sex Assigned at Not on file Legal Sex Male 8:01 PM DOG SHOW JUDGE Gender Identity Not on file Sexual Orientation Not on file Occupation Industry Job Start Date Job End Date RETIRED Not on file Not on file Not on file Obstetrics History Last Filed Vital Signs Vital Sign Reading [...] 06/05/2024 9:43 AM CDT Plan of Treatment Health Maintenance Due Date Last Done Comments DTaP/Tdap/Td Vaccine (1 - Tdap) 1969 Zoster Vaccine (1 of 2) 1977 Depression Screening 09/29/2023 09/28/2022 Covid-19 Vaccine (4 - 2023-2 5 season) 2023 10/18/2021, 04/25/2020, 04/04/2020 Abdominal Aortic Aneurysm (A AA) Screen 10/13/2023 07/14/2023, 09/28/2022, 06/16/2022, Additional history exists Well Visit 65+ 10/13/2023 Pneumococcal vaccine 65+ (3 of 3 - PPSV23, PCV20 or PCV21) 07/09/2024 07/10/2019, 07/06/2018 Fall Risk Assessment 09/26/2024 09/27/2023 Prostate Cancer Screening-PSA 09/28/2024, 08/29/2021, 08/19/2020, Additional history exists Influenza Vaccine (#1) 2024 , 10/25/2020, 11/03/2019, Additional history exists Colon Cancer Screening-Colonoscopy 10/21/2028 10/21/2018 Colon Cancer Screening-CT Colonography Discontinued 10/21/2018 Colon Cancer Screening-DNA Stool Discontinued 10/22/19 Colon Cancer Screening-FIT Discontinued 10/21/2018 Colon Cancer Screening-Sigmoidoscopy Discontinued 10/21/2018 Hepatitis B Screening Completed 07/29/2023 , 04/08/2021, 03/14/2019, Additional history exists Hepatitis C Screening Completed 07/25/2024 , 07/25/2024, 07/11/2024, Additional history exists Medical Devices Implanted Type Area Sales Ambassador Device Identifier Shelf Expiration Date Model / Serial / Lot Dental Right: Mouth Pd Catheter Abdomen Stent Heart [employer]/C R Bard [id number] Ventralight St Sepra Echo Ps 6in Monofilament Lightweight Latex Free - [id number] Implanted:Qty: 1 on 10/04/2019 by Eun Abernathy MD at [facility] N/A: Abdomen [employer]/C R Bard [id number] 12/05/2020 [id number] / / [id number] [employer]/C R Bard Mesh Surg 3dmax Right Mid Large Inguinal Hernia [id number] - [id number] Implanted:Qty: 1 on 12/25/2021 by Eun Abernathy MD at [facility] Right: Inguinal [employer]/C R Bard [id number] 10/05/2026 [id number] / / [id number] [employer] Stent Coronary De Rx Cocr Ors Msn 4.0x15mm [id number] - [id number] Implanted:Qty: 1 on 01/27/2022 by Sd Garvey MD at [facility] [employer] 05/29/2023 [id number] / / [id number] Explanted Type Area Sales Ambassador Device Identifier Shelf Expiration Date Model / Serial / Lot [employer] Stent Ureteral Set Double Pigtail Radiopaque Tip Universa [id number] Polyurethane Hydrophilic Coated [id number] - [id number] Implanted:Qty: 1 on 07/29/2023 by Turner Black MD at [facility] Explanted:Qty: 1 on 08/30/2023 by Tata Yan NP Stent Right: Transplanted Ureter [employer] [id number] 05/11/2026 [id number] / / [id number] Procedures Procedure Name Priority Date/Time Associated Diagnosis [...] 3.2 k/cumm Blood 07/25/2024 9:49 AM CDT Historical Provider LAB BLOOD ORDERABLES Edit ed Result - Final * Hepatitis C antibody Blood (07/25/2024 9:49 AM CDT) SCRIBED HCV ab REACTIVE NEGATIVE Blood 07/25/2024 9:49 AM CDT Historical Provider LAB MICROBIOLOGY - GENERA L ORDERABLES Edited Result - Final * Hepatitis C (HCV) RNA PCR, quantitative Blood (07/25/2024 9:49 AM CDT) SCRIBED HCV RNA NT DET NT DET IUnit/mL TXP NO LAB FOUND Blood 07/25/2024 9:49 AM CDT Historical Provider LAB MICROBIOLOGY - GENERA L ORDERABLES Edited Result - Final TXP NO LAB FOUND * (ABNORMAL) Renal [...] - 30 mmol/L SCRIBED eGFR in NonAfrican Iranian 39 >=60 mL/min SCRIBED Urea Nitrogen (BUN) 27(A) 9 - 20 mg/dl Blood 07/25/2024 9:49 AM CDT Historical Provider LAB BLOOD ORDERABLES Jeannette l Result * Tacrolimus level trough (07/25/2024) SCRIBED Tacrolimus, trough 8.3 5 - 20 TXP NO LAB FOUND Blood 07/25/2024 Historical Provider LAB BLOOD ORDERABLES Edit ed [...] 3.2 k/cumm Blood 07/11/2024 8:30 AM CDT [facility] Provider MD LAB BLOOD ORDERABLES Edit ed Result - Final * Hepatitis C (HCV) RNA PCR, quantitative Blood (07/11/2024 8:30 AM CDT) SCRIBED HCV RNA NT DET NT DET IUnit/mL Blood 07/11/2024 8:30 AM CDT [facility] Provider MD LAB MICROBIOLOGY - GENERA L ORDERABLES Final [...] - 30 mmol/L SCRIBED eGFR in NonAfrican Iranian 45 >=60 mL/min SCRIBED Urea Nitrogen (BUN) 26(A) 9 - 20 mg/dl Blood 07/11/2024 8:30 AM CDT [facility] Provider MD LAB BLOOD ORDERABLES Jeannette l Result * Tacrolimus level trough (06/27/2024) Pathologist [facility] SCRIBED Tacrolimus, trough 8.0 5 - 20 Blood 06/27/2024 Result [facility] Provider MD LAB BLOOD ORDERABLES Jeannette l Result * (ABNORMAL) CBC with auto differential (06/27/2024) [facility] SCRIBED WBC 5.4 4.5 - 10 k/cumm SCRIBED Hemoglobin 12.9(A) 14 - 18 g/dL SCRIBED Hematocrit 39.6(A) 42 - 52 % SCRIBED Platelets 156 150 - 375 k/cumm SCRIBED Lymphocytes Abs 0.51(A) 0.9 - 3.2 k/cumm Blood 06/27/2024 Result [facility] MD LAB BLOOD ORDERABLES Edit ed Result - Final * Hepatitis C (HCV) RNA PCR, quantitative Blood (06/27/2024) [facility] SCRIBED HCV RNA <15 Nt. Det. IUnit/mL Comment:Nt. Det. Blood 06/27/2024 Result [facility] MD LAB MICROBIOLOGY - GENERA L ORDERABLES Final Result * (ABNORMAL) Renal function panel (06/27/2024) Pathologist [facility] SCRIBED Calcium 9.9 8.4 - 10.2 mg/dl [...] - 30 mmol/L SCRIBED eGFR in NonAfrican Iranian 40 >=60 SCRIBED Urea Nitrogen (BUN) 25(A) 9 - 20 mg/dl Blood 06/27/2024 Result [facility] Provider MD LAB BLOOD ORDERABLES Jeannette l Result * Tacrolimus level trough (06/13/2024) Pathologist [facility] SCRIBED Tacrolimus, trough 5.3 5 - 20 Blood 06/13/2024 Result [facility] LAB BLOOD ORDERABLES Edit ed Result - Final * (ABNORMAL) CBC with auto differential (06/13/2024) [facility] SCRIBED WBC 5.2 4.5 - 10 k/cumm SCRIBED Hemoglobin 12.8(A) 14 - 18 g/dL SCRIBED Hematocrit 40.6(A) 42 - 52 % SCRIBED Platelets 144(A) 150 - 375 k/cumm SCRIBED Lymphocytes Abs 0.52(A) 0.9 - 3.2 k/cumm Blood 06/13/2024 Result [facility] MD LAB BLOOD ORDERABLES Edit ed Result - Final * Hepatitis C (HCV) RNA PCR, quantitative Blood (06/13/2024) Pathologist [facility] SCRIBED HCV RNA <1.18 <15 IUnit/mL Comment:Not detected Blood 06/13/2024 Result [facility] Provider LAB MICROBIOLOGY - GENERA L ORDERABLES Edited Result - Final * (ABNORMAL) Renal function panel (06/13/2024) Pathologist [facility] SCRIBED Calcium 9.9 8.4 - 10.2 mg/dl [...] - 30 mmol/L SCRIBED eGFR in NonAfrican Iranian 47 >=60 SCRIBED Urea Nitrogen (BUN) 23(A) 9 - 20 mg/dl Blood 06/13/2024 Result [facility] Historical Provider LAB BLOOD ORDERABLES Edit ed Result - Final * (ABNORMAL) POCT urinalysis dipstick (06/05/2024 10:11 AM CDT) Glucose, ur, POC Negative Negative MG/DL Bilirubin, ur, POC 1+(A) Negative, Small, Moderate, Large Ketones, ur, POC Negative Negative Specific [place], POC Comment:>=1.030 Blood, ur, POC Negative Negative pH, ur, POC 5.5 5.0 - 8.0 Protein, ur, POC 1+(A) Negative Urobilinogen, urine, POC 0.2 0.2 - 1.0 mg/dL Nitrite, ur, POC Negative Negative Leukocytes, ur, POC Negative Negative Lot Number [id number] Urine 06/05/2024 10:1 1 AM CDT Result [facility] She Hoagn NP POINT OF CARE TEST ORDERAB LES Final Result * Tacrolimus level trough (05/30/2024 9:23 AM CDT) SCRIBED Tacrolimus, trough 6.2 5 - 20 mcg/L Blood 05/30/2024 9:23 AM CDT Result [facility] Historical Provider LAB BLOOD ORDERABLES Jeannette l Result * (ABNORMAL) CBC with auto differential (05/30/2024 9:23 AM CDT) SCRIBED WBC 5.9 4.5 - 10 k/cumm SCRIBED Hemoglobin 13(A) 14 - 18 g/dL SCRIBED Hematocrit 39.1(A) 42 - 52 % SCRIBED Platelets 158 150 - 375 k/cumm SCRIBED Lymphocytes Abs 0.54(A) 0.9 - 3.2 k/cumm Blood 05/30/2024 9:23 AM CDT Historical Provider LAB BLOOD ORDERABLES Edit ed Result - Final * Hepatitis C (HCV) RNA PCR, quantitative Blood (05/30/2024 9:23 AM CDT) Pathologist [facility] SCRIBED HCV RNA NT DET NT DET IUnit/mL Blood 05/30/2024 9:23 AM CDT Historical Provider LAB MICROBIOLOGY - GENERA L ORDERABLES Final Result * (ABNORMAL) Renal function panel (05/30/2024 9:23 AM CDT) Pathologist [facility] SCRIBED Calcium 10.3(A) 8.4 - 10.2 mg/dl [...] - 30 mmol/L SCRIBED eGFR in NonAfrican Iranian 46 >=60 mL/min SCRIBED Urea Nitrogen (BUN) 25(A) 9 - 20 mg/dl Blood 05/30/2024 9:23 AM CDT [facility] Provider LAB BLOOD ORDERABLES Jeannette l Result * Tacrolimus level trough (05/16/2024 8:24 AM CDT) SCRIBED Tacrolimus, trough 5.6 5 - 20 MCG/L Blood 05/16/2024 8:24 AM CDT [facility] Provider LAB BLOOD ORDERABLES Edit ed Result - Final * (ABNORMAL) CBC with auto differential (05/16/2024 8:24 AM CDT) Pathologist [facility] SCRIBED WBC 5.3 4.5 - 10 k/cumm SCRIBED Hemoglobin 13.1(A) 14 - 18 g/dL SCRIBED Hematocrit 40.7(A) 42 - 52 % SCRIBED Platelets 151 150 - 375 k/cumm SCRIBED Lymphocytes Abs 0.52(A) 0.9 - 3.2 k/cumm Blood 05/16/2024 8:24 AM CDT Result [facility] Provider LAB BLOOD ORDERABLES Jeannette l Result * Hepatitis C (HCV) RNA PCR, quantitative Blood (05/16/2024 8:24 AM CDT) Pathologist [facility] SCRIBED HCV RNA NT DET NT DET IUnit/mL Blood 05/16/2024 8:24 AM CDT [facility] Provider LAB MICROBIOLOGY - GENERA L [...] - 30 mmol/L SCRIBED eGFR in NonAfrican Iranian 44 >=60 mL/min SCRIBED Urea Nitrogen (BUN) 28(A) 9 - 20 mg/dl Blood 05/16/2024 8:24 AM CDT us Historical Provider LAB BLOOD [...] spleen and adrenal glands are unremarkable. Atrophic chilkoot kidneys. Urinary bladder is minimally distended. Peritoneal [...] spleen and adrenal glands are unremarkable. Atrophic chilkoot kidneys. Urinary bladder is minimally distended. Peritoneal [...] AM CDT) PSA-Total 0.69 <=5.40 ng/mL [facility] Comment: Interpretive Data AGE SEX REFERENCE INTERVAL [...] MD LAB BLOOD ORDERABLES Final Resu lt [facility] [place] [address] * COLONOSCOPY (10/21/2018 10:12 AM CDT) Anatomical Region Laterality Modality Other Narrative Procedure Note Cash Melton MD - 10/21/2018 10:12 AM CDT ENDOSCOPY LAB Patient Name: Maximo Hayes Procedure Date: 10/21/2018 10:12 AM Admit Type: Outpatient Room: [facility] 3 Date of : 1960 Instrument Name: -[id number] Gender: Male Note Status: Finalized Procedure: Colonoscopy [...] the bowel preparation wasevaluated using the BBPS ([facility] Bowel Preparation Scale) with scores of: Right [...] Impression: - Normal surgical changes - Patent nid-fy-fukoqwp-colonic anastomosis, characterized by healthy appearingmucosa. - Diverticulosis in the entire examined colon. Recommendation: - High fiber diet. - Repeat colonoscopy in 10 years for screeningpurposes. Attending Participation: I personally performed the entire procedure. Electronically Signed by Cash Melton M.D. Cash Melton MD 10/21/2018 10:32:20 AM Number of Addenda: 0 Note Initiated On: 10/21/2018 10:12 AM Cash Melton MD ENDOSCOPY PROCEDURES Final Re sult from Last 3 Months or Most Recently Relevant to Health Maintenance [place] [address] [facility] [id number] [facility] [address] MEDICARE [facility] Address: [address] [address] [place] [address] [facility]ICARE [facility] [id number] MEDICARE [facility] [id number] Advance Directives For more information, please contact: [phone] * Full Code (Latest Code Status on [...] 5:34 PM 01/27/2022 6:03 PM Care Teams Director Electronics Relationship Specialty Start Date End Date Traci Kaye DO PCP - General 03/09/17 Zak Osborne MD Referring Physician Nephrology 03/04/18 Kieran Dumont MD Consulting Physician Nephrology 08/24/22 Bethel Aguayo MD [address] [facility] [address] [facility] [address] [place] [address] Surgeon Surgery 08/28/22 Jose Layton MD [address] [place] [address] Referring Physician Gastroenterology 05/11/23 Lisbet Wilcox, RN [address] [facility] [address] [place] [address] Head Kiln Operator 07/29/23
--- OUTSIDE RECORDS SUMMARY | 2024-08-14 10:41 | XMS_ITS | Clinical Summary ---
Author Organization [facility] Address [address] [place] [address] Care Team Providers Care Quad Stayer Name Role Phone Unavailable Primary Care Provider Unavailabl e Source Comments [facility],non-owned Affiliates and Associated Physician Practices is amultiple site organization consisting of ambulatory clinics and hospital sitesin [place], [place], [place] and [place]. This disclosure is being madepursuant to the Care Everywhere program and may not contain all information available regarding this patient. Last updated 17.[facility] Social History Tobacco Use Types Packs/Day Years Used Date Smoking Tobacco: Never Assessed Sex and Gender Information Value Date Recorded Sex Assigned at Not on file Legal Sex Male 4:04 AM CDT Gender Identity Not on file Sexual Orientation Not on file Plan of Treatment Health Maintenance Due Date Last Done Comments COLOGUARD (AGES 45-75) - COLON CA SCREENING 1958 COLON MONITORING 1958 COLONOSCOPY - COLON CA SCREENING 1958 CT COLONOGRAPHY - COLON CA SCREENING 1958 Colorectal Cancer Screening 1958 FIT - COLON CA SCREENING 1958 FLEX SIG - COLON CA SCREENING 1958 LIPID TESTING 1958 MEDICARE AWV 12 MONTHS 1958 HIV SCREENING 1973 DTAP/TDAP/TD VACCINES (1 - Tdap) 1977 PNEUMOCOCCAL VACCINE 50+ (1 of 2 - PCV) 1977 HEPATITIS B VACCINE (1 of 3 - Risk Dialysis 4-dose series) 1978 ZOSTER VACCINE (1 of 2) 2008 COVID-19 VACCINE (3 - season) 2023 04/25/2020, 04/04/2020 DEPRESSION SCREENING 02/09/2024 INFLUENZA VACCINE (#1) 2024 , 11/03/2019, 10/10/2019, Additional history exists Respiratory Syncytial Virus (RSV) Vaccine Pt: or over 60 yrs (1 - 1-dose 75+ series) 2033 HEPATITIS C SCREENING Completed 08/29/2021 , 08/29/2021, 08/29/2021 HIB VACCINE Aged Out No longer eligi ble based on patient's age to complete this topic HPV VACCINE Aged Out No longer eligi ble based on patient's age to complete this topic MENINGOCOCCAL (Group B) VACCINE SHARED DECISION-MAKING Aged Out No longer eligible based on patient's age to complete this topic MENINGOCOCCAL GROUPS A/C/Y/W VACCINE Aged Out No longer eligible based on patient's age to complete this topic [facility]
--- OUTSIDE RECORDS SUMMARY | 2024-08-14 10:41 | XMS_ITS | Clinical Summary ---
Author Organization [facility] Address [address] [place] [address] Phone Care Team Providers Care Uniform Attendant Name Role Phone Unavailable Primary Care Provider Unavailabl e Allergies No known active allergies Medications triamcinolone acetonide (KENALOG) 0.1 % Cream Apply a thin layer to arms and legs twice daily 453.6 Gram 11 06/27/2021 1:02 PM CDT 2 Active mupirocin (BACTROBAN) 2 % Ointment Apply small amount topically to both arms 3 times daily. 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 May repeat dose every 5 min, up to 3 doses total. Call 911 if 3rd dose is needed. 90 Tablet 01/18/2023 2:57 PM GUN CLUB MANAGER 2 Active clopidogreL (PLAVIX) 75 mg Tablet Take 1 tablet (75 mg total) by mouth daily 90 Tablet 1 09/20/2022 1:44 PM CDT 3 Active betamethasone dipropionate (DIPROSONE) 0.05 % Cream APPLY A THIN LAYER TO THE AFFECTED AREA(S) DAILY DIRECTED 45 Gram 07/08/2022 1:06 PM CDT 3 Active amLODIPine (NORVASC) 10 mg tablet Take 1 Tablet (10 mg) by mouth daily. 90 Tablet 3 06/24/2023 9:52 AM CDT 3 Active ondansetron (ZOFRAN ODT) 4 mg Tablet, Rapid Dissolve Place 1 Tablet (4 mg) under tongue and allow to dissolve every 4 hours as needed. 45 Tablet 07/28/2023 12:06 PM CDT 3 Active isosorbide mononitrate (IMDUR) 30 mg Extended Release 24 hour tablet Take 1 tablet (30 mg total) by mouth daily 90 Tablet 09/14/2022 2:01 PM CDT 3 Active triamcinolone acetonide (KENALOG) 0.1 % Ointment Apply a small amount to affected area twice a day. 454 Gram 3 10/26/2022 1:16 PM CDT 3 Active amoxicillin (AMOXIL) 500 mg capsule Take 4 capsules by mouth 1 hour before appointment. 4 Capsule 4 11/01/2022 11:14 AM CDT 3 Active amoxicillin (AMOXIL) 500 mg capsule Take 4 Capsules (2,000 mg) by mouth 1 hour prior to appointment. 4 Capsule 4 04/29/2023 6:29 PM CDT 3 Active betamethasone dipropionate (DIPROSONE) 0.05 % Cream APPLY A THIN LAYER TO AFFECTED AREA(S) DAILY 45 Gram 12/14/2022 1:17 PM GUN CLUB MANAGER 3 Active aspirin (ECOTRIN EC) 81 mg Tablet, Delayed Release (E.C.) Take 1 tablet (81 mg total) by mouth daily 30 Tablet 11 06/13/2023 1:53 PM CDT 3 Active isosorbide mononitrate (IMDUR) 30 mg Extended Release 24 hour tablet Take 1 tablet (30 mg total) by mouth daily 90 Tablet 12/14/2022 1:17 PM GUN CLUB MANAGER 3 Active ketoconazole (NIZORAL) 2 % Cream Apply topically 2 (two) times a day on right thigh for 8 weeks. 30 Gram 2 01/08/2023 12:40 PM GUN CLUB MANAGER 3 Active pantoprazole (PROTONIX) 40 mg Tablet, Delayed Release (E.C.) Take 1 Tablet (40 mg) by mouth daily. 90 Tablet 3 06/24/2023 9:52 AM CDT 4 Active clopidogreL (PLAVIX) 75 mg Tablet Take 1 Tablet (75 mg) by mouth daily. 90 Tablet 3 07/28/2023 12:06 PM CDT 4 Active ferrous sulfate 325 mg (65 mg iron) tablet Take 1 Tablet (325 mg) by mouth daily. 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 30 Tablet 3 07/13/2024 8:23 AM CDT 5 Active Immunizations Immunization Administration Dates Next Due INFLUENZA VACCINE QUADRIVALENT 6 MOS UP PF IM Social History Tobacco Use Types Packs/Day Years Used Date Smoking Tobacco: Never Assessed Sex and Gender Information Value Date Recorded Sex Assigned at Not on file Legal Sex Male 9:52 AM CDT Gender Identity Not on file Sexual Orientation Not on file Plan of Treatment Health Maintenance Due Date Last Done Comments DTAP/TDAP/TD VACCINES (1 - Tdap) 1977 COLORECTAL SCREENING 10/13/2003 Colorectal Cancer Screening 10/13/2003 FIT-DNA Q 3 years 10/13/2003 FIT/FOBT Q 1 year 10/13/2003 Flex Sig/CT Colonography Q 5 years 10/13/2003 PNEUMOCOCCAL VACCINE 50+ YEARS (1 of 1 - PCV) 10/13/19 09 ZOSTER VACCINE (1 of 2) 2008 INFLUENZA VACCINE (#1) 2024 10/19/2022 RSV VACCINE (60+ or ) (1 - 1-dose 75+ series) 2033 Insurance RX [facility] [employer] (INTERNAL) [facility]
--- OUTSIDE RECORDS SUMMARY | 2024-08-14 10:41 | XMS_ITS | Clinical Summary ---
Author Organization [facility] Address [address] [place] [address] Care Team Providers Care Child Protective Services Social Worker Name Role Phone Traci Kaye Primary Care Provider [phone] Allergies Active Allergy Reactions Criticality Noted Date Comments Erythromycin Unknown 03/04/2023 Lorazepam Hallucinations,Other (see comment) Medium 0 10/04/2019 Medications amLODIPine (NORVASC) 10 MG tablet Take 1 tablet (10 mg total) by mouth daily. Active Cholecalciferol 50 MCG (1999 UT) Tab Take 5,000 Units by mouth daily. Active clopidogrel (PLAVIX) 75 MG tablet Take 1 tablet (75 mg total) by mouth daily. Active sevelamer (RENAGEL) 400 MG tablet Take 1 tablet (400 mg total) by mouth 3 (three) times daily with meals. Active isosorbide mononitrate ER (IMDUR) 60 MG 24 hr tablet Take 30 mg by mouth daily. Active pantoprazole EC (PROTONIX) 20 MG tablet Take 1 tablet (20 mg total) by mouth daily. Active ferrous sulfate, 65 mg elemental, 325 (65 FE) MG tablet Take 1 tablet (325 mg total) by mouth daily with breakfast. Active calcitriol (ROCALTROL) 0.25 MCG capsule Take 1 capsule (0.25 mcg total) by mouth daily. Active aspirin 81 MG chewable tablet Chew 1 tablet (81 mg total) by mouth daily. Active atorvastatin (LIPITOR) 10 MG tablet Take 1 tablet (10 mg total) by mouth nightly at bedtime. Active ondansetron (ZOFRAN) 4 MG tablet Take 1 tablet (4 mg total) by mouth every 8 (eight) hours as needed for Nausea. Active ketoconazole (NIZORAL) 2 % cream Apply topically as needed. 3 Active nitroglycerin (NITROSTAT) 0.[address] 1 tablet (0.4 mg total) under the tongue every 5 (five) minutes as needed. 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 Gender Identity Not on file Sexual Orientation Not on file Last Filed Vital Signs Vital Sign Reading Time Taken Comments Blood Pressure 115/67 03/08/2023 8:30 AM CHANNEL WORKER Pulse 80 03/08/2023 8:30 AM CHANNEL WORKER Temperature 36.8 C (98.2 F) 03/08/2023 7:56 AM CHANNEL WORKER Respiratory Rate 18 03/08/2023 8:30 AM CHANNEL WORKER Oxygen Saturation 96% 03/08/2023 8:30 AM CHANNEL WORKER Inhaled Oxygen Concentration - - Weight 56.2 kg (124 lb) 03/05/2023 11:05 AM CHANNEL WORKER Height 167.6 cm (5' 6) 03/05/2023 11:05 AM CHANNEL WORKER Body Mass Index 20.01 03/05/2023 11:05 AM CHANNEL WORKER Plan of Treatment Health Maintenance Due Date Last Done Comments Colorectal Cancer Screening Colonoscopy (10 Years) 1958 DTaP, Tdap and Td Vaccines ( 1 - Tdap) 1977 Zoster Vaccines (1 of 2) 2008 COVID-19 Vaccine (4 - 2023-2 5 season) 2023 10/18/2021, 04/25/2020, 04/04/2020 Pneumococcal Vaccine: 50+ Years (3 of 3 - PCV20 or PCV21) 07/09/2024 07/10/2019, 07/06/2018 RSV Immunization or 60+ Years (1 - 1-dose 75+ series) 2033 Hepatitis C Completed 08/29/2021, 08/29/2021, 08/29/2021 Meningococcal B Vaccine Aged Out No l onger eligible based on patient's age to complete this topic Meningococcal Vaccine Aged Out No domingo maylin eligible based on patient's age to complete this topic RSV Immunizations Under 20 Months Aged Out No longer eligible b ased on patient's age to complete this topic Insurance [employer] [facility] MEDICARE Care Teams Child Protective Services Social Worker Relationship Specialty Start Date End Date Traci Kaye DO [address] [place] [address] PCP - General INTERNAL MEDICINE 02/15/19
[2024-08-14 11:39] LABS: Hepatitis B Surface Antigen Negative (Negative)
[2024-08-14 11:57] LABS: Hepatitis B Surface Anti Res Negative
[2024-08-18 16:14] LABS: Hepatitis B DNA PCR NOT DETECTED (NOT DETECTED); Hepatitis B DNA PCR NOT DETECTED Log IU/mL (NOT DETECTED)
== END 2024-08-14 10:24 | disposition home or self-care (01) ==
PROVIDERS: PCP Internal Medicine; Visit Provider Internal Medicine
DX: Z94.0 Kidney transplant status (principal); Z11.59 Encounter for screening for other viral diseases
CPT/HCPCS: 36415; 86704; 86706; 87340; 87517

== ENCOUNTER 2024-08-24 07:37 | Outpatient (CLI) | payer MEDICARE, OTHER, SELFPAY ==
--- OUTSIDE RECORDS SUMMARY | 2024-08-24 07:40 | XMS_ITS | Encounter Summary ---
Author Organization [facility] Address [address] [place] [address] Care Team Providers Care Director Of Recruiting Name Role Phone Traci Kaye Primary Care Provider [phone] Zak Osborne MD Unavailable [phone] Kieran Dumont MD Unavailable [phone] Bethel Aguayo MD Unavailable [phone] Jose Layton MD Unavailable [phone] Lisbet Wilcox RN Unavailable [phone] Encounter Details Date Type Department Care Team (Latest Contact Info) Description 07/05/2024 Results Follow-Up [facility] Transplant Kidney [address] [facility] [address] [phone] [place] [address] Lianet Taylor RN Hepatitis C (HCV) RNA PCR, quantitative Blood, Tacrolimus level trough, Renal function panel, CBC with auto differential Social History Tobacco Use Types Packs/Day Years Used Date Smoking Tobacco: Every Day Cigarettes 0.3 54.5 Started: 1972 Smokeless Tobacco: Never Alcohol Use Standard Drinks/Week Comments Not Currently 0 (1 standard drink = 0.6 oz pur e alcohol) [facility] Utilities Answer Date Recorded In the past 12 months has [employer] [facility] electric, gas, oil, or water company threatened [...] place to sleep or slept in a long term (including now)? No 10/07/2022 Housing Stability Vital Sign Answer Ronny e Recorded In the last 12 months, was t here a time when you were not able to pay the mortgage or rent on time? No 07/29/2023 In the past 12 months, how m any times have you moved where you were living? 0 07/29/2023 At any time in the past [address] [facility] [place], were you homeless or living in a long term (including now)? No 07/29/2023 Personal Safety Answer Date Recorded Have you ever been in or are you currently in a harmful physical or emotional relationship or is someone making you feel afraid or unsafe? 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 Gender Identity Not on file Sexual Orientation [...] on filedocumented in this encounter Care Teams Director Of Recruiting Relationship Specialty Start Date End Date Traci Kaye DO PCP - General 03/09/17 Zak Osborne MD Referring Physician Nephrology 03/04/18 Kieran Dumont MD Consulting Physician Nephrology 08/24/22 Bethel Aguayo MD [address] [place] [address] Surgeon Surgery 08/28/22 Jose Layton MD [address] [place] [address] Referring Physician Gastroenterology 05/11/23 Lisbet Wilcox RN [address] [facility] [address] [place] [address] Ore Buyer 07/29/23 documented as of this encounter
--- OUTSIDE RECORDS SUMMARY | 2024-08-24 07:40 | XMS_ITS | Clinical Summary ---
Author Organization [facility] Address [address] [place] [address] Care Team Providers Care Community Relations Assistant Name Role Phone Traci Kaye Primary Care Provider [phone] Zak Osborne MD Unavailable [phone] Kieran Dumont MD Unavailable [phone] Bethel Aguayo MD Unavailable [phone] Jose Layton MD Unavailable Lisbet Wilcox RN Unavailable [phone] Allergies Active Allergy Reactions Criticality Noted Date Comments Lorazepam Delusions Medium 10/04/2019 Erythromycin Rash Medium 04/01/2015 Medications cholecalciferol (VITAMIN D-3) 2000 unit tablet TAKE ONE TABLET BY MOUTH EVERY DAY 30 tablet 11 025 Active nitroglycerin (NITROSTAT) 0.[address] 1 tablet (0.4 mg total) under the tongue every 5 (five) minutes as needed for chest pain 025 Active amLODIPine (NORVASC) 10 mg tablet Take 1 tablet (10 mg total) by mouth daily 30 tablet 025 2025 Active predniSONE (DELTASONE) 5 mg tablet TAKE ONE TABLET BY MOUTH EVERY DAY 30 tablet 025 Active ondansetron ODT (ZOFRAN-ODT) 4 mg disintegrating [...] (two) times a day 60 tablet Active betamethasone valerate (VALISONE) 0.1 % cream Apply topically as needed Active mycophenolate sodium DR (MYFORTIC) 360 mg EC tablet Take 1 tablet (360 mg total) by mouth daily 30 tablet 024 2024 Discontinued tacrolimus XR (ENVARSUS XR) 1 mg tablet extended release 24 hrIndications:Pre vention of Kidney Transplant Rejection Take 2 tablets (2 mg total) by mouth daily 60 tablet 024 2024 Discontinued sulfamethoxazole- trimethoprim (BACTRIM DS) 800-160 mg per tablet Take 1 tablet (160 mg of trimethoprim total) by mouth 3 (three) times a week LAST DOSE 07/28/24 12 tablet 1 025 2024 Discontinued(N o longer taking - Do not display on AVS) mycophenolate sodium DR (MYFORTIC) 360 mg EC [...] original. Discharge Planning Pharmacy: [facility] in [place] Specialty: [facility] Specialty HH: [facility] Fax: Verbal consent - AbbieMukesh felton [facility]: P: [phone] F: [phone] Q-MONTHLY, FK, HCV RNA; Q-3 ROUTINE (Exp [...] artery disease of n ative artery of [place] heart with stable angina pectoris 01/27/2022 Primary [...] scan. Assessment & Plan (01/10/2021 10:34 AM CUFF SETTER OVERLOCK): Impression: Patient is status post left brachiocephalic [...] (05/21/2020): Added automatically from request for surgery [id number] Pulmonary nodule 08/14/2019 Dialysis patient 12/09/2018 A-V [...] mg. Assessment & Plan (01/10/2021 10:35 AM CUFF SETTER OVERLOCK): Impression: Chronic stable hypertension, controlled medications. Blood [...] (05/26/2018): Added automatically from request for surgery [id number] Trigger thumb of left hand 11/25/2017 Overview (11/25/2017): Added automatically from request for surgery [id number] Disorder of tendon of shoulder region 03/02/2017 [...] (11/03/2021): Added automatically from request for surgery [id number] Ventral hernia 08/28/2019 11/04/2019 Overview (08/28/2019): Added automatically from request for surgery [id number] Ventral incisional hernia 08/14/2019 Encounters Date Type Department Care Team Description 08/22/2024 Telephone [facility] Transplant Kidney [address] [facility] [address] 19-22-111 [place] [address] Lisbet West nd, RN 08/21/2024 1:45 PM CDT Office Visit [facility] Nephrology at [address] [place] [phone] Kieran Dumont MD Stage 3a chronic kidney disease (HCC) (Primary Dx); Encounter for aftercare following kidney transplant; Immunosuppression; Benign hypertensive kidney disease with chronic kidney disease stage I through stage IV, or unspecified(403.10) 08/18/2024 Telephone [facility] Transplant Kidney [address] [facility] [address] [phone] [place] [address] Lisbet West nd, RN 08/09/2024 Telephone [facility] Transplant Kidney [address] [facility] [address] Mailstop 90-60-882 [place] [address] Lisbet West nd, RN 08/09/2024 Orders Only [facility] Transplant Kidney [address] [facility] [address]stop [phone] [place] [address] Lisbet West nd, RN Kidney replaced by transplant (Primary Dx) 08/03/2024 Telephone [facility] Gastroenterology at [address] [place] [phone] Kieran Dumont MD 07/27/2024 Telephone [facility] Transplant Kidney [address] [facility] [address] [place] [address] Lisbet West nd, RN 07/26/2024 Results Follow-Up [facility] Transplant Kidney [address] [facility] [address] [place] [address] Lisbet West nd, RN CBC with auto differential, Renal function panel, Hepatitis C antibody Blood 07/20/2024 Telephone [facility] Gastroenterology at [address] [phone] Kieran Dumont MD 07/19/2024 Telephone [facility] Transplant Kidney [address] [place] [address] [address] [place] [address] Lisbet West nd, RN 07/19/2024 Telephone [facility] Transplant Kidney [address] [place] [place] [address] Sarah Davis 07/06/2024 Telephone [facility] Gastroenterology at [address] [phone] Kieran Dumont MD 07/05/2024 Results Follow-Up [facility] and [facility] Transplant Kidney [address] [place] [address] [place] [address] Lianet Taylor RN Hepatitis C (HCV) RNA PCR, quantitative Blood, Tacrolimus level trough, Renal function panel, CBC with auto differential 07/05/2024 Lab [facility] Transplant Kidney [address] [place] [address] Johny Sparks MD 06/30/2024 Telephone [facility] Gastroenterology at [address] [phone] Kieran Dumont MD 06/27/2024 Telephone [facility] Transplant Kidney [address] [facility] [address] 90-43-910 [place] [address] Lisbet West nd, RN 06/26/2024 Telephone [facility] Gastroenterology at [address] [place] [address] Kieran Dumont MD 06/15/2024 Lab [facility] Transplant Kidney [address] [facility] [address] [id number] [place] [address] Johny Sparks MD 06/14/2024 Lab [facility] Transplant Kidney [address] [facility] [address] Mail[address] 90-51-540 [place] [address] Johny Sparks MD 06/13/2024 Lab [facility] Transplant Kidney [address] [facility] [address] Mail[address] 90-98-910 [place] [address] Johny Sparks MD 06/05/2024 10:00 AM CDT Office Visit [facility] Nephrology [address] [facility] 5th [place] [address] [place] [address] She Hoang, LESLIE residential current use of immunosuppressive drug (Primary Dx); Encounter for aftercare following kidney transplant; Encounter for long-term (current) use of high-risk medication; Kidney replaced by transplant from Last 3 Months Immunizations Immunization Administration [...] Diverticulosis COPD (chronic obstructive pu lmonary disease) (HCC) early stages, found on recen t scan per patient Chronic kidney disease stage 4 c hronic kidney disease, severe. home peritoneal dialysis - 4 transfers per day Chronic kidney disease, stag e IV (severe) ([facility]) Delayed emergence from general anesthesia wakes up [...] Tobacco: Never Tobacco Cessation:Ready to Q uit: Not Asked; Counseling Given: Not Answered Alcohol Use Standard Drinks/Week Comments Not Currently 0 (1 standard drink = 0.6 oz pur e alcohol) [facility] Utilities Answer Date Recorded In the past 12 months has th e electric, gas, oil, or water company threatened [...] place to sleep or slept in a snf (including now)? No 10/07/2022 Housing Stability Vital Sign Answer Ronny e Recorded In the last 12 months, was t here a time when you were not able to pay the mortgage or rent on time? No 07/29/2023 In the past 12 months, how m any times have you moved where you were living? 0 07/29/2023 At any time in the past 12 m [facility], were you homeless or living in a snf (including now)? No 07/29/2023 Personal Safety Answer Date Recorded Have you ever been in or are you currently in a harmful physical or emotional relationship or is someone making you feel afraid or unsafe? 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 Gender Identity Not on file Sexual Orientation Not on file Occupation Industry Job Start Date Job End Date RETIRED Not on file Not on file Not on file Obstetrics History Last Filed Vital Signs Vital Sign Reading Time Taken Comments Blood Pressure 147/78 08/21/2024 1:24 PM CDT Pulse 71 08/21/2024 1:24 PM CDT Temperature 36.2 C (97.1 F) 08/21/2024 1:24 PM CDT Respiratory Rate 18 09/27/2023 11:50 AM CDT Oxygen Saturation 98% 09/27/2023 11:50 AM CDT Inhaled Oxygen Concentration - - Weight 72.1 kg (159 lb) 08/21/2024 1:24 PM CDT Height 167.6 cm (5' 6) 08/21/2024 1:24 PM CDT Body Mass Index 25.66 08/21/2024 1:24 PM CDT Plan of Treatment Health Maintenance [...] Additional history exists Influenza Vaccine (#1) 2024 3, 10/25/2020, 11/03/2019, Additional history exists Colon Cancer Screening-Colonoscopy 10/21/2028 10/21/2018 Colon Cancer Screening-CT Colonography Discontinued 10/21/2018 Colon Cancer Screening-DNA Stool Discontinued 10/22/19 Colon Cancer Screening-FIT Discontinued 10/21/2018 Colon Cancer Screening-Sigmoidoscopy Discontinued 10/21/2018 Hepatitis C Screening Completed 07/25/2024 , 07/25/2024, 07/11/2024, Additional history exists Hepatitis B Screening Completed 08/14/2024 , 04/08/2021, 03/14/2019, Additional history exists Medical Devices Implanted Type Area Weight Calculator Device Identifier Shelf Expiration Date Model / Serial / Lot Dental Right: Mouth Pd Catheter Abdomen Stent Heart [employer]/C R Bard [id number] Ventralight St Sepra Echo Ps 6in Monofilament Lightweight Latex Free - [id number] Implanted:Qty: 1 on 10/04/2019 by Eun Abernathy MD at [facility] N/A: Abdomen [employer]/C R Bard [id number] 12/05/2020 [id number] / / [id number] [employer]/C R Bard Mesh Surg 3dmax Right Mid Large Inguinal Hernia [id number] - [id number] Implanted:Qty: 1 on 12/25/2021 by Eun Abernathy MD at [facility] Right: Inguinal [employer]/C R Bard [id number] 10/05/2026 [id number] / / [id number] [employer] Stent Coronary De Rx Cocr Ors Msn 4.0x15mm [id number] - [id number] Implanted:Qty: 1 on 01/27/2022 [facility] 05/29/2023 [id number] / / [id number] Explanted Type Area Weight Calculator Device Identifier Shelf Expiration Date Model / Serial / Lot [employer] Stent Ureteral Set Double Pigtail Radiopaque Tip Universa [id number] Polyurethane Hydrophilic Coated [id number] - [id number] Implanted:Qty: 1 on 07/29/2023 by Turner Black MD at [facility] Explanted:Qty: 1 on 08/30/2023 by Tata Yan NP Stent Right: Transplanted Ureter [employer] [id number] 05/11/2026 [id number] / / [id number] Procedures Procedure Name Priority Date/Time Associated Diagnosis Comments HEPATITIS B CORE AB, TOTAL, SERUM Routine 08/14/2024 10:49 AM CDT HEPATITIS B DNA, QUANTITATIVE, PCR Routine 08/14/2024 10:49 AM CDT HEPATITIS B SURFACE ANTIGEN Routine 08/14/2024 10:49 AM CDT HEPATITIS B SURFACE ANTIBODY (IMMUNE STATUS) Routine 08/14/2024 10:49 AM CDT RENAL FUNCTION PANEL Routine 07/25/2024 9:49 AM [...] QUANTITATIVE, PCR Routine 05/30/2024 9:[address] CHEST ABDOMEN PELVIS WO CONTRAST ED Urgent/IP Urgent 07/14/2023 9:45 PM CDT PSA SCREEN Routine 09/28/2022 10:05 AM CDT Stage 5 chronic kidney disease on chronic dialysis (HCC) COLONOSCOPY 10/21/2018 10:12 AM CDT from Last 3 Months or Most Recently Relevant to Health Maintenance Results * Hepatitis B Core Ab, Total, Serum (08/14/2024 10:49 AM CDT) Hep B core IgG/IgM NON-REACTI VE NON-REACTI VE TXP NO LAB FOUND 08/14/2024 10:4 9 AM CDT Historical Provider LAB BLOOD ORDERABLES Edit ed Result - Final Performing Organization Address [facility] de Phone Number TXP NO LAB FOUND * Hepatitis B (HBV) DNA PCR, quantitative Blood (08/14/2024 10:49 AM CDT) SCRIBED HepB DNA, Quant NT DET NT DET IUnit/mL TXP NO LAB FOUND Blood 08/14/2024 10:4 9 AM CDT Historical Provider LAB MICROBIOLOGY - GENERA L ORDERABLES Final Result Performing Organization Address [facility] de Phone Number TXP NO LAB FOUND * Hepatitis B surface antibody (immune status) Blood (08/14/2024 10:49 AM CDT) SCRIBED HBsAb Negative TXP NO LAB FOUND Blood 08/14/2024 10:4 9 AM CDT Historical Provider LAB MICROBIOLOGY - GENERA L ORDERABLES Final Result Performing Organization Address [facility] de Phone Number TXP NO LAB FOUND * Hepatitis B Surface Antigen Blood (08/14/2024 10:49 AM CDT) SCRIBED HBsAg Nonreactive Nonreactive , Invalid TXP NO LAB FOUND Blood 08/14/2024 10:4 9 AM CDT Historical Provider LAB MICROBIOLOGY - GENERA L ORDERABLES Final Result TXP NO LAB FOUND * (ABNORMAL) CBC with auto differential (07/25/2024 [...] C antibody Blood (07/25/2024 9:49 AM CDT) Pathologist [facility] [place] SCRIBED HCV ab REACTIVE NEGATIVE Blood 07/25/2024 9:49 AM CDT [facility] Provider LAB MICROBIOLOGY - GENERA L [...] - 30 mmol/L SCRIBED eGFR in NonAfrican Sammar[place] 39 >=60 mL/min SCRIBED Urea Nitrogen (BUN) 27(A) 9 - 20 mg/dl Blood 07/25/2024 9:49 AM CDT [facility] Provider LAB BLOOD ORDERABLES Jeannette l Result * Tacrolimus level trough (07/25/2024) SCRIBED Tacrolimus, trough 8.3 5 - 20 TXP NO LAB FOUND Blood 07/25/2024 Result [facility] Provider LAB BLOOD ORDERABLES Edit ed Result - Final TXP NO LAB FOUND * Tacrolimus level trough (07/11/2024 8:30 AM CDT) SCRIBED Tacrolimus, trough 10 5 - 20 MCG/L Blood 07/11/2024 8:30 AM CDT [facility] Provider LAB BLOOD ORDERABLES Jeannette l Result * (ABNORMAL) CBC with auto differential (07/11/2024 8:30 AM CDT) SCRIBED WBC 5.6 4.5 - 10 k/cumm SCRIBED Hemoglobin 13(A) 14 - 18 g/dL SCRIBED Hematocrit 39.5(A) 42 - 52 % SCRIBED Platelets 148(A) 150 - 375 k/cumm SCRIBED Lymphocytes Abs 0.55(A) 0.9 - 3.2 k/cumm Blood 07/11/2024 8:30 AM CDT Result [facility] Provider LAB BLOOD ORDERABLES Edit ed Result - Final * Hepatitis C (HCV) RNA PCR, quantitative Blood (07/11/2024 8:30 AM CDT) SCRIBED HCV RNA NT DET NT DET IUnit/mL Blood 07/11/2024 8:30 AM CDT Result [facility] Provider LAB MICROBIOLOGY - GENERA L ORDERABLES [...] - 30 mmol/L SCRIBED eGFR in NonAfrican Sammarinese 45 >=60 mL/min SCRIBED Urea Nitrogen (BUN) 26(A) 9 - 20 mg/dl Blood 07/11/2024 8:30 AM CDT Result [facility] Provider LAB BLOOD ORDERABLES Jeannette l Result * Tacrolimus level trough (06/27/2024) SCRIBED Tacrolimus, trough 8.0 5 - 20 Blood 06/27/2024 Result [facility] Provider LAB BLOOD ORDERABLES Jeannette l Result * (ABNORMAL) CBC with auto differential (06/27/2024) Pathologist [facility] [place] SCRIBED WBC 5.4 4.5 - 10 k/cumm SCRIBED Hemoglobin 12.9(A) 14 - 18 g/dL SCRIBED Hematocrit 39.6(A) 42 - 52 % SCRIBED Platelets 156 150 - 375 k/cumm SCRIBED Lymphocytes Abs 0.51(A) 0.9 - 3.2 k/cumm Blood 06/27/2024 [facility] Provider MD LAB BLOOD ORDERABLES Edit ed Result - Final * Hepatitis C (HCV) RNA PCR, quantitative Blood (06/27/2024) Pathologist [facility] [place] SCRIBED HCV RNA <15 Nt. Det. IUnit/mL Comment:Nt. Det. Blood 06/27/2024 [facility] Provider MD LAB MICROBIOLOGY - GENERA L ORDERABLES Final Result * (ABNORMAL) Renal function panel (06/27/2024) Pathologist [facility] [place] SCRIBED Calcium 9.9 8.4 - 10.2 mg/dl [...] - 30 mmol/L SCRIBED eGFR in NonAfrican Sammarinese 40 >=60 SCRIBED Urea Nitrogen (BUN) 25(A) 9 - 20 mg/dl Blood 06/27/2024 [facility] Provider MD LAB BLOOD ORDERABLES Jeannette l Result * Tacrolimus level trough (06/13/2024) Pathologist [facility] [place] SCRIBED Tacrolimus, trough 5.3 5 - 20 Blood 06/13/2024 [facility] Provider MD LAB BLOOD ORDERABLES Edit ed Result - Final * (ABNORMAL) CBC with auto differential (06/13/2024) Pathologist [facility] [place] SCRIBED WBC 5.2 4.5 - 10 k/cumm SCRIBED Hemoglobin 12.8(A) 14 - 18 g/dL SCRIBED Hematocrit 40.6(A) 42 - 52 % SCRIBED Platelets 144(A) 150 - 375 k/cumm SCRIBED Lymphocytes Abs 0.52(A) 0.9 - 3.2 k/cumm Blood 06/13/2024 Result [facility] Provider MD LAB BLOOD ORDERABLES Edit ed Result - Final * Hepatitis C (HCV) RNA PCR, quantitative Blood (06/13/2024) [facility] SCRIBED HCV RNA <1.18 <15 IUnit/mL Comment:Not detected Blood 06/13/2024 Result [facility] Provider MD LAB MICROBIOLOGY - GENERA L ORDERABLES Edited Result - Final * (ABNORMAL) Renal function panel (06/13/2024) Pathologist [facility] [place] SCRIBED Calcium 9.9 8.4 - 10.2 mg/dl [...] - 30 mmol/L SCRIBED eGFR in NonAfrican [place]ammarinese 47 >=60 SCRIBED Urea Nitrogen (BUN) 23(A) 9 - 20 mg/dl Blood 06/13/2024 Historical Provider LAB BLOOD ORDERABLES Edit ed Result - Final * (ABNORMAL) POCT urinalysis dipstick (06/05/2024 10:11 AM CDT) Glucose, ur, POC Negative Negative MG/DL Bilirubin, ur, POC 1+(A) Negative, Small, Moderate, Large Ketones, ur, POC Negative Negative Specific [place], POC Comment:>=1.030 Blood, ur, POC Negative Negative pH, ur, POC 5.5 5.0 - 8.0 Protein, ur, POC 1+(A) Negative Urobilinogen, urine, POC 0.2 0.2 - 1.0 mg/dL Nitrite, ur, POC Negative Negative Leukocytes, ur, POC Negative Negative Lot Number [id number] Urine 06/05/2024 10:1 1 AM CDT Result [facility] She Hoang NP POINT OF CARE TEST ORDERAB LES Final Result * Tacrolimus level trough (05/30/2024 9:23 AM CDT) Pathologist [facility] [place] SCRIBED Tacrolimus, trough 6.2 5 - 20 mcg/L Blood 05/30/2024 9:23 AM CDT Historical Provider [...] 3.2 k/cumm Blood 05/30/2024 9:23 AM CDT [facility] Provider LAB BLOOD ORDERABLES Edit ed Result - Final * Hepatitis C (HCV) RNA PCR, quantitative Blood (05/30/2024 9:23 AM CDT) SCRIBED HCV RNA NT DET NT DET IUnit/mL Blood 05/30/2024 9:23 AM CDT [facility] Provider LAB MICROBIOLOGY - GENERA L ORDERABLES Final Result * (ABNORMAL) Renal function panel (05/30/2024 9:23 AM CDT) SCRIBED Calcium 10.3(A) 8.4 - 10.2 mg/dl [...] - 30 mmol/L SCRIBED eGFR in NonAfrican Sammarinese 46 >=60 mL/min SCRIBED Urea Nitrogen (BUN) 25(A) 9 - 20 mg/dl Blood 05/30/2024 9:23 AM CDT [facility] Provider MD LAB BLOOD ORDERABLES Jeannette l Result * CT Chest Abdomen Pelvis WO Contrast [...] spleen and adrenal glands are unremarkable. Atrophic [place] kidneys. Urinary bladder is minimally distended. Peritoneal [...] spleen and adrenal glands are unremarkable. Atrophic [place] kidneys. Urinary bladder is minimally distended. Peritoneal [...] it. Electronically signed by: Uriah Monaco M.D. Fidel Dunaway MD PhD IMG CT PROCEDURES Final Result * PSA screen (09/28/2022 10:05 AM CDT) PSA-Total 0.69 <=5.40 ng/mL [facility] Comment: Interpretive Data AGE SEX REFERENCE INTERVAL [...] MD LAB BLOOD ORDERABLES Final Resu lt [facility] Department [place] [address] * COLONOSCOPY (10/21/2018 10:12 AM CDT) Anatomical Region Laterality Modality Other Narrative Procedure Note Cash Melton MD - 10/21/2018 10:12 AM CDT ENDOSCOPY LAB Patient Name: Maximo Hayes Procedure Date: 10/21/2018 10:12 AM Admit Type: Outpatient Room: [facility] 3 Date of : 1960 Instrument Name: [...] the bowel preparation wasevaluated using the BBPS ([place] Bowel Preparation Scale) with scores of: Right [...] Impression: - Normal surgical changes - Patent rgt-lr-[id number]-colonic anastomosis, characterized by healthy appearingmucosa. - Diverticulosis [...] Recently Relevant to Health Maintenance [facility] [address] [employer] [id number] MEDICARE [employer]ARE [employer] [address] [employer]ICARE [employer] [id number] Advance Directives For more information, please contact: [phone] * Full Code (Latest Code Status on [...] 5:34 PM 01/27/2022 6:03 PM Care Teams Community Relations Assistant Relationship Specialty Start Date End Date Traci Kaye DO PCP - General 03/09/17 Zak Osborne MD Referring Physician Nephrology 03/04/18 Kieran Dumont MD Consulting Physician Nephrology 08/24/22 Bethel Aguayo MD [address] [facility] [address] [address] [facility] [address] [place] [address] Surgeon Surgery 08/28/22 Jose Layton MD [address] [place] [address] Referring Physician Gastroenterology 05/11/23 Lisbet Wilcox, RN [address] [facility] [address] [place] [address] Jewelry Appraiser 07/29/23
--- OUTSIDE RECORDS SUMMARY | 2024-08-24 07:40 | XMS_ITS | Encounter Summary ---
Author Organization [facility] Healthcare Address [address] [place] [address] Care Team Providers Care Food Concession Manager Name Role Phone Traci Kaye DO Primary Care Provider [phone] Zak Osborne MD Unavailable [phone] Julieta Barnes RN Unavailable [phone] Kieran Dumont MD Unavailable [phone] Bethel Aguayo MD Unavailable [phone] Jose Layton MD Unavailable [phone] Lisbet Wilcox RN Unavailable [phone] Encounter Details Date Type Department Care Team (Late st Contact Info) Description 08/12/2022 Telephone [facility] Dialysis Access Center at [facility] [address] [facility] [address] [place] [address] Alexis Aguayo MD [address] [facility] [address] [place] [address] Social History Tobacco Use Types Packs/Day Years [...] on file 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 Gender Identity Not on file Sexual Orientation Not on file Occupation Industry Job Start Date Job End Date RETIRED Not on file Not on file Not on file documented as of this encounter Plan of Treatment Not on file documented as of this encounter Visit Diagnoses Not on filedocumented in this encounter Care Teams Food Concession Manager Relationship Specialty Start Date End Date Traci Kaye DO PCP - General 03/09/17 Zak Osborne MD Referring Physician Nephrology 03/04/18 Julieta Barnes, RN [address] [place] [address] And Taxi Instructor Bus Trolley 08/31/18 Kieran Lemus MD [address] [place] [address] Consulting Physician Nephrology 08/24/22 Bethel Aguayo MD [address] [facility] [address] [facility] [address] [place] [address] Surgeon Surgery 08/28/22 Jose Layton MD [address] [place] [address] Referring Physician Gastroenterology 05/11/23 Lisbet Wilcox, KEYSHA [address] [facility] [address] [place] [address] And Taxi Instructor Bus Trolley 07/29/23 documented as of this encounter
--- OUTSIDE RECORDS SUMMARY | 2024-08-24 07:40 | XMS_ITS | Encounter Summary ---
Author Organization [facility] Healthcare Address [address] [place] [address] Care Team Providers Care Travel Ot Name Role Phone Traci Kaye Primary Care Provider [phone]- [phone] Zak Osborne MD Unavailable [phone] Kieran Dumont MD Unavailable [phone] Bethel Aguayo MD Unavailable [phone] Jose Layton MD Unavailable [phone] Lisbet Wilcox RN Unavailable [phone] Encounter Details Date Type Department Care Team (Late st Contact Info) Description 07/26/2024 Results Follow-Up [facility] Transplant Kidney [address] [facility] [address] [phone] [place] [address] Lisbet Wilcox, RN [address] [facility] [address] [place] [address] CBC with auto differential, Renal function panel, Hepatitis C antibody Blood Social History Tobacco Use Types Packs/Day Years Used Date Smoking Tobacco: Every Day Cigarettes 0.3 54.5 Started: 1972 Smokeless Tobacco: Never Alcohol Use Standard Drinks/Week Comments Not Currently 0 (1 standard drink = 0.6 oz pur e alcohol) [facility] Utilities Answer Date Recorded In the past 12 months has [employer], gas, oil, or water [employer] threatened to shut off services in your [...] place to sleep or slept in a intermediate (including now)? No 10/07/2022 Housing Stability Vital Sign Answer Ronny e Recorded In the last 12 months, was t here a time when you were not able to pay the mortgage or rent on time? No 07/29/2023 In the past 12 months, how m any times have you moved where you were living? 0 07/29/2023 At any time in the past 12 m [facility], were you homeless or living in a intermediate (including now)? No 07/29/2023 Personal Safety Answer Date Recorded Have you ever been in or are you currently in a harmful physical or emotional relationship or is someone making you feel afraid or unsafe? 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 Gender Identity Not on file Sexual Orientation Not on file Occupation Industry Job Start Date Job End Date RETIRED Not on file Not on file Not on file documented as of this encounter Plan of Treatment Not on file documented as of this encounter Visit Diagnoses Not on filedocumented in this encounter Care Teams Travel Ot Relationship Specialty Start Date End Date Traci Kaye DO PCP - General 03/09/17 Zak Osborne MD Referring Physician Nephrology 03/04/18 Kieran Dumont MD Consulting Physician Nephrology 08/24/22 Bethel Aguayo MD [address] [facility] [address] [place] [address] [facility] [address] [place] [address] Surgeon Surgery 08/28/22 Jose Layton MD [address] [place] [address] Referring Physician Gastroenterology 05/11/23 Lisbet Wilcox, KEYSHA 45[address] [facility] [address] [place] [address] Braider Operator 07/29/23 documented as of this encounter
--- OUTSIDE RECORDS SUMMARY | 2024-08-24 07:40 | XMS_ITS | Referral Summary ---
Author Organization [facility] Address [address] [place] [address] Care Team Providers Care Soda Dialyzer Name Role Phone Traci Kaye Primary Care Provider [phone]- [phone] Zak Osborne MD Unavailable [phone] Kieran Dumont MD Unavailable [phone] Bethel Aguayo MD Unavailable [phone] Jose Layton MD Unavailable [phone] Lisbet Wilcox RN Unavailable [phone] Encounters Date Type Department Care Team Description 08/22/2024 Telephone [facility] Transplant Kidney [address] [facility] [phone] [place] [address] Lisbet West nd, RN 08/21/2024 1:45 PM CDT Office Visit [facility] Nephrology at [address] [place] [address] Kieran Dumont MD Stage 3a chronic kidney disease (HCC) (Primary Dx); Encounter for aftercare following kidney transplant; Immunosuppression; Benign hypertensive kidney disease with chronic kidney disease stage I through stage IV, or unspecified(403.10) 08/18/2024 Telephone [facility] Transplant Kidney [address] [facility] [address] [place] [address] Lisbet West nd, RN 08/09/2024 Telephone [facility] Transplant Kidney [address] [facility] [address] [place] [address] Lisbet West nd, RN 08/09/2024 Orders Only [facility] Transplant Kidney [address] [facility] [address] [place] [address] Lisbet West nd, RN Kidney replaced by transplant (Primary Dx) 08/03/2024 Telephone [facility] Gastroenterology at [address] [place] [address] Kieran Dumont MD 07/27/2024 Telephone [facility] Transplant Kidney [address] [address] [facility] [place] [address] Lisbet West nd, RN 07/26/2024 Results Follow-Up [facility] Transplant Kidney [address] [facility] [address] [place] [address] Lisbet West nd, RN CBC with auto differential, Renal function panel, Hepatitis C antibody Blood 07/20/2024 Telephone [facility] Gastroenterology at [address] [place] [address] Kieran Dumont MD 07/19/2024 Telephone [facility] Transplant Kidney [address] [facility] [address] [place] [address] Lisbet West nd, RN 07/19/2024 Telephone [facility] Transplant Kidney [address] [facility] [address] [place] [address] Sarah Davis 07/06/2024 Telephone [facility] Gastroenterology at [address] [place] [address] Kieran Dumont MD 07/05/2024 Results Follow-Up [facility] Transplant Kidney [address] [facility] [address] [phone] [place] [address] Lianet Taylor RN Hepatitis C (HCV) RNA PCR, quantitative Blood, Tacrolimus level trough, Renal function panel, CBC with auto differential 07/05/2024 Lab [facility] Transplant Kidney [address] [facility] [id number] [place] [address] Johny Sparks MD 06/30/2024 Telephone [facility] Medical [facility] Gastroenterology at [address] [place] [address] Kieran Dumont MD 06/27/2024 Telephone [facility] Transplant Kidney [address] [facility] [id number] [place] [address] Lisbet West nd, RN 06/26/2024 Telephone [facility] Gastroenterology at [address] [place] [address] Kieran Dumont MD 06/15/2024 Lab [facility] Transplant Kidney [address] [facility] [id number] [place] [address] Johny Sparks MD 06/14/2024 Lab [facility] Transplant Kidney [address] [facility] [id number] [place] [address] Johny Sparks MD 06/13/2024 Lab [facility] Transplant Kidney [address] [facility] [id number] [place] [address] Johny Sparks MD 06/05/2024 10:00 AM CDT Office Visit [facility] Nephrology [address] [facility] 5th [place] [address] [place] [address] She Hoang NP [facility] current use of immunosuppressive drug (Primary Dx); Encounter for aftercare following kidney transplant; Encounter for long-term (current) use of high-risk medication; Kidney replaced by transplant from Last 3 Months Allergies Active Allergy Reactions Criticality Noted Date Comments Lorazepam Delusions Medium 10/04/2019 Erythromycin Rash Medium 04/01/2015 Medications cholecalciferol (VITAMIN D-3) 2000 unit tablet TAKE ONE TABLET BY MOUTH EVERY DAY 30 tablet Active nitroglycerin (NITROSTAT) 0.[address] 1 tablet (0.4 mg total) under the tongue every 5 (five) minutes as needed for chest pain Active amLODIPine (NORVASC) 10 mg tablet Take 1 tablet (10 mg total) by mouth daily 30 tablet 2025 Active predniSONE (DELTASONE) 5 mg tablet TAKE ONE TABLET BY MOUTH EVERY DAY 30 tablet Active ondansetron ODT (ZOFRAN-ODT) 4 mg disintegrating tablet Take 1 tablet (4 mg total) by mouth every 8 (eight) hours as needed for nausea or vomiting 30 tablet [address] (PROTONIX) 40 mg [...] total) by mouth daily 30 tablet 11 025 [address] (MYFORTIC) 360 mg EC tablet Take 1 tablet (360 mg total) by mouth 2 (two) times a day 60 tablet 025 Active betamethasone valerate (VALISONE) 0.1 % cream [...] original. Discharge Planning Pharmacy: [facility] in [place] Specialty: [facility] Specialty HH: [facility] Fax: Verbal consent - Mukesh Leiva [facility]: P: [phone] F: [phone] Q-MONTHLY, FK, HCV RNA; Q-3 ROUTINE (Exp [...] artery disease of n ative artery of [place] heart with stable angina pectoris 01/27/2022 Primary [...] scan. Assessment & Plan (01/10/2021 10:34 AM COMPUTER EDUCATION TEACHER): Impression: Patient is status post left brachiocephalic [...] (05/21/2020): Added automatically from request for surgery [id number] Pulmonary nodule 08/14/2019 Dialysis patient 12/09/2018 A-V [...] mg. Assessment & Plan (01/10/2021 10:35 AM COMPUTER EDUCATION TEACHER): Impression: Chronic stable hypertension, controlled medications. Blood [...] (05/26/2018): Added automatically from request for surgery [id number] Trigger thumb of left hand 11/25/2017 Overview (11/25/2017): Added automatically from request for surgery [id number] Disorder of tendon of shoulder region 03/02/2017 [...] (11/03/2021): Added automatically from request for surgery [id number] Ventral hernia 08/28/2019 11/04/2019 Overview (08/28/2019): Added automatically from request for surgery [id number] Ventral incisional hernia 08/14/2019 Immunizations Immunization Administration [...] drink = 0.6 oz pur e alcohol) [facility] Utilities Answer Date Recorded In the past 12 months has th e [employer], [employer], oil, or water [employer] threatened to shut off services in your [...] place to sleep or slept in a correction (including now)? No 10/07/2022 Housing Stability Vital Sign Answer Ronny e Recorded In the last 12 months, was t here a time when you were not able to pay the mortgage or rent on time? No 07/29/2023 In the past 12 months, how m any times have you moved where you were living? 0 07/29/2023 At any time in the past 12 m [facility], were you homeless or living in a correction (including now)? No 07/29/2023 Personal Safety Answer Date Recorded Have you ever been in or are you currently in a harmful physical or emotional relationship or is someone making you feel afraid or unsafe? Denies 09/27/2023 Sex and Gender Information Value Date Recorded Sex Assigned at Not on file Legal Sex Male 8:01 PM COMPUTER EDUCATION TEACHER Gender Identity Not on file Sexual Orientation [...] 08/21/2024 1:24 PM CDT Plan of Treatment Not on file Medical Devices Implanted Type Area Bender Machine Device Identifier Shelf Expiration Date Model / Serial / Lot Dental Right: Mouth Pd Catheter Abdomen Stent Heart [employer]/C R Bard [id number] Ventralight St Sepra Echo Ps 6in Monofilament Lightweight Latex Free - [id number] Implanted:Qty: 1 on 10/04/2019 by Eun Abernathy MD at [facility] N/A: Abdomen [employer]/C R Bard [id number] 12/05/2020 [id number] / / [id number] [employer]/C R Bard Mesh Surg 3dmax Right Mid Large Inguinal Hernia [id number] - [id number] Implanted:Qty: 1 on 12/25/2021 by Eun Abernathy MD at [facility] Right: Inguinal [employer]/C R Bard [id number] 10/05/2026 [id number] / / [id number] BiotroniSurface Logix Stent Coronary De Rx Cocr Ors Msn 4.0x15mm [id number] - [id number] Implanted:Qty: 1 on 01/27/2022 by Sd Garvey MD at [facility] [employer] Inc 05/29/2023 [id number] / / [id number] Explanted Type Area Bender Machine Device Identifier Shelf Expiration Date Model / Serial / Lot BigTree Stent Ureteral Set Double Pigtail Radiopaque Tip Universa [id number] Polyurethane Hydrophilic Coated [id number] - [id number] Implanted:Qty: 1 on 07/29/2023 by Turner Black MD at [facility] Explanted:Qty: 1 on 08/30/2023 by Tata Yan, LESLIE Stent Right: Transplanted Ureter [employer] [id number] 05/11/2026 [id number] / / [id number] Procedures Procedure Name Priority Date/Time Associated Diagnosis [...] ed Result - Final Performing Organization Address [facility] Co de Phone Number TXP NO LAB FOUND * Hepatitis B (HBV) DNA PCR, quantitative Blood (08/14/2024 10:49 AM CDT) SCRIBED HepB DNA, Quant NT DET NT DET IUnit/mL TXP NO LAB FOUND Blood 08/14/2024 10:4 9 AM CDT Historical Provider LAB MICROBIOLOGY - GENERA L ORDERABLES Final Result Performing Organization Address [facility]/ZIP Co de Phone Number TXP NO LAB FOUND * Hepatitis B surface antibody (immune status) Blood (08/14/2024 10:49 AM CDT) SCRIBED HBsAb Negative TXP NO LAB FOUND Blood 08/14/2024 10:4 9 AM CDT Result [facility] Provider LAB MICROBIOLOGY - GENERA L ORDERABLES Final Result Performing Organization Address City/[facility] Co de Phone Number TXP NO LAB FOUND * Hepatitis B Surface Antigen Blood (08/14/2024 10:49 AM CDT) SCRIBED HBsAg Nonreactive Nonreactive , Invalid TXP NO LAB FOUND Blood 08/14/2024 10:4 9 AM CDT Result [facility] Provider LAB MICROBIOLOGY - GENERA L ORDERABLES Final Result Performing Organization Address [facility] Co de Phone Number TXP NO LAB FOUND * (ABNORMAL) CBC with auto differential (07/25/2024 9:49 AM CDT) SCRIBED WBC 5 4.5 - 10 k/cumm SCRIBED Hemoglobin 13(A) 14 - 18 g/dL SCRIBED Hematocrit 39.2(A) 42 - 52 % SCRIBED Platelets 143(A) 150 - 375 k/cumm SCRIBED Lymphocytes Abs 0.50(A) 0.9 - 3.2 k/cumm Blood 07/25/2024 9:49 AM CDT Result [facility] Provider LAB BLOOD ORDERABLES Edit ed Result - Final * Hepatitis C antibody Blood (07/25/2024 9:49 AM CDT) SCRIBED HCV ab REACTIVE NEGATIVE Blood 07/25/2024 9:49 AM CDT Result [facility] Provider LAB MICROBIOLOGY - GENERA L ORDERABLES Edited Result - Final * Hepatitis C (HCV) RNA PCR, quantitative Blood (07/25/2024 9:49 AM CDT) SCRIBED HCV RNA NT DET NT DET IUnit/mL TXP NO LAB FOUND Blood 07/25/2024 9:49 AM CDT Historical Provider LAB MICROBIOLOGY - GENERA L ORDERABLES Edited Result - Final Performing Organization Address [facility] de Phone Number TXP NO LAB FOUND [...] - 30 mmol/L SCRIBED eGFR in NonAfrican Namibian 39 >=60 mL/min SCRIBED Urea Nitrogen (BUN) 27(A) 9 - 20 mg/dl Blood 07/25/2024 9:49 AM CDT Historical Provider LAB BLOOD ORDERABLES Jeannette l Result * Tacrolimus level trough (07/25/2024) SCRIBED Tacrolimus, trough 8.3 5 - 20 TXP NO LAB FOUND Blood 07/25/2024 Historical Provider LAB BLOOD ORDERABLES Edit ed Result - Final Performing Organization Address [facility] Co de Phone Number TXP NO LAB FOUND * Tacrolimus level trough (07/11/2024 8:30 AM CDT) SCRIBED Tacrolimus, trough 10 5 - 20 MCG/L Blood 07/11/2024 8:30 AM CDT [facility] Provider MD LAB BLOOD ORDERABLES Jeannette l Result * (ABNORMAL) CBC with auto differential (07/11/2024 8:30 AM CDT) Pathologist [facility] [place] SCRIBED WBC 5.6 4.5 - 10 k/cumm SCRIBED Hemoglobin 13(A) 14 - 18 g/dL SCRIBED Hematocrit 39.5(A) 42 - 52 % SCRIBED Platelets 148(A) 150 - 375 k/cumm SCRIBED Lymphocytes Abs 0.55(A) 0.9 - 3.2 k/cumm Blood 07/11/2024 8:30 AM CDT Result [facility] Provider LAB BLOOD ORDERABLES Edit ed Result - Final * Hepatitis C (HCV) RNA PCR, quantitative Blood (07/11/2024 8:30 AM CDT) Pathologist [facility] [place] SCRIBED HCV RNA NT DET NT DET IUnit/mL Blood 07/11/2024 8:30 AM CDT Result [facility] Provider MD LAB MICROBIOLOGY - GENERA L ORDERABLES Final Result * (ABNORMAL) Renal function panel (07/11/2024 8:30 AM CDT) Pathologist [facility] [place] SCRIBED Calcium 10.4(A) 8.4 - 10.2 mg/dl [...] - 30 mmol/L SCRIBED eGFR in NonAfrican Namibian 45 >=60 mL/min SCRIBED Urea Nitrogen (BUN) 26(A) 9 - 20 mg/dl Blood 07/11/2024 8:30 AM CDT Result [facility] Provider MD LAB BLOOD ORDERABLES Jeannette l Result * Tacrolimus level trough (06/27/2024) Pathologist [facility] [place] SCRIBED Tacrolimus, trough 8.0 5 - 20 Blood 06/27/2024 Result [facility] MD LAB BLOOD ORDERABLES Jeannette l Result * (ABNORMAL) CBC with auto differential (06/27/2024) [facility] SCRIBED WBC 5.4 4.5 - 10 k/cumm SCRIBED Hemoglobin 12.9(A) 14 - 18 g/dL SCRIBED Hematocrit 39.6(A) 42 - 52 % SCRIBED Platelets 156 150 - 375 k/cumm SCRIBED Lymphocytes Abs 0.51(A) 0.9 - 3.2 k/cumm Blood 06/27/2024 Result [facility] MD LAB BLOOD ORDERABLES Edit ed Result - Final * Hepatitis C (HCV) RNA PCR, quantitative Blood (06/27/2024) [facility] SCRIBED HCV RNA <15 Nt. Det. IUnit/mL Comment:Nt. Det. Blood 06/27/2024 Result [facility] MD LAB MICROBIOLOGY - GENERA L ORDERABLES [...] - 30 mmol/L SCRIBED eGFR in NonAfrican Namibian 40 >=60 SCRIBED Urea Nitrogen (BUN) 25(A) 9 - 20 mg/dl Blood 06/27/2024 Result [facility] Provider LAB BLOOD ORDERABLES Jeannette l Result * Tacrolimus level trough (06/13/2024) Pathologist [facility] [place] SCRIBED Tacrolimus, trough 5.3 5 - 20 Blood 06/13/2024 Result [facility] Provider LAB BLOOD ORDERABLES Edit ed Result - Final * (ABNORMAL) CBC with auto differential (06/13/2024) [facility] SCRIBED WBC 5.2 4.5 - 10 k/cumm SCRIBED Hemoglobin 12.8(A) 14 - 18 g/dL SCRIBED Hematocrit 40.6(A) 42 - 52 % SCRIBED Platelets 144(A) 150 - 375 k/cumm SCRIBED Lymphocytes Abs 0.52(A) 0.9 - 3.2 k/cumm Blood 06/13/2024 Result [facility] MD LAB BLOOD ORDERABLES Edit ed Result - Final * Hepatitis C (HCV) RNA PCR, quantitative Blood (06/13/2024) [facility] SCRIBED HCV RNA <1.18 <15 IUnit/mL Comment:Not detected Blood 06/13/2024 Result [facility] LAB MICROBIOLOGY - GENERA L ORDERABLES Edited [...] - 30 mmol/L SCRIBED eGFR in NonAfrican Namibian 47 >=60 SCRIBED Urea Nitrogen (BUN) 23(A) 9 - 20 mg/dl Blood 06/13/2024 Result [facility] Provider MD LAB BLOOD ORDERABLES Edit ed Result - Final * (ABNORMAL) POCT urinalysis dipstick (06/05/2024 10:11 AM CDT) [facility] Glucose, ur, POC Negative Negative MG/DL Bilirubin, ur, POC 1+(A) Negative, Small, Moderate, Large Ketones, ur, POC Negative Negative Specific Carmen, POC Comment:>=1.030 Blood, ur, POC Negative Negative pH, ur, POC 5.5 5.0 - 8.0 Protein, ur, POC 1+(A) Negative Urobilinogen, urine, POC 0.2 0.2 - 1.0 mg/dL Nitrite, ur, POC Negative Negative Leukocytes, ur, POC Negative Negative Lot Number [id number] Urine 06/05/2024 10:1 1 AM CDT Result [facility] She Hoang EXHAUSTER POINT OF CARE TEST ORDERAB LES Final Result * Tacrolimus level trough (05/30/2024 9:23 AM CDT) Pathologist [facility] [place] SCRIBED Tacrolimus, trough 6.2 5 - 20 mcg/L Blood 05/30/2024 9:23 AM CDT Result [facility] Provider MD LAB BLOOD ORDERABLES Jeannette l Result * (ABNORMAL) CBC with auto differential (05/30/2024 9:23 AM CDT) Pathologist [facility] [place] SCRIBED WBC 5.9 4.5 - 10 k/cumm SCRIBED Hemoglobin 13(A) 14 - 18 g/dL SCRIBED Hematocrit 39.1(A) 42 - 52 % SCRIBED Platelets 158 150 - 375 k/cumm SCRIBED Lymphocytes Abs 0.54(A) 0.9 - 3.2 k/cumm Blood 05/30/2024 9:23 AM CDT Result [facility] LAB BLOOD ORDERABLES Edit ed Result - Final * Hepatitis C (HCV) RNA PCR, quantitative Blood (05/30/2024 9:23 AM CDT) [facility] SCRIBED HCV RNA NT DET NT DET IUnit/mL Blood 05/30/2024 9:23 AM CDT Result [facility] MD LAB MICROBIOLOGY - GENERA L ORDERABLES Final Result * (ABNORMAL) Renal function panel (05/30/2024 9:23 AM CDT) [facility] SCRIBED Calcium 10.3(A) 8.4 - 10.2 mg/dl [...] - 30 mmol/L SCRIBED eGFR in NonAfrican Namibian 46 >=60 mL/min SCRIBED Urea Nitrogen (BUN) 25(A) 9 - 20 mg/dl Blood 05/30/2024 9:23 AM CDT us Historical Provider LAB BLOOD ORDERABLES Jeannette l [...] spleen and adrenal glands are unremarkable. Atrophic [place] kidneys. Urinary bladder is minimally distended. Peritoneal [...] spleen and adrenal glands are unremarkable. Atrophic [place] kidneys. Urinary bladder is minimally distended. Peritoneal [...] AM CDT) PSA-Total 0.69 <=5.40 ng/mL FLORENTIN GRULLON Comment: Interpretive Data AGE SEX REFERENCE INTERVAL [...] MD LAB BLOOD ORDERABLES Final Resu lt [facility]IN [facility] [place] [address] * COLONOSCOPY (10/21/2018 10:12 AM CDT) Anatomical Region Laterality Modality Other Narrative Procedure Note Cash Melton MD - 10/21/2018 10:12 AM CDT ENDOSCOPY LAB Patient Name: Maximo Doty Procedure Date: 10/21/2018 10:12 AM Admit Type: Outpatient Room: [facility] 3 Date of : 1960 Instrument [...] the bowel preparation wasevaluated using the BBPS ([place] Bowel Preparation Scale) with scores of: Right [...] Impression: - Normal surgical changes - Patent zbb-vt-avqmiyy-colonic anastomosis, characterized by healthy appearingmucosa. - Diverticulosis [...] Recently Relevant to Health Maintenance Insurance MEDICARE [facility] Address: [address] [address] [place] [address] [facility] [id number] [employer] [id number] MEDICARE MEDICARE [employer] [id number] MEDICARE [facility] Address: [address] [address] [employer] [id number] Advance Directives For more information, please contact: [phone] * Full Code (Latest Code Status on [...] 5:34 PM 01/27/2022 6:03 PM Care Teams Soda Dialyzer Relationship Specialty Start Date End Date Vargas Traciwojciech De La Torre DO PCP - General 03/09/17 Zak Osborne MD Referring Physician Nephrology 03/04/18 Kieran Dumont MD Consulting Physician Nephrology 08/24/22 Bethel Aguayo MD [address] [facility] [address] [facility] [address] [place] [address] Surgeon Surgery 08/28/22 Jose Layotn MD [address] [place] [address] Referring Physician Gastroenterology 05/11/23 Lisbet Wilcox, RN [address] [facility] [address] [place] [address] Front Desk Clerk 07/29/23
--- OUTSIDE RECORDS SUMMARY | 2024-08-24 07:40 | XMS_ITS ---
Author Organization [facility] Address [address] [place] [address] Care Team Providers Care Allopathic Doctor Name Role Phone Traci Kaye DO Primary Care Provider + [phone] Zak Osborne MD Unavailable [phone] Kieran Dumont MD Unavailable [phone] Bethel Aguayo MD Unavailable [phone] Jose Layton MD Unavailable [phone] Lisbet Wilcox RN Unavailable [phone] Transplant Episode Kidney Candidate [facility] ([place], [place]) - [facility] Referred on 01/11/2017 Marked as Ineligible on 12/09/2017 Kidney CoordinatorHistorical ProviderMD Fax: N/A Email: N/A Scores Score Value Updated Exceptions/Reas ons CPRA Not available EPTS (Calc) 66 08/24/2024 Care Team Name Role Phone Fax Email Historical ProviderMD Kidney Coordinator [phone] N/ A N/A Events Pre-Transplant Referred: 01/11/2017 Dialysis History Dialysis History Start End Type Comments Center 11/16/2018 07/29/2023 Peritoneal [facility] Dialysis Center Information Center Phone Fax Address [facility] [phone] [place] [address]
--- OUTSIDE RECORDS SUMMARY | 2024-08-24 07:40 | XMS_ITS ---
Author Organization [facility] Address [address] [place] [address] Care Team Providers Care Cyber Instructor Name Role Phone AnmooreTraci logan Primary Care Provider +- [phone] Zak Osborne MD Unavailable [phone] Kieran Dumont MD Unavailable [phone] Bethel Aguayo MD Unavailable [phone] Jose Layton MD Unavailable [phone] Lisbet Wilcox RN Unavailable [phone] Transplant Episode Kidney Recipient [facility] ([place], [place]) [facility] Organ Received: Right Kidney Transplanted on 07/29/2023 Marked as Active Follow-up on 07/29/2023 Reason: Transplanted at [facility] Kidney CoordinatorLisbet Wilcox RN Fax: N/A Email: [...] Fax Email Lisbet Wilcox, KEYSHA Kidney Coordinator [phone] N/A N/A Bren Del Valle Secondary Embroidery Patternmaker N/A N/A N/A Heather Bey RN Secondary Coordinator N/A N/A N/A Zak Osborne MD Referring Physician [phone] N/A Lisbet Wilcox RN Dcs Engineer [phone] N/A N/A Sarah Davis Primary Embroidery Patternmaker N/A N/A N/A Nguyễn Marsh MD Transplant General Forecaster [phone] N/A Anne-Marie Newell Shoulder Pad Molder [phone] N/A N/A Events Post-Transplant Pre-Transplant Admitted: 07/29/2023 Referred: 03/04/2018 Transplanted: 07/29/2023 Evaluation began: 9 Discharged: 08/01/2023 Committee: 11/14/2018 Center waitlisted: 9 Dialysis History Dialysis History Start End Type Comments Center 11/16/2018 07/29/2023 Peritoneal [facility] Dialysis Center Information Center Phone Fax Address [facility] [phone] [place] [phone]
--- OUTSIDE RECORDS SUMMARY | 2024-08-24 07:40 | XMS_ITS | Clinical Summary ---
Author Organization [facility] Address [address] [place] [address] Phone Care Team Providers Care Sample Hand Name Role Phone PiruTraci ramos DO Primary Care Provider [phone] Allergies Active Allergy Reactions Criticality Noted Date [...] Vaccine (#1) 2024 , 11/03/2019, 10/10/2019 Insurance [employer] Care Teams Sample Hand Relationship Specialty Start Date End Date Traci Kaye DO [address] [place] [address] PCP - General 04/13/18
--- OUTSIDE RECORDS SUMMARY | 2024-08-24 07:41 | XMS_ITS | Clinical Summary ---
Author Organization [facility] Address [address] [place] [address] Phone Care Team Providers Care Taper Printed Circuit Layout Name Role Phone Unavailable Primary Care Provider Unavailabl e Allergies No known active allergies Medications triamcinolone acetonide (KENALOG) 0.1 % Cream Apply a thin layer to arms and legs twice daily 453.6 Gram 11 06/27/2021 1:02 PM CDT 2 Active mupirocin (BACTROBAN) 2 % Ointment Apply small amount topically to both arms 3 times daily. 30 Gram 01/21/2022 6:54 PM ENGAGEMENT MGR 2 Active aspirin (ECOTRIN EC) 81 mg [...] is needed. 90 Tablet 01/18/2023 2:57 PM ENGAGEMENT MGR 2 Active clopidogreL (PLAVIX) 75 mg Tablet [...] AREA(S) DAILY 45 Gram 12/14/2022 1:17 PM ENGAGEMENT MGR 3 Active aspirin (ECOTRIN EC) 81 mg Tablet, Delayed Release (E.C.) Take 1 tablet (81 mg total) by mouth daily 30 Tablet 11 06/13/2023 1:53 PM CDT 3 Active isosorbide mononitrate (IMDUR) 30 mg Extended Release 24 hour tablet Take 1 tablet (30 mg total) by mouth daily 90 Tablet 12/14/2022 1:17 PM ENGAGEMENT MGR 3 Active ketoconazole (NIZORAL) 2 % Cream Apply topically 2 (two) times a day on right thigh for 8 weeks. 30 Gram 2 01/08/2023 12:40 PM ENGAGEMENT MGR 3 Active pantoprazole (PROTONIX) 40 mg Tablet, [...] mouth daily, hold with limited intake per painter apprentice 90 Tablet 3 05/30/2023 10:34 AM CDT [...]
--- OUTSIDE RECORDS SUMMARY | 2024-08-24 07:41 | XMS_ITS | Clinical Summary ---
Author Organization [facility] Address [address] [place] [address] Care Team Providers Care Underwriter Mortgage Loan Name Role Phone Unavailable Primary Care Provider Unavailabl e Source Comments [facility],non-owned Affiliates and Associated Physician Practices is amultiple site organization consisting of ambulatory clinics and hospital sitesin [place], [place], [place] and [place]. This disclosure is being madepursuant to the Care Everywhere program and may not contain all information available regarding this patient. Last updated 17.[facility] Social History Tobacco Use Types Packs/Day Years [...] patient's age to complete this topic Insurance [email or web address]
--- OUTSIDE RECORDS SUMMARY | 2024-08-24 07:41 | XMS_ITS | Data Portability ---
Author Organization [facility] Address [address] [place] [address] Care Team Providers Care Pharmacy Informaticist Name Role Phone RYNE CÁRDENAS Primary Care Provider [phone] Assessment No assessment recorded. Plan of Treatment Reminders Order Date Submit Date Provider Last Modified By Organization Details Last Modified Time Details Appointments ANY 15 2024 10:15A M Aung Cheng MD Not available Not available Not available Lab lipid panel, serum [address] (Lab), [address] [place] [address], [address], 05/18/2024 11:20:26 HbA1c (hemoglob in A1c), blood [address] (Lab), [address] [place] [address], [address], 05/18/2024 11:20:26 lipid panel, serum 2024 025 [facility] (Lab), [address] [place] [address], [id number], 02/22/2024 17:00:37 Referral None recorded. Procedures None recorded. Surgeries None recorded. Imaging electroca rdiogram 2024 [address] [place] [id number] In-Office Order, Internal Use Only DO Not Attach Compendium DO Not Attach Compendium, Do Not Delete/merge, [id number] 02/16/2024 12:57:47 Medication Orders None recorded. Patient TargetsNo targets recorded. Patient Instructions Encounter Date Encounter Id Patient Instructions Last Modified By Organization Details Last Modified Time 02/16/2024 [id number] Quitting Tobacco : Care Instructions [email or web address] Not available 02/16/2024 12:57:47 05/18/2024 [id number] A healthy lifestyle: care instructions [email or web address] Not available 05/18/2024 11:20:26 Quitting Tobacco : Care Instructions Not available 05/18/2024 14:56:30 Reason for Referral None Reported. Results Created Date Observation Date Name Description Value Unit Range Abnormal Flag Note LastModifiedBy Organization Detail LastModifiedTime 02/15/1902/16/2024 jeanette lizarragagr am No observ ation record ed. CRISTHIAN In-Office Order Internal Use Only DO Not Attach Compendium DO Not Attach Compendium, Do Not Delete/merge, [id number] 02/16/2024 12:16:20 02/15/19 elect maria t diogr am No observ ation record ed. [email or web address] Not Available 2024 13:45:50 Result Notes None recorded. Problems Name Problem SNOMED Code Status Onset Date Resolution Date Notes Provider Name and Address Organization Details Recorded Time History of renal transplant 011930427 Active 2024 Aung Cheng MD Attn: Sacha collazo,[address] [place], [address], [facility] 5 11:53:02 Coronary arterioscleros is 49710489 Active 2024 Aung Cheng MD Attn: Sacha collazo,[address] [place], [address], [facility] 5 11:53:03 Mixed hyperlipidemia 100223544 Active 2024 Aung Cheng MD Attn: Sacha collazo,[address] [facility], [place], [address], [facility] 5 11:53:04 Nicotine dependence 92356466 Active 2024 Aung Cheng MD Attn: Sacha collazo,[address] [facility], [place], [address], [facility] 5 11:53:05 Essential hypertension 87399521 Active 2024 Aung Cheng MD Attn: Sacha collazo,[address] [facility], [place], [address], [facility] 11:53:07 Problem Notes None recorded. Procedures Surgical History Date Name Laterality Status Provider Name and Address Organization Details Recorded Time 3 Coronary Artery Stent completed Janeth Lamar LPN [place] - [facility] 02/16/2024 11:49:33 Imaging Results None recorded. Procedure Notes None recorded. Medical Equipment None Reported. Allergies Allergen ID Allergen Name Allergen Category Reaction Reaction Severity Criticality Documentation Date Start Date Code Code System Note Provider Name and Address Organization Details Recorded Time 18090319 erythromy tony medicatio n rash Not available low 02/16/2024 4053 RxNorm Janeth Lamar LPN null, [place] - [facility] 11:41:48 Medications Name Sig Start Date Stop [...] Address Organization Details Last Updated DateTime 5 [address]23.8 2 g 25 kg/m2 167.64 cm 18 /min 70 /min 96 % 96 % 128/68 mm[Hg] Janeth Lamar LPN [place] - [facility] 11:51:12 Date Recorded Body height Body mass index (BMI) Body weight Respiratory rate Heart rate Oxygen saturation Oxygen saturation in Arterial blood by Pulse oximetry Systolic And Diastolic Provider Name and Address Organization Details Last Updated DateTime 167.64 cm 26.6 kg/m2 78138.7 4 g 18 /min 76 /min 97 % 97 % 138/80 mm[Hg] Janeth Lamar LPN [place] [facility] 10:53:03 Social History Question Answer Notes LastModified by [employer] Details LastModified Time Tobacco Smoking Status Current Every Day Smoker Janeth Lamar LPN [facility], [place] - [facility] 02/16/2024 11:48:51 What Is Your Level Of [...] Functional Status Question Answer Note LastModified by [employer] Details LastModified Time Do you use any [...] SNOMED-CT Code Diagnosis ICD10 Code Diagnosis Note [id number] Aung Cheng MD [facility] [place] [facility] [address] [place] [address] 02/16/2024 11:23:10 02/17/2024 10:00:36 Essential hypertension 29186844 I10 Low-sodium diet, ambulatory blood pressure monitoring reinforced . Continue amlodipine 10 mg daily and carvedilol 25 mg b.i.d.. Nicotine dependence 5629 4008 F17.200 Lengthy discussion regarding importance of complete nicotine cessation. Currently contemplat scott and declines pharmaceut ical interventi on. Reviewed increased cardiovasc ular and cerebrovas cular risk amongst other health hazards. Coronary arteriosclerosis 65282705 I25.10 Status post PCI to left circumflex 2021. Moderate disease in the LAD and RCA which is managed medically. Nuclear stress test April 2023 with no reversible perfusion defects. Maintained on single antiplatel et therapy with aspirin 81 mg daily. Previously on clopidogre l which was discontinu ed after a GI bleed. Mixed hyperlipidemia 267 921978 E78.2 Continue atorvastat in 80 mg daily. Check follow-up lipid panel. Encouraged low-choles terol diet with regular aerobic exercise History of renal transplant 180616794 Z94.0 Followed by transplant team at [facility]. Reviewed atherogeni c potential of immunosupp ressants including tacrolimus . Will need aggressive lipid management and discussed how important nicotine cessation would be in his particular case. [id number] Aung Cheng MD [facility] II [address] [place] [address] 05/18/2024 10:45:42 05/19/2024 14:22:02 Atherosclerosis of coronary artery without angina pectoris 7716294722 49843 I25.10 History of PCI to left circumflex with moderate disease in the LAD, IFR 0.94 in 2021. No angina. Continue single antiplatel et therapy with aspirin 81 mg daily. Regular aerobic exercise encouraged . Prn nitroglyce rin usage reviewed. Essential hypertension 38488324 I10 Low-sodium diet, ambulatory blood pressure monitoring . Continue amlodipine 10 mg daily and isosorbide mononitrat e 60 mg daily. Overweight 891696963 E66 .3 Mixed hyperlipidemia 267 404981 E78.2 LDL 62, HDL 34 in February 2024. A1c 5.4 in July 2023. Continue current dose of atorvastat in. Ongoing nicotine cessation and diet/exerc ise encouraged to achieve LDL less than 55 and improve HDL. We will consider addition of ezetimibe in case lipid panel not at goal at next visit. Smoker 57253503 F17.200 Cessation for cardiovasc ular risk reduction reinforced . Declines need for pharmacoth erapy. Health Concerns Section Related Observation LastModified by Organization Detai ls LastModified Time None Recorded Concern Status LastModified by Organization Details LastModified Time None Recorded Advance Directives Directive None Recorded Payers Insurance Date Sequence Insurance Name Policy Number Policy Almeida Covered Member ID Almeida Member ID Guarantor Name 05/19/2024 2 [employer] - OPEN ACCESS [id number] Ted Galovicky [id number] SOI Maximo Doty 05/15/[address] [facility] Maximo Doty [id number] 1 Maximo Doty 05/15/2024 [place] Maximo Doty [id number] 1 Maximo Doty 05/15/2024 1 MEDICARE [place]: [facility] Maximo Mansi Soren [id number] 1 Maximo Soren Notes Date Note Type [...] nicotine dependence Hospitalized in February 2022 at [facility] with GI bleed. Underwent kidney transplantation 07/29/2023.Interval history:patient denies any chest pain or pressure. He has gained some weight after his kidney transplant by drinking protein shakes and being on immunosuppressants. He denies any bleeding diathesis. He continues to smoke and declines pharmaceutical intervention. He denies any subjective dyspnea. He remains active. He denies any palpitations, presyncope or syncope.CARDIAC DIAGNOSTICS:Stress echocardiogram, August 2021, [facility]: LVEF 65%, grade 1 diastolic dysfunction, mild [...] repolarization Aung Cheng MD Attn: Accounting,[address] [place], [address], [facility] 02/16/2024 12:57:50 05/18/2024 text/html Maximo Doty is a 63 y.o. male who presents for ongoing evaluation and management of Coronary Artery Disease. Coronary Artery Disease with PCI to circumflex in January 2022, ESRD previously on peritoneal dialysis and s/p renal transplant, hypertension, mixed hyperlipidemia, nicotine dependence Hospitalized in February 2022 at [facility] with GI bleed. Underwent kidney transplantation 07/29/2023.Interval history:Denies any chest pain or pressure. Reports improvement in energy and activity levels and appetite with the appropriate weight gain. Denies palpitations, presyncope or syncope. No bleeding diathesis. Reports optimal blood pressure. No myalgias or other side effects on current dose of statin.CARDIAC DIAGNOSTICS:Stress echocardiogram, August 2021, [facility]: LVEF 65%, grade 1 diastolic dysfunction, mild [...] repolarization Aung Cheng MD Attn: Accounting,[address] [place], [address], [facility] 05/18/2024 14:57:04
--- OUTSIDE RECORDS SUMMARY | 2024-08-24 07:41 | XMS_ITS | Clinical Summary ---
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 Gender Identity Not on file Sexual Orientation Not on file Last Filed Vital Signs Vital Sign Reading Time Taken Comments Blood Pressure 115/67 03/08/2023 8:30 AM PIPE INSTALLER Pulse 80 03/08/2023 8:30 AM PIPE INSTALLER Temperature 36.8 C (98.2 F) 03/08/2023 7:56 AM PIPE INSTALLER Respiratory Rate 18 03/08/2023 8:30 AM PIPE INSTALLER Oxygen Saturation 96% 03/08/2023 8:30 AM PIPE INSTALLER Inhaled Oxygen Concentration - - Weight 56.2 kg (124 lb) 03/05/2023 11:05 AM PIPE INSTALLER Height 167.6 cm (5' 6) 03/05/2023 11:05 AM PIPE INSTALLER Body Mass Index 20.01 03/05/2023 11:05 AM PIPE INSTALLER Plan of Treatment Health Maintenance Due Date [...] patient's age to complete this topic Insurance [employer] OPEN ACCESS [facility] MEDICARE Care Teams Painter Spring Relationship Specialty Start Date End Date Traci Kaye DO [address] [place] [address] PCP - General INTERNAL MEDICINE 02/15/19
[2024-08-24 09:05] LABS: MALB Creatinine Ratio 28.7 mg/g (0-30)
[2024-08-25 18:08] LABS: Calcium, Ionized 5.6 mg/dL (4.5-5.6)
== END 2024-08-24 07:38 | disposition home or self-care (01) ==
PROVIDERS: PCP Internal Medicine; Visit Provider Internal Medicine Nephrology
DX: N18.31 Chronic kidney disease, stage 3a (principal)
CPT/HCPCS: 82043; 82330; 83970

== ENCOUNTER 2024-09-15 09:15 | Outpatient (CLI) | payer MEDICARE, OTHER, SELFPAY ==
[2024-09-15 13:10] LABS: Hepatitis B Surface Antigen Negative (Negative)
[2024-09-15 13:28] LABS: Hepatitis B Surface Anti Res Negative
[2024-09-16 06:07] LABS: Hep B Core Ab, Total Negative (Negative)
== END 2024-09-15 09:16 | disposition home or self-care (01) ==
LOC: ANHLAB 09:23
PROVIDERS: PCP Internal Medicine; Visit Provider Internal Medicine
DX: Z94.0 Kidney transplant status (principal)
CPT/HCPCS: 36415; 86704; 86706; 87340; 87522

== ENCOUNTER 2024-10-26 08:49 | Outpatient (RCR) | payer MEDICARE, OTHER, SELFPAY ==
[2024-08-24 08:18] LABS: Hematocrit 40.9 % (42.0-52.0); Hemoglobin 12.9 g/dL (14.0-18.0); Immature Granulocyte Percent A 0.4 % (0-0.5); Lymphocytes Absolute Auto 0.50 K/mm3 (0.9-3.2); Mean Corpuscular HGB Conc 31.5 g/dl (32-36); Mean Corpuscular Hemoglobin 29.7 pg (26-34); Mean Corpuscular Volume 94.0 fl (80-100); Nucleated Red Blood Cells Absolute Auto 0.000 K/mm3 (0.0-0.012); Nucleated Red Blood Cells Perc 0.0 % (0.0-0.2); Platelet Count Result 166 k/mm3 (150-375); Red Blood Count 4.35 M/mm3 (4.6-6.20); White Blood Count 5.0 K/mm3 (4.5-10.0)
[2024-08-24 08:37] LABS: Albumin Level 4.1 g/dL (3.5-5.1); Anion Gap 6 mmol/L (4-12); Blood Urea Nitrogen 19 mg/dL (9-20); Calcium 10.3 mg/dL (8.4-10.2); Carbon Dioxide 26 mmol/L (22-30); Chloride 110 mmol/L (98-107); Estimated Glomerular Filt Rate 57; Glucose 93 mg/dL (65-110); Potassium 3.9 mmol/L (3.4-5.0); Sodium 142 mmol/L (137-145)
[2024-08-28 13:08] LABS: Tacrolimus (FK506), Blood 4.5 ng/mL (5.0-20.0)
[2024-09-26 08:28] LABS: Hematocrit 40.0 % (42.0-52.0); Hemoglobin 13.0 g/dL (14.0-18.0); Immature Granulocyte Percent A 0.4 % (0-0.5); Lymphocytes Absolute Auto 0.44 K/mm3 (0.9-3.2); Mean Corpuscular HGB Conc 32.5 g/dl (32-36); Mean Corpuscular Hemoglobin 30.2 pg (26-34); Mean Corpuscular Volume 93.0 fl (80-100); Nucleated Red Blood Cells Absolute Auto 0.000 K/mm3 (0.0-0.012); Nucleated Red Blood Cells Perc 0.0 % (0.0-0.2); Platelet Count Result 151 k/mm3 (150-375); Red Blood Count 4.30 M/mm3 (4.6-6.20); White Blood Count 5.2 K/mm3 (4.5-10.0)
[2024-09-26 08:56] LABS: Albumin Level 4.1 g/dL (3.5-5.1); Anion Gap 5 mmol/L (4-12); Blood Urea Nitrogen 23 mg/dL (9-20); Calcium 10.1 mg/dL (8.4-10.2); Carbon Dioxide 27 mmol/L (22-30); Chloride 110 mmol/L (98-107); Estimated Glomerular Filt Rate 56; Glucose 98 mg/dL (65-110); Potassium 4.2 mmol/L (3.4-5.0); Sodium 142 mmol/L (137-145)
[2024-09-29 07:09] LABS: Tacrolimus (FK506), Blood 5.7 ng/mL (5.0-20.0)
[2024-09-29 18:08] LABS: HCV RT-PCR, Qnt (NG) YES YES
[2024-10-26 09:40] LABS: Hematocrit 40.9 % (42.0-52.0); Hemoglobin 13.3 g/dL (14.0-18.0); Immature Granulocyte Percent A 0.4 % (0-0.5); Lymphocytes Absolute Auto 0.49 K/mm3 (0.9-3.2); Mean Corpuscular HGB Conc 32.5 g/dl (32-36); Mean Corpuscular Hemoglobin 30.0 pg (26-34); Mean Corpuscular Volume 92.1 fl (80-100); Nucleated Red Blood Cells Absolute Auto 0.000 K/mm3 (0.0-0.012); Nucleated Red Blood Cells Perc 0.0 % (0.0-0.2); Platelet Count Result 173 k/mm3 (150-375); Red Blood Count 4.44 M/mm3 (4.6-6.20); White Blood Count 5.4 K/mm3 (4.5-10.0)
[2024-10-26 10:05] LABS: Albumin Level 4.1 g/dL (3.5-5.1); Anion Gap 8 mmol/L (4-12); Blood Urea Nitrogen 27 mg/dL (9-20); Calcium 9.9 mg/dL (8.4-10.2); Carbon Dioxide 25 mmol/L (22-30); Chloride 110 mmol/L (98-107); Estimated Glomerular Filt Rate 56; Glucose 97 mg/dL (65-110); Potassium 3.8 mmol/L (3.4-5.0); Sodium 143 mmol/L (137-145)
[2024-10-30 04:07] LABS: Tacrolimus (FK506), Blood 5.9 ng/mL (5.0-20.0)
== END 2024-11-22 23:59 | disposition home or self-care (01) ==
LOC: ANHLAB 08:49
PROVIDERS: PCP Internal Medicine; Visit Provider Internal Medicine
DX: Z20.5 Contact with and (suspected) exposure to viral hepatitis (principal); Z94.0 Kidney transplant status; Z79.899 Other long term (current) drug therapy
CPT/HCPCS: 36415; 80069; 80197; 82043; 82330; 83970; 85025; 86803; 87522

== ENCOUNTER 2024-11-01 08:09 | Outpatient (CLI) | payer MEDICARE, OTHER, SELFPAY ==
--- OUTSIDE RECORDS SUMMARY | 2024-11-01 08:21 | XMS_ITS | Encounter Summary ---
Author Organization [facility] Address [address] [place] [address] Care Team Providers Care Talkback Host Name Role Phone Traci Kaye DO Primary Care Provider [phone] Zak Osborne MD Unavailable [phone] Julieta Barnes RN Unavailable [phone] Kieran Dumont MD Unavailable [phone] Bethel Aguayo MD Unavailable [phone] Jose Layton MD Unavailable [phone] Lisbet Wilcox RN Unavailable [phone] Encounter Details Date Type Department Care Team (Late st Contact Info) Description 08/12/2022 Telephone [facility] [address] [facility] [address] [place] [address] Alexis Aguayo MD [address] [facility] [address] [place] [address] Social History Tobacco Use Types Packs/Day Years Used Date Smoking Tobacco: Every Day Cigarettes 0.3 54.7 Started: 1972 Smokeless Tobacco: Never Alcohol Use [...] on file 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 Gender Identity Not on file Sexual Orientation Not on file Occupation Industry Job Start Date Job End Date RETIRED Not on file Not on file Not on file documented as of this encounter Plan of Treatment Not on file documented as of this encounter Visit Diagnoses Not on filedocumented in this encounter Care Teams Talkback Host Relationship Specialty Start Date End Date Traci Kaye DO PCP - General 03/09/17 Zak Osborne MD Referring Physician Nephrology 03/04/18 Julieta Barnes, RN [address] [place] [address] Spiral Tube Winder Helper 08/31/18 Kieran Lemus MD [address] [place] [address] Consulting Physician Nephrology 08/24/22 Bethel Aguayo MD [address] [facility] [address] [facility] [address] [place] [address] Surgeon Surgery 08/28/22 Jose Layton MD [address] [place] [address] Referring Physician Gastroenterology 05/11/23 Lisbet Wilcox, KEYSHA [address] [employer] [address] [place] [address] Spiral Tube Winder Helper 07/29/23 documented as of this encounter
--- OUTSIDE RECORDS SUMMARY | 2024-11-01 08:21 | XMS_ITS | Encounter Summary ---
Author Organization [facility] Address [address] [place] [address] Care Team Providers Care Crusher Tender Name Role Phone Traci Kaye Primary Care Provider [phone]- [phone] Zak Osborne MD Unavailable [phone] Kieran Dumont MD Unavailable [phone] Bethel Aguayo MD Unavailable [phone] Jose Layton MD Unavailable [phone] Lisbet Wilcox RN Unavailable [phone] Encounter Details Date Type Department Care Team (Late st Contact Info) Description 08/30/2024 Results Follow-Up [facility] Transplant Kidney [address] [facility] [phone] [place] [address] Lisbet Wilcox, RN [address] [facility] [address] [place] [address] Tacrolimus level trough, Hepatitis C antibody Blood Social History Tobacco Use Types Packs/Day Years Used Date Smoking Tobacco: Every Day Cigarettes 0.3 54.7 Started: 1972 Smokeless Tobacco: Never Alcohol Use Standard Drinks/Week Comments Not Currently 0 (1 standard drink = 0.6 oz pur e alcohol) [facility] Utilities Answer Date Recorded In the past 12 months has [employer], gas, oil, or water company threatened to [...] place to sleep or slept in a penitentiary (including now)? No 10/07/2022 Housing Stability Vital Sign Answer Ronny e Recorded In the last 12 months, was t here a time when you were not able to pay the mortgage or rent on time? No 07/29/2023 In the past 12 months, how m any times have you moved where you were living? 0 07/29/2023 At any time in the past 12 m [facility], were you homeless or living in a penitentiary (including now)? No 07/29/2023 Personal Safety Answer Date Recorded Have you ever been in or are you currently in a harmful physical or emotional relationship or is someone making you feel afraid or unsafe? Denies 09/27/2023 Sex and Gender Information Value Date Recorded Sex Assigned at Not on file Legal Sex Male 8:01 PM DEVOPS Gender Identity Not on file Sexual Orientation Not on file Occupation Industry Job Start Date Job End Date RETIRED Not on file Not on file Not on file documented as of this encounter Miscellaneous Notes * Result Encounter Note - Lisbet Wilcox RN - 08/30/2024 3:17 PM CDT Please have the lab run a Hep C PCR and not the antibody. Thank you. documented in this encounter Plan of Treatment Not on file documented as of this encounter Visit Diagnoses Not on filedocumented in this encounter Care Teams Crusher Tender Relationship Specialty Start Date End Date Traci Kaye DO PCP - General 03/09/17 Zak Osborne MD Referring Physician Nephrology 03/04/18 Kieran Dumont MD Consulting Physician Nephrology 08/24/22 Bethel Aguayo MD [address] [facility] [address] [address] [place] [address] Surgeon Surgery 08/28/22 Jose Layton MD [address] [place] [address] Referring Physician Gastroenterology 05/11/23 Lisbet Wilcox, RN [address] [address] Crate Builder 07/29/23 documented as of this encounter
--- OUTSIDE RECORDS SUMMARY | 2024-11-01 08:22 | XMS_ITS | Clinical Summary ---
Author Organization [facility] Address [address] [place] [address] Phone Care Team Providers Care Global Sales Director Name Role Phone [place]Traci ramos DO Primary Care Provider Allergies Active [...] PCV21) 07/07/2019 07/06/2018 COVID-19 Vaccine (3 - 2024- season) 2024, 04/04/2020 Influenza Vaccine (#1) 2024 , 11/03/2019, 10/10/2019 Insurance [employer] Care Teams Global Sales Director Relationship Specialty Start Date End Date Traci Kaye DO [address] [place] [address] PCP - General 04/13/18
--- OUTSIDE RECORDS SUMMARY | 2024-11-01 08:22 | XMS_ITS ---
Author Organization [facility] Address [address] [place] [id number] Care Team Providers Care Semi Driver Name Role Phone Traci Kaye DO Primary Care Provider + [phone] Zak Osborne MD Unavailable [phone] Kieran Dumont MD Unavailable [phone] Bethel Aguayo MD Unavailable [phone] Jose Layton MD Unavailable [phone] Lisbet Wilcox RN Unavailable [phone] Transplant Episode Kidney Candidate [facility] ([place], [place]) - [facility] Referred on 01/11/2017 Marked as Ineligible on 12/09/2017 Kidney CoordinatorHistorical ProviderMD Fax: N/A Email: N/A Scores Score Value Updated Exceptions/Reas ons CPRA Not available EPTS (Calc) 67 11/01/2024 Care Team Name Role Phone Fax Email Historical ProviderMD Kidney Coordinator [phone] N/ A N/A Events Pre-Transplant Referred: 01/11/2017 Dialysis History Dialysis History Start End Type Comments Center 11/16/2018 07/29/2023 Peritoneal [facility] [place] [facility] Dialysis Center Information Center Phone Fax Address [facility] [phone] [place] [phone]
--- OUTSIDE RECORDS SUMMARY | 2024-11-01 08:22 | XMS_ITS | Clinical Summary ---
Author Organization [facility] Address [address] [place] [address] Care Team Providers Care Accounts Clerk Name Role Phone Traci Kaye Primary Care Provider [phone] Zak Osborne MD Unavailable [phone] Kieran Dumont MD Unavailable [phone] Bethel Aguayo MD Unavailable [phone] Jose Layton MD Unavailable [phone] Lisbet Wilcox RN Unavailable Allergies Active Allergy Reactions Criticality Noted Date Comments Lorazepam Delusions Medium 10/04/2019 Erythromycin Rash Medium 04/01/2015 Medications nitroglycerin (NITROSTAT) 0.[address] 1 tablet (0.4 mg total) under the tongue every 5 (five) minutes as needed for chest pain 5 Active amLODIPine (NORVASC) 10 mg tablet Take 1 tablet (10 mg total) by mouth daily 30 tablet 11 5 06/06/19 26 Active predniSONE (DELTASONE) 5 mg tablet TAKE ONE TABLET BY MOUTH EVERY DAY 30 tablet 11 5 Active ondansetron ODT (ZOFRAN-ODT) 4 mg disintegrating tablet Take 1 tablet (4 mg total) by mouth every 8 (eight) hours as needed for nausea or vomiting 30 tablet 3 5 07/07/[address] (PROTONIX) 40 mg EC tablet TAKE ONE TABLET BY MOUTH EVERY DAY 30 tablet 5 Active aspirin 81 mg enteric coated tablet TAKE ONE TABLET BY MOUTH EVERY DAY 30 tablet 5 Active atorvastatin (LIPITOR) 80 mg tablet TAKE ONE TABLET BY MOUTH EVERY DAY 90 tablet 5 Active carvediloL (COREG) 25 mg tablet TAKE ONE TABLET BY MOUTH TWICE A DAY 60 tablet 5 Active isosorbide mononitrate ER (IMDUR) 30 mg 24 hr tablet Take 2 tablets (60 mg total) by mouth nightly 60 tablet 5 Active tacrolimus XR (ENVARSUS XR) 1 mg tablet extended release 24 hrIndications:Prev ention of Kidney Transplant Rejection Take 1 tablet (1 mg total) by mouth daily 30 tablet 08/10/19 26 Active betamethasone valerate (VALISONE) 0.1 % cream Apply topically as needed Active mycophenolate sodium DR (MYFORTIC) 360 mg EC tabletIndications: Kidney replaced by transplant Take 1 tablet (360 mg total) by mouth daily 5 Active Active Problems Patient Care Coordination No te Formatting of this note migh t be different from the original. Discharge Planning Pharmacy: [facility] in [place] Specialty: [facility] Specialty HH: Alaina Rhoades Fax: Verbal consent - Mukesh Leiva [facility] LAB: P: [phone] F: [phone] Q-MONTHLY, FK, HCV RNA; Q-3 ROUTINE (Exp 07/26/25) Problem Noted Date Diagnosed Date ESRD on dialysis 09/01/2023 ESRD (end stage renal disease) on dialysis 07/14 Kidney transplant candidate 07/14/2023 Right carotid bruit 07/09/2023 Biliary colic 05/13/2023 Gallstone pancreatitis 05/07/2023 Common bile duct stone 04/08/2023 Hypotension 03/19/2023 Diverticular disease 06/16/2022 06/16/2022 Iron deficiency anemia 06/16/2022 3 Preop cardiovascular exam 06/16/2022 Infrarenal abdominal aortic aneurysm (AAA) witho ut rupture 06/16/2022 Mixed hyperlipidemia 05/07/2022 Assessment & Plan (09/16/2022 11:22 AM CDT): Continue Lipitor Assessment & Plan (05/07/2022 1:07 PM CDT): Impression: Chronic stable hyperlipidemia. Plan: Continue Lipitor 40 mg. Gastrointestinal hemorrhage 02/24/2022 05/0 10/2022 Coronary artery disease of n ative artery of [place] heart with stable angina pectoris 01/27/2022 Primary [...] scan. 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 Blood [...] (05/26/2018): Added automatically from request for surgery [id number] Trigger thumb of left hand 11/25/2017 Overview (11/25/2017): Added automatically from request for surgery [id number] Disorder of tendon of shoulder region 03/02/2017 [...] (11/03/2021): Added automatically from request for surgery [id number] Ventral hernia 08/28/2019 11/04/2019 Overview (08/28/2019): Added automatically from request for surgery [id number] Ventral incisional hernia 08/14/2019 Encounters Date Type Department Care Team Description 10/27/2024 Telephone [facility] Transplant Kidney [address] [facility] [address] [employer] [phone] [place] [address] Livier Sawyer 10/10/2024 7:55 AM CDT Lab [address] [address] Kidney replaced by transplant; Encounter for long-term (current) use of medications; Exposure to hepatitis C 10/10/2024 Orders Only [facility] Transplant Kidney [address] [facility] [address] [employer] [phone] [place] [address] Lisbet Razo RN Kidney replaced by transplant (Primary Dx) 10/10/2024 Orders Only [facility] Transplant Kidney [address] [facility] [address] 06-17-897 [place] [address] Nguyễn Marsh MD 09/29/2024 Telephone [facility] [address] [facility] [address] [phone] [place] [address] Lisbet Razo RN 09/28/2024 Telephone [facility]ney [address] [facility] [address] [phone] [place] [address] Lisbet Razo RN 09/08/2024 Telephone [facility] Dermatology [address] [place] [address] [address] [place] [phone] Britt Aguilera MD Scheduling Appointments 09/07/2024 1:00 PM CDT Office Visit [facility] Dermatology [address] [place] [address] [address] [place] [phone] Britt Aguilera MD Milial cyst (Primary Dx); Seborrheic keratosis; Chris angioma; Papilloma; Callus 09/06/2024 Telephone [facility]ney [address] [facility] [address] [phone] [place] [address] Rosa M Atkinson 09/04/2024 10:45 AM CDT Office Visit [facility] Nephrology [address] [place] [address] 5th [place] [address] [place] [address] Jessica Carty MD Kidney replaced by transplant (Primary Dx); Encounter for aftercare following kidney transplant; 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 09/04/2024 Telephone [facility] [address] [facility] [address] [phone] [place] [address] Livier Sawyer 08/30/2024 Results Follow-Up [facility]ney [address] [facility] [address] [phone] [place] [address] Lisbet Razo RN Tacrolimus level trough, Hepatitis C antibody Blood 08/29/2024 Orders Only [facility] Nephrology at [address] [place] [phone] Katharina Church MD 08/25/2024 Orders Only [facility] Nephrology at [address] [place] [phone] Katharnia Church MD 08/24/2024 Orders Only [facility] Nephrology at [address] [place] [phone] Katharina Church MD 08/22/2024 Telephone [facility] Transplant Kidney [address] [facility] [address] [phone] [place] [address] Lisbet Razo RN 08/21/2024 1:45 PM CDT Office Visit [facility] Nephrology at [address] [place] [phone] Kieran Dumont MD Stage 3a chronic kidney disease (HCC) (Primary Dx); Encounter for aftercare following kidney transplant; Immunosuppression; Benign hypertensive kidney disease with chronic kidney disease stage I through stage IV, or unspecified(403.10) 08/18/2024 Telephone [facility] Transplant Kidney [address] [facility] [address] [phone] [place] [address] Lisbet Razo RN 08/09/2024 Telephone [facility] Transplant Kidney [address] [facility] [address] [phone] [place] [address] Lisbet Razo RN 08/09/2024 Orders Only [facility] Transplant Kidney [address] [facility] [address] [phone] [place] [address] Lisbet Razo RN Kidney replaced by transplant (Primary Dx) 08/03/2024 Telephone [facility] Gastroenterology at [address] [place] [address] [place] [address] Kieran Dumont MD from Last 3 Months Immunizations Immunization Administration [...] STENT PLACEMENT 01/27/2022 AV FISTULA REPAIR 09/16/2020 GAVINO AVF - angioplasty - Dr. Schuster COLONOSCOPY 02/08/2018 - 02/07/2019 OTHER SURGICAL HISTORY Left bone shaved above left eye 1963 AV FISTULA REPAIR 08/28/2022 Left LUE AVF - DCB cephalic vein - Dr. Bethel Aguayo OTHER SURGICAL HISTORY 02/08/2019 - 02/08/2020 procedure for PD cath KIDNEY TRANSPLANT 08/06/2023 Right Medical History Medical History Date Comments Hypertension well controlled with meds Depression PTSD, treated wi th cannabis Arthritis fingers Cataract early stages, bi lat. Diverticulosis COPD (chronic obstructive pu lmonary disease) early stages, found on recen t scan [...] 0.3 54.7 Started: 1972 Smokeless Tobacco: Never Tobacco Cessation:Ready to Q uit: Not Asked; Counseling Given: Not Answered Alcohol Use Standard Drinks/Week Comments Not Currently 0 (1 standard drink = 0.6 oz pur e alcohol) [employer] [facility] Utilities Answer Date Recorded In the past 12 months has e [employer], gas, oil, or water Marco Vasco threatened to shut off services in your [...] place to sleep or slept in a care home (including now)? No 10/07/2022 Housing Stability Vital [...] were you homeless or living in a care home (including now)? No 07/29/2023 Personal Safety Answer Date Recorded Have you ever been in or are you currently in a harmful physical or emotional relationship or is someone making you feel afraid or unsafe? 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 Gender Identity Not on file Sexual Orientation Not on file Occupation Industry Job Start Date Job End Date RETIRED Not on file Not on file Not on file Obstetrics History Last Filed Vital Signs Vital Sign Reading Time Taken Comments Blood Pressure 155/74 09/04/2024 9:59 AM CDT Pulse 74 09/04/2024 9:59 AM CDT Temperature 36.9 C (98.4 F) 09/04/2024 9:59 AM CDT Respiratory Rate 18 09/27/2023 11:50 AM CDT Oxygen Saturation 98% 09/27/2023 11:50 AM CDT Inhaled Oxygen Concentration - - Weight 73.7 kg (162 lb 6.4 oz) 09/04/2024 9:59 A M CDT Height 167.6 cm (5' 6) 09/04/2024 9:59 AM CDT Body Mass Index 26.21 09/04/2024 9:59 AM CDT Plan of Treatment Health Maintenance Due Date Last Done Comments DTaP/Tdap/Td Vaccine (1 - Tdap) 1969 Zoster Vaccine (1 of 2) 1977 Depression Screening 09/29/2023 09/28/2022 Abdominal Aortic Aneurysm (A AA) Screen 10/13/2023 07/14/2023, 09/28/2022, 06/16/2022, Additional history exists Well Visit 65+ 10/13/2023 Pneumococcal vaccine 65+ (3 of 3 - PCV20 or PCV21) 07/09/2024 07/10/2019, 07/06/2018 Fall Risk Assessment 09/26/2024 09/27/2023 Prostate Cancer Screening-PSA 09/28/2024, 08/29/2021, 08/19/2020, Additional history exists Covid-19 Vaccine (4 - 2024-2 6 season) 2024 10/18/2021, 04/25/2020, 04/04/2020 Influenza Vaccine (#1) 2024 , 10/19/2022, 10/25/2020, Additional history exists Colon Cancer Screening-Colonoscopy 10/21/2028 10/21/2018 Colon Cancer Screening-CT Colonography Discontinued 10/21/2018 Colon Cancer Screening-DNA Stool Discontinued 10/22/19 Colon Cancer Screening-FIT Discontinued 10/21/2018 Colon Cancer Screening-Sigmoidoscopy Discontinued 10/21/2018 Hepatitis B Screening Completed 10/10/2024 , 04/08/2021, 03/14/2019, Additional history exists Hepatitis C Screening Completed 10/26/2024 , 10/10/2024, 09/26/2024, Additional history exists Medical Devices Implanted Type Area Wind Turbine Erector Device Identifier Shelf Expiration Date Model / Serial / Lot Dental Right: Mouth Pd Catheter Abdomen Stent Heart [employer]/C R Bard [id number] Ventralight St Sepra Echo Ps 6in Monofilament Lightweight Latex Free - [id number] Implanted:Qty: 1 on 10/04/2019 by Eun Abernathy MD at [facility] N/A: Abdomen [employer]/C R Bard [id number] 12/05/2020 [id number] / / [id number] [employer]/C R Bard Mesh Surg 3dmax Right Mid Large Inguinal Hernia [id number] - [id number] Implanted:Qty: 1 on 12/25/2021 by Eun Abernathy MD at [facility] Right: Inguinal [employer]/C R Bard [id number] 10/05/2026 [id number] / / [id number] [employer] Inc Stent Coronary De Rx Cocr Ors Msn 4.0x15mm [id number] - [id number] Implanted:Qty: 1 on 01/27/2022 by Sd Garvey MD at [facility] [employer] 05/29/2023 [id number] / / [id number] Explanted Type Area Wind Turbine Erector Device Identifier Shelf Expiration Date Model / Serial / Lot [employer] Stent Ureteral Set Double Pigtail Radiopaque Tip Universa [id number] Polyurethane Hydrophilic Coated [id number] - [id number] Implanted:Qty: 1 on 07/29/2023 by Turner Black MD at [facility] Explanted:Qty: 1 on 08/30/2023 by Tata Yan, LESLIE Stent Right: Transplanted Ureter [employer] [id number] 05/11/2026 [id number] / / [id number] Procedures Procedure Name Priority Date/Time Associated Diagnosis Comments TACROLIMUS LEVEL, TROUGH Routine 10/26/2024 9:14 AM CDT RENAL FUNCTION PANEL Routine 10/26/2024 9:14 AM CDT CBC WITH AUTO DIFFERENTIAL Routine 10/26/2024 9:14 AM CDT HEPATITIS C RNA, QUANTITATIVE, PCR Routine 10/26/2024 9:14 AM CDT EGFR Routine 10/10/2024 8:03 AM CDT Kidney replaced by transplant DIFFERENTIAL AUTO Routine 10/10/2024 8:0 3 AM CDT Kidney replaced by transplant TACROLIMUS LEVEL, TROUGH Routine 10/10/2024 8:03 AM CDT Kidney replaced by transplant Encounter for long-term (current) use of medications RENAL FUNCTION PANEL Routine 10/10/2024 8:03 AM CDT Kidney replaced by transplant CBC WITH AUTO DIFFERENTIAL Routine 10/10/2024 8:03 AM CDT Kidney replaced by transplant HEPATITIS B DNA, QUANTITATIVE, PCR Routine 10/10/2024 8:03 AM CDT Kidney replaced by transplant HEPATITIS B CORE ANTIBODY, TOTAL Routine 10/10/2024 8:03 AM CDT Kidney replaced by transplant HEPATITIS B SURFACE ANTIGEN Routine 10/10/2024 8:03 AM CDT Kidney replaced by transplant HEPATITIS B SURFACE ANTIBODY (IMMUNE STATUS) Routine 10/10/2024 8:03 AM CDT Kidney replaced by transplant HEPATITIS C RNA, QUANTITATIVE, PCR Routine 10/10/2024 8:03 AM CDT Kidney replaced by transplant Exposure to hepatitis C CBC WITH AUTO DIFFERENTIAL Routine 09/26/2024 8:19 AM CDT RENAL FUNCTION PANEL Routine 09/26/2024 8:19 AM CDT TACROLIMUS LEVEL, TROUGH Routine 09/26/2024 8:19 AM CDT HEPATITIS C RNA, QUANTITATIVE, PCR Routine 09/26/2024 8:19 AM CDT HEPATITIS B CORE AB, TOTAL, SERUM Routine 09/15/2024 9:45 AM CDT HEPATITIS C RNA, QUANTITATIVE, PCR Routine 09/15/2024 9:45 AM CDT HEPATITIS B SURFACE ANTIGEN Routine 09/15/2024 9:45 AM CDT HEPATITIS B SURFACE ANTIBODY (IMMUNE STATUS) Routine 09/15/2024 9:45 AM CDT POCT URINALYSIS DIPSTICK Routine 09/04/2024 11:27 AM CDT Encounter for aftercare following kidney transplant PTH Routine 08/28/2024 4:06 PM CDT Stage 3a chronic kidney disease (HCC) ALBUMIN CREATININE RATIO, URINE Routine 08/28/2024 4:06 PM CDT Stage 3a chronic kidney disease (HCC) CALCIUM, IONIZED Routine 08/28/2024 10:1 4 AM CDT Stage 3a chronic kidney disease (HCC) PTH Routine 08/24/2024 2:23 PM CDT RENAL PANEL Routine 08/24/2024 1:09 PM CDT ALBUMIN / CREATININE URINE RATIO, RANDOM Routine 08/24/2024 1:05 PM CDT TACROLIMUS LEVEL, TROUGH Routine 08/24/2024 7:50 AM CDT CBC WITH AUTO DIFFERENTIAL Routine 08/24/2024 7:50 AM CDT RENAL FUNCTION PANEL Routine 08/24/2024 7:50 AM CDT ALBUMIN CREATININE RATIO, URINE Routine 08/24/2024 7:50 AM CDT HEPATITIS C ANTIBODY Routine 08/24/2024 7:50 AM CDT HEPATITIS B CORE AB, TOTAL, SERUM Routine 08/14/2024 10:49 AM CDT HEPATITIS B DNA, QUANTITATIVE, PCR Routine 08/14/2024 10:49 AM CDT HEPATITIS B SURFACE ANTIGEN Routine 08/14/2024 10:49 AM CDT HEPATITIS B SURFACE ANTIBODY (IMMUNE STATUS) Routine 08/14/2024 10:[address] CHEST ABDOMEN PELVIS WO CONTRAST ED Urgent/IP Urgent 07/14/2023 9:45 PM CDT PSA SCREEN Routine 09/28/2022 10:05 AM CDT Stage 5 chronic kidney disease on chronic dialysis (HCC) COLONOSCOPY 10/21/2018 10:12 AM CDT from Last 3 Months or Most Recently Relevant to Health Maintenance Results * Tacrolimus level trough (10/26/2024 9:14 AM CDT) SCRIBED Tacrolimus, trough 5.9 5 - 20 NG/ML TXP NO LAB FOUND Blood 10/26/2024 9:14 AM CDT Historical Provider LAB BLOOD ORDERABLES Edit ed Result - Final TXP NO LAB FOUND * (ABNORMAL) CBC with auto differential (10/26/2024 9:14 AM CDT) SCRIBED WBC 5.4 4.5 - 10 K/cumm TXP NO LAB FOUND SCRIBED Hemoglobin 13.3(A) 14 - 18 g/dL TXP NO LAB FOUND SCRIBED Hematocrit 40.9(A) 42 - 52 % TXP NO LAB FOUND SCRIBED Platelets 173 150 - 375 K/cumm TXP NO LAB FOUND SCRIBED RBC TXP NO L AB FOUND Comment:- SCRIBED Lymphocytes Abs 0.49(A) 0.9 - 3.2 K/cumm TXP NO LAB FOUND Blood 10/26/2024 9:14 AM CDT Historical Provider LAB BLOOD ORDERABLES Jeannette l Result Performing Organization Address City/[facility]/ZIP Co de Phone Number TX NO LAB FOUND * Hepatitis C (HCV) RNA PCR, quantitative Blood (10/26/2024 9:14 AM CDT) SCRIBED HCV RNA NT DET NT DET IUnit/mL TXP NO LAB FOUND Blood 10/26/2024 9:14 AM CDT Historical Provider LAB MICROBIOLOGY - GENERA L ORDERABLES Edited Result - Final Performing Organization Address [facility] de Phone Number TXP NO LAB FOUND * (ABNORMAL) Renal function panel (10/26/2024 9:14 AM CDT) SCRIBED Sodium 143 137 - 145 mmol/L TXP NO LAB FOUND SCRIBED Potassium 3.8 3.4 - 5 mmol/L TXP NO LAB FOUND SCRIBED Chloride 110(A) 98 - 107 mmol/L TXP NO LAB FOUND SCRIBED Carbon Dioxide 25 22 - 30 mmol/L TXP NO LAB FOUND SCRIBED Anion Gap 8 4 - 12 mmol/L TXP NO LAB FOUND SCRIBED Urea Nitrogen (BUN) 27(A) 9 - 20 mg/dL TXP NO LAB FOUND SCRIBED Creatinine 1.28 0.7 - 1.3 mg/dL TXP NO LAB FOUND SCRIBED Glucose 97 65 - 110 mg/dL TXP NO LAB FOUND SCRIBED Calcium 9.9 8.4 - 10.2 mg/dL TXP NO LAB FOUND SCRIBED Phosphorus 3.5 2.5 - 4.5 mg/dL TXP NO LAB FOUND SCRIBED Albumin 4.1 3.5 - 5.1 g/dL TXP NO LAB FOUND SCRIBED eGFR 56 >=60 mL/min/1.7 3 m2 TXP NO LAB FOUND Blood 10/26/2024 9:14 AM CDT Historical Provider LAB BLOOD ORDERABLES Edit ed Result - Final Performing Organization Address [facility] de Phone Number TXP NO LAB FOUND * eGFR (10/10/2024 8:03 AM CDT) eGFR 63 >=60 mL/min/1. 73 m2 Comment: Interpretive Data Reference Interval Normal >/= 90 mL/min/1.73m2 Mildly decreased* 60 - 89 mL/min/1.73m2 Mildly to moderately decreased 45 - 59 mL/min/1.73m2 Moderately to severely decreased 30 - 44 mL/min/1.73m2 Severely decreased 15 - 29 mL/min/1.73m2 Kidney Failure < 15 mL/min/1.73m2 *Relative to young adult level Estimated glomerular filtration rate is determined by the 2020 CKD-EPI equation recommended by the National Kidney Foundation (A Unifying Approach to GFR Estimation: Recommendations of the NKF-ASK Task Force on Reassessing the Inclusion of Race in Diagnosing Kidney Disease, JASN 2020). The CKD-EPI equation should not be used for patients with unstable renal function and has not been validated in children and those over 70. Current interpretive data was last reviewed 2020. Blood 10/10/2024 8:03 AM CDT 10/10/2024 11:24 AM CDT us gNuyễn Marsh MD LAB BLOOD ORDERABLES Final R esult [place] [address] [facility] Department of Laboratories [place], [place] [id number] * (ABNORMAL) Differential, auto (10/10/2024 8:03 AM CDT) Neutrophil abs 3.74 1.50 - 6.50 K/cumm Imm gran abs 0.03 0.00 - 0.10 K/cumm [facility] Lymphocyte abs 0.50(L) 0.80 - 3.30 K/cumm [facility] Monocyte abs 0.70 0.20 - 0.80 K/cumm [facility] Eosinophil abs 0.26 0.00 - 0.50 K/cumm [facility] Basophil abs 0.04 0.00 - 0.10 K/cumm [facility] Neutrophil pct 70.9 % [facility] Comment: Interpretive Data Percent cell count reference ranges are not reported, since discordance with absolute values may lead to misinterpretation of CBC data. Current Interpretive Data was last revised on 2017. Imm gran pct 0.6 % [facility] Comment: Interpretive Data Percent cell count reference ranges are not reported, since discordance with absolute values may lead to misinterpretation of CBC data. Current Interpretive Data was last revised on 2017. Lymphocyte pct 9.5 % [facility] Comment: Interpretive Data Percent cell count reference ranges are not reported, since discordance with absolute values may lead to misinterpretation of CBC data. Current Interpretive Data was last revised on 2017. Monocyte pct 13.3 % [facility] Comment: Interpretive Data Percent cell count reference ranges are not reported, since discordance with absolute values may lead to misinterpretation of CBC data. Current Interpretive Data was last revised on 2017. Eosinophil pct 4.9 % [facility] Comment: Interpretive Data Percent cell count reference ranges are not reported, since discordance with absolute values may lead to misinterpretation of CBC data. Current Interpretive Data was last revised on 2017. Basophil pct 0.8 % [facility] Comment: Interpretive Data Percent cell count reference ranges are not reported, since discordance with absolute values may lead to misinterpretation of CBC data. Current Interpretive Data was last revised on 2017. Blood 10/10/2024 8:03 AM CDT 10/10/2024 11:22 AM CDT us Nguyễn Marsh MD LAB BLOOD ORDERABLES Final R esult [place] [address] [facility] [place] [address] * Tacrolimus level trough (10/10/2024 8:03 AM CDT) Tacrolimus trough 6.9 ng/mL Comment: Interpretive Data Testing performed by liquid chromatography-tandem mass spectrometry. Therapeutic concentrations vary depending on type of transplanted organ and time elapsed since transplant. Typical trough concentrations range from 5-15 ng/mL. This test was developed and its performance characteristics determined by the [facility] consistent with CLIA requirements. This test has not been cleared or approved by the [place] Food and Drug administration. Current interpretive data last reviewed 2019. Testing performed by: [facility], [address] [place]., [address] Blood 10/10/2024 8:03 AM CDT 10/10/2024 2:04 PM CDT Nguyễn Marsh MD LAB BLOOD ORDERABLES Final R [facility] Performing Organization Address [facility] Co de Phone Number [place] [address] [place] [employer] [address] * CBC with auto differential (10/10/2024 8:03 AM CDT) [facility] WBC 5.27 3.80 - 9.90 K/cumm Hgb 13.6 13.0 - 17.5 g/dL [facility] Hct 41.8 38.9 - 50.3 % [facility] Plt 150 150 - 400 K/cumm [facility] MPV 10.9 9.1 - 12.3 fL [facility] RBC 4.54 4.30 - 5.80 M/cumm [facility] MCV 92.1 81.3 - 96.4 fL [facility] MCH 30.0 27.1 - 33.3 pg [facility] MCHC 32.5 32.3 - 35.7 g/dL [facility] RDW CV 12.9 11.1 - 14.9 % [facility] RDW SD 43.3 35.7 - 48.1 fL [facility] NRBC abs 0.00 0.00 - 0.01 K/cumm [facility] Blood 10/10/2024 8:03 AM CDT 10/10/2024 11:22 AM CDT Nguyễn Marsh MD LAB BLOOD ORDERABLES Final R esult Performing Organization Address City/[facility]/ZIP Co de Phone Number [place] [address] [place] [address] * Hepatitis B core antibody, total Blood (10/10/2024 8:03 AM CDT) [facility] Hep B core IgG/IgM Nonreactive Nonreactive Comment:Testing performed by : [facility], [address] [facility] [place]., [address] Blood 10/10/2024 8:03 AM CDT 10/10/2024 2:01 PM CDT Nguyễn Marsh MD LAB MICROBIOLOGY - GENERAL O RDERABLES Final Result Performing Organization Address [facility] Co de Phone Number FLORENTIN [address] [place] [address] * Hepatitis B (HBV) DNA PCR, quantitative Blood (10/10/2024 8:03 AM CDT) HBV DNA Result Not Detected [facility] Comment: The quantifiable range of this assay is 10 IU/mL to 1,000,000,000 IU/mL (1.00 log IU/mL to 9.00 log IU/mL). Testing was performed by the TK 6800 HBV Test version 2.0 ([employer] Testing performed at [facility] Current Interpretive Data was last revised on 2020. Testing performed by: [facility], [address] [place]., [address] Blood 10/10/2024 8:03 AM CDT 10/10/2024 9:05 PM CDT Nguyễn Marsh MD LAB MICROBIOLOGY - GENERAL O RDERABLES Final Result Performing Organization Address [facility] Co de Phone Number [address]ENJ[address] [address] [facility] * Hepatitis C (HCV) RNA PCR, quantitative Blood (10/10/2024 8:03 AM CDT) HCV RNA result Not Detected [facility] Comment: The quantifiable range of this assay is 15 IU/mL to 100,000,000 IU/mL (1.18 log IU/mL to 8.00 log IU/mL). Testing was performed by the TK 6800 HCV Test ([employer] Testing performed at [facility] Current Interpretive Data was last revised on 2020 Testing performed by: [facility], [address] [facility], [place]., [address] Blood 10/10/2024 8:03 AM CDT 10/10/2024 3:04 PM CDT us Nguyễn Marsh MD LAB MICROBIOLOGY - GENERAL O RDERABLES Final Result Performing Organization Address [facility]/ZIP Co de Phone Number [address] [place] [address] [facility] * Hepatitis B surface antibody (immune status) Blood (10/10/2024 8:03 AM CDT) HBsAb (immune status) Nonreactive Comment: Interpretive Data Nonreactive: This result is consistent with a lack of immunity to Hepatitis B Virus when used in the setting of routine screening. Equivocal: The immune status of the individual should be further assessed, if appropriate, after consideration of clinical status, risk factors, and additional diagnostic information. Reactive: This result is consistent with immunity to Hepatitis B Virus when used in the setting of routine screening. Current interpretive data was last revised on 19. Blood 10/10/2024 8:03 AM CDT 10/10/2024 11:24 AM CDT us Nguyễn Marsh MD LAB MICROBIOLOGY - GENERAL O RDERABLES Final Result Performing Organization Address [facility] Co de Phone Number [address] [place] [address] * Hepatitis B Surface Antigen Blood (10/10/2024 8:03 AM CDT) HepBsAg Nonreactive Nonreactive Blood 10/10/2024 8:03 AM CDT 10/10/2024 11:24 AM CDT Nguyễn Marsh MD LAB MICROBIOLOGY - GENERAL O RDERABLES Final Result Performing Organization Address City/[facility]/ZIP Co de Phone Number [address] [place] [address] * (ABNORMAL) Renal function panel (10/10/2024 8:03 AM CDT) Pathologist [facility] Sodium 145 135 - 145 mmol/L Potassium, pl 3.9 3.3 - 4.9 mmol/L [facility] Chloride 109 97 - 110 mmol/L [facility] CO2 26 22 - 32 mmol/L [facility] Anion gap 10 2 - 15 mmol/L [facility] BUN 23 6 - 25 mg/dL [facility] Creatinine 1.27 0.80 - 1.30 mg/dL [facility] Glucose 96 70 - 199 mg/dL [facility] Comment: Interpretive Data Fasting glucose >/= 126 mg/dl is diagnostic for diabetes. Fasting is defined as no caloric intake for at least 8 hours. Fasting glucose between 100 mg/dl to 125 mg/dl is diagnostic of prediabetes. In a patient with classic symptoms of hyperglycemia or hyperglycemic crisis, a random glucose >/= 200 mg/dl is diagnostic for diabetes. In the absence of unequivocal hyperglycemia, results should be confirmed by repeat testing. The classification and Diagnosis of Diabetes Diabetes Care 2021; 46: S19-S40. Current interpretive data was last revised 2022. Calcium 10.4(H) 8.5 - 10.3 mg/dL [facility] Phosphorus, pl 3.3 2.3 - 4.5 mg/dL [facility] Albumin 4.3 3.5 - 5.0 g/dL [facility] Blood 10/10/2024 8:03 AM CDT 10/10/2024 11:24 AM CDT Nguyễn Marsh MD LAB BLOOD ORDERABLES Final R esult [facility] [address] [facility] [place] [address] * Tacrolimus level trough (09/26/2024 8:19 AM CDT) Pathologist [facility] SCRIBED Tacrolimus, trough 5.7 5 - 20 NG/ML TXP NO LAB FOUND Blood 09/26/2024 8:19 AM CDT Historical Provider LAB BLOOD ORDERABLES Jeannette l Result Performing Organization Address [facility] de Phone Number TXP NO LAB FOUND * (ABNORMAL) CBC with auto differential (09/26/2024 8:19 AM CDT) SCRIBED WBC 5.2 4.5 - 10.0 K/cumm TXP NO LAB FOUND SCRIBED Hemoglobin 13.0(A) 14.0 - 18.0 g/dL TXP NO LAB FOUND SCRIBED Hematocrit 40.0(A) 42.0 - 52.0 % TXP NO LAB FOUND SCRIBED Platelets 151 150 - 375 K/cumm TXP NO LAB FOUND SCRIBED RBC TXP NO L AB FOUND Comment:- SCRIBED Lymphocytes Abs 0.4(A) 0.9 - 3.2 K/cumm TXP NO LAB FOUND Blood 09/26/2024 8:19 AM CDT Historical Provider LAB BLOOD ORDERABLES Edit ed Result - Final Performing Organization Address [facility] de Phone Number TXP NO LAB FOUND * Hepatitis C (HCV) RNA PCR, quantitative Blood (09/26/2024 8:19 AM CDT) SCRIBED HCV RNA NT DET NT DET IU/mL TXP NO LAB FOUND Blood 09/26/2024 8:19 AM CDT Historical Provider LAB MICROBIOLOGY - GENERA L ORDERABLES Final Result Performing Organization Address [facility] de Phone Number TXP NO LAB FOUND * (ABNORMAL) Renal function panel (09/26/2024 8:19 AM CDT) SCRIBED Calcium 10.1 8.4 - 10.2 mg/dl TXP NO LAB FOUND SCRIBED Phosphorus 3.6 2.5 - 4.5 mg/dl TXP NO LAB FOUND SCRIBED Albumin 4.1 3.5 - 5.1 g/dl TXP NO LAB FOUND SCRIBED Glucose 98 65 - 110 mg/dl TXP NO LAB FOUND SCRIBED Creatinine 1.29 0.7 - 1.3 mg/dl TXP NO LAB FOUND SCRIBED Sodium 142 137 - 145 mmol/L TXP NO LAB FOUND SCRIBED Potassium 4.2 3.4 - 5 mmol/L TXP NO LAB FOUND SCRIBED Chloride 110(A) 98 - 107 mmol/L TXP NO LAB FOUND SCRIBED Carbon Dioxide 27 22 - 30 mmol/L TXP NO LAB FOUND SCRIBED eGFR 56 >=60 mL/min TXP NO LAB FOUND SCRIBED Urea Nitrogen (BUN) 23(A) 9 - 20 mg/dl TXP NO LAB FOUND Blood 09/26/2024 8:19 AM CDT Historical Provider LAB BLOOD ORDERABLES Jeannette l Result Performing Organization Address [facility] Co de Phone Number TXP NO LAB FOUND * Hepatitis B Core Ab, Total, Serum (09/15/2024 9:45 AM CDT) Hep B core IgG/IgM NEG NEG TXP NO LAB FOUND 09/15/2024 9:45 AM CDT Historical Provider LAB BLOOD ORDERABLES Edit ed Result - Final Performing Organization Address [facility] Co de Phone Number TXP NO LAB FOUND * Hepatitis C (HCV) RNA PCR, quantitative Blood (09/15/2024 9:45 AM CDT) SCRIBED HCV RNA NT DET NT DET IUnit/mL TXP NO LAB FOUND Blood 09/15/2024 9:45 AM CDT Historical Provider LAB MICROBIOLOGY - GENERA L ORDERABLES Edited Result - Final Performing Organization Address [facility] Co de Phone Number TXP NO LAB FOUND * Hepatitis B surface antibody (immune status) Blood (09/15/2024 9:45 AM CDT) SCRIBED HBsAb Negative TXP NO LAB FOUND Blood 09/15/2024 9:45 AM CDT Historical Provider LAB MICROBIOLOGY - GENERA L ORDERABLES Final Result Performing Organization Address [facility] de Phone Number TXP NO LAB FOUND * Hepatitis B Surface Antigen Blood (09/15/2024 9:45 AM CDT) SCRIBED HBsAg Nonreactive Nonreactive , Invalid TXP NO LAB FOUND Blood 09/15/2024 9:45 AM CDT Historical Provider LAB MICROBIOLOGY - GENERA L ORDERABLES Edited Result - Final Performing Organization Address [facility] de Phone Number TXP NO LAB FOUND * (ABNORMAL) POCT urinalysis dipstick (09/04/2024 11:27 AM CDT) Glucose, ur, POC Negative Negative TXP NO LAB FOUND Bilirubin, ur, POC Negative Negative TXP NO LAB FOUND Ketones, ur, POC Negative Negative TXP NO LAB FOUND Specific [place], POC TXP NO LAB FOUND Comment:>=1.030 Blood, ur, POC Negative Negative TXP N O LAB FOUND pH, ur, POC 6.0 5.0 - 8.0 TXP NO L AB FOUND Protein, ur, POC 30.(A) Negative TXP NO LAB FOUND Urobilinogen, urine, POC 0.2 0.2 - 1.0 mg/dL TXP NO LAB FOUND Nitrite, ur, POC Negative Negative TXP NO LAB FOUND Leukocytes, ur, POC Negative Negative TXP NO LAB FOUND Lot Number [id number] TXP NO LA B FOUND Urine 09/04/2024 11:2 7 AM CDT Jing Larson ENGLISH AND READING INSTRUCTOR POINT OF CARE TEST ORDERAB LES Final Result Performing Organization Address [facility] Co de Phone Number TXP NO LAB FOUND * (ABNORMAL) PTH (08/28/2024 4:06 PM CDT) Blood Result [facility] Kieran Dumont MD LAB BLOOD ORDERABLES Final Re sult Performing Organization Address [facility] de Phone Number EXTERNAL LAB * (ABNORMAL) Albumin Creatinine Ratio, Urine (08/28/2024 4:06 PM CDT) Urine Result [facility] Kieran Dumont MD LAB URINE ORDERABLES Final Re sult Performing Organization Address [facility] de Phone Number EXTERNAL LAB * Calcium, ionized (08/28/2024 10:14 AM CDT) Blood Result [facility] Kieran Dumont MD LAB BLOOD ORDERABLES Final Re sult Performing Organization Address [facility] de Phone Number EXTERNAL LAB * PTH (08/24/2024 2:23 PM CDT) Blood Result [facility] Provider LAB BLOOD ORDERABLES Jeannette l Result Performing Organization Address [facility] de Phone Number EXTERNAL LAB * Renal Panel (08/24/2024 1:09 PM CDT) Result [facility] Historical Provider LAB BLOOD ORDERABLES Jeannette l Result Performing Organization Address [facility] de Phone Number EXTERNAL LAB * ALBUMIN / CREATININE URINE RATIO, RANDOM (08/24/2024 1:05 PM CDT) Result [facility] Historical Provider LAB BLOOD BANK TEST ORDER DOYLE Final Result Performing Organization Address [facility] de Phone Number EXTERNAL LAB * (ABNORMAL) Tacrolimus level trough (08/24/2024 7:50 AM CDT) SCRIBED Tacrolimus, trough 4.5(A) 5 - 20 NG/ML TXP NO LAB FOUND Blood 08/24/2024 7:50 AM CDT Result [facility] Historical Provider LAB BLOOD ORDERABLES Edit ed Result - Final Performing Organization Address [facility] de Phone Number TXP NO LAB FOUND * (ABNORMAL) CBC with auto differential (08/24/2024 7:50 AM CDT) SCRIBED WBC 5.0 4.5 - 10.0 K/cumm TXP NO LAB FOUND SCRIBED Hemoglobin 12.9(A) 14.0 - 18.0 g/dL TXP NO LAB FOUND SCRIBED Hematocrit 40.9(A) 42.0 - 52.0 % TXP NO LAB FOUND SCRIBED Platelets 166 150 - 375 K/cumm TXP NO LAB FOUND SCRIBED RBC TXP NO L AB FOUND Comment:- SCRIBED Lymphocytes Abs 0.5(A) 0.9 - 3.2 K/cumm TXP NO LAB FOUND Blood 08/24/2024 7:50 AM CDT Result [facility] Provider LAB BLOOD ORDERABLES Edit ed Result - Final Performing Organization Address [facility] de Phone Number TXP NO LAB FOUND * Hepatitis C antibody Blood (08/24/2024 7:50 AM CDT) SCRIBED HCV ab REACTIVE NON REACTIVE TX P NO LAB FOUND Blood 08/24/2024 7:50 AM CDT Historical Provider LAB MICROBIOLOGY - GENERA L ORDERABLES Edited Result - Final Performing Organization Address [facility] de Phone Number TXP NO LAB FOUND * (ABNORMAL) Albumin Creatinine Ratio, Urine (08/24/2024 7:50 AM CDT) SCRIBED Creatinine, Urine 647.1 mg/dL TXP NO LAB FOUND SCRIBED Microalbumin 185.9(A) 0 - 16.7 mg/L TXP NO LAB FOUND SCRIBED Microalb/Creat Ratio 28.7 0 - 30 mg/g TXP NO LAB FOUND Urine 08/24/2024 7:50 AM CDT Historical Provider LAB URINE ORDERABLES Edit ed Result - Final TXP NO LAB FOUND * (ABNORMAL) Renal function panel (08/24/2024 7:50 AM CDT) SCRIBED Calcium 10.3(A) 8.4 - 10.2 mg/dl TXP NO LAB FOUND SCRIBED Phosphorus 3.2 2.5 - 4.5 mg/dl TXP NO LAB FOUND SCRIBED Albumin 4.1 3.5 - 5.1 g/dl TXP NO LAB FOUND SCRIBED Glucose 93 65 - 110 mg/dl TXP NO LAB FOUND SCRIBED Creatinine 1.27 0.7 - 1.3 mg/dl TXP NO LAB FOUND SCRIBED Sodium 142 137 - 145 mmol/L TXP NO LAB FOUND SCRIBED Potassium 3.9 3.4 - 5 mmol/L TXP NO LAB FOUND SCRIBED Chloride 110(A) 98 - 107 mmol/L TXP NO LAB FOUND SCRIBED Carbon Dioxide 26 22 - 30 mmol/L TXP NO LAB FOUND SCRIBED eGFR 57 >=60 mL/min TXP NO LAB FOUND SCRIBED Urea Nitrogen (BUN) 19 9 - 20 mg/dl TXP NO LAB FOUND Blood 08/24/2024 7:50 AM CDT us Historical Provider LAB BLOOD ORDERABLES Edit ed Result - Final TXP NO LAB FOUND * Hepatitis B Core Ab, Total, Serum (08/14/2024 10:49 AM CDT) Hep B core IgG/IgM NON-REACTI VE NON-REACTI VE TXP NO LAB FOUND 08/14/2024 10:4 9 AM CDT Historical Provider LAB BLOOD ORDERABLES Edit ed Result - Final Performing Organization Address [facility] Phone Number TXP NO LAB FOUND * Hepatitis B (HBV) DNA PCR, quantitative Blood (08/14/2024 10:49 AM CDT) SCRIBED HepB DNA, Quant NT DET NT DET IUnit/mL TXP NO LAB FOUND Blood 08/14/2024 10:4 9 AM CDT Historical Provider LAB MICROBIOLOGY - GENERA L ORDERABLES Final Result Performing Organization Address [facility] Phone Number TXP NO LAB FOUND * Hepatitis B surface antibody (immune status) Blood (08/14/2024 10:49 AM CDT) SCRIBED HBsAb Negative TXP NO LAB FOUND Blood 08/14/2024 10:4 9 AM CDT Historical Provider LAB MICROBIOLOGY - GENERA L ORDERABLES Final Result Performing Organization Address [facility] Phone Number TXP NO LAB FOUND * Hepatitis B Surface Antigen Blood (08/14/2024 10:49 AM CDT) SCRIBED HBsAg Nonreactive Nonreactive , Invalid TXP NO LAB FOUND Blood 08/14/2024 10:4 9 AM CDT Historical Provider LAB MICROBIOLOGY - GENERA L ORDERABLES Final Result Performing Organization Address [facility] Phone Number TXP NO LAB FOUND * CT Chest Abdomen Pelvis WO Contrast [...] spleen and adrenal glands are unremarkable. Atrophic [place] kidneys. Urinary bladder is minimally distended. Peritoneal [...] spleen and adrenal glands are unremarkable. Atrophic [place] kidneys. Urinary bladder is minimally distended. Peritoneal [...] AM CDT) PSA-Total 0.69 <=5.40 ng/mL [facility] Comment: Interpretive Data AGE SEX [...] AM CDT 09/28/2022 10:38 AM CDT us Tarek Alhamad MD LAB BLOOD ORDERABLES Final Resu lt [facility] Department [place] [address] * COLONOSCOPY (10/21/2018 10:12 AM CDT) Anatomical Region Laterality Modality Other Narrative Procedure Note Cash Melton MD - 10/21/2018 10:12 AM CDT ENDOSCOPY LAB Patient Name: Maximo Hayes Procedure Date: 10/21/2018 10:12 AM Admit Type: Outpatient Room: [facility] Date of : 1960 Instrument Name: [id number] [...] the bowel preparation wasevaluated using the BBPS ([place] Bowel Preparation Scale) with scores of: Right [...] Impression: - Normal surgical changes - Patent qbt-lv-winssnm-colonic anastomosis, characterized by healthy appearingmucosa. - Diverticulosis [...] Recently Relevant to Health Maintenance Insurance [facility]IC[id number] [id number] MEDICARE [facility] [id number] [facility]ARE [facility] [id number] Advance Directives For more information, please contact: [phone] * Full Code (Latest Code Status on [...] 5:34 PM 01/27/2022 6:03 PM Care Teams Accounts Clerk Relationship Specialty Start Date End Date Traci Kaye DO PCP - General 03/09/17 Zak Osborne MD Referring Physician Nephrology 03/04/18 Kieran Dumont MD Consulting Physician Nephrology 08/24/22 Bethel Aguayo MD [address] [facility] [address] [facility] [address] [place] [address] Surgeon Surgery 08/28/22 Jose Layton MD [address] [place] [address] Referring Physician Gastroenterology 05/11/23 Lisbet Wilcox, RN [address] [facility] [address] [place] [address] Special Class Welder 07/29/23
--- OUTSIDE RECORDS SUMMARY | 2024-11-01 08:22 | XMS_ITS | Clinical Summary ---
Author Organization [facility] [employer] Address [address] [place] [address] Care Team Providers Care Associate Software Engineer Name Role Phone Unavailable Primary Care Provider Unavailabl e Source Comments [facility] [employer],non-owned Affiliates and Associated Physician Practices is amultiple site organization consisting of ambulatory clinics and hospital sitesin [place], [place], [place] and [place]. This disclosure is being madepursuant to the Care Everywhere program and may not contain all information available regarding this patient. Last updated 17.[facility] [employer] Social History Tobacco Use Types Packs/Day Years [...] TESTING 1960 MEDICARE AWV 12 MONTHS 1960 DTAP/TDAP/TD VACCINES (1 - Tdap) 1977 PNEUMOCOCCAL VACCINE 50+ (1 of 2 - PCV) 1977 HEPATITIS B VACCINE (1 of 3 - Risk Dialysis 4-dose series) 1978 ZOSTER VACCINE (1 of 2) 2008 DEPRESSION SCREENING 02/09/2024 COVID-19 VACCINE (3 - 2024- season) 2024 04/25/2020, 04/04/2020 INFLUENZA VACCINE (#1) 2024 , 11/03/2019, 10/10/2019, [...] patient's age to complete this topic Insurance [facility] Address: [facility] [address] [place] [address] MEDICARE
--- OUTSIDE RECORDS SUMMARY | 2024-11-01 08:22 | XMS_ITS ---
Author Organization [facility] Address [address] [place] [address] Care Team Providers Care Care Process Manager Name Role Phone VargasTraci logan Primary Care Provider [phone] Zak Osborne MD Unavailable [phone] Kieran Dumont MD Unavailable [phone] Bethel Aguayo MD Unavailable [phone] Jose Layton MD Unavailable [phone] Lisbet Wilcox RN Unavailable [phone] Transplant Episode Kidney Recipient [facility] ([place], [place]) [facility] Organ Received: Right Kidney Transplanted on 07/29/2023 Marked as Active Follow-up on 07/29/2023 Reason: Transplanted at [facility] Kidney CoordinatorLisbet Wilcox RN Fax: N/A [...] Fax Email Lisbet Wilcox, KEYSHA Kidney Coordinator [phone] N/A N/A Bren Del Valle Secondary Toy Electric Train Repairer N/A N/A N/A Heather Bey RN Secondary Coordinator N/A N/A N/A Zak Osborne MD Referring Physician [phone] N/A Lisbet Wilcox RN Faith Doctor [phone] N/A N/A Sarah Davis Primary Toy Electric Train Repairer N/A N/A N/A Nguyễn Marsh MD Transplant Pattern Generator Operator [phone] N/A Anne-Marie Newell Transportation Escort [phone] N/A N/A Events Post-Transplant Pre-Transplant Admitted: 07/29/2023 Referred: 03/04/2018 Transplanted: 07/29/2023 Evaluation began: 9 Discharged: 08/01/2023 Committee: 11/14/2018 Center waitlisted: 9 Dialysis History Dialysis History Start End Type Comments Center 11/16/2018 07/29/2023 Peritoneal [facility] Dialysis [facility] Information Center Phone Fax Address [facility] [phone] [place] [phone]
--- OUTSIDE RECORDS SUMMARY | 2024-11-01 08:22 | XMS_ITS | Clinical Summary ---
Author Organization [facility] Address [address] [facility] [place] [place] [address] Phone Care Team Providers Care Financial Specialist Name Role Phone Unavailable Primary Care Provider Unavailabl e Allergies No known active allergies Medications triamcinolone acetonide (KENALOG) 0.1 % Cream Apply a thin layer to arms and legs twice daily 453.6 Gram 11 06/27/2021 1:02 PM CDT 2 Active mupirocin (BACTROBAN) 2 % Ointment Apply small amount topically to both arms 3 times daily. 30 Gram 01/21/2022 6:54 PM MID LEVEL PROJECT MANAGER 2 Active aspirin (ECOTRIN EC) 81 [...] is needed. 90 Tablet 01/18/2023 2:57 PM MID LEVEL PROJECT MANAGER 2 Active clopidogreL (PLAVIX) 75 mg [...] AREA(S) DAILY 45 Gram 12/14/2022 1:17 PM MID LEVEL PROJECT MANAGER 3 Active aspirin (ECOTRIN EC) 81 mg Tablet, Delayed Release (E.C.) Take 1 tablet (81 mg total) by mouth daily 30 Tablet 11 06/13/2023 1:53 PM CDT 3 Active isosorbide mononitrate (IMDUR) 30 mg Extended Release 24 hour tablet Take 1 tablet (30 mg total) by mouth daily 90 Tablet 12/14/2022 1:17 PM MID LEVEL PROJECT MANAGER 3 Active ketoconazole (NIZORAL) 2 % Cream Apply topically 2 (two) times a day on right thigh for 8 weeks. 30 Gram 2 01/08/2023 12:40 PM MID LEVEL PROJECT MANAGER 3 Active pantoprazole (PROTONIX) 40 mg [...] mouth daily, hold with limited intake per public relations manager 90 Tablet 3 05/30/2023 10:34 AM CDT 4 Active nystatin (MYCOSTATIN) 100,000 unit/mL suspension Take 5 milliliter by mouth 4 times every day for 7 days 150 mL 06/04/2023 3:54 PM CDT 4 Active ondansetron (ZOFRAN ODT) 4 mg Tablet, Rapid Dissolve Dissolve 1 Tablet (4 mg) by mouth every 8 hours as needed for nausea. 30 Tablet 3 10/06/2024 8:34 AM CDT 5 Active Immunizations Immunization Administration [...]
--- OUTSIDE RECORDS SUMMARY | 2024-11-01 08:22 | XMS_ITS | Clinical Summary ---
Author Organization [facility] Address [address] [place] [address] Care Team Providers Care Wool Merchant Name Role Phone Traci Kaye Primary Care Provider [phone] Allergies Active Allergy Reactions Criticality Noted Date [...] on file Legal Sex Male 3:28 PM SWITCH TENDER Gender Identity Not on file Sexual Orientation Not on file Last Filed Vital Signs Vital Sign Reading Time Taken Comments Blood Pressure 115/67 03/08/2023 8:30 AM SWITCH TENDER Pulse 80 03/08/2023 8:30 AM SWITCH TENDER Temperature 36.8 C (98.2 F) 03/08/2023 7:56 AM SWITCH TENDER Respiratory Rate 18 03/08/2023 8:30 AM SWITCH TENDER Oxygen Saturation 96% 03/08/2023 8:30 AM SWITCH TENDER Inhaled Oxygen Concentration - - Weight 56.2 kg (124 lb) 03/05/2023 11:05 AM SWITCH TENDER Height 167.6 cm (5' 6) 03/05/2023 11:05 AM SWITCH TENDER Body Mass Index 20.01 03/05/2023 11:05 AM SWITCH TENDER Plan of Treatment Health Maintenance Due Date Last Done Comments Colorectal Cancer Screening Colonoscopy (10 Years) 1960 DTaP, Tdap and Td Vaccines ( 1 - Tdap) 1977 Zoster Vaccines (1 of 2) 2008 Annual Medicare Wellness Visit 10/13/2023 Pneumococcal Vaccine: 50+ Years (3 of 3 - PCV20 or PCV21) 07/09/2024 07/10/2019, 07/06/2018 COVID-19 Vaccine (4 - 2024-2 6 season) 2024 10/18/2021, 04/25/2020, 04/04/2020 RSV Immunization or 60+ Years (1 - [...] patient's age to complete this topic Insurance [employer] [facility] MEDICARE Care Teams Wool Merchant Relationship Specialty Start Date End Date Traci Kaye DO [address] [place] [address] PCP - General INTERNAL MEDICINE 02/15/19
--- OUTSIDE RECORDS SUMMARY | 2024-11-01 08:22 | XMS_ITS ---
Author Organization [facility] ([facility]) Address [address] [place] [id number] Care Team Providers Care Dredge Lever Operator Name Role Phone Unavailable Unavailable Unavailable Allergies, Adverse Reactions, Alerts This patient has no known allergies or adverse reactions. Problems This patient has no known problems.
[2024-11-01 08:57] LABS: Cholesterol 129 mg/dL (0-200); HDL Direct 32 mg/dL; Triglycerides 244 mg/dL (<150)
[2024-11-01 10:01] LABS: Hemoglobin A1C 5.5 % (<5.7)
== END 2024-11-01 08:10 | disposition home or self-care (01) ==
PROVIDERS: PCP Internal Medicine; Visit Provider Internal Medicine
DX: E78.2 Mixed hyperlipidemia (principal)
CPT/HCPCS: 36415; 80061; 83036

== ENCOUNTER 2024-11-24 07:49 | Outpatient (RCR) | payer MEDICARE, OTHER, SELFPAY ==
[2024-11-24 09:03] LABS: Hematocrit 41.2 % (42.0-52.0); Hemoglobin 13.3 g/dL (14.0-18.0); Immature Granulocyte Percent A 0.4 % (0-0.5); Lymphocytes Absolute Auto 0.48 K/mm3 (0.9-3.2); Mean Corpuscular HGB Conc 32.3 g/dl (32-36); Mean Corpuscular Hemoglobin 29.4 pg (26-34); Mean Corpuscular Volume 91.2 fl (80-100); Nucleated Red Blood Cells Absolute Auto 0.000 K/mm3 (0.0-0.012); Nucleated Red Blood Cells Perc 0.0 % (0.0-0.2); Platelet Count Result 145 k/mm3 (150-375); Red Blood Count 4.52 M/mm3 (4.6-6.20); White Blood Count 5.2 K/mm3 (4.5-10.0)
[2024-11-24 09:30] LABS: Alanine Aminotransferase 14 U/L (6-50); Albumin Level 4.1 g/dL (3.5-5.1); Alkaline Phosphatase 111 U/L (38-126); Anion Gap 8 mmol/L (4-12); Aspartate Amino Transferase 20 U/L (17-59); Bilirubin,Total 0.7 mg/dL (0.2-1.3); Blood Urea Nitrogen 21 mg/dL (9-20); Calcium 10.1 mg/dL (8.4-10.2); Carbon Dioxide 26 mmol/L (22-30); Chloride 108 mmol/L (98-107); Cholesterol 133 mg/dL (0-200); Estimated Glomerular Filt Rate 56; Glucose 95 mg/dL (65-110); HDL Direct 39 mg/dL; Potassium 3.9 mmol/L (3.4-5.0); Sodium 142 mmol/L (137-145); Total Protein 6.8 g/dL (6.3-8.2); Triglycerides 134 mg/dL (<150)
[2024-11-25 14:08] LABS: BKV DNA, Quant PCR, Plasma 419 IU/mL (Negative); log10 BKV DNA,Plasma 2.622 (.)
[2024-11-28 07:09] LABS: Tacrolimus (FK506), Blood 5.3 ng/mL (5.0-20.0)
[2024-11-28 13:09] LABS: HCV RT-PCR, Qnt (NG) YES YES
== END 2025-01-25 08:10 | disposition home or self-care (01) ==
LOC: ANHLAB 07:49
PROVIDERS: PCP Internal Medicine; Visit Provider Internal Medicine
DX: E78.5 Hyperlipidemia, unspecified (principal); Z94.0 Kidney transplant status; Z79.899 Other long term (current) drug therapy
CPT/HCPCS: 36415; 80061; 80069; 80076; 80197; 85025; 86803; 87799

== ENCOUNTER 2024-12-26 08:05 | Outpatient (RCR) | payer MEDICARE, OTHER, SELFPAY ==
[2024-12-26 09:01] LABS: Hematocrit 42.1 % (42.0-52.0); Hemoglobin 14.0 g/dL (14.0-18.0); Immature Granulocyte Percent A 0.2 % (0-0.5); Lymphocytes Absolute Auto 0.52 K/mm3 (0.9-3.2); Mean Corpuscular HGB Conc 33.3 g/dl (32-36); Mean Corpuscular Hemoglobin 30.3 pg (26-34); Mean Corpuscular Volume 91.1 fl (80-100); Nucleated Red Blood Cells Absolute Auto 0.000 K/mm3 (0.0-0.012); Nucleated Red Blood Cells Perc 0.0 % (0.0-0.2); Platelet Count Result 159 k/mm3 (150-375); Red Blood Count 4.62 M/mm3 (4.6-6.20); White Blood Count 5.8 K/mm3 (4.5-10.0)
[2024-12-26 09:22] LABS: Alanine Aminotransferase 15 U/L (6-50); Albumin Level 4.2 g/dL (3.5-5.1); Alkaline Phosphatase 112 U/L (38-126); Anion Gap 7 mmol/L (4-12); Aspartate Amino Transferase 20 U/L (17-59); Bilirubin,Total 0.7 mg/dL (0.2-1.3); Blood Urea Nitrogen 23 mg/dL (9-20); Calcium 10.2 mg/dL (8.4-10.2); Carbon Dioxide 25 mmol/L (22-30); Chloride 109 mmol/L (98-107); Cholesterol 131 mg/dL (0-200); Estimated Glomerular Filt Rate 57; Glucose 106 mg/dL (65-110); HDL Direct 36 mg/dL; Potassium 3.9 mmol/L (3.4-5.0); Sodium 141 mmol/L (137-145); Total Protein 6.8 g/dL (6.3-8.2); Triglycerides 146 mg/dL (<150)
[2024-12-26 09:54] LABS: Parathyroid Intact 160.2 pg/mL (14.5-75.2)
[2024-12-29 07:09] LABS: BKV DNA, Quant PCR, Plasma 193 IU/mL (Negative); log10 BKV DNA,Plasma 2.286 (.)
[2024-12-29 16:08] LABS: Tacrolimus (FK506), Blood 4.3 ng/mL (5.0-20.0)
== END 2025-01-25 08:10 | disposition home or self-care (01) ==
LOC: ANHLAB 08:05
PROVIDERS: PCP Internal Medicine; Visit Provider Internal Medicine
DX: E78.5 Hyperlipidemia, unspecified (principal); N25.81 Secondary hyperparathyroidism of renal origin; M89.9 Disorder of bone, unspecified; Z79.899 Other long term (current) drug therapy; Z94.0 Kidney transplant status; Z20.5 Contact with and (suspected) exposure to viral hepatitis
CPT/HCPCS: 36415; 80061; 80069; 80076; 80197; 82306; 83970; 85025; 86803; 87522; 87799